=== PATIENT | male | born 1950 | race Caucasian/White ===

== ENCOUNTER 2022-12-03 14:14 | Emergency (ER) | payer BC, SELFPAY ==
[2022-12-03 14:25] VITALS: BP 111/55; BP 97/49; PULSE 80; PULSE 82; RESP 18; TEMP 37.2; O2SAT 100; BMI 23.6
--- OUTSIDE RECORDS SUMMARY | 2022-12-03 14:56 | XMS_ITS | Continuity of Care Document ---
:1950 Author Organization [facility] Address [address] [place] [address]- Care Team Providers Name Role Phone Marlin HARPER, Rivera Canseco Primary Care Physician Encounter [facility] Date(s): 02/13/20 - 03/20/20 [facility] [address] [place] [address] [facility] Attending Physician: Blair Gibbs MD Admitting Physician: Blair Gibbs MD Referring Physician: Rivera Isaac MD Allergies, Adverse Reactions, Alerts Substance Reaction Severity Status penicillins1 joint swelling Active 1Tolerates cefazolin Immunizations Not Given Vaccine Date Status Refusal Reason pneumococcal 13-valent vaccine 09/12/19 Not Given P atient Refuses pneumococcal 23-valent vaccine 05/04/17 Not Given P atient Refuses influenza virus vaccine, inactivated 09/27/15 Not Given Patient Refuses Medications cyanocobalamin 100 mcg oral tablet 100 mcg, 1, tablet, By Mouth, Daily, # 30 tablet, Refills 0, Tot. Refills 0, Maintenance, 09/25/19 8:02:00 EST, Route to Pharmacy Electronically, [facility], 178, cm, 09/25/19 5:34:00 EST, Height, 70.8, kg, 09/11/19 1:02:00 EST, Dry Weight Start Date: 09/25/19 Status: Ordereddoxycycline hyclate 100 mg oral capsule 1 capsule = 100 mg, By Mouth, Every 12 hours, for 14 days, may take with food to minimize abdominal discomfort, # 28 capsule, 1 Refills, Acute 04/12/20 15:59:00 EDT, 03/15/20 15:59:00 EDT, Capsule, [facility], 178, cm, 03/15/20 15:41:00... Start Date: 03/15/20 Stop Date: 04/12/20 Status: Orderedlidocaine 5% topical film See Instructions, Topically Daily, # 30 patch, 0 Refills, Maintenance, 09/25/19 8:02:00 EST, Patch, [facility], ok to substitute similar lidocaine topical product, if needed for better insurance coverage, Topically Daily, 178, cm, ... Start Date: 09/25/19 Status: Orderedpantoprazole 40 mg oral delayed release tablet = 40 mg, By Mouth, Daily, # 30 tablet, 0 Refills, Maintenance, 09/25/19 8:03:00 EST, EC Tablet, 178,cm, 09/25/19 5:34:00 EST, Height, 70.8, kg, 09/11/19 1:02:00 EST, Dry Weight Start Date: 09/25/19 Stop Date: 10/25/19 Status: Orderedprochlorperazine 5 mg oral tablet 1 tablet = 5 mg, By Mouth, 3 times a day, PRN Nausea & Vomiting, # 30 tablet, 0 Refills, Maintenance, 09/30/19 11:53:00 EST, Tablet, [facility], 178, cm, 09/25/19 5:34:00 EST, Height, 70.8, kg, 09/11/19 1:02:00 EST, Dry Weight Start Date: 09/30/19 Status: OrderedSilvadene 1% cream 1 application, Topically, Daily, # 400 Gm, 5 Refills, Maintenance, 06/20/18 16:21:05 EDT, Cream, 1 application Topically Daily Start Date: 06/20/18 Status: Orderedsilver sulfADIAZINE 1% topical cream 1 application, Topically, Daily, for 30 days, apply to left arm wound, # 400 Gm, 2 Refills, Acute 04/14/20 15:40:00 EDT, 01/15/20 15:40:00 EDT, Cream, [facility], 1 application Topically Daily,x30 days,Instr:apply to left arm wound, 178,... 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
--- OUTSIDE RECORDS SUMMARY | 2022-12-03 14:56 | XMS_ITS | Continuity of Care Document ---
:1950 Author Organization [facility] Care Team Providers Name Role Phone [facility] Unavailable Unavailable Problems Combined list of problems from Department of Defense and Veterans Affairs facilities. It does not include entries that were removed or entered in error. Problem Status Onset Problem Type Date of Comments Source Date Resolution Chronic low back Active Condition [facility] [place] [facility] Chronic pain Active Condition [facility] [place] [facility] Primary Care Active Condition Dec 09 [facility] Physician 2018 [place] Entered By: [facility] KENDALL MCCAULEY Comment: Dr. Rivera fritz [place] Diagnosis: Active Diagnosis [place] [facility] ICD-10-CM Z59.811 [place] [facility] instability, housed, with risk of homelessnesswith Provider Comments: Housing instability, housed, with risk of homelessness Diagnosis: Active Diagnosis [place] [facility] ICD-10-CM Z02.89 JOSE FUENTES Encounter for other [facility] administrative examinationswith Provider Comments: Odlb-oo-Ryau Examination (C&P/SHA) Medications Combined list of outpatient medications from Department of Defense and Veterans Affairs facilities. Medications provided include 1) outpatient medications from the last 15 months, and 2) patient-reported medications. Medication Details Route Status Patient Prescription Prescription Last Ordering Order Source Instructions Expires Number Dispense Provider Date Date CARISOPRODO TAKE TWO ORAL ACTIVE VIRIDIANA MCCAULEY 11/07/ [facility] L 350MG TAB TABLETS SA DAVIDE2017 CN[facility] L BY MOUTH WSTRN THREE [place] TIMES A SETS DAY HCS OXYCODONE TAKE ONE ORAL ACTIVE VIRIDIANA MCCAULEY 11/07/ V A HCL 40MG TABLET SA DAVIDE 2017 CNTRL TAB,SA BY MOUTH WSTRN FOUR [place] TIMES SETS DAILY HCS NEEDED OXYCODONE TAKE ONE ORAL ACTIVE GARRICK,LI 11/07/ V A HCL TABLET SA DAVIDE2017 CNTRL 5MG/ACETAMI BY MOUTH WSTRN NOPHEN FOUR [place] 325MG TAB TIMES SETS DAILY HCS NEEDED TEMAZEPAM TAKE 1 ORAL ACTIVE GARRICKVIRIDIANA [place] 15MG CAP CAPSULE SA DAVIDE 2017 [facility] BY MOUTH [place] BEDTIME [place] [facility] Allergies, Adverse Reactions, Alerts Combined list of allergies from Department of Defense and Veterans Affairs facilities. It does not include entries that were removed or entered in error. Substance Category Reaction Severity Reaction Status Date Comments S ource type Reported PENICILLIN Propensity active [facility] to adverse 4 [place] reactions [place] to drug [facility] (finding) Immunizations Combined list of available immunizations from the Department of Defense and Veterans Affairs facilities. Immunization Series Date Administered Site Reaction Lot [facility] atus Comments Source Given By Number Code Allergist/Pediatric Pulmonologist INFLUENZA, complet Dr. CARBAJAL SEASONAL, 2016 ed Rivear PARDO TRL INJECTABLE Mugg WST RN [place] [facility] Encounters Combined list of: 1) Encounters from Department of Veterans Affairs facilities going back up to the last 18 months. 2) Encounters from the Department of Defense facilities going back up to 280 months. Location Location Encounter Encounter Reason Attending ADM DC Stat us Disposition Source Details Type Number For Provider Date Date Visit Outpatient [id number] Diagnos REMBERTO CAN 11/16 [place] Encounter [id number] is: DEMARCUS CNTR L ICD-10- [place]N CM [place] Z02.89 [facility] er for other adminis trative examina tions<b r/>with Provide r Comment s: Face-to -Face Examina tion (C&P/SH A) Outpatient [id number] 05/01 [facility] En[facility] [id number] [facility] [place] [facility] Outpatient [id number] Diagnos MEAGANABIGAIL CURRY 10/30 [facility] Encounter [id number] is: CNTRL ICD-10- WSTRN CM [place] Z59.811 SET[place] Housing [facility] instabi lity, housed, with risk of homeles sness<b r/>with Provide r Comment s: Housing instabi lity, housed, with risk of homeles sness Social History Combined list of available smoking, tobacco, and other social [facility]. Social History Type Response Date Comment Source Tobacco smoking status LIFETIME NON-TOBACCO USER 11/07/2017 [facility] History of tobacco use LIFETIME NON-TOBACCO USER 09/13/2014 [facility]
--- OUTSIDE RECORDS SUMMARY | 2022-12-03 14:56 | XMS_ITS | Continuity of Care Document ---
:1950 Author Organization [facility] Address [address] [place] [address]- Care Team Providers Name Role Phone Marlin HARPER, Rivera Canseco Primary Care Physician Encounter [facility] Date(s): 04/29/20 - 05/03/[address] [address] [facility] Encounter Diagnosis Vomiting (Final) - 04/29/20 Urinary retention (Final) - 04/29/20 Hypokalemia (Final) - 04/29/20 Bradycardia (Final) - 04/29/20 Discharge Disposition: A-D/C Home Attending Physician: Vernell Johnson MD Admitting Physician: Khoa Sandoval MD Referring Physician: Not on Staff, Referring MD Allergies, Adverse Reactions, Alerts Substance Reaction Severity Status penicillins1 joint swelling Active 1Tolerates cefazolin Immunizations Not Given Vaccine Date Status Refusal Reason pneumococcal 13-valent vaccine 09/12/19 Not Given P atient Refuses pneumococcal 23-valent vaccine 05/04/17 Not Given P atient Refuses influenza virus vaccine, inactivated 09/27/15 Not Given Patient Refuses Medications acetaminophen-oxyCODONE 325 mg-5 mg oral tablet 1, tablet, By Mouth, 4 times a day Start Date: 04/29/20 Status: OrderedBuPROPion (Eqv-Wellbutrin SR) 150 mg/12 hours oral tablet, extended release 1 tablet = 150 mg, By Mouth, 2 times a day Start Date: 04/29/20 Status: Orderedcarisoprodol 350 mg oral tablet 2 tablets, By Mouth, 3 times a day, PRN as needed Start Date: 04/29/20 Status: Orderedcyanocobalamin 100 mcg oral tablet 100 mcg, 1, tablet, By Mouth, Daily, # 30 tablet, Refills 0, Tot. Refills 0, Maintenance, 05/03/20 11:03:00 EDT, Route to Pharmacy Electronically, [facility], 178, cm, 03/29/20 15:54:00 EDT, Height, 79.5, kg, 10/16/19 16:22:00 EST, Dry W... Start Date: 05/03/20 Stop Date: 06/02/20 Status: Orderedmorphine 30 mg/8 to 12 hr oral tablet, extended release 2 tablet = 60 mg, By Mouth, 3 times a day Start Date: 04/29/20 Status: Orderedondansetron 4 mg oral tablet, disintegrating 1 tablet = 4 mg, By Mouth, Every 6 hours, PRN Nausea & Vomiting, # 12 tablet, 0 Refills, Maintenance, 05/03/20 11:04:00 EDT, Tablet, [facility], 178, cm, 03/29/20 15:54:00 EDT, Height, 79.5, kg, 10/16/19 16:22:00 EST, Dry Weight Start Date: 05/03/20 Stop Date: 05/06/20 Status: OrderedSilvadene 1% cream 1 application, Topically, Daily, # 400 Gm, 5 Refills, Maintenance, 06/20/18 16:21:05 EDT, Cream, 1 application Topically Daily Start Date: 06/20/18 Status: Ordered Problem List Condition Effective Dates Status Health Status Informant MSSA bacteremia(Confirmed) Active Chronic back pain(Confirmed) Active Wound: forearm(Confirmed) Active right brachial artery Active pseudoaneurysm(Confirmed) Septic arthritis: Right Active Shoulder(Confirmed) Results Orders for Microbiology Reports Name Date Blood Culture 04/28/20 Blood Culture #2 04/28/20 Microbiology Reports TEST:Blood Culture, Second Order STATUS:Auth (Verified) BODY SITE: SOURCE:Blood COLLECTED DATE/TIME:04/28/20 7:25 PMBlood Culture, Second Order SPECIMEN DESCRIPTION : BLOOD L AC SPECIAL REQUESTS : NONE CULTURE : NO GROWTH 5 DAYS. REPORT STATUS : FINAL 05/03/2020TEST:Blood Culture STATUS:Auth (Verified) BODY SITE: SOURCE:Blood COLLECTED DATE/TIME:04/28/20 7:00 PMBlood Culture SPECIMEN DESCRIPTION : BLOOD L AC SPECIAL REQUESTS : NONE CULTURE : NO GROWTH 5 DAYS. REPORT STATUS : FINAL 05/03/2020 Vital Signs Most recent to oldest 1 2 3 [Reference Range]: Oxygen Saturation [94-100 %] 100 % 98 % 98 % (05/03/20 11:10 AM) (05/03/20 7:42 AM) (05/03/20 4: 48 AM) Pulse Rate [55-90 bpm] 70 bpm 72 bpm 85 bpm (05/03/20 11:10 AM) (05/03/20 7:42 AM) (05/03/20 4: 48 AM) Blood Pressure [90-138/55-84 100/57 mm Hg 106/64 mm Hg 111 /68 mm Hg mm Hg] (05/03/20 11:10 AM) (05/03/20 7:42 AM) (05/03/20 4: 48 AM) Respiratory Rate [16-30 20 br/min 20 br/min 18 br/mi n br/min] (05/03/20 11:10 AM) (05/03/20 7:42 AM) (05/03/20 4: 48 AM) Temperature [96.8-100.4 DegF] 98.7 DegF 98.5 DegF 98 .6 DegF (05/03/20 11:10 AM) (05/03/20 7:42 AM) (05/03/20 4: 48 AM) Mode of Delivery (Oxygen) Room air Room air Room a ir (05/03/20 11:10 AM) (05/03/20 7:42 AM) (05/03/20 4: 48 AM) Blood pressure sites Arm, left Arm, right Arm, right (05/03/20 11:10 AM) (05/03/20 7:42 AM) (05/03/20 4: 48 AM) Temperature Route Oral Oral Oral (05/03/20 11:10 AM) (05/03/20 7:42 AM) (05/03/20 4: 48 AM) Social History Social History Type Response Smoking Status Never smoker entered on: 11/17/15 Sex
--- OUTSIDE RECORDS SUMMARY | 2022-12-03 14:56 | XMS_ITS | Continuity of Care Document ---
:1950 Author Organization [facility] Address [address] [place] [address]- Care Team Providers Name Role Phone Marlin HARPER, Rivera Canseco Primary Care Physician Encounter [facility] Date(s): 09/21/19 - 10/01/19 W[facility] Care [address] [place] [address]- [facility] Attending Physician: Kevan Bolaños Admitting Physician: Kevan Bolaños Referring Physician: AdmtrKevan Allergies, Adverse Reactions, Alerts Substance Reaction Severity Status penicillins1 joint swelling Active 1Tolerates cefazolin Immunizations Not Given Vaccine Date Status Refusal Reason pneumococcal 13-valent vaccine 09/12/19 Not Given P atient Refuses pneumococcal 23-valent vaccine 05/04/17 Not Given P atient Refuses influenza virus vaccine, inactivated 09/27/15 Not Given Patient Refuses Medications ceFAZolin 2 g intravenous injection = 2 Gm, IV Infusion, Every 8 hours, Infectious Disease team will decide duration of antibiotics whenthey see you October 20., # 1 each, 0 Refills, Acute 10/31/19 8:00:00 EST, 09/25/19 7:58:00 EST, [facility], 178, cm, 09/25/19 5:34:00... Start Date: 09/25/19 Stop Date: 10/31/19 Status: Orderedcyanocobalamin 100 mcg oral tablet 100 mcg, 1, tablet, By Mouth, Daily, # 30 tablet, Refills 0, Tot. Refills 0, Maintenance, 09/25/19 8:02:00 EST, Route to Pharmacy Electronically, [facility], 178, cm, 09/25/19 5:34:00 EST, Height, 70.8, kg, 09/11/19 1:02:00 EST, Dry Weight Start Date: 09/25/19 Status: Orderedibuprofen 600 mg oral tablet 600 mg, 1, tablet, By Mouth, 3 times a day, PRN, for 14 days, not to exceed 3200 mg/day, # 42 tablet, Refills 0, Tot. Refills 0, Acute 10/09/19 8:01:00 EST, Pain , Mild, 09/25/19 8:01:00 EST, Route to Pharmacy Electronically, [facility],... Start Date: 09/25/19 Stop Date: 10/09/19 Status: Orderedlidocaine 5% topical film See Instructions, Topically Daily, # 30 patch, 0 Refills, Maintenance, 09/25/19 8:02:00 EST, Patch, [facility], ok to substitute similar lidocaine topical product, if needed for better insurance coverage, Topically Daily, 178, cm, ... Start Date: 09/25/19 Status: Orderedmorphine 30 mg/12 to 24 hr oral capsule, extended release 2 capsule = 60 mg, By Mouth, Every 12 hours, # 12 capsule, 0 Refills, Maintenance, 09/25/19 8:44:00 EST, [facility], Partial fill upon patient request, 178, cm, 09/25/19 5:34:00 EST, Height, 70.8, kg, 09/11/19 1:02:00 EST, Dry Weight Start Date: 09/25/19 Stop Date: 09/28/19 Status: Orderedpantoprazole 40 mg oral delayed release tablet = 40 mg, By Mouth, Daily, # 30 tablet, 0 Refills, Maintenance, 09/25/19 8:03:00 EST, EC Tablet, 178,cm, 09/25/19 5:34:00 EST, Height, 70.8, kg, 09/11/19 1:02:00 EST, Dry Weight Start Date: 09/25/19 Stop Date: 10/25/19 Status: OrderedPercocet-5/325 325 mg-5 mg oral tablet 1, tablet, By Mouth, 4 times a day, PRN, Refills 0, Tot. Refills 0, Maintenance, for pain, 10/16/18 17:28:00 EST, Tablet Start Date: 10/16/18 Status: Orderedprochlorperazine 5 mg oral tablet 1 [...] application Topically Daily Start Date: 06/20/18 Status: OrderedSoma 350 mg oral tablet 1 tablet = 350 mg, By Mouth, 3 times a day, 0 Refills, Maintenance, 09/26/15 12:15:15 EST, Tablet Start Date: 09/26/15 Status: Ordered Problem List Condition Effective Dates Status Health Status Informant Chronic back pain(Confirmed) Active Social History Social History Type Response Smoking Status Never smoker entered on: 11/17/15 Sex
--- OUTSIDE RECORDS SUMMARY | 2022-12-03 14:56 | XMS_ITS | Continuity of Care Document ---
:1950 Author Organization [facility] Address [address] [place] [address]- Care Team Providers Name Role Phone Marlin HARPER, Rivera Canseco Primary Care Physician Encounter [facility] Date(s): 10/06/19 - 10/13/[address] [address]- [facility] Attending Physician: Not on Staff, Attending MD Allergies, Adverse Reactions, Alerts Substance Reaction [...] Acute 10/31/19 8:00:00 EST, 09/25/19 7:58:00 EST, [facility], 178, cm, 09/25/19 5:34:00... Start Date: 09/25/19 Stop Date: 10/31/19 Status: Orderedcyanocobalamin 100 mcg oral tablet 100 mcg, 1, tablet, By Mouth, Daily, # 30 tablet, Refills 0, Tot. Refills 0, Maintenance, 09/25/19 8:02:00 EST, Route to Pharmacy Electronically, [facility], 178, cm, 09/25/19 5:34:00 EST, Height, 70.8, kg, 09/11/19 1:02:00 EST, Dry Weight Start Date: 09/25/19 Status: Orderedlidocaine 5% topical film See Instructions, Topically Daily, # 30 patch, 0 Refills, Maintenance, 09/25/19 8:02:00 EST, Patch, [facility], ok to substitute similar lidocaine topical product, if needed for better insurance coverage, Topically Daily, 178, cm, ... Start Date: 09/25/19 Status: Orderedmorphine 30 mg/12 to 24 hr oral capsule, extended release 2 capsule = 60 mg, By Mouth, Every 12 hours, # 12 capsule, 0 Refills, Maintenance, 09/25/19 8:44:00 EST, [facility], Partial fill upon patient request, 178, [...]
--- OUTSIDE RECORDS SUMMARY | 2022-12-03 14:56 | XMS_ITS | Continuity of Care Document ---
:1950 Author Organization [facility] Address [address] [place] [phone]- Care Team Providers Name Role Phone Marlin HARPER, Rivera Canseco Primary Care Physician [facility]counter [facility] Date(s): 09/28/19 - 10/05/[address] [address]- [facility] Attending Physician: Not on Staff, [...] Acute 10/31/19 8:00:00 EST, 09/25/19 7:58:00 EST, [facility], 178, cm, 09/25/19 5:34:00... Start Date: 09/25/19 Stop Date: 10/31/19 Status: Orderedcyanocobalamin 100 mcg oral tablet 100 mcg, 1, tablet, By Mouth, Daily, # 30 tablet, Refills 0, Tot. Refills 0, Maintenance, 09/25/19 8:02:00 EST, Route to Pharmacy Electronically, [facility], 178, cm, 09/25/19 5:34:00 [...] 09/25/19 8:01:00 EST, Route to Pharmacy Electronically, [facility],... Start Date: 09/25/19 Stop Date: 10/09/19 Status: Orderedlidocaine 5% topical film See Instructions, Topically Daily, # 30 patch, 0 Refills, Maintenance, 09/25/19 8:02:00 EST, Patch, [facility], ok to substitute similar lidocaine topical product, if needed for better insurance coverage, Topically Daily, 178, cm, ... Start Date: 09/25/19 Status: Orderedmorphine 30 mg/12 to 24 hr oral capsule, extended release 2 capsule = 60 mg, By Mouth, Every 12 hours, # 12 capsule, 0 Refills, Maintenance, 09/25/19 8:44:00 EST, [facility], Partial fill upon patient request, 178, [...] pain, 10/16/18 17:28:00 EST, Tablet Start Date: 1/31/19 Status: Orderedprochlorperazine 5 mg oral tablet 1 [...]
--- OUTSIDE RECORDS SUMMARY | 2022-12-03 14:56 | XMS_ITS | Continuity of Care Document ---
:1950 Author Organization [facility] Address [address] [place] [address]- Care Team Providers Name Role Phone Marlin HARPER, Rivera Canseco Primary Care Physician Encounter [facility] ACCT R [id number] Date(s): 04/09/20 - 05/15/20 [facility] [address] [place] [address]- [facility] Attending Physician: Blair Gibbs MD Admitting Physician: [...] 05/03/20 11:03:00 EDT, Route to Pharmacy Electronically, [facility], 178, cm, 03/29/20 15:54:00 EDT, [...] 0 Refills, Maintenance, 05/03/20 11:04:00 EDT, Tablet, [facility], 178, cm, 03/29/20 15:54:00 EDT, [...]
--- OUTSIDE RECORDS SUMMARY | 2022-12-03 14:56 | XMS_ITS | Continuity of Care Document ---
:1950 Author Organization [facility] Address [address] [place] [address]- Care Team Providers Name Role Phone Marlin HARPER, Rivera Canseco Primary Care Physician Encounter [facility] Date(s): 09/22/19 - 11/19/19 [facility] [address] [place] [address]- [facility] Attending Physician: Rubio Weaver MD Admitting Physician: Rubio Weaver MD Referring Physician: Rivera Isaac MD Allergies, [...] 09/25/19 8:02:00 EST, Route to Pharmacy Electronically, [facility], 178, cm, 09/25/19 5:34:00 EST, Height, 70.8, kg, 09/11/19 1:02:00 EST, Dry Weight Start Date: 09/25/19 Status: Orderedlidocaine 5% topical film See Instructions, Topically Daily, # 30 patch, 0 Refills, Maintenance, 09/25/19 8:02:00 EST, Patch, [facility], ok to substitute similar [...]
--- OUTSIDE RECORDS SUMMARY | 2022-12-03 14:56 | XMS_ITS | Encounter Summary ---
:1950 Author Organization [facility] Address [address] [place] [address] Insurance Providers: All historical and current Section Date Range: From patient's date of to the date document was created.This section includes the names of all active insurance providers for the patient. Insurance Type of Plan Start of End of Group Member Insurance Policy P atient's Provider Coverage Name Policy Policy Number ID Provider's Tijerina's Relationship Coverage Coverage Telephone Name to Policy Number Tijerina [place] PREFERRED STAND Sep 21 [id number] [phone] KUMAR COLLIER, PATIENT FEP PROVIDER LORE [phone] NANI ORGANIZAT INDIV ION (PPO) IDUAL CAREMARK-F PRESCRIPT FEP Sep 16 [id number] [phone] FELIPE PATIÑO, PATIENT EP BCBS ION CAREM [phone] NANI MUHAMMAD Selected Encounter This section includes the information on record at [place] for the Encounter. Date/Time Encounter Type Encounter Description Reason Provider Source May 01, 2022 01:12 Outpatient Encounter TELEPHONE CASE PM MANAGEMENT IHE Encounter Template Text not used by [facility] Encounter Notes: All associated encounter notes This section contains the clinical notes associated to the Encounter. 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 is a pending discharge and she wanted to notify us. /natasha/ Radha Ontiveros RN-BS Gun [employer] Signed: 05/01/2022 13:13
--- OUTSIDE RECORDS SUMMARY | 2022-12-03 14:56 | XMS_ITS | Continuity of Care Document ---
:1950 Author Organization [facility] Address [address] [place] [address]- Care Team Providers Name Role Phone Marlin HARPER, Rivera Canseco Primary Care Physician Encounter [facility] Date(s): 10/13/19 - 11/12/[address] [address]- [facility] Attending Physician: Mg Dubon MD Admitting Physician: Julian Ramirez MD, Mg Referring Physician: Julian Ramirez MD, Mg Allergies, Adverse Reactions, Alerts Substance Reaction Severity [...] 09/25/19 8:02:00 EST, Route to Pharmacy Electronically, [facility], 178, cm, 09/25/19 5:34:00 EST, Height, 70.8, kg, 09/11/19 1:02:00 EST, Dry Weight Start Date: 09/25/19 Status: Orderedlidocaine 5% topical film See Instructions, Topically Daily, # 30 patch, 0 Refills, Maintenance, 09/25/19 8:02:00 EST, Patch, [facility], ok to substitute similar [...]
--- OUTSIDE RECORDS SUMMARY | 2022-12-03 14:56 | XMS_ITS | Continuity of Care Document ---
:1950 Author Organization [facility] Address [address] [place] [address]- Care Team Providers Name Role Phone Marlin HARPER, Rivera Canseco Primary Care Physician [facility]counter [facility] Date(s): 10/13/19 - 10/23/19 [facility] [address] [place] [address]- [facility] Attending Physician: Kevan Bolaños Admitting Physician: Kevna Bolaños Referring Physician: AdmtrKevan Allergies, Adverse Reactions, Alerts Substance Reaction Severity Status penicillins1 joint swelling Active 1Tolerates cefazolin Immunizations Not Given Vaccine Date Status Refusal Reason pneumococcal 13-valent vaccine 09/12/19 Not Given P atient Refuses pneumococcal 23-valent vaccine 05/04/17 Not Given P atient Refuses influenza virus vaccine, inactivated 09/27/15 Not Given Patient Refuses Medications bisacodyl 10 mg rectal suppository 1 supp = 10 mg, Rectally, Daily, PRN Constipation, for 5 days, # 5 supp, 0 Refills, Acute 10/25/19 10:42:00 EST, 10/20/19 10:42:00 EST, Suppository, [facility], 178, cm, 10/20/19 5:00:00 EST, Height, 79.5, kg, 10/16/19 16:22:00 EST, Dry... Start Date: 10/20/19 Stop Date: 10/25/19 Status: Orderedcyanocobalamin 100 mcg oral tablet 100 mcg, 1, tablet, By Mouth, Daily, # 30 tablet, Refills 0, Tot. Refills 0, Maintenance, 09/25/19 8:02:00 EST, Route to Pharmacy Electronically, [facility], 178, cm, 09/25/19 5:34:00 EST, Height, 70.8, kg, 09/11/19 1:02:00 EST, Dry Weight Start Date: 09/25/19 Status: Ordereddocusate-senna 50 mg-187 mg oral tablet 1 tablet, By Mouth, Daily, for 5 days, # 5 tablet, 0 Refills, Acute 10/25/19 10:42:00 EST, 10/20/19 10:42:00 EST, Tablet, [facility], 1 tablet By Mouth Daily,x5 days, 178, cm, 10/20/19 5:00:00 EST, Height, 79.5, kg, 10/16/19 16:22:00 EST... Start Date: 10/20/19 Stop Date: 10/25/19 Status: Orderedfluconazole 200 mg oral tablet 2 tablet = 400 mg, By Mouth, Daily, for 10 days, # 20 tablet, 0 Refills, Acute 10/30/19 16:20:00 EST, 10/20/19 16:20:00 EST, Tablet, [facility], 178, cm, 10/20/19 5:00:00 EST, Height,79.5, kg, 10/16/19 16:22:00 EST, Dry Weight Start Date: 10/20/19 Stop Date: 10/30/19 Status: OrderedlevoFLOXacin 750 mg oral tablet 1 tablet = 750 mg, By Mouth, Every 24 hours, for 10 days, # 10 tablet, 0 Refills, Acute 10/30/19 16:20:00 EST, 10/20/19 16:20:00 EST, Tablet, [facility], 178, cm, 10/20/19 5:00:00 EST, Height, 79.5, kg, 10/16/19 16:22:00 EST, Dry Weight Start Date: 10/20/19 Stop Date: 10/30/19 Status: Orderedlidocaine 5% topical film See Instructions, Topically Daily, # 30 patch, 0 Refills, Maintenance, 09/25/19 8:02:00 EST, Patch, [facility], ok to substitute similar [...]
--- OUTSIDE RECORDS SUMMARY | 2022-12-03 14:56 | XMS_ITS | Continuity of Care Document ---
:1950 Author Organization [facility] Address [address] [place] [address]- Care Team Providers Name Role Phone Marlin HARPER, Rivera Canseco Primary Care Physician En[place] [facility] AC[facility] [id number] Date(s): 07/29/20 - 08/28/20 [facility] [address] [place] [address] Attending Physician: Kevan Bolaños Admitting Physician: Kevan [...]
--- OUTSIDE RECORDS SUMMARY | 2022-12-03 14:56 | XMS_ITS | Continuity of Care Document ---
:1950 Author Organization [facility] Address [address] [place] [address]- Care Team Providers Name Role Phone Marlin HARPER, Rivera Canseco Primary Care Physician Encounter [facility] Date(s): 10/09/19 - 11/12/19 [facility] [address] [place] [address]- [facility] Attending Physician: Willy Hodge MD Admitting Physician: Willy Hodge MD Allergies, Adverse Reactions, Alerts Substance Reaction [...] 09/25/19 8:02:00 EST, Route to Pharmacy Electronically, [facility], 178, cm, 09/25/19 5:34:00 EST, Height, 70.8, kg, 09/11/19 1:02:00 EST, Dry Weight Start Date: 09/25/19 Status: Orderedlidocaine 5% topical film See Instructions, Topically Daily, # 30 patch, 0 Refills, Maintenance, 09/25/19 8:02:00 EST, Patch, [facility], ok to substitute similar [...]
--- OUTSIDE RECORDS SUMMARY | 2022-12-03 14:56 | XMS_ITS | Continuity of Care Document ---
:1950 Author Organization [facility] Address [address] [place] [address]- Care Team Providers Name Role Phone Marlin HARPER, Rivera Canseco Primary Care Physician Encounter [facility] Date(s): 10/20/19 - 10/30/19 [facility] [address] [place] [address]- [facility] Attending Physician: Kevan Bolaños Admitting Physician: AdmtrKevan Referring Physician: [id number] Allergies, Adverse Reactions, Alerts Substance Reaction Severity [...] 09/25/19 8:02:00 EST, Route to Pharmacy Electronically, [facility], 178, cm, 09/25/19 5:34:00 EST, Height, 70.8, kg, 09/11/19 1:02:00 EST, Dry Weight Start Date: 09/25/19 Status: Orderedlidocaine 5% topical film See Instructions, Topically Daily, # 30 patch, 0 Refills, Maintenance, 09/25/19 8:02:00 EST, Patch, [facility], ok to substitute similar [...]
--- OUTSIDE RECORDS SUMMARY | 2022-12-03 14:56 | XMS_ITS | Continuity of Care Document ---
:1950 Author Organization [facility] Address [address] [place] [address]- Care Team Providers Name Role Phone Marlin HARPER, Rivera Canseco Primary Care Physician [place] [facility] [place] 10/14/19 - 10/20/[address] [address]- [facility] Encounter Diagnosis Bilateral lower leg cellulitis (Final) - 10/14/19 Acute sepsis (Final) - 10/14/19 Discharge Disposition: A-Transfer VNA/Home Health Attending Physician: Evangelina Kilgore MD Admitting Physician: Tre Bojorquez DO Referring Physician: Not on Staff, Referring MD [...] 10/25/19 10:42:00 EST, 10/20/19 10:42:00 EST, Suppository, [facility], 178, cm, 10/20/19 5:00:00 EST, Height, 79.5, kg, 10/16/19 16:22:00 EST, Dry... Start Date: 10/20/19 Stop Date: 10/25/19 Status: Orderedcyanocobalamin 100 mcg oral tablet 100 mcg, 1, tablet, By Mouth, Daily, # 30 tablet, Refills 0, Tot. Refills 0, Maintenance, 09/25/19 8:02:00 EST, Route to Pharmacy Electronically, [facility], 178, cm, 09/25/19 5:34:00 EST, Height, 70.8, kg, 09/11/19 1:02:00 EST, Dry Weight Start Date: 09/25/19 Status: Ordereddocusate-senna 50 mg-187 mg oral tablet 1 tablet, By Mouth, Daily, for 5 days, # 5 tablet, 0 Refills, Acute 10/25/19 10:42:00 EST, 10/20/19 10:42:00 EST, Tablet, [facility], 1 tablet By Mouth Daily,x5 days, [...] 0 Refills, Maintenance, 09/25/19 8:02:00 EST, Patch, [facility], ok to substitute similar lidocaine topical product, if needed for better insurance coverage, Topically Daily, 178, cm, ... Start Date: 09/25/19 Status: Orderedmorphine 15 mg oral tablet, immediate release 1 tablet = 15 mg, By Mouth, Every 6 hours, PRN Pain , Severe, for 2 days, # 8 tablet, 0 Refills, Acute 10/22/19 16:20:00 EST, 10/20/19 16:20:00 EST, Tablet, [facility], Partial fill upon patient request, 178, cm, 10/20/19 5:00:00 EST, He... Start Date: 10/20/19 Stop Date: 10/22/19 Status: Orderedpantoprazole 40 mg oral delayed release [...] for Microbiology Reports Name Date Blood Culture 10/16/19 Blood Culture #2 10/16/19 Blood Culture 10/14/19 Blood Culture #2 10/14/19 Microbiology Reports TEST:Blood Culture, Second Order STATUS:Unauthenticated BODY SITE: SOURCE:Blood COLLECTED DATE/TIME:10/16/19 11:50 AMBlood Culture, Second Order SPECIMEN DESCRIPTION : BLOOD NOSITE SPECIAL REQUESTS : NONE CULTURE : NO GROWTH 4 DAYS REPORT STATUS : PRELIMINARY REPORT TEST:Blood Culture STATUS:Unauthenticated BODY SITE: SOURCE:Blood COLLECTED DATE/TIME:10/16/19 7:14 AMBlood Culture SPECIMEN DESCRIPTION : BLOOD R ARM SPECIAL REQUESTS : NONE CULTURE : NO GROWTH 4 DAYS REPORT STATUS : PRELIMINARY REPORT TEST:Blood Culture, Second Order STATUS:Auth (Verified) BODY SITE: SOURCE:Blood COLLECTED DATE/TIME:10/14/19 6:15 AMBlood Culture, Second Order SPECIMEN DESCRIPTION : BLOOD LF ARM SPECIAL REQUESTS : CRITICAL VALUE CALLED AND VERIFIED BY READBACK FOR: GRAM NEGATIVE RODS TO [id number] IN D6B ON 10/15/19 0040 BY TECH [id number]. CULTURE : ENTEROBACTER CLOACAE REPORT STATUS : FINAL 10/17/2019 ORGANISM ENTEROBACTER CLOACAE METHOD MIN. INHIB. CONC. (MCG/ML) AMPICILLIN SUSCEPTIBLE AMPICILLIN/SULBACTAM SUSCEPTIBLE AMOXICILLIN/CLAVULAN SUSCEPTIBLE CEFAZOLIN SUSCEPTIBLE CEFEPIME SUSCEPTIBLE CEFTRIAXONE SUSCEPTIBLE CIPROFLOXACIN SUSCEPTIBLE GENTAMICIN SUSCEPTIBLE LEVOFLOXACIN SUSCEPTIBLE MEROPENEM SUSCEPTIBLE PIPERACILLIN/TAZOBAC SUSCEPTIBLE TRIMETH/SULFAMETHOX SUSCEPTIBLE TETRACYCLINE SUSCEPTIBLETEST:Blood Culture STATUS:Auth (Verified) BODY SITE: SOURCE:Blood COLLECTED DATE/TIME:10/14/19 6:00 AMBlood Culture SPECIMEN DESCRIPTION : BLOOD NONE SPECIAL REQUESTS : CRITICAL VALUE CALLED AND VERIFIED BY READBACK FOR: GRAM NEGATIVE RODS TO [id number] IN ED ON 10/14/19 1745 BY TECH [id number]. YEAST ID BY PCR TO [id number] IN ED 10/14/19 2245 BY TECH [id number]. CULTURE : ENTEROBACTER CLOACAE Enterobacter cloacae complex was identified by multi-plex PCR Diya albicans was identified by multi-plex PCR DIYA ALBICANS REPORT STATUS : FINAL 10/16/2019 ORGANISM ENTEROBACTER CLOACAE METHOD MIN. INHIB. CONC. (MCG/ML) AMPICILLIN SUSCEPTIBLE AMPICILLIN/SULBACTAM SUSCEPTIBLE AMOXICILLIN/CLAVULAN SUSCEPTIBLE CEFAZOLIN SUSCEPTIBLE CEFEPIME SUSCEPTIBLE CEFTRIAXONE SUSCEPTIBLE CIPROFLOXACIN SUSCEPTIBLE GENTAMICIN SUSCEPTIBLE LEVOFLOXACIN SUSCEPTIBLE MEROPENEM SUSCEPTIBLE PIPERACILLIN/TAZOBAC SUSCEPTIBLE TRIMETH/SULFAMETHOX SUSCEPTIBLE TETRACYCLINE SUSCEPTIBLERadiology Reports Exam Date Time Procedure Performing Provider Status 10/14/19 6:20 AM Chest Portable Kenya Sidhu; Auth (Verified) Notes:(Chest Portable) Reason For Exam: FeverRESULT: Chest Portable Chest Portable Reason: Fever; Clinical Question(s): Pneumonia; picc placement COMPARISON: Prior chest radiographs dated September 10, [address] dated September 27, 2015. FINDINGS: LINES AND TUBES: Tunneled right IJ approach central venous catheter tip terminates in the caval junction. LUNGS AND PLEURA: Low lung volumes result in bronchovascular crowding and bibasilar atelectasis. More confluent opacity at the right lung base and in the retrocardiac region may represent a superimposed infectious process in the proper clinical setting. There is no pulmonary edema, pleural effusion, or pneumothorax. HEART, MEDIASTINUM AND BRIAN: Heart is normal in size. Normal mediastinal and hilar contour. BONES AND SOFT TISSUES: No acute abnormality. IMPRESSION: Low lung volumes with bronchovascular crowding and bibasilar atelectasis. More confluent opacities at both lung bases may represent atelectasis or superimposed infection, depending upon the clinical setting. WSN: [id number] Dictated By: Prateek Preston MD Dictated Date/Time: 10/14/19 8:10 am Reviewed By: Prateek Preston MD Signed By: Prateek Preston MD Signed Date/Time: 10/14/19 8:10 am Transcribed By: SHARATH Transcribed Date/Time: 10/14/19 8:08 am Vital Signs Most recent to oldest 1 2 3 4 [Reference Range]: Height 178 cm 178 cm 178 cm (10/20/19 5:00 AM) (10/19/19 8:33 PM) (10/19/19 5:17 AM) Weight 79.5 kg 77.3 kg (10/16/19 4:22 PM) (10/14/19 11:00 PM) Oxygen Saturation 96 % 99 % 100 % [94-100 %] (10/20/19 5:00 AM) (10/19/19 8:33 PM) (10/19/19 3:00 PM) Pulse Rate [55-90 bpm] 72 bpm 80 bpm 72 bpm (10/20/19 5:00 AM) (10/19/19 8:33 PM) (10/19/19 3:00 PM) Body Mass Index 25.09 24.4 [18.5-24.99] *H* (10/14/19 11:00 PM) (10/16/19 4:22 PM) Blood Pressure 104/67 mm Hg 101/57 mm Hg 103/65 mm Hg [90-138/55-84 mm Hg] (10/20/19 5:00 AM) (10/19/19 8:33 PM) (10/19/19 3:00 PM) Respiratory Rate [16-30 18 br/min 18 br/min 18 br/min 18 b r/min br/min] (10/20/19 5:04 PM) (10/20/19 5:04 PM) (10/20/19 5:04 PM) (10/20/19 5:04 PM) Temperature [96.8-100.4 98.0 DegF 98.8 DegF 98.8 DegF DegF] (10/20/19 5:00 AM) (10/19/19 8:33 PM) (10/19/19 3:00 PM) Mode of Delivery Room air Room air Room air (Oxygen) (10/20/19 5:00 AM) (10/19/19 8:33 PM) (10/19/19 3:00 PM) Blood pressure sites Arm, left Arm, left Arm, left (10/20/19 5:00 AM) (10/19/19 8:33 PM) (10/19/19 3:00 PM) Temperature Route Oral Oral Oral (10/20/19 5:00 AM) (10/19/19 8:33 PM) (10/19/19 3:00 PM) Dry Weight 79.5 kg 77.3 kg (10/16/19 4:22 PM) (10/14/19 11:00 PM) Weight Obtained Via Bed scale (10/14/19 11:00 PM) Dry Weight Obtained Via Bed scale (10/14/19 11:00 PM) Sensory deficits None (10/14/19 11:00 PM) Mobility assistance Transfer, assist of 2 (10/14/19 11:00 PM) Social History Social History Type Response Smoking Status Never smoker entered on: 11/17/15 Sex
--- OUTSIDE RECORDS SUMMARY | 2022-12-03 14:56 | XMS_ITS | Continuity of Care Document ---
:1950 Author Organization [facility] Address [address] [place] [address]- Care Team Providers Name Role Phone Marlin HARPER, Rivera Canseco Primary Care Physician [id number] Date[facility]s): 04/20/20 - 05/26/20 [facility] [address] [place] [address]- [facility] Attending Physician: Blair Gibbs MD Admitting [...]
--- OUTSIDE RECORDS SUMMARY | 2022-12-03 14:56 | XMS_ITS | Continuity of Care Document ---
:1950 Author Organization [facility] Address [address] [place] [address]- Care Team Providers Name Role Phone Marlin HARPER, Rivera Canseco Primary Care Physician Encounter [facility] [place] ACCT R [id number] Date(s): 07/26/20 - 08/28/20 W[facility] Care [address] [place] [id number] Attending Physician: Blair Gibbs MD Admitting Physician: [...]
--- OUTSIDE RECORDS SUMMARY | 2022-12-03 14:56 | XMS_ITS | Continuity of Care Document ---
:1950 Author Organization [facility] Address [address] [place] [address]- Care Team Providers Name Role Phone Marlin HARPER, Rivera Canseco Primary Care Physician Encounter [facility] Date(s): 08/14/19 - 09/19/19 W[facility] Care [address] [place] [address]- [facility] Attending Physician: Blair Gibbs MD Admitting [...] inactivated 09/27/15 Not Given Patient Refuses Medications morphine 30 mg/24 hours oral capsule, extended release 1 capsule = 30 mg, By Mouth, 4 times a day, 0 Refills, Maintenance, 10/16/18 17:26:51 EST, CR Capsule Start Date: 10/16/18 Status: OrderedPercocet-5/325 325 mg-5 mg oral tablet 1, tablet, By Mouth, 4 times a day, PRN, Refills 0, Tot. Refills 0, Maintenance, for pain, 10/16/18 17:28:00 EST, Tablet Start Date: 10/16/18 Status: OrderedSilvadene 1% cream 1 application, Topically, [...]
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
--- OUTSIDE RECORDS SUMMARY | 2022-12-03 14:57 | XMS_ITS | Continuity of Care Document ---
:1950 Author Organization [facility] Address [address] [place] [phone]- Care Team Providers Name Role Phone Marlin HARPER, Rivera Canseco Primary Care Physician Encounter [facility] ACCT R [id number] Date(s): 04/27/20 - 05/27/20 Wound Care [address] [place] [address]- [facility] Attending Physician: Kevan Bolaños Admitting Physician: Kevan [...]
--- OUTSIDE RECORDS SUMMARY | 2022-12-03 14:57 | XMS_ITS | Continuity of Care Document ---
:1950 Author Organization [facility] Address [address] [place] [address]- Care Team Providers Name Role Phone Marlin HARPER, Rivera Canseco Primary Care Physician Encounter [facility] Date(s): 09/15/19 - 10/21/19 Wound Care [address] [place] [id number]- [facility] Attending Physician: Blair Gibbs MD [...] 10/25/19 10:42:00 EST, 10/20/19 10:42:00 EST, Suppository, [facility], 178, cm, 10/20/19 5:00:00 EST, Height, 79.5, kg, 10/16/19 16:22:00 EST, Dry... Start Date: 10/20/19 Stop Date: 10/25/19 Status: Orderedcyanocobalamin 100 mcg oral tablet 100 mcg, 1, tablet, By Mouth, Daily, # 30 tablet, Refills 0, Tot. Refills 0, Maintenance, 09/25/19 8:02:00 EST, Route to Pharmacy Electronically, [facility], 178, cm, 09/25/19 5:34:00 EST, Height, 70.8, kg, 09/11/19 1:02:00 EST, Dry Weight Start Date: 09/25/19 Status: Ordereddocusate-senna 50 mg-187 mg oral tablet 1 tablet, By Mouth, Daily, for 5 days, # 5 tablet, 0 Refills, Acute 10/25/19 10:42:00 EST, 10/20/19 10:42:00 EST, Tablet, [facility], 1 tablet By Mouth [...] 0 Refills, Maintenance, 09/25/19 8:02:00 EST, Patch, [facility], ok to substitute similar [...] EST, 10/20/19 16:20:00 EST, Tablet, [facility], Partial fill upon patient request, [...] 0 Refills, Maintenance, 09/30/19 11:53:00 EST, Tablet, [facility], 178, cm, 09/25/19 5:34:00 EST, [...]
--- OUTSIDE RECORDS SUMMARY | 2022-12-03 14:57 | XMS_ITS | Continuity of Care Document ---
:1950 Author Organization [facility] Address [address] [place] [address]- Care Team Providers Name Role Phone Marlin HARPER, Rivera Canseco Primary Care Physician Encounter [facility] Date(s): 02/26/20 - 04/02/[address] Wound Care [address] [place] [address]- [facility] Attending Physician: Blair [...] 09/25/19 8:02:00 EST, Route to Pharmacy Electronically, [facility], 178, cm, 09/25/19 5:34:00 [...] 0 Refills, Maintenance, 09/25/19 8:02:00 EST, Patch, [facility], ok to substitute similar [...]
--- OUTSIDE RECORDS SUMMARY | 2022-12-03 14:57 | XMS_ITS | Continuity of Care Document ---
:1950 Author Organization [facility] Address [address] [place] [address]- Care Team Providers Name Role Phone Marlin HARPER, Rivera Canseco Primary Care Physician Encounter [facility] Date(s): 09/10/19 - 09/25/[address] [address]- [facility] Encounter Diagnosis Abdominal pain (Final) - 09/10/19 Septic arthritis of shoulder, right (Discharge Diagnosis) - 09/19/19 Discharge Disposition: A-Transfer VNA/Home Health Attending Physician: Khadra De Oliveira MD Admitting Physician: Mildred Bach DO Referring Physician: Not on Staff, Referring [...] Acute 10/31/19 8:00:00 EST, 09/25/19 7:58:00 EST, [facility], 178, cm, 09/25/19 5:34:00... Start Date: 09/25/19 Stop Date: 10/31/19 Status: Orderedcyanocobalamin 100 mcg oral tablet 100 mcg, 1, tablet, By Mouth, Daily, # 30 tablet, Refills 0, Tot. Refills 0, Maintenance, 09/25/19 8:02:00 EST, Route to Pharmacy Electronically, [facility], 178, cm, 09/25/19 5:34:00 EST, [...] 09/25/19 8:01:00 EST, Route to Pharmacy Electronically, [facility],... Start Date: 09/25/19 Stop Date: 10/09/19 Status: Orderedlidocaine 5% topical film See Instructions, Topically Daily, # 30 patch, 0 Refills, Maintenance, 09/25/19 8:02:00 EST, Patch, [facility], ok to substitute similar lidocaine topical product, if needed for better insurance coverage, Topically Daily, 178, cm, ... Start Date: 09/25/19 Status: Orderedmorphine 30 mg/12 to 24 hr oral capsule, extended release 2 capsule = 60 mg, By Mouth, Every 12 hours, # 12 capsule, 0 Refills, Maintenance, 09/25/19 8:44:00 EST, [facility], Partial fill upon patient request, 178, cm, 09/25/19 5:34:00 EST, Height, 70.8, kg, 09/11/19 1:02:00 EST, Dry Weight Start Date: 09/25/19 Stop Date: 09/28/19 Status: OrderedoxyCODONE 5 mg oral capsule 1 capsule = 5 mg, By Mouth, 4 times a day, PRN Pain , Moderate, for 5 days, may take WITH your usualpercocet 1 tablet 4 times daily PRN, short term, # 20 capsule, 0 Refills, Acute 09/30/19 8:00:00 EST, 09/25/19 8:00:00 EST, Capsule, [facility]... Start Date: 09/25/19 Stop Date: 09/30/19 Status: Orderedpantoprazole 40 mg oral delayed release [...] Health Status Informant Chronic back pain(Confirmed) Active Diagnosis Diagnosis Type Effective Dates Health Status Clinical In formant Service Septic arthritis Discharge 09/19/19 Non-Specified of shoulder, Diagnosis right Procedures Procedure Date Related Diagnosis Body Site Status Arthrotomy, glenohumeral joint, 09/19/19 Completed including exploration, drainage, or removal of foreign body1 1right shouklder- arthroscopically assisted (portals and switching stick) Results Orders for Microbiology Reports Name Date Urine Culture (URINE CULTURE) 09/19/19 Anaerobic Culture (ANAEROBIC CULTURE) 09/19/19 Wound Deep Culture w/ Gram Smear (DEEP WOUND CULTURE) 09/19/19 Anaerobic Culture 09/17/19 Sterile Body Fluid Culture W/ Gram Smear 09/17/19 Blood Culture 09/10/19 Microbiology Reports TEST:Urine Culture STATUS:Auth (Verified) BODY SITE: SOURCE:URINE COLLECTED DATE/TIME:09/19/19 6:33 PMUrine Culture SPECIMEN DESCRIPTION : URINE SPECIAL REQUESTS : NONE Reflexed from [id number] CULTURE : >100,000 COL/ML STAPHYLOCOCCUS AUREUS. REPORT STATUS : FINAL 09/22/2019 ORGANISM >100,000 COL/ML STAPHYLOCOCCUS AUREUS. METHOD MIN. INHIB. CONC. (MCG/ML) CIPROFLOXACIN RESISTANT LEVOFLOXACIN RESISTANT NITROFURANTOIN SUSCEPTIBLE OXACILLIN SUSCEPTIBLE PENICILLIN RESISTANT RIFAMPIN SUSCEPTIBLE RIFAMPIN RIFAMPIN SHOULD NOT BE USED ALONE FOR ANTIMICROBIAL RIFAMPIN THERAPY. TETRACYCLINE SUSCEPTIBLE TRIMETH/SULFAMETHOX SUSCEPTIBLE VANCOMYCIN SUSCEPTIBLETEST:Anaerobic Culture STATUS:Auth (Verified) BODY SITE: SOURCE:ABSCES COLLECTED DATE/TIME:09/19/19 2:08 PMAnaerobic Culture SPECIMEN DESCRIPTION : ABSCESS RIGHT SHOULDER SPECIAL REQUESTS : NONE CULTURE : NO ANAEROBES ISOLATED REPORT STATUS : FINAL 09/24/2019TEST:Deep Wound Culture STATUS:Auth (Verified) BODY SITE: SOURCE:ABSCES COLLECTED DATE/TIME:09/19/19 2:08 PMDeep Wound Culture SPECIMEN DESCRIPTION : ABSCESS RIGHT SHOULDER SPECIAL REQUESTS : NONE GRAM STAIN : 1+ GRAM POSITIVE COCCI 3+ POLYMORPHONUCLEAR LEUKOCYTES CULTURE : 2+ STAPHYLOCOCCUS AUREUS. REPORT STATUS : FINAL 09/21/2019 ORGANISM 2+ STAPHYLOCOCCUS AUREUS. METHOD MIN. INHIB. CONC. (MCG/ML) CIPROFLOXACIN RESISTANT CLINDAMYCIN SUSCEPTIBLE ERYTHROMYCIN INTERMEDIATE LEVOFLOXACIN RESISTANT OXACILLIN SUSCEPTIBLE PENICILLIN RESISTANT RIFAMPIN SUSCEPTIBLE RIFAMPIN RIFAMPIN SHOULD NOT BE USED ALONE FOR ANTIMICROBIAL RIFAMPIN THERAPY. TETRACYCLINE SUSCEPTIBLE TRIMETH/SULFAMETHOX SUSCEPTIBLE VANCOMYCIN SUSCEPTIBLETEST:Anaerobic Culture STATUS:Unauthenticated BODY SITE: SOURCE:JOINT COLLECTED DATE/TIME:09/17/19 2:06 PMAnaerobic Culture SPECIMEN DESCRIPTION : JOINT FLUID RIGHT SHOULDER SPECIAL REQUESTS : NONE CULTURE : NO ANAEROBES ISOLATED SO FAR. REPORT STATUS : PRELIMINARY REPORT TEST:Sterile Fluid Culture STATUS:Auth (Verified) BODY SITE: SOURCE:JOINT COLLECTED DATE/TIME:09/17/19 2:06 PMSterile Fluid Culture SPECIMEN DESCRIPTION : JOINT FLUID SPECIAL REQUESTS : NONE GRAM STAIN : 4+ POLYMORPHONUCLEAR LEUKOCYTES NO ORGANISMS SEEN CULTURE : 2+ STAPHYLOCOCCUS AUREUS. CRITICAL VALUE CALLED AND VERIFIED BY READBACK FOR: [place] [address], S64, EXT [id number], 09/19/19, 0745, BY TECH 868. REPORT STATUS : FINAL 09/20/2019 ORGANISM 2+ STAPHYLOCOCCUS AUREUS. METHOD MIN. INHIB. CONC. (MCG/ML) CIPROFLOXACIN RESISTANT CLINDAMYCIN SUSCEPTIBLE ERYTHROMYCIN INTERMEDIATE LEVOFLOXACIN RESISTANT OXACILLIN SUSCEPTIBLE PENICILLIN RESISTANT RIFAMPIN SUSCEPTIBLE RIFAMPIN RIFAMPIN SHOULD NOT BE USED ALONE FOR ANTIMICROBIAL RIFAMPIN THERAPY. TETRACYCLINE SUSCEPTIBLE TRIMETH/SULFAMETHOX SUSCEPTIBLE VANCOMYCIN SUSCEPTIBLETEST:Blood Culture STATUS:Auth (Verified) BODY SITE: SOURCE:Blood COLLECTED DATE/TIME:09/10/19 8:01 PMBlood Culture SPECIMEN DESCRIPTION : BLOOD RIGHT UPPER ARM SPECIAL REQUESTS : NONE CULTURE : NO GROWTH 5 DAYS. REPORT STATUS : FINAL 09/15/2019Radiology Reports Exam Date Time Procedure Performing Provider Status 09/15/19 4:06 PM Shoulder Min 2 Views Right Radha Sierra; Auth (Verified) Notes:(Shoulder Min 2 Views Right) Reason For Exam: PainRESULT: Shoulder Min 2 Views Right Right shoulder , 2 views Reason: Shoulder pain, rule out arthritis COMPARISON: None. FINDINGS: No fracture or dislocation. No arthritic change of the glenohumeral joint. Mild degenerative changes of the AC joint. The portion of the clavicle included on the exam is normal. Downward protruding spurs could contribute to impingement. No calcification of the rotator cuff. IMPRESSION: Mild AC joint degenerative arthritis but otherwise negative WSN: [id number] Dictated By: Charlie Hernandez MD Dictated Date/Time: 09/15/19 4:09 pm Reviewed By: Charlie Hernandez MD Signed By: Charlie Hernandez MD Signed Date/Time: 09/15/19 4:09 pm Transcribed By: SHARATH Transcribed Date/Time: 09/15/19 4:08 pm Exam Date Time Procedure Performing Provider Status 09/10/19 8:26 PM Chest 2 Views Frontal and Lat Flores Segal ; Auth (Verified) Notes:(Chest 2 Views Frontal and Lat) Reason For Exam: Shortness of Breath, Fever;Other:RESULT: Chest 2 Views Frontal and Lat Chest 2 Views Frontal and Lat Reason: Other:; Shortness of Breath, Fever; Clinical Question(s): Pneumonia; Hx of Present Illness: abd pain, n v; Other Objective Findings: pt presented to er via EMS with c o abd pain with n v x 4 days. wound noted on L frear, pt reports seeing wound care last week. COMPARISON: None. FINDINGS: LINES AND TUBES: None. LUNGS AND PLEURA: Clear lungs. Normal pulmonary vascularity. No pleural effusion. No pneumothorax. HEART, MEDIASTINUM AND BRIAN: Heart is normal in size. Normal mediastinal and hilar contour. BONES AND SOFT TISSUES: No acute abnormality. IMPRESSION: No acute abnormality. WSN: [id number] Dictated By: Cheryl Quach MD Dictated Date/Time: 09/10/19 8:40 pm Reviewed By: Cheryl Quach MD Signed By: Cheryl Quach MD Signed Date/Time: 09/10/19 8:40 pm Transcribed By: SHARATH Transcribed Date/Time: 09/10/19 8:38 pm Vital Signs Most recent to oldest 1 2 3 [Reference Range]: Height 178 cm 178 cm 178 cm (09/25/19 5:34 AM) (09/24/19 9:36 PM) (09/24/19 2:01 PM) Weight 70.8 kg 70.8 kg (09/19/19 1:10 PM) (09/11/19 1:02 AM) Oxygen Saturation [94-100 %] 99 % 98 % 97 % (09/25/19 5:34 AM) (09/24/19 9:36 PM) (09/24/19 2:01 PM) Pulse Rate [55-90 bpm] 98 bpm 73 bpm 88 bpm *H* (09/24/19 9:36 PM) (09/24/19 2:01 PM ) (09/25/19 5:34 AM) Body Mass Index [18.5-24.99] 22.35 22.35 (09/19/19 1:10 PM) (09/11/19 1:02 AM) Blood Pressure [90-138/55-84 111/74 mm Hg 109/63 mm Hg 112 /56 mm Hg mm Hg] (09/25/19 5:34 AM) (09/24/19 9:36 PM) (09/24/19 2:01 PM) Respiratory Rate [16-30 20 br/min 20 br/min 18 br/mi n br/min] (09/25/19 8:34 AM) (09/25/19 8:34 AM) (09/25/19 5:3 4 AM) Temperature [96.8-100.4 DegF] 99.1 DegF 98.4 DegF 98 .5 DegF (09/25/19 5:34 AM) (09/24/19 9:36 PM) (09/24/19 2:01 PM) Mode of Delivery (Oxygen) Room air Room air Room a ir (09/25/19 5:34 AM) (09/24/19 9:36 PM) (09/24/19 2:01 PM) Blood pressure sites Arm, left Arm, left Arm, left (09/25/19 5:34 AM) (09/24/19 9:36 PM) (09/24/19 2:01 PM) Temperature Route Oral Oral Oral (09/25/19 5:34 AM) (09/24/19 9:36 PM) (09/24/19 2:01 PM) Dry Weight 70.8 kg (09/11/19 1:02 AM) Weight Obtained Via Bed scale (09/11/19 1:02 AM) Dry Weight Obtained Via Bed scale (09/11/19 1:02 AM) Sensory deficits None (09/11/19 1:02 AM) Mobility assistance Independent (09/11/19 1:02 AM) Social History Social History Type Response Smoking Status Never smoker entered on: 11/17/15 Sex
--- OUTSIDE RECORDS SUMMARY | 2022-12-03 14:57 | XMS_ITS | Continuity of Care Document ---
:1950 Author Organization [facility] Address [address] [place] [id number]- Care Team Providers Name Role Phone Marlin HARPER, Rivera Canseco Primary Care Physician Encounter [facility] R [id number] Date(s): 04/26/20 - 05/27/20 Wound Care [address] [place] [address] Attending Physician: Blair Gibbs MD [...]
[2022-12-03 16:00] VITALS: BP 111/49; PULSE 88; RESP 16; TEMP 37.4; O2SAT 99
--- NOTE | 2022-12-03 17:03 | ED.GENADULT ---
HPI - General Adult General Chief complaint: Skin/Abscess/Foreign Body Stated complaint: hypotension Time Seen by Provider: 12/03/22 16:33 Source: patient Mode of arrival: EMS Limitations: no limitations History of Present Illness HPI narrative: Patient with history of psoriasis with chronic erythema of the lower extremity went to see PCP to get the refill on antibiotic, checked the blood pressure was on the lower side send the patient here for evaluation blood pressure on arrival was 97/49 patient asymptomatic temperature 99.4 degrees. Related Data Previous Rx's Medication Instructions Recorded doxycycline hyclate 100 mg tablet 100 mg PO BID #20 tabs 12/03/22 Allergies Allergy/AdvReac Type Severity Reaction Status Date / Time Penicillins Allergy Severe SWELLING Unverified 06/02/20 17:02 PCN Allergy Unknown swelling Uncoded 05/29/18 00:00 Review of Systems Review of Systems: Yes all other systems are reviewed and are negative [facility] Social History Social History Smoked in Last 30 Days: No Use of substances other than those prescribed or required for medical reasons: No Any prior treatment program specific to substance use: No Advance Directives: No Advance Directives Information Provided: Yes Physical Exam ED Vital Signs: Vital Signs - 24 hr 12/03/22 14:25 12/03/22 16:00 Temperature 99.0 F 99.4 F Pulse Rate 82 88 Respiratory Rate 18 16 Blood Pressure 97/49 L 111/49 L Pulse Oximetry 100 99 Oxygen Delivery Method Room Air Room Air BMI result Body Mass Index 23.6 Appearance: Alert. Oriented X3. No acute distress. Patient kyphotic, thin emaciated Eyes: PERRLA, ENT: Pharynx normal. Oral Mucosa moist Neck: Normal inspection. Neck supple. CVS: Normal heart rate and rhythm. Pulses normal. Respiratory: No respiratory distress. Equal air entry bilateral, no wheezing/rales/rhonchi Abdomen: Soft and nontender. Bowel sounds are present, Skin: Skin warm and dry. Normal skin color. Normal skin turgor. Extremities: No lower extremity edema. No calf tenderness psoriatic lesion bilateral lower with erythema both lower extremities no open wounds Neuro: Oriented X 3. No motor deficit. Medications Administered Discontinued Medications Generic Name Dose Route Start Last Admin Trade Name Freq PRN Reason Stop Dose Admin Doxycycline Monohydrate 100 mg 12/03/22 17:07 12/03/22 17:45 Doxycycline Monohydrate 100 Mg Capsule PO 12/03/22 17:08 100 mg ONCE ONE Administration Medical Decision Making Medical Decision Making [facility] Narrative: Patient very adamant about not getting the labs done refused to stay in the ER blood pressure vitals are stable signed against medical advise patient was given p.o. doxycycline for cellulitis with psoriasis Discharge Plan Discharge Clinical Impression: Cellulitis, Psoriasis Patient Disposition: Left Against Medical Advice Additional Instructions: Take antibiotic as prescribed Report your PCP/ED for further workup You have refused lab workup and stay in the ER/admission Prescriptions: New doxycycline hyclate 100 mg tablet 100 mg PO BID Qty: 20 0RF Stand Alone Forms: Against Medical Advice Interventions: ED Discharge Assessment Last Done: 12/03/22 19:22 Discharge Date/Time: 12/03/22 19:23
--- NOTE | 2022-12-03 17:13 | MHC.EDTECH ---
Nurse informed patient why he needs blood work and patient refuse labs. Nurse will let doctor know patient refused.
[2022-12-03] MEDS: Doxycycline Monohydrate 100 MG CAPSULE PO (17:45)
== END 2022-12-03 19:23 | disposition left against medical advice (07) ==
PROVIDERS: Emergency Provider Internal Medicine; PCP Internal Medicine
DX: I95.9 Hypotension, unspecified (principal); L03.90 Cellulitis, unspecified; L40.9 Psoriasis, unspecified; Z53.29 Procedure and treatment not carried out because of patient's decision for other reasons
CPT/HCPCS: 99283; 99284

== ENCOUNTER 2022-12-24 12:13 | Emergency (ER) | payer BC, SELFPAY ==
--- NOTE | ~2022-12-24 | XR_ITS ---
EXAMINATION: XR FOREARM, LEFT CLINICAL INFORMATION: wound on left arm COMPARISON: None available. TECHNIQUE: AP and lateral views of the left forearm were obtained. FINDINGS: There is a soft tissue swelling of the distal forearm. There appears to be lucency in the soft tissues along the dorsal/radial aspect of the distal forearm. This could be related to the skin ulceration. Question small focus of air in the volar soft tissues of the distal radius. Faint curvilinear densities in this region, could reflect dystrophic calcification, vascular calcification. Radiopaque foreign bodies in the appropriate clinical circumstance cannot be excluded. No evidence of bony erosive or destructive changes. No fracture seen. Normal articulation at the wrist joint. XR/XR forearm LT 2V IMPRESSION: No radiographic evidence of osteomyelitis. Soft tissue swelling of the distal forearm. Lucencies in the soft tissues of the dorsal/radial aspect of the distal forearm, presumably relating soft tissue wound, clinically correlate. Question air in the volar soft tissues at the level of the distal radius. Curvilinear densities in this region. Dystrophic calcification, vascular calcification, foreign bodies not excluded. Clinically correlate.
[2022-12-24 12:21] VITALS: BP 118/60; PULSE 95; RESP 18; TEMP 36.9; O2SAT 100; BMI 19.9
--- NOTE | 2022-12-24 12:28 | PC.NURSE ---
pt brought in by ambulance on a section 12 accompanied by [place] police. pt sent in for a wound/infection to L wrist, hand and forearm area. pt refusing care. has been living in [facility] in [place] for the last two months. [facility] staff continually call EMS d/t pt falls, and the pt requesting food/transport that the staff cannot provide. per EMS, they picked him up off the floor 2 times today since 7am. EMS staff also reported needles on the floor of the hotel room. pt does deny drug use. pt is reluctant to give information. regarding his wound. wound to L wrist 10cm L x 5.5cm W x 0.5cm deep. L forearm and hand are significantly swollen, eschar appears at the wound margin. Slough covering the wound bed. wound photographed and will tigerconnect to provider.
--- NOTE | 2022-12-24 13:19 | PC.NURSE ---
brother (yonatan) [phone] brother reports he called the pts daughter who will be in contact with [facility] staff r/t pt care
[2022-12-24 13:55] LABS: COVID-19 Test Negative (Negative); IDNOW Serial# 55D5AD1C
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
[2022-12-24 14:18] LABS: MANUAL DIFF FLAG NO
[2022-12-24 14:21] LABS: Basophils Percent Auto 0.4 % (0-2); Eosinophils Percent Auto 0.2 % (0-4); Hematocrit 26.3 % (42.0-52.0); Imm Gran Abs Auto 0.01 X10*3/uL (0.00-0.03); Imm Gran Pct Auto 0.2 % (0.0-0.4); Lymphocytes Absolute Auto 0.9 X10*3/uL (1.2-4.9); Lymphocytes Percent Auto 15.7 % (20-40); Mean Corpuscular HGB Conc 30.4 g/dl (31.0-36.0); Mean Corpuscular Hemoglobin 26.3 pg (27.0-33.0); Mean Corpuscular Volume 86.5 fL (80.0-98.0); Mean Platelet Volume 9.4 fL (9.4-12.4); Monocytes Absolute Auto 0.4 X10*3/uL (0.1-1.2); Monocytes Percent Auto 6.8 % (2-11); Neutrophils Absolute Auto 4.2 x10*3/uL (2.0-8.3); Neutrophils Percent Auto 76.7 % (45-73); Platelet Count 360 X10*3/uL (160-400); Red Blood Count 3.04 X10*6/uL (4.60-5.80); Red Cell Distribution Width 16.9 % (11.0-16.0); White Blood Count 5.4 X10*3/uL (4.8-10.8)
[2022-12-24 14:37] LABS: Alanine Aminotransferase 15 U/L (0-40); Albumin Level 2.9 g/dL (3.5-5.0); Alkaline Phosphatase 142 U/L (39-117); Anion Gap 12 (12-20); Aspartate Amino Transferase 32 U/L (5-37); Bilirubin Direct 0.2 mg/dL (0.0-0.5); Bilirubin Total 0.4 mg/dL (0.0-1.0); Blood Urea Nitrogen 15 mg/dL (9-16); C Reactive Protein 4.84 mg/dL (< or = 0.50); Calcium 8.6 mg/dL (8.4-10.2); Carbon Dioxide 31 mmol/L (22-29); Chloride 101 mmol/L (96-108); Creatinine Clr Calc Pharmacy 72.7; Estimated Glomerular Filt Rate > 60; Glucose Random 110 mg/dL (60-115); Potassium 3.8 mmol/L (3.3-5.1); Sodium 140 mmol/L (135-145); Total Protein 6.7 g/dL (6.5-8.0)
--- NOTE | 2022-12-24 15:04 | MHC.CM.ED ---
Addendum entered by Olive Wang 12/24/22 16:10: RANI INFORMED A SO CALLED SAYING THE YARD JACKER SAID PT COULD NOT RETURN PT CALLED YARD JACKER, MALIKA, WITH PORTABLE PHONE PT REPORTS SHE STATED THAT IS NOT WHAT SHE SAID. SHE INFORMED HIM HE COULD RETURN BUT MUST MAKE OTHER ARRANGEMENTS IN THE NEXT COUPLE OF WEEKS CM OFFERED BLS TRANSPORT HOWEVER PT DECLINES AND REQUESTS A LIFT [facility] WILL PROVIDE PT SERVICES Addendum entered by Olive Wang 12/24/22 15:38: [facility] WILL PROVIDE PT SERVICES PENDING PCP VERIFICATION TOMORROW WHEN THE OFFICE OPENS Original Note: CM MET WITH PT TO DISCUSS DC NEEDS PT WAS HESITANT TO DISCLOSE HIS PCP INFO ASKING WHY CM NEEDED IT CM EXPLAINED IT WOULD BE NECESSARY FOR ANY HOME SERVICES TO BE ARRANGED HE REPORTS HE IS NOT INTERESTED IN SN SERVICES BUT HAS BEEN ASKING FOR PT TO BE SET UP FOR SOME TIME PT REPORTS HE HAS FALLEN SO KNEW HE NEEDED THEM PT REPORTS HIS PCP IS DR LUONG HE IS AGREEABLE TO HOME PT ONLY PT ALSO ASKED IF HE WOULD BE HELD HERE AGAINST HIS WILL CM EXPLAINED HE DOES NOT NEED TO WORRY, HE COULD NOT BE HELD HE IS ALERT AND ORIENTED X 4 PT REPORTS HE WILL NEED TRANSPORT
[2022-12-24 15:05] LABS: Erythrocyte Sedimentation Rate 89 MM/HR (0-15)
--- NOTE | 2022-12-24 16:04 | PC.NURSE ---
pt cleared for d/c back to [facility] - will go via [facility]
== END 2022-12-24 16:57 | disposition home or self-care (01) ==
PROVIDERS: Nurse Practitioner Family; Emergency Provider Emergency Medicine
DX: S51.802A Unspecified open wound of left forearm, initial encounter (principal); D64.9 Anemia, unspecified; X58.XXXA Exposure to other specified factors, initial encounter; Y93.9 Activity, unspecified; Y92.9 Unspecified place or not applicable; Y99.9 Unspecified external cause status; Z20.822 Contact with and (suspected) exposure to COVID-19; Z79.899 Other long term (current) drug therapy; Z20.828 Contact with and (suspected) exposure to other viral communicable diseases
CPT/HCPCS: 36415; 73090; 80048; 80076; 83605; 85025; 85652; 86140; 87040; 87635; 99283; 99284

== ENCOUNTER 2022-12-29 11:10 | Inpatient (IN) | payer BC, SELFPAY ==
--- NOTE | ~2022-12-29 | XR_ITS ---
EXAMINATION: XR CHEST CLINICAL INFORMATION: Difficulty breathing. COMPARISON: 11/29/2007. TECHNIQUE: Portable AP view of the chest was obtained. XR/XR chest 1V FINDINGS/IMPRESSION: The study is very limited due to portable technique, point rotation, patient rotation, chin overlying the left upper lung field, and right costophrenic angle being cut off the film. There is no obvious acute radiographic finding on this limited study.
--- NOTE | ~2022-12-29 | XR_ITS ---
EXAMINATION: CR CHEST CLINICAL INFORMATION: Hypoxia. Hematemesis. COMPARISON: Chest x-ray dated 12/30/2022. TECHNIQUE: AP upright portable view of the chest was performed on 3 images. view of the chest was obtained. FINDINGS: Evaluation is limited by patient positioning with the patient's chin and head overlying the lung apices and upper lung. Multiple EKG leads overlie the chest. The cardiomediastinal silhouette is within normal limits in size. There are some prominent linear opacities seen in the right lung base, consistent with linear atelectasis. Mild linear atelectasis in left mid and lower lung also noted. No dense consolidation or significant pleural effusion is noted. No pneumothorax is seen. No acute osseous findings noted. XR/XR chest 1V IMPRESSION: Limited exam. Scattered areas of linear atelectasis seen in the mid and lower lungs bilaterally. No focal pneumonia.
--- NOTE | ~2022-12-29 | CT_ITS ---
EXAMINATION: CT ABDOMEN AND PELVIS WITH CONTRAST CLINICAL INFORMATION: Vomiting. Abdominal pain. COMPARISON: Most recent CT abdomen/pelvis dated 04/23/2017. TECHNIQUE: Multidetector volumetric images were obtained from the superior aspect of the liver through the pubic symphysis following administration 85 mL of Omnipaque 350 intravenous contrast. Sagittal and coronal reformatted images were obtained on the technologist's workstation. Oral contrast: No This CT examination was performed using dose optimization techniques as appropriate, variously including the following: *Automated exposure control *Adjustment of mA and/or kV according to patient size (this includes techniques or standardized protocols for targeted exams where dose is matched to indication/reason for exam; i.e. extremities or head) *Use of iterative reconstruction technique DLP: 441 mGy-cm FINDINGS: Evaluation is somewhat limited secondary to patient positioning. LUNG BASES: The visualized lung bases are unremarkable. LIVER, GALLBLADDER, AND BILIARY TREE: The liver is normal in size, shape, and attenuation. No focal hepatic lesion or biliary ductal dilatation is present. The gallbladder is nondistended and unremarkable. PANCREAS: Unremarkable. SPLEEN: Unremarkable. ADRENAL GLANDS: Unremarkable. KIDNEYS AND URETERS: The kidneys are normal in size, shape, and attenuation. No hydronephrosis, hydroureter, or calculi seen. Previously seen left-sided renal stones are not appreciated on the current examination. Left-sided renal cysts are unchanged. No enhancing renal parenchymal lesion. No perinephric stranding. BLADDER: Distended. No wall thickening or inflammatory change. GASTROINTESTINAL TRACT: Evaluation is significantly limited due to patient positioning, motion, and lack of oral contrast. No small or large bowel obstruction. No significant bowel wall thickening or associated inflammatory change. No large intra-abdominal mass or abscess formation. ABDOMINAL WALL: No significant hernia is appreciated. LYMPH NODES: Evaluation is significantly limited due to the paucity of intra-abdominal fat. VASCULAR: No abdominal aortic dilatation or dissection. Atherosclerotic calcifications. No active extravasation of contrast. PELVIC VISCERA: Partially visualized prostatomegaly. OSSEOUS STRUCTURES: No acute osseous abnormality. Chronic deformity within the lower lumbar spine, unchanged. CT/CT abdomen pelvis w IV con IMPRESSION: Evaluation is significantly limited due to patient positioning, motion, and lack of oral contrast. 1. No small or large bowel obstruction. No significant bowel wall thickening or associated inflammatory change. 2. No large intra-abdominal mass or abscess formation. 3. No hydronephrosis or nephrolithiasis. Previously seen left-sided renal stones not appreciated on the current examination. Stable left renal cysts. Fleischner guidelines were followed.
[2022-12-29 11:21] VITALS: BP 126/78; BP 140/100; PULSE 71; PULSE 82; RESP 18; TEMP 36.8; O2SAT 100; O2SAT 98; BMI 20.2
--- NOTE | 2022-12-29 12:03 | ED_ITS ---
HPI - General Adult General Chief complaint: Abdominal Pain Stated complaint: Low abd/rectal pain per EMS Time Seen by Provider: 12/29/22 11:12 Source: patient and EMS Mode of arrival: EMS History of Present Illness HPI narrative: This is a 72 years old patient well known to us he was here 5 days ago presented today with chief complaint of constipation I, states that he has an going to the bathroom for 10 days. He denies any vomiting any fever. He has history of chronic anemia he has history of left forearm wound week was documented 5 days ago. Five days ago refused short-term rehab signed AMA Onset (ago): day(s) (10 Days) Radiation: non-radiation Severity: mild Pain Consistency: constant Related Data Previous Rx's Medication Instructions Recorded doxycycline hyclate 100 mg tablet 100 mg PO BID #20 tabs 12/03/22 Allergies Allergy/AdvReac Type Severity Reaction Status Date / Time Penicillins Allergy Severe SWELLING Verified 12/24/22 12:24 PCN Allergy Unknown swelling Uncoded 12/24/22 12:24 Review of Systems Constitutional: Constitutional: Reports no additional constitutional complaints ENT: Reports system reviewed and no additional complaints, except as documented Cardiovascular: Cardiovascular: Reports no additional cardiovascular comp laints Respiratory: Respiratory: Reports no additional respiratory complaints Gastrointestinal: Gastrointestinal: Reports other (as HX Present illness) [facility] Past Medical History [facility] Narrative: Chronic anemia, kyphosis, psoriasis Social History Social History Alcohol intake: never Advance Directives: No Advance Directives Information Provided: No Physical Exam ED Vital Signs: Vital Signs - 24 hr 12/29/22 11:21 12/29/22 12:59 12/29/22 15:58 Temperature 98.3 F 97.4 F Pulse Rate 71 87 74 Respiratory Rate 18 16 15 Blood Pressure 126/78 102/53 L 122/80 Pulse Oximetry 100 97 100 Oxygen Delivery Method Room Air Room Air Room Air BMI result Body Mass Index 20.2 Const Other: Patient looks chronically ill very kyphotic General: cooperative Nutritional Appearance: cachectic HENMT Head: Yes normal to inspection Face and sinus: Yes normal facial exam Chest Chest palpation & inspection: normal inspection of the chest Resp Effort & Inspection: normal respiratory effort Auscultation: clear to auscultation bilaterally Cardio Jugular venous distension: no JVD Rate: regular rate GI Inspection: Yes normal to inspection Palpation (GI): Soft to palpation, not firm and nontender Auscultation: normal bowel sounds Rectal Exam - Male: Yes other (Fecal impaction present) Skin General skin exam: other (Chronic wound in the left forearm) Course Reevaluation(s) Reevaluation #1: Patient was disimpacted is feeling much better at this point his labs good his hemoglobin is better today than before. Patient looks cachectic , very kyphotic lives in the hotel. The I ask the casework specialist a physical therapy to see the patient. I was told by the casework specialist to keep him as ED OBS pending PT eval . His wound in the left forearm a appear to be chronic no evidence of cellulitis his white count is normal he has no fever. Time: 14:36 Reevaluation #2: off shift now report to Dr Maldonado given Time: 16:38 Medications Administered Discontinued Medications Generic Name Dose Route Start Last Admin Trade Name Freq PRN Reason Stop Dose Admin Sodium Chloride 1,000 mls @ 999 mls/hr 12/29/22 13:45 12/29/22 13:36 Ns IVCONT 12/29/22 14:45 999 mls/hr .Q1H1M CRISTINA Administration Sodium Biphosphate/Sodium Phosphate 133 ml 12/29/22 11:27 12/29/22 13:17 Sodium Phosphate,[place]-Dibasic 133 Ml Enema MS 12/29/22 11:28 133 ml ONCE ONE Administration Procedures Procedure Narrative Procedure Narrative: Manual disimpaction performed: Patient was placed in the right lateral decubitus and I manually disimpacted the patient I obtained a large amount of stools EJ/Peripheral Line Arm R: Time Out Performed: Yes Skin Cleansed in Sterile Fashion: Yes Size (gauge): 20 IV Secured and Dressing Applied: Yes Patient Tolerated Procedure: well Additional Comments: Under US cannulated rt brachial vein blood obtained Medical Decision Making Medical Decision Making MDM Narrative: Patient return to the emergency room was seen here 5 days ago he signed , he is complaining of severe constipation he was disimpacted, labs are okay. The patient will be placed on ED of is a pending PT eval and the casework specialist consult. Differential Diagnosis Differential Diagnoses: The differential diagnosis associated with the pre sentation includes Admission/Observation Consideration of admission/observation: Escalation of care including admission/observation considered Lab Data MDM Lab Attestation statement: I reviewed the patient's lab results. 12/29/22 13:24 12/29/22 13:24 Labs: Lab Results 12/29/22 12/29/22 Range/Units 13:24 14:00 WBC 5.8 (4.8-10.8) X10*3/uL RBC 3.35 L (4.60-5.80) X10*6/uL Hgb 8.8 L (14.0-18.0) g/dl Hct 28.2 L (42.0-52.0) % MCV 84.2 (80.0-98.0) fL MCH 26.3 L (27.0-33.0) pg MCHC 31.2 (31.0-36.0) g/dl RDW 16.4 H (11.0-16.0) % Plt Count 345 (160-400) X10*3/uL MPV 9.0 L (9.4-12.4) fL Immature Gran % (Auto) 0.3 (0.0-0.4) % Neut % (Auto) 83.9 H (45-73) % Lymph % (Auto) 11.8 L (20-40) % [place] % (Auto) 4.0 (2-11) % Eos % (Auto) 0.0 (0-4) % Baso % (Auto) 0.0 (0-2) % Lymph # (Auto) 0.7 L (1.2-4.9) X10*3/uL [place] # (Auto) 0.2 (0.1-1.2) X10*3/uL Eos # (Auto) 0.0 (0.0-0.4) X10*3/uL Baso # (Auto) 0.0 (0.0-0.2) X10*3/uL Abs Immat Gran (auto) 0.02 (0.00-0.03) X10*3/uL Absolute Neuts (auto) 4.8 (2.0-8.3) x10*3/uL Absolute Nucleated RBC 0.000 (0.0-0.012) X10*3/uL Nucleated RBC % (auto) 0.0 (0.0-0.2) /100WBC Sodium 140 (135-145) mmol/L Potassium 3.7 (3.3-5.1) mmol/L Chloride 104 (96-108) mmol/L Carbon Dioxide 26 (22-29) mmol/L Anion Gap 14 (12-20) BUN 20 H (9-16) mg/dL Creatinine 0.75 (0.5-1.4) mg/dL Estim Creat Clear Calc 80.5 Estimated GFR > 60 Random Glucose 86 (60-115) mg/dL Calcium 8.6 (8.4-10.2) mg/dL Total Bilirubin 0.4 (0.0-1.0) mg/dL AST 30 (5-37) U/L ALT 12 (0-40) U/L Alkaline Phosphatase 136 H (39-117) U/L Total Protein 6.8 (6.5-8.0) g/dL Albumin 2.9 L (3.5-5.0) g/dL External Record Review External record reviewed: Inpatient record Social Determinants Patient?s care significantly limited by Social Determinants of Health including: Inadequate housing Discharge Plan Discharge Clinical Impression: Fecal impaction, Adult failure to thrive Patient Disposition: Still a Patient Prescriptions: No Action doxycycline hyclate 100 mg tablet 100 mg PO BID Qty: 20 0RF
[2022-12-29 12:59] VITALS: BP 102/53; PULSE 87; RESP 16; O2SAT 97
[2022-12-29] MEDS: Sodium Phosphate,Mono-Dibasic 133 ML ENEMA PR (13:17)
--- NOTE | 2022-12-29 13:17 | MHC.CM.ED ---
Addendum entered by Barbie Cooper RN 12/29/22 13:40: ACCORDING TO [facility]A, PHYSICAL THERAPIST HAS GONE OUT TO ADMIT PATIENT TO SERVICE AND HAVE BEEN UNSUCCESSFUL. AGENCY IS NOT ABLE TO ACCEPT. Addendum entered by Barbie Cooper RN 12/29/22 13:20: PATIENT HAS FEDERAL INSURANCE, WHICH DOES NOT HAVE A SNF BENEFIT Original Note: [facility] DID NOT RESPOND TO PATIENT'S ATTEMPTS AT ASSESSMENT PER REVIEW OF PREVIOUS VISITS, PATIENT WAS HERE ON 12/24 AND DC BACK TO HIS [facility] WAS GOING TO VERIFY PCP PRIOR TO OFFERING SERVICES REFERRAL TO BE PLACED TO INQUIRE OF STATUS OF THIS NOTE, IT IS UNCLEAR IF PATIENT STILL HAS A PLACE TO LIVE.
[2022-12-29] MEDS: 0.9 % Sodium Chloride 1,000 ML 999 ML IVCONT (13:36)
[2022-12-29 14:05] LABS: Hematocrit 28.2 % (42.0-52.0); Hemoglobin 8.8 g/dl (14.0-18.0); Imm Gran Abs Auto 0.02 X10*3/uL (0.00-0.03); Imm Gran Pct Auto 0.3 % (0.0-0.4); Lymphocytes Absolute Auto 0.7 X10*3/uL (1.2-4.9); Lymphocytes Percent Auto 11.8 % (20-40); Mean Corpuscular HGB Conc 31.2 g/dl (31.0-36.0); Mean Corpuscular Hemoglobin 26.3 pg (27.0-33.0); Mean Corpuscular Volume 84.2 fL (80.0-98.0); Monocytes Absolute Auto 0.2 X10*3/uL (0.1-1.2); Neutrophils Absolute Auto 4.8 x10*3/uL (2.0-8.3); Neutrophils Percent Auto 83.9 % (45-73); Platelet Count 345 X10*3/uL (160-400); Red Blood Count 3.35 X10*6/uL (4.60-5.80); Red Cell Distribution Width 16.4 % (11.0-16.0); White Blood Count 5.8 X10*3/uL (4.8-10.8)
[2022-12-29 14:09] LABS: Alanine Aminotransferase 12 U/L (0-40); Albumin Level 2.9 g/dL (3.5-5.0); Alkaline Phosphatase 136 U/L (39-117); Anion Gap 14 (12-20); Aspartate Amino Transferase 30 U/L (5-37); Bilirubin Total 0.4 mg/dL (0.0-1.0); Blood Urea Nitrogen 20 mg/dL (9-16); Calcium 8.6 mg/dL (8.4-10.2); Carbon Dioxide 26 mmol/L (22-29); Chloride 104 mmol/L (96-108); Creatinine Clr Calc Pharmacy 80.5; Estimated Glomerular Filt Rate > 60; Glucose Random 86 mg/dL (60-115); Potassium 3.7 mmol/L (3.3-5.1); Sodium 140 mmol/L (135-145); Total Protein 6.8 g/dL (6.5-8.0)
--- NOTE | 2022-12-29 14:37 | MHC.CM.ED ---
Addendum entered by Barbie Cooper RN 12/29/22 14:44: CORRECTION: NO HCP ON FILE CALL TO CONTACT (DAUGHTER) RICHARD @ [phone] MESSAGE LEFT WITH A REQUEST FOR A CALL BACK TO THIS [employer] CONTACT NUMBER LEFT ON [employer]IC[employer] Original Note: PATIENT NODS HIS HEAD NO WHEN ASKED IF HE CAN PARTICIPATE IN CONVERSATION FOR ASSESSMENT OF NEEDS PURPOSES. WHEN ASKED IF PATIENT IS WILLING TO PARTICIPATE IN P.T. TODAY, HE ALSO NODS IN DISAGREEMENT T/W IS EXPERIENCING DIFFICULT IN GETTING PATIENT TO TALK. CASE MANAGEMENT DISCUSSED WITH AND PLAN IS TO REATTEMPT ON SATURDAY T/W TO CALL HCP ON FILE RN AWARE
--- NOTE | 2022-12-29 14:48 | MHC.CM.PN ---
PATIENT DOES TELL THIS LABORATORY SAMPLE CARRIER THAT HE DOES LIVE IN A HOTEL IN [place] AND HE IS ABLE TO RETURN THERE. T/W ASKED IF PATIENT WAS WILLING TO ACCEPT [facility] SERVICES. NO RESPONSE. WHEN ASKED AGAIN, PATIENT YELLS WHAT? THIS LABORATORY SAMPLE CARRIER REPEATED QUESTION WITH NO RESPONSE. PER [facility], PATIENT WAS NOT ACCEPTED ONTO SERVICE DESPITE THEIR ATTEMPTS TO DO SO.
[2022-12-29 15:58] VITALS: BP 122/80; PULSE 74; RESP 15; TEMP 36.3; O2SAT 100
[2022-12-29 19:30] VITALS: BP 110/65; PULSE 83; RESP 16; TEMP 37.4; O2SAT 98
--- NOTE | 2022-12-29 19:31 | MHC.EDTECH ---
Addendum entered by Elsy Saha 12/29/22 19:54: Checked patient for incontinence,patient was clean and dry. Original Note: This Tech assumed care of patient at 1900,vitals obtained patient was repositioned and is resting at this time. call rai in reach
--- NOTE | 2022-12-29 19:47 | MHC.EDTECH ---
This pct did a belongings list with Triny MAYNARD patient had $61.00 [place],asked patient if he wanted to lock up in safe he stated no,to leave in bag.Attempted to give patient some food , Patient yelled No leave me alone,just leave me alone . RN aware
[2022-12-29 20:36] VITALS: TEMP 37.9
--- NOTE | 2022-12-29 20:38 | MHC.EDTECH ---
Patient was incont of a large amount of urine and a large amount of liquid brown stool patient was cleaned and linen was changed and patient was repositioned.
--- NOTE | 2022-12-29 20:48 | MHC.EDTECH ---
This Tech placed a [place] Catheter for incontinence of urine and to protect patients skin. Patient tolerated very well .RN and Provider aware.
[2022-12-29] MEDS: Acetaminophen 325 MG TABLET 650 MG PO (21:06)
[2022-12-29 22:42] VITALS: BP 115/69; PULSE 80; RESP 16; TEMP 36.8; O2SAT 98
--- NOTE | 2022-12-29 22:43 | MHC.EDTECH ---
Patient was incont. of a large amount of semi soft and formed brown stool. Patient was cleaned and linen was changed and repositioned.Call rai in reach.
[2022-12-30] VITALS (12 sets, daily range): BP systolic 107–148; BP diastolic 42–81; PULSE 44–85; RESP 11–35; TEMP 36.4–37.3; O2SAT 96–100
--- NOTE | 2022-12-30 01:04 | MHC.EDTECH ---
Patent was incont of a small amount of soft stool. Patient was cleaned and repositioned to right side ,pillows between legs and feet,patient was giving sips of applejuice,and patient took sips of icewater.
--- NOTE | 2022-12-30 01:06 | PC.NURSE ---
Pt incontinent of stool. Cleaned up and repositioned to right lateral recumbent position with pillows between legs. Pt asked for fluids and was given apple juice.
--- NOTE | 2022-12-30 01:51 | PC.NURSE ---
IV d/c'd from right AC due to infiltration.
--- NOTE | 2022-12-30 03:47 | MHC.EDTECH ---
Patient vomited yellow bile med size ,patient was incont of a large amount of urine. Patient was cleaned linen was changed and pt was repositioned to left side.This tech placed a new [place] catheter,as the previous had came off. RN aware and call rai in reach.
[2022-12-30 04:09] LABS: Appearance Urine Clear; Color Urine Yellow; Glucose Urine UA Negative (Negative); Leukocyte Esterase Urine Negative (Negative); Nitrite Urine Negative (Negative); PH 6.5 (5.0-9.0); Specific Gravity - Urine 1.015 (1.005-1.025); Urine Blood Negative (Negative); Urine Ketones Trace mg/dL (Negative); Urine Protein Trace mg/dL (Neg-Trace)
--- NOTE | 2022-12-30 05:34 | PC.NURSE ---
Pt is sleeping, appears comfortable. Requires assistance with position changes to prevent bed sore/skin sores, changed every two hours. Is arousable with verbal stimuli.
--- NOTE | 2022-12-30 05:44 | MHC.EDTECH ---
Patient had 200cc of yellow urine emptied from urinal. Patient was repositioned and cleaned and is resting at this time. Call rai in reach
--- NOTE | 2022-12-30 07:06 | ECG_ITS ---
Test Reason : VOMITING Blood Pressure : / mmHG Vent. Rate : 085 BPM Atrial Rate : 085 BPM P-R Int : 138 ms QRS Dur : 094 ms QT Int : 448 ms P-R-T Axes : 086 065 076 degrees QTc Int : 533 ms Normal sinus rhythm with sinus arrhythmia Cannot rule out Inferior infarct (cited on or before 25-JUL-2013) Abnormal ECG When compared with ECG of 25-JUL-2013 19:55, T wave inversion more evident in Anterolateral leads QT has lengthened Referred By: Corie Benjamin Electronically Signed By:VIPIN ROMERO MD
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
[2022-12-30 07:30] LABS: Amphetamine Screen Urine Not Detected (Not Detect); Barbiturates, Urine Not Detected (Not Detect); Benzodiazepines Screen Urine Not Detected (Not Detect); Cannabinoid Screen Urine Not Detected (Not Detect); Cocaine Screen Urine Not Detected (Not Detect); Fentanyl, urine POSITIVE (Not Detect); Opiate Screen Urine POSITIVE (Not Detect); Phencyclidine Screen Urine Not Detected (Not Detect)
--- NOTE | 2022-12-30 07:47 | PC.NURSE ---
PT LETHARGIC THIS AM, STATES CONTINUED ABD PAIN AND NAUSEA, ATTEMPTS UNSUCCESSFUL FOR IV ACCESS, PROVIDER IS AWARE. CHRONIC LEFT ARM WOUND IS OPEN AND DRAINING YELLOW-GREEN , SKIN IS DRY AND PALE, [place] CATH IS IN PLACE WITH MINIMAL OUTPUT
[2022-12-30 08:10] LABS: MANUAL DIFF FLAG NO
[2022-12-30 08:11] LABS: Basophils Percent Auto 0.2 % (0-2); Hematocrit 32.2 % (42.0-52.0); Hemoglobin 9.9 g/dl (14.0-18.0); Imm Gran Abs Auto 0.01 X10*3/uL (0.00-0.03); Imm Gran Pct Auto 0.2 % (0.0-0.4); Lymphocytes Absolute Auto 0.9 X10*3/uL (1.2-4.9); Mean Corpuscular HGB Conc 30.7 g/dl (31.0-36.0); Mean Corpuscular Hemoglobin 25.9 pg (27.0-33.0); Mean Corpuscular Volume 84.3 fL (80.0-98.0); Mean Platelet Volume 9.1 fL (9.4-12.4); Monocytes Absolute Auto 0.2 X10*3/uL (0.1-1.2); Monocytes Percent Auto 4.4 % (2-11); Neutrophils Absolute Auto 4.2 x10*3/uL (2.0-8.3); Neutrophils Percent Auto 78.2 % (45-73); Platelet Count 387 X10*3/uL (160-400); Red Blood Count 3.82 X10*6/uL (4.60-5.80); Red Cell Distribution Width 16.5 % (11.0-16.0); White Blood Count 5.4 X10*3/uL (4.8-10.8)
[2022-12-30 08:17] LABS: INTERNATIONAL NORM RATIO 1.1 (0.9-1.1); Prothrombin Time 12.8 SEC (10.0-13.1)
[2022-12-30] MEDS: 0.9 % Sodium Chloride 1,000 ML 999 ML IV (08:19)
[2022-12-30 08:21] LABS: Lactic Acid 1.1 mmol/L (0.5-2.0)
[2022-12-30] MEDS: ondansetron HCL 4 MG/2 ML VIAL IVPUSH ×2 (08:22→10:02)
[2022-12-30 08:26] LABS: Alanine Aminotransferase 12 U/L (0-40); Albumin Level 3.1 g/dL (3.5-5.0); Alkaline Phosphatase 136 U/L (39-117); Anion Gap 13 (12-20); Aspartate Amino Transferase 28 U/L (5-37); Bilirubin Direct 0.2 mg/dL (0.0-0.5); Bilirubin Total 0.5 mg/dL (0.0-1.0); Blood Urea Nitrogen 13 mg/dL (9-16); Calcium 8.6 mg/dL (8.4-10.2); Carbon Dioxide 30 mmol/L (22-29); Chloride 102 mmol/L (96-108); Creatinine Clr Calc Pharmacy 79.4; Estimated Glomerular Filt Rate > 60; Glucose Random 95 mg/dL (60-115); Magnesium 2.3 mg/dL (1.6-2.6); Sodium 142 mmol/L (135-145); Total Protein 7.1 g/dL (6.5-8.0)
[2022-12-30 08:33] LABS: Troponin-I High Sensitivity 7.2 ng/L (<3.5-35.0)
--- NOTE | 2022-12-30 08:58 | PC.NURSE ---
VOMITING COFFEE GROUND STOMACH CONTENTS , GUIAC + AT THE BEDSIDE. HE WAS ALSO INCONTINENT OF STOOL. IV FLUIDS ARE INFUSING
[2022-12-30] MEDS: iohexoL 350 MG/ML 100 ML INFUS..BTL IV (10:27)
[2022-12-30] MEDS: Potassium Chloride/H20 10 MEQ/100 ML PIGGYBACK 100 MEQ IV ×4 (10:33→14:07)
[2022-12-30 12:08] LABS: MANUAL DIFF FLAG NO
[2022-12-30 12:09] LABS: Hematocrit 33.3 % (42.0-52.0); Hemoglobin 10.4 g/dl (14.0-18.0); Imm Gran Abs Auto 0.02 X10*3/uL (0.00-0.03); Imm Gran Pct Auto 0.4 % (0.0-0.4); Lymphocytes Percent Auto 20.4 % (20-40); Mean Corpuscular HGB Conc 31.2 g/dl (31.0-36.0); Mean Corpuscular Hemoglobin 26.4 pg (27.0-33.0); Mean Corpuscular Volume 84.5 fL (80.0-98.0); Mean Platelet Volume 9.2 fL (9.4-12.4); Monocytes Absolute Auto 0.3 X10*3/uL (0.1-1.2); Monocytes Percent Auto 5.2 % (2-11); Neutrophils Absolute Auto 3.7 x10*3/uL (2.0-8.3); Platelet Count 365 X10*3/uL (160-400); Red Blood Count 3.94 X10*6/uL (4.60-5.80); Red Cell Distribution Width 16.4 % (11.0-16.0)
--- NOTE | 2022-12-30 12:20 | PC.NURSE ---
Patient resting on stretcher with eyes closed at this time. Patient pulse ranging from the 40's while sleeping and goes up to the 70's when patient is awake. Iv potassium infusing through wrist IV at this time.
--- NOTE | 2022-12-30 13:29 | PM.IMHP ---
History of Present Illness Date of Service: 12/30/22 Chief Complaint: Constipation, weakness A 72 years old male with PMH drug abuse, chronic wound [facility] with constipation and weakness. was waiting PT eval when he started to vomit. denies any abd pain, fever, chills, nausea, cough, sob, or urinary symptoms. ER reported one episode of heme +ve vomitus. reported to be difficult to arouse. looks frail and not a good historiam. blood work showed hypokalemia. Images were negative for any acute findings. His nurse found a used needle in the bed.? He reported he does sniffs heroin daily.? He denies any IV drug use but uses several bags per day and his last use was yesterday.? drug screen from yesterday is positive for opiates and fentanyl. Admitted for close monitoring and further eval Review of Systems Review of Systems: Yes all other systems are reviewed and are negative [facility] Medical History Adult failure to thrive Drug abuse Social History Alcohol intake: never Advance Directives: No Advance Directives Information Provided: No Meds Allergies Allergy/AdvReac Type Severity Reaction Status Date / Time Penicillins Allergy Severe SWELLING Verified 12/24/22 12:24 PCN Allergy Unknown swelling Uncoded 12/24/22 12:24 Active Medications: Current Medications Acetaminophen (Acetaminophen 325 Mg Tablet) 650 mg PO Q6H PRN PRN Reason: Pain, Mild (Pain Scale 1-3) Famotidine (Famotidine 20 Mg Tablet) 20 mg PO BID CRISTINA Sodium Chloride (Ns) 1,000 mls @ 100 mls/hr IVCONT .Q10H CRISTINA Ondansetron HCl (Ondansetron Hcl 4 Mg/2 Ml Vial) 4 mg IVPUSH Q8H PRN PRN Reason: Nausea and Vomiting Pantoprazole Sodium (Pantoprazole Sodium 40 Mg/10 Ml Vial) 40 mg IVPUSH ONCE ONE Stop: 12/30/22 13:27 Sodium Chloride (0.9 % Sodium Chloride Flush 3 Ml Syringe) 3 ml IVFLUSH QSHIFT [facility] Physical Exam Vital Signs and Narrative: Vital Signs: Last Vital Signs Temp 98.4 F 12/30/22 11:41 Pulse 54 12/30/22 11:41 Resp 11 L 12/30/22 11:41 BP 113/60 12/30/22 11:41 Pulse Ox 96 12/30/22 11:41 O2 Del Method Room Air 12/30/22 11:41 BMI result Body Mass Index 20.2 Const: Other: Constitutional : arousable w stimulation, frail looking, not in distress Neck : Normal inspection, Supple Cardiovascular : RRR, no JVP, no lower extremity edema Respiratory : good bilateral air entry, no crackles, wheezes or rhonchi Gastrointestinal: soft, lax, Normal bowel sounds, Non tender Skin : Warm, Dry Neurological : Alert & oriented to self and place, No focal deficit Results Labs 12/30/22 12:02 12/30/22 08:05 Labs: Laboratory Results - last 24 hr 12/29/22 12/29/22 12/30/22 13:24 14:00 03:54 MCV 84.2 MCH 26.3 L MCHC 31.2 RDW 16.4 H Plt Count 345 MPV 9.0 L Immature Gran % (Auto) 0.3 Neut % (Auto) 83.9 H Lymph % (Auto) 11.8 L [place] % (Auto) 4.0 Eos % (Auto) 0.0 Baso % (Auto) 0.0 Lymph # (Auto) 0.7 L [place] # (Auto) 0.2 Eos # (Auto) 0.0 Baso # (Auto) 0.0 Abs Immat Gran (auto) 0.02 Absolute Neuts (auto) 4.8 Absolute Nucleated RBC 0.000 Nucleated RBC % (auto) 0.0 PT INR Anion Gap 14 Estim Creat Clear Calc 80.5 Estimated GFR > 60 Random Glucose 86 Lactic Acid Calcium 8.6 Magnesium Total Bilirubin 0.4 Direct Bilirubin AST 30 ALT 12 Alkaline Phosphatase 136 H Total Creatine Kinase Troponin I High Sens Total Protein 6.8 Albumin 2.9 L Urine Color Yellow Urine Appearance Clear Urine pH 6.5 Ur Specific [place] 1.015 Urine Protein Trace Urine Glucose (UA) Negative Urine Ketones Trace Urine Blood Negative Urine Nitrite Negative Ur Leukocyte Esterase Negative Urine Opiates Screen Urine Fentanyl Screen Ur Barbiturates Screen Ur Phencyclidine Scrn Ur Amphetamines Screen U Benzodiazepines Scrn Urine Cocaine Screen U Marijuana (THC) Screen Blood Type Antibody Screen 0412/30/22 12/30/22 03:54 08:04 08:04 MCV 84.3 MCH 25.9 L MCHC 30.7 L RDW 16.5 H Plt Count 387 MPV 9.1 L Immature Gran % (Auto) 0.2 Neut % (Auto) 78.2 H Lymph % (Auto) 17.0 L [place] % (Auto) 4.4 Eos % (Auto) 0.0 Baso % (Auto) 0.2 Lymph # (Auto) 0.9 L [place] # (Auto) 0.2 Eos # (Auto) 0.0 Baso # (Auto) 0.0 Abs Immat Gran (auto) 0.01 Absolute Neuts (auto) 4.2 Absolute Nucleated RBC 0.000 Nucleated RBC % (auto) 0.0 PT INR Anion Gap Estim Creat Clear Calc Estimated GFR Random Glucose Lactic Acid 1.1 Calcium Magnesium Total Bilirubin Direct Bilirubin AST ALT Alkaline Phosphatase Total Creatine Kinase Troponin I High Sens Total Protein Albumin Urine Color Urine Appearance Urine pH Ur Specific [place] Urine Protein Urine Glucose (UA) Urine Ketones Urine Blood Urine Nitrite Ur Leukocyte Esterase Urine Opiates Screen POSITIVE H Urine Fentanyl Screen POSITIVE H Ur Barbiturates Screen Not Detected Ur Phencyclidine Scrn Not Detected Ur Amphetamines Screen Not Detected U Benzodiazepines Scrn Not Detected Urine Cocaine Screen Not Detected U Marijuana (THC) Screen Not Detected Blood Type Antibody Screen 12/30/22 12/30/22 12/30/22 08:04 08:05 08:05 MCV MCH MCHC RDW Plt Count MPV Immature Gran % (Auto) Neut % (Auto) Lymph % (Auto) [place] % (Auto) Eos % (Auto) Baso % (Auto) Lymph # (Auto) [place] # (Auto) Eos # (Auto) Baso # (Auto) Abs Immat Gran (auto) Absolute Neuts (auto) Absolute Nucleated RBC Nucleated RBC % (auto) PT 12.8 INR 1.1 Anion Gap 13 Estim Creat Clear Calc 79.4 Estimated GFR > 60 Random Glucose 95 Lactic Acid Calcium 8.6 Magnesium 2.3 Total Bilirubin 0.5 Direct Bilirubin 0.2 AST 28 ALT 12 Alkaline Phosphatase 136 H Total Creatine Kinase 146 Troponin I High Sens 7.2 Total Protein 7.1 Albumin 3.1 L Urine Color Urine Appearance Urine pH Ur Specific [place] Urine Protein Urine Glucose (UA) Urine Ketones Urine Blood Urine Nitrite Ur Leukocyte Esterase Urine Opiates Screen Urine Fentanyl Screen Ur Barbiturates Screen Ur Phencyclidine Scrn Ur Amphetamines Screen U Benzodiazepines Scrn Urine Cocaine Screen U Marijuana (THC) Screen Blood Type Antibody Screen 12/30/22 12/30/22 09:48 12:02 MCV 84.5 MCH 26.4 L MCHC 31.2 RDW 16.4 H Plt Count 365 MPV 9.2 L Immature Gran % (Auto) 0.4 Neut % (Auto) 74.0 H Lymph % (Auto) 20.4 [place] % (Auto) 5.2 Eos % (Auto) 0.0 Baso % (Auto) 0.0 Lymph # (Auto) 1.0 L [place] # (Auto) 0.3 Eos # (Auto) 0.0 Baso # (Auto) 0.0 Abs Immat Gran (auto) 0.02 Absolute Neuts (auto) 3.7 Absolute Nucleated RBC 0.000 Nucleated RBC % (auto) 0.0 PT INR Anion Gap Estim Creat Clear Calc Estimated GFR Random Glucose Lactic Acid Calcium Magnesium Total Bilirubin Direct Bilirubin AST ALT Alkaline Phosphatase Total Creatine Kinase Troponin I High Sens Total Protein Albumin Urine Color Urine Appearance Urine pH Ur Specific [place] Urine Protein Urine Glucose (UA) Urine Ketones Urine Blood Urine Nitrite Ur Leukocyte Esterase Urine Opiates Screen Urine Fentanyl Screen Ur Barbiturates Screen Ur Phencyclidine Scrn Ur Amphetamines Screen U Benzodiazepines Scrn Urine Cocaine Screen U Marijuana (THC) Screen Blood Type O Positive Antibody Screen NEGATIVE Imaging Radiologist's Impressions: Impressions Chest X-Ray 12/30/22 10:00 FINDINGS/IMPRESSION: The study is very limited due to portable technique, point rotation, patient rotation, chin overlying the left upper lung field, and right costophrenic angle being cut off the film. There is no obvious acute radiographic finding on this limited study. Abdomen/Pelvis CT 12/30/22 10:42 IMPRESSION: Evaluation is significantly limited due to patient positioning, motion, and lack of oral contrast. 1. No small or large bowel obstruction. No significant bowel wall thickening or associated inflammatory change. 2. No large intra-abdominal mass or abscess formation. 3. No hydronephrosis or nephrolithiasis. Previously seen left-sided renal stones not appreciated on the current examination. Stable left renal cysts. Fleischner guidelines were followed. Assessment and Plan (1) Fecal impaction: Status: Acute (2) Adult failure to thrive: Status: Acute (3) Vomiting: Status: Acute Plan A 72 years old male with PMH drug abuse, chronic wound presented dto ED with constipation and weakness. Acute hypokalemia pet caregiver replacement follow BMP Constipation Disimpacted in ED bowel regimen Intractable vomiting improving No evidence of acute process on CT Zofran PRN Drug abuse Addiction team to eval monitor for withdrawal Atarax PRN Adult FFT add Ensure to diet PT eval Heme positive vomitus stable H&H Pantoprazole IV monitor recurrence to involve GI DVT PPx SCDs Patient will need 2 overnight hospital stay to treat the mention problems pending safe discharge plan. Time Spent With Patient Time: Total time managing care of this patient today ____ minutes. Quality Stroke Does the patient have a stroke diagnosis?: No VTE Prior VTE?: No VTE Risk Level:: Medical - moderate - high VTE Device Contraindication: Treatment Not Indicated VTE Drug Contraindication: N/A - Med Ordered
[2022-12-30] MEDS: Pantoprazole Sodium 40 MG/10 ML VIAL IVPUSH (13:46)
[2022-12-30] MEDS: 0.9 % Sodium Chloride 1,000 ML 100 ML IVCONT ×2 (13:48→22:05)
--- NOTE | 2022-12-30 14:08 | PC.NURSE ---
Upon entering patient's room patient was vomiting into a emesis bag, patient HOB increased to prevent aspiration. Patient vomited approximately 300ml of coffee ground emesis. Provider made aware as it is too soon to give patient more zofran, at this time it was also noted that patient was desating on room air, patient placed on O2 at 4L via oxymask, sat came up to the 90's. Patient more tachypneic at this time.
[2022-12-30] MEDS: diphenhydrAMINE HCL 50 MG/ML VIAL IVPUSH (14:17)
[2022-12-30 14:51] LABS: Appearance Urine Cloudy; Color Urine Yellow; Glucose Urine UA Negative (Negative); Leukocyte Esterase Urine Negative (Negative); Nitrite Urine Negative (Negative); PH 7.5 (5.0-9.0); Urine Blood Negative (Negative); Urine Ketones 15 mg/dL (Negative); Urine Protein Trace mg/dL (Neg-Trace)
[2022-12-30 14:55] LABS: OBS Int Ctl Valid YES; OBS1 NEGATIVE (NEGATIVE)
--- NOTE | 2022-12-30 15:09 | MHC.RECOVRN ---
Met with pt in ED2 after consult placed to Addiction Medicine for substance use. Pt sitting in bed, ill appearing, diaphoretic, dilated pupils, had been vomiting and incontinent of loose stool. Pt hesitant to engage in conversation, however, reports using heroin, 1 bundle daily x awhile, IV/IN, last use a few days ago. Pt endorses feeling withdrawal and would like medication to alleviate symptoms. Discussed with Melva Babcock APRN. Due to pts low potassium and QTc of 533, pt not candidate for methadone at this time. Plan to utilize morphine for withdrawal symptoms.
--- NOTE | 2022-12-30 16:29 | PHA.MEDREC ---
Pharmacy Consult ? Medication Reconciliation Pharmacy has completed the medication reconciliation. I was able to get nods and medication names from patient. He claims to only be on percocet, morphine, and soma. 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 He only had a 7 DS of morphine in August and a 30 DS (60 tabs) recently on 10/29/22. The soma was filled last February, and on 11/05/22 for 180 tablets (30 DS). He does not know when he last took them. the information under home medications was taken from claim history.
--- NOTE | 2022-12-30 16:55 | PC.NURSE ---
attempted to call report to IM, unable to get a hold of them.
[2022-12-30] MEDS: Famotidine 20 MG TABLET PO (22:04)
[2022-12-31] VITALS (7 sets, daily range): BP systolic 112–145; BP diastolic 60–78; PULSE 49–76; RESP 14–20; TEMP 36.4–37.2; O2SAT 96–98
--- NOTE | 2022-12-31 | ECG_ITS ---
Test Reason : Evaluate bradycardia Blood Pressure : / mmHG Vent. Rate : 073 BPM Atrial Rate : 073 BPM P-R Int : 134 ms QRS Dur : 096 ms QT Int : 458 ms P-R-T Axes : 084 065 076 degrees QTc Int : 504 ms Artifact in tracing Normal sinus rhythm Cannot rule out Inferior infarct (cited on or before 25-JUL-2013) Prolonged QT Abnormal ECG When compared with ECG of 30-DEC-2022 07:16, No significant changes seen Referred By: Miladys Saunders Electronically Signed By:NORMA PARKER
[2022-12-31 00:27] LABS: Hemoglobin 8.7 g/dl (14.0-18.0); Mean Corpuscular HGB Conc 31.1 g/dl (31.0-36.0); Mean Corpuscular Volume 83.8 fL (80.0-98.0); Mean Platelet Volume 8.7 fL (9.4-12.4); Platelet Count 315 X10*3/uL (160-400); Red Blood Count 3.34 X10*6/uL (4.60-5.80); Red Cell Distribution Width 16.3 % (11.0-16.0); White Blood Count 5.3 X10*3/uL (4.8-10.8)
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
[2022-12-31] MEDS: 0.9 % Sodium Chloride 1,000 ML 100 ML IVCONT ×2 (07:59→21:28)
[2022-12-31] MEDS: Pantoprazole Sodium 40 MG/10 ML VIAL IVPUSH ×2 (10:10→18:12)
--- NOTE | 2022-12-31 11:41 | P.PNIM_ITS ---
Subjective Subjective Date of Service: 12/31/22 Interval History: More alert and interactive this morning looks frail and deconditioned no more episodes of hemaemesis overnight Hb stable with minor drop no other overnight events Review of Systems Review of Systems: Yes all other systems are reviewed and are negative Physical Exam Vital Signs: Vital Signs: Last Vital Signs Temp 97.6 F 12/31/22 07:42 Pulse 49 L 12/31/22 09:50 Resp 16 12/31/22 07:42 BP 135/61 12/31/22 09:50 Pulse Ox 98 12/31/22 09:50 O2 Del Method Room Air 12/31/22 07:42 O2 Flow Rate 3 12/30/22 16:14 BMI result Body Mass Index 20.2 Const: Other: Constitutional : alert w stimulation, frail looking, not in distress Neck : Normal inspection, Supple Cardiovascular : RRR, no JVP, no lower extremity edema Respiratory : good bilateral air entry, no crackles, wheezes or rhonchi Gastrointestinal: soft, lax, Normal bowel sounds, Non tender Skin : Warm, Dry Neurological : Alert & oriented to self and place, No focal deficit Objective Data Active Medications Acetaminophen (Acetaminophen 325 Mg Tablet) 650 mg PO Q6H PRN PRN Reason: Pain, Mild (Pain Scale 1-3) Sodium Chloride (Ns) 1,000 mls @ 100 mls/hr IVCONT .Q10H [facility] Last Admin: 12/31/22 07:59 Dose: 100 mls/hr Documented By: ERIC Morphine Sulfate (Morphine Sulfate 2 Mg/Ml Cartridge) 2 mg IVPUSH Q4H PRN; Protocol PRN Reason: Pain, Severe (Pain Scale 7-10) Ondansetron HCl (Ondansetron Hcl 4 Mg/2 Ml Vial) 4 mg IVPUSH Q8H PRN PRN Reason: Nausea and Vomiting Pantoprazole Sodium (Pantoprazole Sodium 40 Mg/10 Ml Vial) 40 mg IVPUSH BID@0630,1630 [facility] Last Admin: 12/31/22 10:10 Dose: 40 mg Documented By: ERIC Sodium Chloride (0.9 % Sodium Chloride Flush 3 Ml Syringe) 3 ml IVFLUSH QSHIFT [facility] Last Admin: 12/31/22 07:47 Dose: Not Given Documented By: ERIC Non-Admin Reason: IV Running Labs 12/31/22 00:20 12/30/22 08:05 Labs: Laboratory Results - last 24 hr 12/30/22 12/30/22 12/30/22 12:02 14:06 14:40 MCV 84.5 MCH 26.4 L MCHC 31.2 RDW 16.4 H Plt Count 365 MPV 9.2 L Immature Gran % (Auto) 0.4 Neut % (Auto) 74.0 H Lymph % (Auto) 20.4 [place] % (Auto) 5.2 Eos % (Auto) 0.0 Baso % (Auto) 0.0 Lymph # (Auto) 1.0 L [place] # (Auto) 0.3 Eos # (Auto) 0.0 Baso # (Auto) 0.0 Abs Immat Gran (auto) 0.02 Absolute Neuts (auto) 3.7 Absolute Nucleated RBC 0.000 Nucleated RBC % (auto) 0.0 Urine Color Yellow Urine Appearance Cloudy Urine pH 7.5 Ur Specific [place] 1.020 Urine Protein Trace Urine Glucose (UA) Negative Urine Ketones 15 Urine Blood Negative Urine Nitrite Negative Ur Leukocyte Esterase Negative Stool Occult Blood NEGATIVE 12/31/22 00:20 MCV 83.8 MCH 26.0 L MCHC 31.1 RDW 16.3 H Plt Count 315 MPV 8.7 L Immature Gran % (Auto) Neut % (Auto) Lymph % (Auto) [place] % (Auto) Eos % (Auto) Baso % (Auto) Lymph # (Auto) [place] # (Auto) Eos # (Auto) Baso # (Auto) Abs Immat Gran (auto) Absolute Neuts (auto) Absolute Nucleated RBC 0.000 Nucleated RBC % (auto) 0.0 Urine Color Urine Appearance Urine pH Ur Specific [place] Urine Protein Urine Glucose (UA) Urine Ketones Urine Blood Urine Nitrite Ur Leukocyte Esterase Stool Occult Blood Microbiology Microbiology Results: Microbiology 12/30/22 08:03 Blood Culture - Preliminary Blood - Venous No growth after 24 hours. 12/30/22 08:04 Blood Culture - Preliminary Blood - Venous No growth after 24 hours. Assessment and Plan (1) Adult failure to thrive: Status: Acute (2) Hematemesis: Status: Acute (3) Fecal impaction: Status: Acute (4) Vomiting: Status: Acute (5) Acute hypokalemia: Status: Acute Plan A 72 years old male with PMH drug abuse, chronic wound presented dto ED with constipation and weakness. Hematemesis could by 2\2 MW tear, Pantoprazole IV clear diet GI eval for upper and lower endoscopy NPO post midnight colon prep Acute hypokalemia given replacement follow BMP Constipation Disimpacted in ED bowel regimen Intractable vomiting improving No evidence of acute process on CT Zofran PRN Drug abuse Addiction team following monitor for withdrawal Morphine PRN Adult FFT , decondithoning to add ensure to diet PT eval DVT PPx SCDs Patient will need overnight hospital stay for evaluation of hemaemesis pending safe discharge plan. Time Spent With Patient Time: Total time managing care of this patient today ____ minutes. Quality Stroke Does the patient have a stroke diagnosis?: No VTE Prior VTE?: No VTE Risk Level:: Medical - moderate - high VTE Device Contraindication: Treatment Not Indicated VTE Drug Contraindication: N/A - Med Ordered
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
[2022-12-31] MEDS: Morphine Sulfate 2 MG/ML CARTRIDGE IVPUSH (13:45)
[2022-12-31] MEDS: bisacodyL 5 MG TABLET.DR 20 MG PO (13:53)
--- NOTE | 2022-12-31 14:19 | MHC.CLN ---
PT REPORTED WT LOSS ON NURSING ADMISSION ASSESSMENT WT FOLLOWS 62.1KG (12/29/22) 56.1KG (12/24/22) TRIGGERS FOR 10% SIGNIFICANT WT GAIN 72.6KG (12/03/22) TRIGGER FOR 14% SIGNIFICANT WT LOSS PT IS CURRENTLY ON C/L DIET AND DIET SCHEDULED FOR NPO TOMORROW WHEN DIET TO ADVANCE, WILL START ENSURE TO INCREASE KCALS SUPP TO PROVIDE 1050KCALS, 60G PROTEIN WITH 100% ACCEPTANCE FOLLOWING FOR DIET ADVANCEMENT FULL ASSESSMENT TO FOLLOW IF NEEDED
--- NOTE | 2022-12-31 16:29 | HO.WOUNDCONS ---
History of Present Illness Data of Consult Service Date: 12/31/22 Requesting physician: Galindo Turner Primary Care Provider: Unknown Physician HPI Reason for consult: left forearm wound [id number]: 72-year-old male admitted for intractable vomiting and hypokalemia as well as fecal impaction and failure to thrive. Records indicate that he is homeless and staying in a hotel. Records also indicate that he speaks Syrian but he will not answer questions for me. He is not having any pain. He lets me examine his left wrist without complaint. Xeroform is being utilized to provide moisture to this open ulcer as well as roller gauze. Review of Systems Review of Systems: He will not answer questions for me and is very sleepy. [facility], [facility] Medical History Adult failure to thrive Drug abuse Social History Household Members: None Housing: Other Housing Other:: living in a hotel Alcohol intake: never Patient Tobacco Use Status: Never used Tobacco Meds Allergies Allergy/AdvReac Type Severity Reaction Status Date / Time Penicillins Allergy Severe SWELLING Verified 12/24/22 12:24 PCN Allergy Unknown swelling Uncoded 12/24/22 12:24 Active Medications: Current Medications Acetaminophen (Acetaminophen 325 Mg Tablet) 650 mg PO Q6H PRN PRN Reason: Pain, Mild (Pain Scale 1-3) Sodium Chloride (Ns) 1,000 mls @ 100 mls/hr IVCONT .Q10H [facility] Last Admin: 12/31/22 07:59 Dose: 100 mls/hr Morphine Sulfate (Morphine Sulfate 2 Mg/Ml Cartridge) 2 mg IVPUSH Q4H PRN; Protocol PRN Reason: Pain, Severe (Pain Scale 7-10) Last Admin: 12/31/22 13:45 Dose: 2 mg Ondansetron HCl (Ondansetron Hcl 4 Mg/2 Ml Vial) 4 mg IVPUSH Q8H PRN PRN Reason: Nausea and Vomiting Pantoprazole Sodium (Pantoprazole Sodium 40 Mg/10 Ml Vial) 40 mg IVPUSH BID@0630,1630 [facility] Last Admin: 12/31/22 10:10 Dose: 40 mg Polyethylene Glycol/Electrolytes (Peg 3350/Na Sulf,Bicarb,Cl/Kcl 4,000 Ml Soln.Recon) 4,000 ml PO ONCE ONE Stop: 12/31/22 18:01 Sodium Chloride (0.9 % Sodium Chloride Flush 3 Ml Syringe) 3 ml IVFLUSH QSHIFT [facility] Last Admin: 12/31/22 07:47 Dose: Not Given Home Medications Medication Instructions Recorded Confirmed Last Taken Type carisoprodol 350 mg tablet 700 mg PO TID 12/30/22 12/30/22 Unknown History morphine 30 mg tablet,extended 30 mg PO BID 12/30/22 12/30/22 Unknown History release oxycodone-acetaminophen 5 mg-325 1 tab PO QID 12/30/22 12/30/22 Unknown History mg tablet Physical Exam Vital Signs and Narrative: Vital Signs: Last Vital Signs Temp 98.9 F 12/31/22 15:44 Pulse 76 12/31/22 15:44 Resp 14 12/31/22 15:44 BP 115/65 12/31/22 15:44 Pulse Ox 96 12/31/22 15:44 O2 Del Method Room Air 12/31/22 15:44 O2 Flow Rate 3 12/30/22 16:14 BMI result Body Mass Index 20.2 He has left wrist extension contracture with exposed extensor carpi radialis muscle. There is very little soft tissue to protect this exposed muscle. He has 2+ edema of the fingers without associated redness or warmth. There is no wrist range of motion whatsoever. He he can wiggle his fingers slightly. With the use of Xerform topical dressing, there appears to be improvement in the periwound integrity based on previous photographs showing eschar. It is difficult to tell if there is any chronic drainage from the area. Results Labs 12/31/22 00:20 12/30/22 08:05 Labs: Laboratory Results - last 24 hr 12/31/22 00:20 MCV 83.8 MCH 26.0 L MCHC 31.1 RDW 16.3 H Plt Count 315 MPV 8.7 L Absolute Nucleated RBC 0.000 Nucleated RBC % (auto) 0.0 Imaging Radiologist's Impressions: Impressions Chest X-Ray 12/30/22 15:42 IMPRESSION: Limited exam. Scattered areas of linear atelectasis seen in the mid and lower lungs bilaterally. No focal pneumonia. Assessment and Plan (1) Contracture of muscle, left forearm: Status: Acute Plan 72-year-old male with left wrist contracture and associated ulcer with long-standing history of substance abuse for which scarring is seen, possibly consistent with the self injection. There is concern for osteomyelitis and an x-ray would be a reasonable idea given the longevity of this ulcer and the exposed muscle. Additionally in the absence of a good history, because the patient is sleepy, there could be fracture so ruling this out is also reasonable. We will not be able to heal this by secondary means without reconstructive efforts. Even if the wound was closed by secondary intention, it would not improve the function of the wrist without orthopedic hand reconstruction. Might consider ortho hand surgery consultation if he is willing to participate in surgery and outpatient (?) rehabilitation to follow. Xeroform is reasonable topical dressing to keep deep structures moist but risk for infection is relatively high with exposed muscle belly regardless of dressing choice. ADDENDUM: XR from [id number] prior to this admission not showing fracture. Agree no bony erosive changes are seen that correlate with open wound. Time Spent With Patient Time: Total time managing care of this patient today ____ minutes.
[2022-12-31] MEDS: PEG 3350/Na Sulf,Bicarb,Cl/KCL 4,000 ML SOLN.RECON 4000 ML PO (18:12)
[2022-12-31] MEDS: 0.9 % Sodium Chloride Flush 3 ML SYRINGE IVFLUSH (18:12)
--- NOTE | 2022-12-31 23:02 | PC.NURSE ---
at 1999 Patient stated that he will decline consent for colonoscopy and will not consume required prep, I informed patient of importance of procedure to diagnose his condition. He informed me that he understood but still did not want a colonoscopy proceedure. I questioned his decision 3 additional times during the shift and he did not change his mind.
[2023-01-01] MEDS: 0.9 % Sodium Chloride 1,000 ML 100 ML IVCONT (05:46)
[2023-01-01] MEDS: Pantoprazole Sodium 40 MG/10 ML VIAL IVPUSH (05:46)
--- NOTE | 2023-01-01 05:58 | PM.GICN ---
History of Present Illness Data of Consult Service Date: 01/01/23 Requesting physician: Miladys Saunders Primary Care Provider: Unknown Physician HPI Reason for consult: anemia, constipation 72 years old male with PMH drug abuse, chronic wound who I am seeing for assessment for anemia and constipation Patient said he had not moved his bowels in 2 weeks hence he came to the ED for assessment. He did vomit and this was apparent pos for heme, but unknown if grossly bloody or coffee ground. He was disimpacted in the ED due to the constipation. He denies overt blood loss, and says there has been no rectal bleeding, nose bleeds, or blood in urine. Denies abdominal pain and now has no nausea or vomiting, he is adamant he wants to go home. Says last colonoscopy was about 7 yrs ago in [place] and was normal, never had an EGD, denies taking nsaids apparently he does use drugs and nurse found a used needle in the bed. Drug screen was positive for opiates and fentanyl. Labs with stable HGB 9 g/dl with nml MCV. Review of Systems Review of Systems: Constitutional : No Weight loss, No Fever, No Chills ENT/Mouth : No sore throat, No Rhinorrhea Eyes: No Swelling, No Redness Cardiovascular : No Chest Pain, No SOB, No Edema Respiratory : No Cough, No Sputum, No Wheezing Gastrointestinal : see HPI Genitourinary : NO Dysuria, No Urinary Frequency, No Hematuria, No Urgency Musculoskeletal : No joint pain, + Myalgias, No Joint Swelling Skin : + Skin Lesions, No rash Neuro : No Weakness, No Numbness, No Dizziness, No Headache Psych : No Anxiety/Panic, No Depression Heme/Lymph: No Bruising, No Lymphadenopathy Endocrine : No Polyuria, No Polydipsia All other systems reviewed and are negative. [facility] Past Medical History Medical History Adult failure to thrive Drug abuse Family History Pertinent family history: denies FH of CRC, ulcers Social History Social History Household Members: None Housing: Other Housing Other:: living in a hotel Alcohol intake: never Patient Tobacco Use Status: Never used Tobacco Meds Allergies Allergy/AdvReac Type Severity Reaction Status Date / Time Penicillins Allergy Severe SWELLING Verified 12/24/22 12:24 PCN Allergy Unknown swelling Uncoded 12/24/22 12:24 Active Medications: Current Medications Acetaminophen (Acetaminophen 325 Mg Tablet) 650 mg PO Q6H PRN PRN Reason: Pain, Mild (Pain Scale 1-3) Sodium Chloride (Ns) 1,000 mls @ 100 mls/hr IVCONT .Q10H [facility] Last Admin: 01/01/23 05:46 Dose: 100 mls/hr Morphine Sulfate (Morphine Sulfate 2 Mg/Ml Cartridge) 2 mg IVPUSH Q4H PRN; Protocol PRN Reason: Pain, Severe (Pain Scale 7-10) Last Admin: 12/31/22 13:45 Dose: 2 mg Ondansetron HCl (Ondansetron Hcl 4 Mg/2 Ml Vial) 4 mg IVPUSH Q8H PRN PRN Reason: Nausea and Vomiting Pantoprazole Sodium (Pantoprazole Sodium 40 Mg/10 Ml Vial) 40 mg IVPUSH BID@0630,1630 [facility] Last Admin: 01/01/23 05:46 Dose: 40 mg Sodium Chloride (0.9 % Sodium Chloride Flush 3 Ml Syringe) 3 ml IVFLUSH QSHIFT [facility] Last Admin: 01/01/23 00:33 Dose: Not Given Home Medications Medication Instructions Recorded Confirmed Last Taken Type carisoprodol 350 mg tablet 700 mg PO TID 12/30/22 12/30/22 Unknown History morphine 30 mg tablet,extended 30 mg PO BID 12/30/22 12/30/22 Unknown History release oxycodone-acetaminophen 5 mg-325 1 tab PO QID 12/30/22 12/30/22 Unknown History mg tablet Physical Exam Vital Signs: Vital Signs: Last Vital Signs Temp 99.0 F 12/31/22 23:21 Pulse 65 12/31/22 23:21 Resp 15 12/31/22 23:21 BP 112/60 12/31/22 23:21 Pulse Ox 97 12/31/22 23:21 O2 Del Method Room Air 12/31/22 23:21 O2 Flow Rate 3 12/30/22 16:14 BMI result Body Mass Index 20.2 Const: General: cooperative Nutritional Appearance: cachectic Orientation/consciousness: patient oriented x3 HEENT: Head: Yes normal to inspection Face and sinus: Yes normal facial exam Chest: Chest palpation & inspection: normal inspection of the chest Resp: Effort & Inspection: normal respiratory effort Auscultation: clear to auscultation bilaterally Cardio: Jugular venous distension: no JVD Rate: regular rate GI: Inspection: Yes normal to inspection Palpation (GI): Soft to palpation, not firm and nontender Auscultation: normal bowel sounds Skin: Other: left wrist contracture and associated ulcer General skin exam: other (Chronic wound in the left forearm) Neuro: General: patient oriented x3 Psych: Appearance: grossly normal and disheveled Results Labs 12/31/22 00:20 12/30/22 08:05 Microbiology Microbiology Results: Microbiology 12/30/22 08:03 Blood - Venous Blood Culture - Preliminary No growth after 24 hours. 12/30/22 08:04 Blood - Venous Blood Culture - Preliminary No growth after [address] scan - abdomen: Attestation: I personally reviewed and interpreted this imaging study as follows: (fecal loading, distended bladder, spinal degen) Assessment and Plan (1) Chronic disease anemia: Status: Acute Plan 1/ Chronic stabel anemia, with constipation, ddx: 2/2 heroin use, immobility, poor diet, or underlying neoplasia, mass, ulcer PLAN: 1/ I did recommend an EGD and colonoscopy but the patient refuses this. He wishes to go home, and will not consider outpatient procedures either. HGB has been stable, can commence PPI and cont to monitor-- 2/ check nutrients, b12, folate, ferritin, zinc, B vitamins, and replace if low. Time Spent With Patient Time: Total time managing care of this patient today ____ minutes. Procedures Date of Service Date of Service: 01/01/23
[2023-01-01 09:11] LABS: Hematocrit 27.9 % (42.0-52.0); Mean Corpuscular HGB Conc 32.3 g/dl (31.0-36.0); Mean Corpuscular Hemoglobin 26.3 pg (27.0-33.0); Mean Corpuscular Volume 81.6 fL (80.0-98.0); Mean Platelet Volume 9.2 fL (9.4-12.4); Platelet Count 335 X10*3/uL (160-400); Red Blood Count 3.42 X10*6/uL (4.60-5.80); Red Cell Distribution Width 15.8 % (11.0-16.0); White Blood Count 3.6 X10*3/uL (4.8-10.8)
[2023-01-01 09:44] LABS: Anion Gap 12 (12-20); Blood Urea Nitrogen 7 mg/dL (9-16); Calcium 7.7 mg/dL (8.4-10.2); Carbon Dioxide 23 mmol/L (22-29); Chloride 100 mmol/L (96-108); Creatinine Clr Calc Pharmacy 109.7; Estimated Glomerular Filt Rate > 60; Glucose Random 86 mg/dL (60-115); Potassium 2.3 mmol/L (3.3-5.1); Sodium 133 mmol/L (135-145)
--- NOTE | 2023-01-01 10:27 | MHC.CM.PN ---
EMR REVIEWED, CM MET W/PT AT BEDSIDE WHO REPORTS HE DOES HAVE A SNF BENEFIT AND HAS GONE TO STR MUTIPLE TIMES, NO PREFERENCE OF FACILITY, BLANKET REFERRAL PLACED, PLAN WILL BE FOR PT TO RETURN TO [place] ONCE STR COMPLETED, CM WILL CONT TO FOLLOW D/C NEEDS.
--- NOTE | 2023-01-01 10:47 | MHC.RECOVRN ---
This resume writer met w/ patient, patient was sitting in recliner, sleeping, awake to verbal command. Patient reports no withdrawal s/s currently. Patient states has pain 05/26. T/W reviewed that patient had received morphine 2mg on 12/31/22, patient could not recall. T/W to return later in the day to reassess.
[2023-01-01 11:08] VITALS: BP 120/70; PULSE 69; RESP 20; TEMP 37.2; O2SAT 99
[2023-01-01] MEDS: Potassium Chloride/H20 10 MEQ/100 ML PIGGYBACK 100 MEQ IV ×2 (11:42→12:59)
[2023-01-01] MEDS: 0.9 % Sodium Chloride Flush 3 ML SYRINGE IVFLUSH (11:46)
[2023-01-01] MEDS: Morphine Sulfate 2 MG/ML CARTRIDGE IVPUSH (11:46)
[2023-01-01 12:02] VITALS: BMI 20.2
--- NOTE | 2023-01-01 12:07 | MHC.CLN ---
F/U PT IS MODERATELY MALNOURISHED PT WITH MILDLY DEPLETED SUBCUTANEOUS FAT AND MUSCLE MASS WITH REPORTED 40# WT LOSS X 6 MONTHS TRIGGERS FOR 22% SIGNIFICANT WT LOSS R/T DRUG ABUSE PT REPORTED WT LOSS ON NURSING ADMISSION ASSESSMENT WT FOLLOWS 62.1KG (12/29/22) 56.1KG (12/24/22) TRIGGERS FOR 10% SIGNIFICANT WT GAIN 72.6KG (12/03/22) TRIGGER FOR 14% SIGNIFICANT WT LOSS PO INTAKE 25% X 1 MEAL DIET RX: REGULAR-APPROPRIATE RECOMMEND STARTING ENSURE TID TO INCREASE KCALS SUPP TO PROVIDE 1050KCALS, 60G PROTEIN WITH 100% ACCEPTANCE MONITOR PO INTAKE CLOSELY SEE FULL CLINICAL NUTRITION ASSESSMENT
[2023-01-01] MEDS: Potassium Chloride ER 20 MEQ TAB.ER.PRT 40 MEQ PO (12:59)
--- NOTE | 2023-01-01 13:14 | P.PNIM_ITS ---
Subjective Subjective Date of Service: 01/01/23 Interval History: Sleeping but when stimulated alert and interactive looks frail and deconditioned no more episodes of hemaemesis overnight Hb stable with minor drop Potassium low at 2.3 no other overnight events Review of Systems Review of Systems: Yes all other systems are reviewed and are negative Physical Exam Vital Signs: Vital Signs: Last Vital Signs Temp 98.9 F 01/01/23 11:08 Pulse 69 01/01/23 11:08 Resp 20 01/01/23 11:08 BP 120/70 01/01/23 11:08 Pulse Ox 99 01/01/23 11:08 O2 Del Method Room Air 01/01/23 11:08 O2 Flow Rate 3 12/30/22 16:14 BMI result Body Mass Index 20.2 Const: Other: Constitutional : alert w stimulation, frail looking, not in distress Neck : Normal inspection, Supple Cardiovascular : RRR, no JVP, no lower extremity edema Respiratory : good bilateral air entry, no crackles, wheezes or rhonchi Gastrointestinal: soft, lax, Normal bowel sounds, Non tender Skin : Warm, Dry Neurological : Alert & oriented to self and place, No focal deficit Objective Data Active Medications Acetaminophen (Acetaminophen 325 Mg Tablet) 650 mg PO Q6H PRN PRN Reason: Pain, Mild (Pain Scale 1-3) Sodium Chloride (Ns) 1,000 mls @ 100 mls/hr IVCONT .Q10H [facility] Last Admin: 01/01/23 05:46 Dose: 100 mls/hr Documented By: AKBAR Potassium Chloride (Potassium Chloride/H20) 10 meq in 100 mls @ 100 mls/hr IV Q1H [facility] Stop: 01/01/23 14:29 Morphine Sulfate (Morphine Sulfate 2 Mg/Ml Cartridge) 2 mg IVPUSH Q4H PRN; Protocol PRN Reason: Pain, Severe (Pain Scale 7-10) Last Admin: 01/01/23 11:46 Dose: 2 mg Documented By: TONI Ondansetron HCl (Ondansetron Hcl 4 Mg/2 Ml Vial) 4 mg IVPUSH Q8H PRN PRN Reason: Nausea and Vomiting Pantoprazole Sodium (Pantoprazole Sodium 40 Mg/10 Ml Vial) 40 mg IVPUSH BID@0630,1630 [facility] Last Admin: 01/01/23 05:46 Dose: 40 mg Documented By: AKBAR Potassium Chloride (Potassium Chloride Er 20 Meq Tab.Er.Prt) 40 meq PO Q2H [facility] Stop: 01/01/23 14:31 Last Admin: 01/01/23 12:59 Dose: 40 meq Documented By: TONI Sodium Biphosphate/Sodium Phosphate (Sodium Phosphate,[place]-Dibasic 133 Ml Enema) 133 ml MO ONCE [facility] Sodium Chloride (0.9 % Sodium Chloride Flush 3 Ml Syringe) 3 ml IVFLUSH QSHIFT [facility] Last Admin: 01/01/23 11:46 Dose: 3 ml Documented By: TONI Labs 01/01/23 08:52 01/01/23 08:52 Labs: Laboratory Results - last 24 hr 01/01/23 01/01/23 08:52 08:52 MCV 81.6 MCH 26.3 L MCHC 32.3 RDW 15.8 Plt Count 335 MPV 9.2 L Absolute Nucleated RBC 0.000 Nucleated RBC % (auto) 0.0 Anion Gap 12 Estim Creat Clear Calc 109.7 Estimated GFR > 60 Random Glucose 86 Calcium 7.7 L D Microbiology Microbiology Results: Microbiology 12/30/22 08:03 Blood Culture - Preliminary Blood - Venous No growth after 48 hours. 12/30/22 08:04 Blood Culture - Preliminary Blood - Venous No growth after 48 hours. Assessment and Plan (1) Hematemesis: Status: Acute (2) Acute hypokalemia: Status: Acute (3) Adult failure to thrive: Status: Acute Plan A 72 years old male with PMH drug abuse, chronic wound presented dto ED with constipation and weakness. Hematemesis could by 2\2 MW tear, continue Pantoprazole IV advance diet refused upper and lower endoscopy Laxatives Acute hypokalemia K of 2.3 given IV and PO replacement follow BMP Constipation Disimpacted in ED bowel regimen Intractable vomiting improving No evidence of acute process on CT Zofran PRN Drug abuse Addiction team following monitor for withdrawal Morphine PRN Adult FFT , decondithoning to add ensure to diet PT eval DVT PPx SCDs Patient will need overnight hospital stay for treatment of hypokalemia pending safe discharge plan. Time Spent With Patient Time: Total time managing care of this patient today ____ minutes. Quality Stroke Does the patient have a stroke diagnosis?: No VTE Prior VTE?: No VTE Risk Level:: Medical - moderate - high VTE Device Contraindication: Treatment Not Indicated VTE Drug Contraindication: N/A - Med Ordered
[2023-01-01 13:18] VITALS: BP 120/70; PULSE 69; O2SAT 99
[2023-01-01 13:47] VITALS: BP 120/70; PULSE 69; O2SAT 99
[2023-01-01] MEDS: bisacodyL 5 MG TABLET.DR 20 MG PO (14:57)
[2023-01-01] MEDS: Docusate Sodium 100 MG CAPSULE PO (14:58)
--- NOTE | 2023-01-01 15:48 | PC.NURSE ---
Patient has decided to refuse all medical treatments testing and prescribed medications.
[2023-01-01 16:00] VITALS: BP 118/64; PULSE 75; RESP 14; TEMP 36.7; O2SAT 99
[2023-01-01 19:05] VITALS: BP 100/63; PULSE 83; RESP 13; TEMP 36.8; O2SAT 97
[2023-01-02 07:51] VITALS: BP 122/65; PULSE 91; RESP 19; TEMP 37.1; O2SAT 100
[2023-01-02 09:38] VITALS: BP 122/65; PULSE 91; O2SAT 100
--- NOTE | 2023-01-02 09:50 | MHC.CM.PN ---
EMR REVIEWED, PT REQUESTING DISCHARGE, ANTIC PT WILL NEED [facility] AND HOME PT W/NEW SCRIPT FOR FRONT WHEELED WALKER, CM HAS CONTACTED [facility] TO SEE IF THEY CAN REATTEMPT SERVICES W/PT AND REPORTED THAT PT ATTMEPTED TO SEE PT MULTIPLE TIMES HOWEVER PT WASN'T HOME OR NEVER ANSWERED DOOR, CM AWAITING RESPONSE, PER PT HE HAS A FRIEND WHO CAN PROVIDE TRANSPORT.
--- NOTE | 2023-01-02 10:32 | MHC.CLN ---
F/U PT IS MODERATELY MALNOURISHED SEE CLINICAL NUTRITION ASSESSMENT DATED 01/01/23 PO INTAKE 75% X 1 MEAL DIET RX: REGULAR-APPROPRIATE PT RECEIVING ENSURE TID TO INCREASE KCALS SUPP TO PROVIDE 1050KCALS, 60G PROTEIN WITH 100% ACCEPTANCE MONITOR PO INTAKE CLOSELY
[2023-01-02] MEDS: Morphine Sulfate 2 MG/ML CARTRIDGE IVPUSH ×3 (10:47→20:02)
[2023-01-02] MEDS: 0.9 % Sodium Chloride Flush 3 ML SYRINGE IVFLUSH ×2 (10:48→15:46)
--- NOTE | 2023-01-02 11:49 | MHC.RECOVRN ---
Met with pt in 482 to provide support and assess withdrawal. Pt sitting in chair, eyes closed, easily awakens to voice. Pt reports pain and inadequate pain management is a factor in wanting to discharge. Spoke with pts RN, pt to receive morphine.
[2023-01-02 12:00] VITALS: BP 117/57; PULSE 92; RESP 16; TEMP 36.8; O2SAT 98
--- NOTE | 2023-01-02 12:18 | MHC.CM.PN ---
CM MET W/PT WHO REPORTS HIS PCP IS JUAN LUONG, PT NOW DENIES HE WILL HAVE TRANSPORT HOME FROM HOSPITAL AND WILL LIKELY NEED AMBULANCE TRANSPORT, CM ATTEMPTING TO FIND [facility] SERVICES HOWEVER [facility] HAS NOT BEEN SECURED AT THIS TIME, CM WILL CONT TO FOLLOW D/C NEEDS.
--- NOTE | 2023-01-02 14:19 | P.PNIM_ITS ---
Subjective Subjective Date of Service: 01/02/23 Interval History: more alert and interactive looks frail and deconditioned no more episodes of hemaemesis Hb stable refusing blood work no other overnight events Review of Systems Review of Systems: Yes all other systems are reviewed and are negative Physical Exam Vital Signs: Vital Signs: Last Vital Signs Temp 98.3 F 01/02/23 12:00 Pulse 92 01/02/23 12:00 Resp 16 01/02/23 12:00 BP 117/57 L 01/02/23 12:00 Pulse Ox 98 01/02/23 12:00 O2 Del Method Room Air 01/02/23 12:00 O2 Flow Rate 3 12/30/22 16:14 BMI result Body Mass Index 20.2 Const: Other: Constitutional : alert, frail looking, not in distress Neck : Normal inspection, Supple Cardiovascular : RRR, no JVP, no lower extremity edema Respiratory : good bilateral air entry, no crackles, wheezes or rhonchi Gastrointestinal: soft, lax, Normal bowel sounds, Non tender Skin : Warm, Dry, Left forearm chronic wound with muscle contacture exposed extensor carpi radialis muscle with fingers edema in Lt hand. no wrist movement. restricted movement of fingers. Neurological : Alert & oriented to self and place, No focal deficit Objective Data Active Medications Acetaminophen (Acetaminophen 325 Mg Tablet) 650 mg PO Q6H PRN PRN Reason: Pain, Mild (Pain Scale 1-3) Bisacodyl (Bisacodyl 5 Mg Tablet.Dr) 20 mg PO DAILY [facility] Last Admin: 01/02/23 09:46 Dose: Not Given Documented By: KATELYN Non-Admin Reason: Patient Refused Docusate Sodium (Docusate Sodium 100 Mg Capsule) 100 mg PO BID [facility] Last Admin: 01/02/23 09:46 Dose: Not Given Documented By: KATELYN Non-Admin Reason: Patient Refused Morphine Sulfate (Morphine Sulfate 2 Mg/Ml Cartridge) 2 mg IVPUSH Q4H PRN; Protocol PRN Reason: Pain, Severe (Pain Scale 7-10) Last Admin: 01/02/23 10:47 Dose: 2 mg Documented By: KATELYN Ondansetron HCl (Ondansetron Hcl 4 Mg/2 Ml Vial) 4 mg IVPUSH Q8H PRN PRN Reason: Nausea and Vomiting Pantoprazole Sodium (Pantoprazole Sodium 40 Mg/10 Ml Vial) 40 mg IVPUSH BID@0630,1630 [facility] Last Admin: 01/02/23 05:51 Dose: Not Given Documented By: ANGEL Non-Admin Reason: Patient Refused Psyllium Hydrophilic Mucilloid (Psyllium Seed 3.4 Gm Powd.Pack) 3.4 gm PO BED TIME [facility] Last Admin: 01/01/23 21:58 Dose: Not Given Documented By: ANGEL Non-Admin Reason: Patient Refused Sodium Biphosphate/Sodium Phosphate (Sodium Phosphate,[place]-Dibasic 133 Ml Enema) 133 ml FL ONCE [facility] Sodium Chloride (0.9 % Sodium Chloride Flush 3 Ml Syringe) 3 ml IVFLUSH QSHIFT [facility] Last Admin: 01/02/23 10:48 Dose: 3 ml Documented By: RIOSCEL Labs 01/01/23 08:52 01/01/23 08:52 Assessment and Plan (1) Physical deconditioning: Status: Acute (2) Contracture of muscle, left forearm: Status: Acute Plan A 72 years old male with PMH drug abuse, chronic wound presented dto ED with constipation and weakness. Hematemesis could by 2\2 MW tear, continue Pantoprazole IV advance diet refused upper and lower endoscopy Laxatives Acute hypokalemia given IV and PO replacement refusing to repeat blood work Constipation Disimpacted in ED bowel regimen Intractable vomiting improving No evidence of acute process on CT Zofran PRN Drug abuse Addiction team following monitor for withdrawal Morphine PRN Adult FFT , decondithoning to add ensure to diet PT eval , needs SNF placement Left forearm chronic wound and muscle contraction Wound care note appreciated Xeroform dressing DVT PPx SCDs Patient will need overnight hospital stay for treatment of hypokalemia pending safe discharge plan to SNF Time Spent With Patient Time: Total time managing care of this patient today ____ minutes. Quality Stroke Does the patient have a stroke diagnosis?: No VTE Prior VTE?: No VTE Risk Level:: Medical - moderate - high VTE Device Contraindication: Treatment Not Indicated VTE Drug Contraindication: N/A - Med Ordered
[2023-01-02 15:19] VITALS: BP 126/56; PULSE 85; RESP 20; TEMP 36.6; O2SAT 98
[2023-01-02 16:14] LABS: Hematocrit 30.4 % (42.0-52.0); Hemoglobin 9.7 g/dl (14.0-18.0); Mean Corpuscular HGB Conc 31.9 g/dl (31.0-36.0); Mean Corpuscular Hemoglobin 26.3 pg (27.0-33.0); Mean Corpuscular Volume 82.4 fL (80.0-98.0); Mean Platelet Volume 10.4 fL (9.4-12.4); PLT CLUMP 1; Red Blood Count 3.69 X10*6/uL (4.60-5.80); Red Cell Distribution Width 15.9 % (11.0-16.0)
[2023-01-02 16:39] LABS: Platelet Count 351 X10*3/uL (160-400); White Blood Count 5.6 X10*3/uL (4.8-10.8)
[2023-01-02] MEDS: Pantoprazole Sodium 40 MG/10 ML VIAL IVPUSH (16:40)
[2023-01-02 18:53] LABS: Anion Gap 16 (12-20); Blood Urea Nitrogen 14 mg/dL (9-16); Calcium 7.9 mg/dL (8.4-10.2); Carbon Dioxide 21 mmol/L (22-29); Chloride 104 mmol/L (96-108); Creatinine Clr Calc Pharmacy 78.4; Estimated Glomerular Filt Rate > 60; Glucose Random 101 mg/dL (60-115); Potassium 3.9 mmol/L (3.3-5.1); Sodium 137 mmol/L (135-145)
[2023-01-02 19:31] VITALS: BP 91/50; PULSE 97; RESP 16; TEMP 36.6; O2SAT 96
[2023-01-03] MEDS: Morphine Sulfate 2 MG/ML CARTRIDGE IVPUSH ×4 (02:56→14:10)
[2023-01-03] MEDS: 0.9 % Sodium Chloride Flush 3 ML SYRINGE IVFLUSH ×2 (02:58→09:08)
[2023-01-03] MEDS: Pantoprazole Sodium 40 MG/10 ML VIAL IVPUSH (06:35)
--- NOTE | 2023-01-03 08:48 | P.CDIM_ITS ---
PROVIDER RESPONSE TEXT: To clarify, the appropriate diagnosis supported by the clinical indicators: Mild QUERY TEXT: PHYSICIAN'S DOCUMENTATION REQUEST Date of Query: 01/02/2023 08:34 AM EDT Patient Name: Nick Soto Admit Date: 12/30/2022 Dear Miladys Saunders, A review of the medical record indicates additional documentation may be needed. Please review below and update the documentation accordingly Clinical indicators: Nutrition notes 01/01 - Patient is moderately malnourished, mildly depleted subcutaneous fat and muscl e mass, reported wt loss 40# x 6 months. Recommend starting Ensure TID BMI 20 If possible, please provide additional specificity regarding the severity of the malnutrition using t he above information: Mild Moderate Severe Other Other (explain) Clinically unable to determine (explain) Thank you, Candy Tillman, CCS, CDIS Use of terms such as suspected, likely, concern for, or probable (associated with a specific diagnosi s that is being evaluated, monitored, or treated as if it exists) are acceptable and can be coded in the inpatient se tting, when documented at the time of discharge. Please use your independent medical judgment in providing your response. THIS QUERY IS PART OF THE PERMANENT MEDICAL RECORD
[2023-01-03] MEDS: Docusate Sodium 100 MG CAPSULE PO (09:08)
[2023-01-03] MEDS: bisacodyL 5 MG TABLET.DR 20 MG PO (09:08)
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
--- NOTE | 2023-01-03 10:45 | PM.DS ---
DS: Providers Provider Date of Service: 01/03/23 Date of admission: 12/30/22 13:22 Primary care physician: Unknown Physician Consults: 12/30/22 13:29 Addiction Medicine Routine Consulting Provider: Addiction Covering Reason for consultation: ongoing drug usage 12/30/22 13:52 Consult to Gastroenterology Routine Consulting Provider: Humebrto Davis Reason for consultation: Hematemesis 12/31/22 01:30 Consult to Wound Care Routine Consulting Provider: Rambissoon Wound Ca,Nohemy Reason for consultation: wound on left forearm DS: Diagnosis Discharge Diagnosis (1) Physical deconditioning: Status: Acute (2) Contracture of muscle, left forearm: Status: Acute (3) Hematemesis: Status: Acute (4) Adult failure to thrive: Status: Acute (5) Fecal impaction: Status: Acute (6) Acute hypokalemia: Status: Acute (7) Vomiting: Status: Acute DS: Summary Hospital Course Hospital Course: Admission note HPI A 72 years old male with PMH drug abuse, chronic wound presented dto ED with constipation and weakness. was waiting PT eval when he started to vomit. denies any abd pain, fever, chills, nausea, cough, sob, or urinary symptoms. ER reported one episode of heme +ve vomitus. reported to be difficult to arouse. looks frail and not a good historiam. blood work showed hypokalemia. Images were negative for any acute findings. His nurse found a used needle in the bed.? He reported he does sniffs heroin daily.? He denies any IV drug use but uses several bags per day and his last use was yesterday.? drug screen from yesterday is positive for opiates and fentanyl. Admitted for close monitoring and treatment. Hospital course The patient presented with generalized weakness, while in ED developed episodes of Hematemesis with no drop in Hb. evaluated by GI who thought it could by 2\2 MW tear, and suggested endoscopy which was refused by the patient as he was treated with Pantoprazole IV and advanced diet as tolerated with no recurrent of the events. blood work should significant Acute hypokalemia with potassium of 2.3. responsed well to IV and PO replacement as it improved back to normal baseline. Noted to have Constipation on abd CT scan. Disimpacted in ED and started on bowel regimen with bowel movements. to be discharged on laxative and fiber. Has hx of Drug abuse. urine tox positive for opiates and fentanyl. Addiction team followed the patient recommending outpatient follow up with PCP for pain management as he is not a candidate for MEthadone with prolonged QTx. Evaluated by PT for evidence of Adult FFT and physical decondithoning. PT recommended STR but the patient prefer to go back home. Ensure added to his diet. patient will have outpatient services upon discharge. Has a chronic Left forearm chronic wound and muscle contraction which was evaluated Wound care team who recommended Xeroform dressing and follow up as outpatient. the patient is not interested in any surgical procedure at this point. to be followed by PCP. Start Omeprazole daily Fibers and Bisacodyl for constipation start using a Walker , to do physical therapy Avoid drugs To follow with Hand surgeon as outpatient for left forearm wound and contracture Time Spent with Patient Time attestation: Total time managing care of this patient today ____ minutes. Discharge coordination time: Greater than 30 minutes Quality: Safe Use of Opioids Does Pt have an Active Cancer Diagnosis on the Problem List?: No Quality: Stroke Does the patient have a stroke diagnosis?: No Physical Exam Vital Signs: Vital Signs: Last Vital Signs Temp 97.8 F 01/02/23 19:31 Pulse 97 01/02/23 19:31 Resp 16 01/02/23 19:31 BP 91/50 L 01/02/23 19:31 Pulse Ox 96 01/02/23 19:31 O2 Del Method Room Air 01/03/23 08:00 O2 Flow Rate 3 12/30/22 16:14 BMI result Body Mass Index 20.2 Const: Other: Constitutional : alert, frail looking, not in distress Neck : Normal inspection, Supple Cardiovascular : RRR, no JVP, no lower extremity edema Respiratory : good bilateral air entry, no crackles, wheezes or rhonchi Gastrointestinal: soft, lax, Normal bowel sounds, Non tender Skin : Warm, Dry, Left forearm chronic wound with muscle contacture exposed extensor carpi radialis muscle with fingers edema in Lt hand. no wrist movement. restricted movement of fingers. Neurological : Alert & oriented to self and place, No focal deficit DS: Data Data Completed and Pending Labs on day of discharge: Laboratory Results - last 24 hr 01/02/23 01/02/23 15:51 15:51 WBC 5.6 RBC 3.69 L Hgb 9.7 L Hct 30.4 L MCV 82.4 MCH 26.3 L MCHC 31.9 RDW 15.9 Plt Count 351 MPV 10.4 Absolute Nucleated RBC 0.000 Nucleated RBC % (auto) 0.0 Sodium 137 Potassium 3.9 D Chloride 104 Carbon Dioxide 21 L Anion Gap 16 BUN 14 Creatinine 0.77 Estim Creat Clear Calc 78.4 Estimated GFR > 60 Random Glucose 101 Calcium 7.9 L Preliminary micro results at discharge 12/30/22 08:03 Blood Culture - Preliminary Blood - Venous No growth after 48 hours. 12/30/22 08:04 Blood Culture - Preliminary Blood - Venous No growth after [address] scan - abdomen: Radiologist's impression: ITS Impressions Chest X-Ray 12/30/22 10:00 FINDINGS/IMPRESSION: The study is very limited due to portable technique, point rotation, patient rotation, chin overlying the left upper lung field, and right costophrenic angle being cut off the film. There is no obvious acute radiographic finding on this limited study. Abdomen/Pelvis CT 12/30/22 10:42 IMPRESSION: Evaluation is significantly limited due to patient positioning, motion, and lack of oral contrast. 1. No small or large bowel obstruction. No significant bowel wall thickening or associated inflammatory change. 2. No large intra-abdominal mass or abscess formation. 3. No hydronephrosis or nephrolithiasis. Previously seen left-sided renal stones not appreciated on the current examination. Stable left renal cysts. Fleischner guidelines were followed. Chest X-Ray 12/30/22 15:42 IMPRESSION: Limited exam. Scattered areas of linear atelectasis seen in the mid and lower lungs bilaterally. No focal pneumonia. Discharge Plan Discharge Anticipated Discharge Date/Time: 01/02/23 13:41 Patient Disposition: Home Health Service Discharge Diagnosis: Vomiting blood Low potassium level Constipation Referrals: Physician,Evan J [Primary Care Provider] - 1 Week ( AN APPOINTMENT HAS BEEN SET UP FOR YOU WITH DR. LUONG FOR SUNDAY, JANUARY 08, 2023 AT 1: 30 P.M.) Discharge Medications: New bisacodyl 5 mg Tablet,Delayed Release (Dr/Ec) 10 mg PO DAILY Qty: 60 2RF omeprazole 40 mg capsule,delayed release(DR/EC) 40 mg PO DAILY Qty: 90 2RF Metamucil Fiber Singles 3.4 gram Powder In Packet 3.4 g PO BEDTIME 30 Days Qty: 30 2RF (DME) Ultra-Light Rollator Misc See Rx Instructions .Route Qty: 1 0RF Rx Instructions: As directed Continued carisoprodol 350 mg tablet 700 mg PO TID morphine 30 mg tablet extended release 30 mg PO BID oxycodone-acetaminophen 5-325 mg tablet 1 tab PO QID Discharge Orders: Discharge Order (Routine); Ordered 01/03/23 Ordered By: Miladys Saunders Diet: Advance to usual diet Activity on Discharge: As tolerated Stand Alone Forms: Patient Portal Discharge page Care Plan Goals: Read below Health Concerns: Read below Plan of Treatment: Read below Assessment: You were admitted for generalized weakness found to have significant constipation with low potassium levels. had few episodes of vomiting with blood. evaluated by software engineering project manager but refused to do any procedures. responsed well to treatment with fluids, potassium supplement and stomach medications. Start Omeprazole daily Fibers and Bisacodyl for constipation start using a Walker , to do physical therapy Avoid drugs
--- NOTE | 2023-01-03 10:51 | MHC.CM.PN ---
DP: PT HAS BEEN MEDICALLY CLEARED FOR DC HOME. NO [facility] HAS ACCEPTED THIS PT'S CASE AND PT IS REFUSING VNA SERVICES AT THIS TIME. MD IS AWARE. THIS CM HAS SET UP A POST HOSPITAL VISIT WITH DR. LUONG FOR 01/08/23 AT 1: 30 PM. PT IS AWARE AND STATES DR. LUONG HAS ALREADY SET HIM UP WITH OUTPATIENT P.T. SERVICES PRIOR TO HOSPITALIZATION BUT HE HAS NOT STARTED YET. MESSAGE LEFT FOR DAUGHTER Horace TO NOTIFY OF DC. BLS TRANSPORT SET UP FOR 1:30 PM [facility]IA [facility]
[2023-01-03 11:14] VITALS: BP 91/50; PULSE 97; O2SAT 96
[2023-01-03] MEDS: Naloxone HCl Nasal TAKE HOME 4 MG SPRAY NOSTRILALT (12:39)
== END 2023-01-03 15:25 | disposition home health service (06) | DRG 242 ==
LOC: HO.ED 12-30 13:17 → HO.EDOVER 12-30 13:41 → HO.S3 12-30 13:46 → HO.EDOVER 12-30 14:33 → HO.IMC 12-30 16:41
PROVIDERS: Nurse Practitioner Family; Physician Assistant Medical; Admitting Provider Student in an Organized Health Care Education/Training Program; Emergency Provider Emergency Medicine; PCP Internal Medicine; Visit Provider Student in an Organized Health Care Education/Training Program
DX: K22.6 Gastro-esophageal laceration-hemorrhage syndrome (principal); D63.8 Anemia in other chronic diseases classified elsewhere; E44.1 Mild protein-calorie malnutrition; K56.41 Fecal impaction; F11.10 Opioid abuse, uncomplicated; E87.6 Hypokalemia; R62.7 Adult failure to thrive; L98.495 Non-pressure chronic ulcer of skin of other sites with muscle involvement without evidence of necrosis; M62.432 Contracture of muscle, left forearm; Z68.20 Body mass index [BMI] 20.0-20.9, adult; Z59.01 Sheltered homelessness; Z88.0 Allergy status to penicillin; Z79.899 Other long term (current) drug therapy
CPT/HCPCS: 36415; 71045; 74177; 80048; 80053; 80076; 80307; 81003; 82272; 82550; 83605; 83735; 84484; 85025; 85027; 85610; 86850; 86900; 86901; 87040; 93005; 97110; 97116; 97162; 99285; J1200; J2270; J2405; Q9967

== ENCOUNTER 2023-01-30 09:45 | Inpatient (IN) | payer BC, SELFPAY ==
[2023-01-30] VITALS (7 sets, daily range): BP systolic 96–118; BP diastolic 46–67; PULSE 64–86; RESP 14–18; TEMP 36.4–37.1; O2SAT 95–100; BMI 20.1
--- NOTE | ~2023-01-30 | XR_ITS ---
EXAMINATION: XR HIP, LEFT CLINICAL INFORMATION: Recent fall, evaluate for fracture. COMPARISON: CT abdomen/pelvis 01/30/2023. TECHNIQUE: Two views of the left hip. FINDINGS: Decreased bone mineralization. Comminuted fracture of the greater trochanter of the left femur. There is some distortion of the left-sided iliopectineal and ilioischial lines. The femoral heads are well-seated in their respective acetabula. Moderate degenerative osteophytes in both hips. Extensive vascular calcifications. Surgical clips projecting over the right inguinal region. XR/XR hip LT w PEL1V IMPRESSION: 1. Comminuted fracture of the left great trochanter of the femur. 2. Equivocal deformity of the left superior pubic rami and left acetabulum, recommend correlation with CT.
--- NOTE | ~2023-01-30 | CT_ITS ---
EXAMINATION: CT CERVICAL SPINE WITHOUT CONTRAST CLINICAL INFORMATION: Fall. Syncope. COMPARISON: Plain film study of July 10, 2018 TECHNIQUE: CT cervical spine with coronal and sagittal reconstructions. This CT examination was performed using dose optimization techniques as appropriate, variously including the following: *Automated exposure control *Adjustment of mA and/or kV according to patient size (this includes techniques or standardized protocols for targeted exams where dose is matched to indication/reason for exam; i.e. extremities or head) *Use of iterative reconstruction technique DLP: 426 mGy-cm FINDINGS: There is loss of normal cervical spine lordosis. No abnormal prevertebral soft tissue swelling is seen. There is approximately 2 mm anterior subluxation of C3 on C4. There is stable anterior loss of height of C6 with approximately 30% loss of height. There is disc space narrowing seen C3-T1. There is spurring of the joints of Luschka C3-C7 bilaterally most significant on the right at the C3-C4 level and on the left at the C3-C4, C5-C6, and C6-C7 levels. There is left-sided facet arthropathy seen C2-C4 and on the right C2-C5. Mucus retention cysts seen within the maxillary sinuses bilaterally.. Pterygoid plates intact. No temporomandibular joint displacement identified. No suspicious apical lung mass identified. CT/CT cervical spine wo IV con IMPRESSION: Diffuse cervical spondylosis as described without evidence of acute fracture. Fleischner guidelines were followed.
--- NOTE | ~2023-01-30 | CT_ITS ---
EXAMINATION: CT CHEST, ABDOMEN AND PELVIS WITHOUT CONTRAST CLINICAL INFORMATION: Reason for Exam fall, rib pain and diffuse abdominal pain COMPARISON: CT abdomen pelvis 12/30/2022, chest radiograph 12/30/2022 TECHNIQUE: Multidetector volumetric imaging was performed from the thoracic inlet through the pubic symphysis without IV contrast. Scanning was performed in the right lateral decubitus position Sagittal and coronal reformatted images were obtained on the technologist's workstation. This CT examination was performed using dose optimization techniques as appropriate, variously including the following: *Automated exposure control *Adjustment of mA and/or kV according to patient size (this includes techniques or standardized protocols for targeted exams where dose is matched to indication/reason for exam; i.e. extremities or head) *Use of iterative reconstruction technique DLP: 227 mGy-cm FINDINGS: CHEST: Lung: The lungs are clear without focal opacity or nodule. Mediastinum: The mediastinum is unremarkable. The central vascular structures are unremarkable. No hilar or mediastinal lymphadenopathy. Evaluate is limited by lack of IV contrast and lack of fat. Extensive triple-vessel coronary calcification is present Pericardium/Pleura: There is new area of pleural thickening along the right lateral chest wall in the region of a possible acute bilateral seventh rib fracture. No pleural effusions. No pneumothorax. Chest Wall/Axilla: No chest wall hematomas or axillary adenopathy. ABDOMEN/PELVIS: Evaluation markedly limited by lack of IV contrast and lack of retroperitoneal and mesenteric fat. Peritoneal Space: No significant free air or free fluid identified. Liver, Gallbladder, Biliary Tree: The liver is normal in size, shape, and attenuation. No focal hepatic lesion or biliary ductal dilatation is present. The gallbladder is unremarkable with no evidence of radiopaque gallstones, gallbladder wall thickening, or obvious pericholecystic inflammatory changes. Pancreas: Poorly seen and difficult to evaluate. Spleen: Unremarkable Adrenal Glands: Poorly seen and difficult to evaluate. Kidneys and Ureters: The kidneys are poorly seen and difficult to evaluate. No gross hydronephrosis. A benign 2.8 cm right renal cyst is seen which needs no additional imaging or follow-up. Some punctate nonobstructing renal calculi are present. Bladder: Unremarkable Gastrointestinal Tract: There is no evidence of bowel obstruction. Abdominal Wall: No significant hernia is appreciated. Lymph Nodes: No gross lymphadenopathy. Vascular: Calcific plaque present in the aorta and iliofemoral vessels which are tortuous.. The IVC cannot be evaluated. PELVIC VISCERA: Unremarkable OSSEUS STRUCTURES: Multiple old healed rib fractures are seen bilaterally. There is one fracture involving the right lateral seventh rib which does appear acute. No other definite acute rib fractures are seen. Degenerative changes are present in the spine. There is fusion of L3 and L4. Compression fracture with anterior wedging of L2. Grade 1 anterolisthesis of L5 upon S1. CT/CT abdomen pelvis wo IV con IMPRESSION: 1. Extremely limited study secondary to patient positioning, lack of IV contrast and lack of fat. 2. There is an acute right lateral seventh rib fracture with associated pleural thickening. 3. Multiple old healed rib fractures are present. 4. No other definite acute traumatic injury is seen. 5. Incidental note made of extensive triple-vessel coronary calcification, bilateral nonobstructing renal calculi and other findings described above. Fleischner guidelines were followed.
--- NOTE | ~2023-01-30 | CT_ITS ---
EXAMINATION: CT HEAD WITHOUT CONTRAST CLINICAL INFORMATION: Fall. Syncope. COMPARISON: May 20, 2018 TECHNIQUE: Contiguous axial imaging was performed from the skull base to vertex without intravenous administration of contrast. This CT examination was performed using dose optimization techniques as appropriate, variously including the following: *Automated exposure control *Adjustment of mA and/or kV according to patient size (this includes techniques or standardized protocols for targeted exams where dose is matched to indication/reason for exam; i.e. extremities or head) *Use of iterative reconstruction technique DLP: 1573 mGy-cm FINDINGS: No acute intracranial hemorrhage is appreciated. No significant mass effect or midline structure shift. No abnormal extra-axial fluid collection. Since previous study patient has developed a large amount of periventricular white matter low density as well as bilateral posterior parietal/occipital regions of white matter disease which may be related to old infarcts. There is prominence of the ventricles, sulci, and cisterns consistent with generalized atrophy. Temporomandibular joints intact. Pterygoid plates and intact. There is opacification of the left frontal sinus. There is some mild mucosal thickening seen within the ethmoid sinuses. CT/CT head/brain wo IV con IMPRESSION: No acute intracranial pathology. Development of large amount of periventricular white matter low density and posterior parietal/occipital lobe white matter disease which may be related to old infarcts.
--- NOTE | ~2023-01-30 | CT_ITS ---
EXAMINATION: CT PELVIS WITHOUT CONTRAST CLINICAL INFORMATION: Fall. Question pelvic fracture. COMPARISON: Previous pelvis and left hip x-ray 02/19/20[address] and abdominal and pelvic CT scan 01/30/2023 TECHNIQUE: Helical scanning was performed with submillimeter collimation through the pelvis. Sagittal and coronal multiplanar 2-D reconstructions were obtained. This CT examination was performed using dose optimization techniques as appropriate, variously including the following: *Automated exposure control *Adjustment of mA and/or kV according to patient size (this includes techniques or standardized protocols for targeted exams where dose is matched to indication/reason for exam; i.e. extremities or head) *Use of iterative reconstruction technique DLP: 368 mGy-cm FINDINGS: The bones are osteopenic. There is a recent appearing comminuted displaced fracture of the left greater trochanter. There is a sclerotic line seen in the right sacrum and right superior pubic ramus questionable for insufficiency or healing fractures. There is horizontal increased sclerosis in the S4 vertebral body questionable for insufficiency or healing reaction. There is deformity of the left superior and inferior pubic ramus suggestive of old fractures. There is slight deformity of the right anterior acetabular rim questionable for old fracture. No acute left pelvic fracture is seen. There is soft tissue calcification adjacent to the greater and lesser left trochanter suggestive of calcific bursitis. There is mild arthritis at both hip joints. There is increased subchondral sclerosis in the right femoral head questionable for early AVN. There is mild anterior subluxation of L5 with respect to L4 and S1. This probably related to facet arthritis. There is degenerative disc disease at L5-S1. When compared with previous CT of the abdomen and pelvis 01/30/2023, comminuted displaced left greater trochanteric fracture is seen and does not appear appreciably changed. Surrounding soft tissue increased attenuation thought to represent calcific bursitis may correspond to bony callus formation. Other pelvic fractures described above also do not appear appreciably changed from 01/30/2023. The bladder is very full. There is dependent increased attenuation in the bladder likely representing excreted contrast. The prostate gland does not appear enlarged. There is severe constipation and fecal impaction. There are small right renal stones. There is a 4 x 6 cm right renal cyst. No imaging follow-up recommended. No ascites or adenopathy in the pelvis. Atherosclerotic disease. No aneurysm. Soft tissue swelling at the left hip adjacent to the fracture.. CT/CT pelvis wo IV con IMPRESSION: Comminuted displaced recent appearing left greater trochanteric fracture. Old left superior and inferior pubic rami fractures. No acute left pelvic fracture is seen. Sclerotic lines in the right superior pubic ramus and right sacrum questionable for insufficiency or healing right-sided pelvic fractures. Sclerotic line in the S4 vertebral body questionable for insufficiency or healing fracture. All these findings do not appear appreciably changed from previous abdominal and pelvic CT scan 01/30/2023 and may not be acute. Mild degenerative changes at both hip joints. Increased subchondral sclerosis in the right hip questionable for early AVN.
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
--- NOTE | 2023-01-30 10:13 | PC.NURSE ---
Initial contact with pt. pt cachectic appearing, angry, uncooperative with care. fungal rash to abd with cream applied. barky lower extremities with scabbed wounds on shins. deep circumferential wound to L wrist, swelling to L hand. several small pressure wounds to coccyx and buttocks. pt turned on side and positioned for comfort with pillows
--- NOTE | 2023-01-30 10:17 | ECG_ITS ---
Test Reason : syncope Blood Pressure : / mmHG Vent. Rate : 074 BPM Atrial Rate : 074 BPM P-R Int : 138 ms QRS Dur : 092 ms QT Int : 442 ms P-R-T Axes : 064 028 083 degrees QTc Int : 490 ms Normal sinus rhythm Low voltage QRS Nonspecific ST and T wave abnormality Abnormal ECG When compared with ECG of 31-DEC-2022 09:55, Minimal criteria for Inferior infarct are no longer Present Referred By: Sana Olson Electronically Signed By:Dung Chapa
--- NOTE | 2023-01-30 10:30 | PC.NURSE ---
Pt very stiff, contracted, cannot extend spine or arms/legs. positioned for comfort.
--- NOTE | 2023-01-30 11:00 | PC.NURSE ---
multiple attempts to obtain IV access and lab samples. unsuccessful at this time.
[2023-01-30] MEDS: 0.9 % Sodium Chloride 1,000 ML 999 ML IV (11:44)
[2023-01-30 12:52] LABS: MANUAL DIFF FLAG NO
[2023-01-30 12:56] LABS: Hematocrit 27.9 % (42.0-52.0); Hemoglobin 8.7 g/dl (14.0-18.0); Imm Gran Abs Auto 0.02 X10*3/uL (0.00-0.03); Imm Gran Pct Auto 0.5 % (0.0-0.4); Lymphocytes Absolute Auto 0.9 X10*3/uL (1.2-4.9); Lymphocytes Percent Auto 21.6 % (20-40); Mean Corpuscular HGB Conc 31.2 g/dl (31.0-36.0); Mean Corpuscular Hemoglobin 26.6 pg (27.0-33.0); Mean Corpuscular Volume 85.3 fL (80.0-98.0); Mean Platelet Volume 8.9 fL (9.4-12.4); Monocytes Absolute Auto 0.2 X10*3/uL (0.1-1.2); Neutrophils Absolute Auto 2.9 x10*3/uL (2.0-8.3); Neutrophils Percent Auto 72.9 % (45-73); Platelet Count 310 X10*3/uL (160-400); Red Blood Count 3.27 X10*6/uL (4.60-5.80); Red Cell Distribution Width 16.6 % (11.0-16.0)
[2023-01-30 13:07] LABS: INTERNATIONAL NORM RATIO 1.1 (0.9-1.1); Prothrombin Time 12.5 SEC (10.0-13.1)
[2023-01-30 13:12] LABS: Alanine Aminotransferase 13 U/L (0-40); Albumin Level 2.8 g/dL (3.5-5.0); Alkaline Phosphatase 86 U/L (39-117); Anion Gap 8 (12-20); Aspartate Amino Transferase 32 U/L (5-37); Bilirubin Direct 0.2 mg/dL (0.0-0.5); Bilirubin Total 0.5 mg/dL (0.0-1.0); Blood Urea Nitrogen 19 mg/dL (9-16); Calcium 8.3 mg/dL (8.4-10.2); Carbon Dioxide 32 mmol/L (22-29); Chloride 104 mmol/L (96-108); Estimated Glomerular Filt Rate > 60; Glucose Random 102 mg/dL (60-115); Lipase 19 U/L (8-78); Magnesium 2.2 mg/dL (1.6-2.6); Potassium 3.1 mmol/L (3.3-5.1); Sodium 141 mmol/L (135-145); Total Protein 6.1 g/dL (6.5-8.0)
--- NOTE | 2023-01-30 13:13 | PHA.MEDREC ---
Pharmacy Consult ? Medication Reconciliation Pharmacy has completed the medication reconciliation. Patient is poor historian. Discussed home medications. Patient endorses three pain medications, that he took two days ago. I questioned why the medication was last filled in October and patient states he has filled them since. [employer] and claim history does not support that. I called his PCP, Dr Isaac. Office knows patient very well as being chronically non-adherent and missing appointments. He was last seen 11/28 with scripts issued but not filled at that time. His medlist has those three meds plus multiple cephalexin and macrobid rxs for UTIs Calixto
[2023-01-30 13:19] LABS: Lactic Acid 1.1 mmol/L (0.5-2.0)
[2023-01-30] MEDS: Nystatin Cream 15 GM TUBE 1 APPL TOPICAL (13:24)
[2023-01-30] MEDS: Potassium Chloride ER 20 MEQ TAB.ER.PRT 60 MEQ PO (14:17)
[2023-01-30] MEDS: Lactated Ringers 1,000 ML 999 ML IV (14:43)
--- NOTE | 2023-01-30 15:30 | PC.NURSE ---
Pt refused straight cath. urinal provided, pt prompted to void. uncooperative.
--- NOTE | 2023-01-30 16:31 | P.HPHOSP_ITS ---
History of Present Illness Date of Service: 01/30/23 Chief Complaint: Falls A 72 years old male with PMH drug abuse, chronic wound presented to ED by EMS for multiple falls and syncopal episodes over the last few days. The patient report having difficulties taking care of hisself at home as his brother is not around. He is stating that he had multiple falls with pain all over his body mainly in ribs, hips. states that he lost his consciousness on many occasions just prior to falls and wakes up after hitting the floor associated with lightheadedness. has been taking muscle relaxant at home. He looks disheveled with poor skin care. XR showed right 7th rib fracture. BMP showed low potassium level. Admitted for further eval and treatment. Review of Systems Review of Systems: No fever, chills but reports weakness muscle pain , joints pain No chest pain, palpitation No shortness of breath or coughing No abdominal pain, nausea or vomiting but has constipation No urinary symptoms lower extremities rash and wounds PMFSH Medical History Adult failure to thrive Chronic disease anemia Contracture of muscle, left forearm Drug abuse Social History Household Members: None Housing: Other Housing Other:: living in a hotel Alcohol intake: unknown Patient Tobacco Use Status: Never used Tobacco Smoked in Last 30 Days: No Use of substances other than those prescribed or required for medical reasons: Refusing to respond Advance Directives: No Advance Directives Information Provided: No Meds Allergies Allergy/AdvReac Type Severity Reaction Status Date / Time Penicillins Allergy Severe SWELLING Verified 12/24/22 12:24 PCN Allergy Unknown swelling Uncoded 12/24/22 12:24 Active Medications: Current Medications Acetaminophen (Acetaminophen 325 Mg Tablet) 650 mg PO Q6H PRN PRN Reason: Pain, Mild (Pain Scale 1-3) Enoxaparin Sodium (Enoxaparin Sodium 40 Mg/0.4 Ml Syringe) 40 mg SUBCUT Q24H CRISTINA Sodium Chloride (Ns) 1,000 mls @ 100 mls/hr IVCONT .Q10H CRISTINA Morphine Sulfate (Morphine Sulfate Er 30 Mg Tablet.Er) 30 mg PO BID CRISTINA Ondansetron HCl (Ondansetron Hcl 4 Mg/2 Ml Vial) 4 mg IVPUSH Q8H PRN PRN Reason: Nausea and Vomiting Oxycodone HCl (Oxycodone Hcl Immed Release 5 Mg Tablet) 5 mg PO Q6H PRN PRN Reason: Pain, Severe (Pain Scale 7-10) Sodium Chloride (0.9 % Sodium Chloride Flush 3 Ml Syringe) 3 ml IVFLUSH [facility]HI [facility] Home Medications Medication Instructions Recorded Confirmed Last Taken Type carisoprodol 350 mg tablet 700 mg PO TID PRN Pain 12/30/22 01/30/23 Unknown History oxycodone-acetaminophen 5 mg-325 1 tab PO QID PRN Pain 01/30/23 01/30/23 Unknown History mg tablet Physical Exam Vital Signs and Narrative: Vital Signs: Last Vital Signs Temp 97.6 F 01/30/23 14:07 Pulse 74 01/30/23 14:35 Resp 16 01/30/23 14:07 BP 102/67 01/30/23 14:35 Pulse Ox 100 01/30/23 14:07 O2 Del Method Room Air 01/30/23 14:07 BMI result Body Mass Index 20.1 Const: Other: Constitutional : alert, frail looking, malnourished, not in distress Neck : Normal inspection, Supple Cardiovascular : RRR, no JVP, no lower extremity edema Respiratory : good bilateral air entry,? no crackles, wheezes or rhonchi Gastrointestinal:? soft, lax, Normal bowel sounds, Non tender Skin : Warm, Dry, Left forearm chronic wound with muscle contacture exposed extensor carpi radialis muscle with fingers edema in Lt hand. no wrist movement. restricted movement of fingers. Bilateral LE with scales and dry skin with associated dermatitis Neurological : Alert & oriented to self and place, No focal deficit Results Labs 01/30/23 12:43 01/30/23 12:43 Labs: Laboratory Results - last 24 hr 01/30/23 01/30/23 01/30/23 12:43 12:43 12:43 MCV 85.3 MCH 26.6 L MCHC 31.2 RDW 16.6 H Plt Count 310 MPV 8.9 L Immature Gran % (Auto) 0.5 H Neut % (Auto) 72.9 Lymph % (Auto) 21.6 [place] % (Auto) 5.0 Eos % (Auto) 0.0 Baso % (Auto) 0.0 Lymph # (Auto) 0.9 L [place] # (Auto) 0.2 Eos # (Auto) 0.0 Baso # (Auto) 0.0 Abs Immat Gran (auto) 0.02 Absolute Neuts (auto) 2.9 Absolute Nucleated RBC 0.000 Nucleated RBC % (auto) 0.0 PT 12.5 INR 1.1 Anion Gap 8 L Estim Creat Clear Calc 83.0 Estimated GFR > 60 Random Glucose 102 Lactic Acid Calcium 8.3 L Magnesium 2.2 Total Bilirubin 0.5 Direct Bilirubin 0.2 AST 32 ALT 13 Alkaline Phosphatase 86 Total Creatine Kinase 252 H Troponin I High Sens Total Protein 6.1 L Albumin 2.8 L Lipase 19 01/30/23 01/30/23 12:43 12:43 MCV MCH MCHC RDW Plt Count MPV Immature Gran % (Auto) Neut % (Auto) Lymph % (Auto) [place] % (Auto) Eos % (Auto) Baso % (Auto) Lymph # (Auto) [place] # (Auto) Eos # (Auto) Baso # (Auto) Abs Immat Gran (auto) Absolute Neuts (auto) Absolute Nucleated RBC Nucleated RBC % (auto) PT INR Anion Gap Estim Creat Clear Calc Estimated GFR Random Glucose Lactic Acid 1.1 Calcium Magnesium Total Bilirubin Direct Bilirubin AST ALT Alkaline Phosphatase Total Creatine Kinase Troponin I High Sens 6.0 Total Protein Albumin Lipase Imaging Radiologist's Impressions: Impressions Cervical Spine CT 01/30/23 11:12 IMPRESSION: Diffuse cervical spondylosis as described without evidence of acute fracture. Fleischner guidelines were followed. Head CT 01/30/23 11:12 IMPRESSION: No acute intracranial pathology. Development of large amount of periventricular white matter low density and posterior parietal/occipital lobe white matter disease which may be related to old infarcts. Abdomen/Pelvis CT 01/30/23 11:13 IMPRESSION: 1. Extremely limited study secondary to patient positioning, lack of IV contrast and lack of fat. 2. There is an acute right lateral seventh rib fracture with associated pleural thickening. 3. Multiple old healed rib fractures are present. 4. No other definite acute traumatic injury is seen. 5. Incidental note made of extensive triple-vessel coronary calcification, bilateral nonobstructing renal calculi and other findings described above. Fleischner guidelines were followed. Chest CT 01/30/23 11:13 IMPRESSION: 1. Extremely limited study secondary to patient positioning, lack of IV contrast and lack of fat. 2. There is an acute right lateral seventh rib fracture with associated pleural thickening. 3. Multiple old healed rib fractures are present. 4. No other definite acute traumatic injury is seen. 5. Incidental note made of extensive triple-vessel coronary calcification, bilateral nonobstructing renal calculi and other findings described above. Fleischner guidelines were followed. Assessment and Plan (1) Adult failure to thrive: Status: Acute (2) Multiple falls: Status: Acute (3) Syncope: Status: Acute (4) Closed rib fracture: Status: Acute (5) Physical deconditioning: Status: Acute (6) Acute hypokalemia: Status: Acute Plan A 72 years old male with PMH drug abuse, chronic wound presented to ED by EMS for multiple falls and syncopal episodes over the last few days. Syncope and falls Noticed to have low BP readings in ED reports taking muscle relaxant both would increase risk of postural hypotension and dizziness Hold muscle relaxant, give IVF monitor BP, ortho vitals keep on Tele negative head CT rest of body CT scans were negative Adult FFT , moderatly malnourished, physical deconditioning add ensure to diet PT eval basic acoustic analyst eval Left forearm chronic wound and muscle contraction Wound care note appreciated Xeroform dressing 7th rib fracture pain management Hypokalemia replacement given monitor BMP Elevated CK from falls, monitor kidney function Constipation Disimpacted in ED bowel regimen DVT PPx SCDs Patient will need 2 overnight hospital stay for evaluation of FTT, syncope, falls, rib #, physical deconditioning pending PT eval and safe discharge plan Time Spent With Patient Time: Total time managing care of this patient today ____ minutes. Quality Stroke Does the patient have a stroke diagnosis?: No VTE Prior VTE?: No VTE Risk Level:: Medical - moderate - high VTE Device Contraindication: Treatment Not Indicated VTE Drug Contraindication: N/A - Med Ordered
[2023-01-30 16:38] LABS: Troponin-I High Sensitivity 5.9 ng/L (<3.5-35.0)
[2023-01-30 16:49] LABS: Influenza A PCR NEGATIVE (Negative); Influenza B PCR NEGATIVE (Negative); Resp Syncy Virus RNA Qual PCR NEGATIVE (Negative); SARS COV2 PCR INHOUSE NEGATIVE (Negative)
[2023-01-30] MEDS: Enoxaparin Sodium 40 MG/0.4 ML SYRINGE SUBCUT (16:54)
[2023-01-30] MEDS: 0.9 % Sodium Chloride 1,000 ML 100 ML IVCONT (16:54)
--- NOTE | 2023-01-30 16:56 | PC.NURSE ---
[place] cath applied per patient request. wound to arm wrapped.
--- NOTE | 2023-01-30 18:27 | PC.NURSE ---
Pt sleeping, meal offered.
[2023-01-30] MEDS: Morphine Sulfate ER 30 MG TABLET.ER PO (20:41)
[2023-01-30] MEDS: Lactulose 20 GM/30 ML SOLUTION PO (20:42)
[2023-01-30 20:46] LABS: Appearance Urine Clear; Color Urine Yellow; Glucose Urine UA Negative (Negative); Leukocyte Esterase Urine Trace (Negative); Nitrite Urine Negative (Negative); PH 6.5 (5.0-9.0); Specific Gravity - Urine 1.015 (1.005-1.025); UMIC TRIGGER UACC YES; Urine Blood Negative (Negative); Urine Ketones Negative (Negative); Urine Protein Trace mg/dL (Neg-Trace)
[2023-01-30 20:59] LABS: Amphetamine Screen Urine Not Detected (Not Detect); Barbiturates, Urine Not Detected (Not Detect); Benzodiazepines Screen Urine Not Detected (Not Detect); Cannabinoid Screen Urine Not Detected (Not Detect); Cocaine Screen Urine Not Detected (Not Detect); Fentanyl, urine POSITIVE (Not Detect); Opiate Screen Urine POSITIVE (Not Detect); Phencyclidine Screen Urine Not Detected (Not Detect)
[2023-01-30 21:04] LABS: Bacteria Urine None Seen (None Seen); Hyaline Casts Urine 0-2 /LPF (0-2); RBC Urine 0-2 /HPF (0-2); Squamous Epithelial Cell Urine 0-2 /HPF (0-2); WBC Urine 0-5 /HPF (0-5)
--- NOTE | 2023-01-30 21:44 | MHC.EDTECH ---
Patient changed and cleaned after toileting. new linen put on bed. patient repositioned and is resting quietly
[2023-01-30] MEDS: Ammonium Lactate 12 % Lotion 226 GM BOTTLE 1 APPL TOPICAL (21:51)
[2023-01-30] MEDS: 0.9 % Sodium Chloride Flush 3 ML SYRINGE IVFLUSH (23:58)
[2023-01-31 01:56] VITALS: BP 90/53; PULSE 63; RESP 16; TEMP 36.8; O2SAT 96
[2023-01-31] MEDS: 0.9 % Sodium Chloride 1,000 ML 100 ML IVCONT ×2 (02:35→11:37)
[2023-01-31 05:26] VITALS: BP 95/48; PULSE 60; RESP 14; TEMP 36.4; O2SAT 96
--- NOTE | 2023-01-31 05:32 | MHC.EDTECH ---
Pt checked to see if he was soiled patient is clean, linen clean and magallon bag emptied
[2023-01-31 06:17] LABS: Anion Gap 10 (12-20); Blood Urea Nitrogen 10 mg/dL (9-16); Carbon Dioxide 28 mmol/L (22-29); Chloride 105 mmol/L (96-108); Estimated Glomerular Filt Rate > 60; Glucose Random 108 mg/dL (60-115); Potassium 3.3 mmol/L (3.3-5.1); Sodium 140 mmol/L (135-145)
[2023-01-31] MEDS: Morphine Sulfate ER 30 MG TABLET.ER PO ×2 (07:53→22:22)
[2023-01-31 08:10] VITALS: BP 104/57; PULSE 70; RESP 12; O2SAT 94
--- NOTE | 2023-01-31 08:12 | PC.NURSE ---
Repositioned in bed, condom cath in place. Patient placed on monitor car operator NSR. IV fluids infusing. PCT at bedside assisting with breakfast.
[2023-01-31] MEDS: Ammonium Lactate 12 % Lotion 226 GM BOTTLE 1 APPL TOPICAL ×2 (09:58→22:23)
--- NOTE | 2023-01-31 10:49 | MHC.EDTECH ---
changed and cleaned patient, after PT. placed a new [place] catheter new bed linens.
--- NOTE | 2023-01-31 11:22 | MHC.CM.PN ---
Addendum entered by Chica Cooney 01/31/23 13:08: Patient has [employer] for insurance. This insurance does not cover fdc facilities. Referral made to 3 local acute rehabs. But realistically may not be accepted due to drug abuse. [facility] [facility] been [place] and asked to complete a [employer] application. Addendum entered by Chica Cooney 01/31/23 12:58: Received notification that physical therapy is recommending short term rehab. Anticipate patient will be difficult to place due to substance abuse. Referal broadcasted in [facility] throughout the entire state [facility] at this time. Original Note: Attempted to meet with patient in regards to discharge planning. Patient currently sleeping. No family present. Copy of HCP obtained from [facility]. Continue to monitor for d/c needs.
--- NOTE | 2023-01-31 12:20 | MHC.RECOVRN ---
Met with pt in ED1 after consult placed to Addiction Medicine for UDS +fentanyl. Pt familiar with t/w from previous admission. [place] [facility] [place] and being unable to care for himself. Pt subsequently admitted for failure to thrive. Pt laying in bed, awake, alert, cachetic appearing, does not easily engage in conversation. Pt reports using 3 bags heroin daily, denies other substances. Pt denies withdrawal symptoms currently, does not believe he will experience withdrawal while here. Pt is receiving morphine. Pt only asking for 2 warm blankets and chocolate pudding. Difficulty engaging in further conversation. T/w available if needed.
--- NOTE | 2023-01-31 12:44 | HO.PM.IMPN ---
Subjective Subjective Date of Service: 01/31/23 Interval History: Seen and evaluated reports feeling weak and having difficulties swallwoing BP still on the soft side Constipated Review of Systems No fever, chills but reports weakness muscle pain , joints pain No chest pain, palpitation No shortness of breath or coughing No abdominal pain, nausea or vomiting but has constipation No urinary symptoms lower extremities rash and wounds Physical Exam Vital Signs: Vital Signs: Last Vital Signs Temp 97.6 F 01/31/23 05:26 Pulse 70 01/31/23 08:10 Resp 12 01/31/23 08:10 BP 104/57 L 01/31/23 08:10 Pulse Ox 94 01/31/23 08:10 O2 Del Method Room Air 01/31/23 08:10 BMI result Body Mass Index 20.1 Const: Other: Constitutional : alert, frail looking, malnourished, not in distress Neck : Normal inspection, Supple Cardiovascular : RRR, no JVP, no lower extremity edema Respiratory : good bilateral air entry,? no crackles, wheezes or rhonchi Gastrointestinal:? soft, lax, Normal bowel sounds, Non tender Skin : Warm, Dry, Left forearm chronic wound with muscle contacture exposed extensor carpi radialis muscle with fingers edema in Lt hand. no wrist movement. restricted movement of fingers. Bilateral LE with scales and dry skin with associated dermatitis Neurological : Alert & oriented to self and place, No focal deficit Objective Data Active Medications Acetaminophen (Acetaminophen 325 Mg Tablet) 650 mg PO Q6H PRN PRN Reason: Pain, Mild (Pain Scale 1-3) Enoxaparin Sodium (Enoxaparin Sodium 40 Mg/0.4 Ml Syringe) 40 mg SUBCUT Q24H [facility] Last Admin: 01/30/23 16:54 Dose: 40 mg Documented By: RAMIRO Sodium Chloride (Ns) 1,000 mls @ 100 mls/hr IVCONT .Q10H [facility] Last Admin: 01/31/23 11:37 Dose: 100 mls/hr Documented By: ERNESTINA Lactic Acid (Ammonium Lactate 12 % Lotion 226 Gm Bottle) 1 appl TOPICAL BID [facility]; Protocol Last Admin: 01/31/23 09:58 Dose: 1 appl Documented By: ERNESTINA Lactulose (Lactulose 20 Gm/30 Ml Solution) 20 gm PO BID [facility] Last Admin: 01/31/23 07:53 Dose: Not Given Documented By: ERNESTINA Non-Admin Reason: Patient Refused Morphine Sulfate (Morphine Sulfate Er 30 Mg Tablet.Er) 30 mg PO BID [facility] Last Admin: 01/31/23 07:53 Dose: 30 mg Documented By: ERNESTINA Ondansetron HCl (Ondansetron Hcl 4 Mg/2 Ml Vial) 4 mg IVPUSH Q8H PRN PRN Reason: Nausea and Vomiting Oxycodone HCl (Oxycodone Hcl Immed Release 5 Mg Tablet) 5 mg PO Q6H PRN PRN Reason: Pain, Severe (Pain Scale 7-10) Sodium Chloride (0.9 % Sodium Chloride Flush 3 Ml Syringe) 3 ml IVFLUSH QSHIFT [facility] Last Admin: 01/31/23 07:54 Dose: Not Given Documented By: ERNESTINA Non-Admin Reason: IV Running Labs 01/30/23 12:43 01/31/23 05:30 Labs: Laboratory Results - last 24 hr 01/30/23 01/30/23 01/30/23 12:43 12:43 12:43 MCV 85.3 MCH 26.6 L MCHC 31.2 RDW 16.6 H Plt Count 310 MPV 8.9 L Immature Gran % (Auto) 0.5 H Neut % (Auto) 72.9 Lymph % (Auto) 21.6 Jefferson % (Auto) 5.0 Eos % (Auto) 0.0 Baso % (Auto) 0.0 Lymph # (Auto) 0.9 L Jefferson # (Auto) 0.2 Eos # (Auto) 0.0 Baso # (Auto) 0.0 Abs Immat Gran (auto) 0.02 Absolute Neuts (auto) 2.9 Absolute Nucleated RBC 0.000 Nucleated RBC % (auto) 0.0 PT 12.5 INR 1.1 Anion Gap 8 L Estim Creat Clear Calc 83.0 Estimated GFR > 60 Random Glucose 102 Lactic Acid Calcium 8.3 L Magnesium 2.2 Total Bilirubin 0.5 Direct Bilirubin 0.2 AST 32 ALT 13 Alkaline Phosphatase 86 Total Creatine Kinase 252 H Troponin I High Sens Total Protein 6.1 L Albumin 2.8 L Lipase 19 Urine Color Urine Appearance Urine pH Ur Specific [place] Urine Protein Urine Glucose (UA) Urine Ketones Urine Blood Urine Nitrite Ur Leukocyte Esterase Urine RBC Urine WBC Ur Squamous Epith Cells Urine Bacteria Hyaline Casts Urine Yeast Urine Opiates Screen Urine Fentanyl Screen Ur Barbiturates Screen Ur Phencyclidine Scrn Ur Amphetamines Screen U Benzodiazepines Scrn Urine Cocaine Screen U Marijuana (THC) Screen Influenza Type A (PCR) Influenza Type B (PCR) RSV RNA Qual (PCR) SARS-CoV-2 RNA (RT-PCR) 01/30/23 01/30/23 01/30/23 12:43 12:43 15:42 MCV MCH MCHC RDW Plt Count MPV Immature Gran % (Auto) Neut % (Auto) Lymph % (Auto) Jefferson % (Auto) Eos % (Auto) Baso % (Auto) Lymph # (Auto) Jefferson # (Auto) Eos # (Auto) Baso # (Auto) Abs Immat Gran (auto) Absolute Neuts (auto) Absolute Nucleated RBC Nucleated RBC % (auto) PT INR Anion Gap Estim Creat Clear Calc Estimated GFR Random Glucose Lactic Acid 1.1 Calcium Magnesium Total Bilirubin Direct Bilirubin AST ALT Alkaline Phosphatase Total Creatine Kinase Troponin I High Sens 6.0 Total Protein Albumin Lipase Urine Color Urine Appearance Urine pH Ur Specific [place] Urine Protein Urine Glucose (UA) Urine Ketones Urine Blood Urine Nitrite Ur Leukocyte Esterase Urine RBC Urine WBC Ur Squamous Epith Cells Urine Bacteria Hyaline Casts Urine Yeast Urine Opiates Screen Urine Fentanyl Screen Ur Barbiturates Screen Ur Phencyclidine Scrn Ur Amphetamines Screen U Benzodiazepines Scrn Urine Cocaine Screen U Marijuana (THC) Screen Influenza Type A (PCR) NEGATIVE Influenza Type B (PCR) NEGATIVE RSV RNA Qual (PCR) NEGATIVE SARS-CoV-2 RNA (RT-PCR) NEGATIVE 01/30/23 01/30/23 01/30/23 15:43 20:34 20:34 MCV MCH MCHC RDW Plt Count MPV Immature Gran % (Auto) Neut % (Auto) Lymph % (Auto) [place] % (Auto) Eos % (Auto) Baso % (Auto) Lymph # (Auto) Jefferson # (Auto) Eos # (Auto) Baso # (Auto) Abs Immat Gran (auto) Absolute Neuts (auto) Absolute Nucleated RBC Nucleated RBC % (auto) PT INR Anion Gap Estim Creat Clear Calc Estimated GFR Random Glucose Lactic Acid Calcium Magnesium Total Bilirubin Direct Bilirubin AST ALT Alkaline Phosphatase Total Creatine Kinase Troponin I High Sens 5.9 Total Protein Albumin Lipase Urine Color Yellow Urine Appearance Clear Urine pH 6.5 Ur Specific [place] 1.015 Urine Protein Trace Urine Glucose (UA) Negative Urine Ketones Negative Urine Blood Negative Urine Nitrite Negative Ur Leukocyte Esterase Trace H Urine RBC 0-2 Urine WBC 0-5 Ur Squamous Epith Cells 0-2 Urine Bacteria None Seen Hyaline Casts 0-2 Urine Yeast Present Urine Opiates Screen POSITIVE H Urine Fentanyl Screen POSITIVE H Ur Barbiturates Screen Not Detected Ur Phencyclidine Scrn Not Detected Ur Amphetamines Screen Not Detected U Benzodiazepines Scrn Not Detected Urine Cocaine Screen Not Detected U Marijuana (THC) Screen Not Detected Influenza Type A (PCR) Influenza Type B (PCR) RSV RNA Qual (PCR) SARS-CoV-2 RNA (RT-PCR) 01/31/23 05:30 MCV MCH MCHC RDW Plt Count MPV Immature Gran % (Auto) Neut % (Auto) Lymph % (Auto) [place] % (Auto) Eos % (Auto) Baso % (Auto) Lymph # (Auto) [place] # (Auto) Eos # (Auto) Baso # (Auto) Abs Immat Gran (auto) Absolute Neuts (auto) Absolute Nucleated RBC Nucleated RBC % (auto) PT INR Anion Gap 10 L Estim Creat Clear Calc 83.0 Estimated GFR > 60 Random Glucose 108 Lactic Acid Calcium 8.0 L Magnesium Total Bilirubin Direct Bilirubin AST ALT Alkaline Phosphatase Total Creatine Kinase Troponin I High Sens Total Protein Albumin Lipase Urine Color Urine Appearance Urine pH Ur Specific [place] Urine Protein Urine Glucose (UA) Urine Ketones Urine Blood Urine Nitrite Ur Leukocyte Esterase Urine RBC Urine WBC Ur Squamous Epith Cells Urine Bacteria Hyaline Casts Urine Yeast Urine Opiates Screen Urine Fentanyl Screen Ur Barbiturates Screen Ur Phencyclidine Scrn Ur Amphetamines Screen U Benzodiazepines Scrn Urine Cocaine Screen U Marijuana (THC) Screen Influenza Type A (PCR) Influenza Type B (PCR) RSV RNA Qual (PCR) SARS-CoV-2 RNA (RT-PCR) Assessment and Plan (1) Adult failure to thrive: Status: Acute (2) Multiple falls: Status: Acute (3) Syncope: Status: Acute (4) Closed rib fracture: Status: Acute (5) Physical deconditioning: Status: Acute Plan A 72 years old male with PMH drug abuse, chronic wound presented to ED by EMS for multiple falls and syncopal episodes over the last few days. Syncope and falls Noticed to have low BP readings in ED on muscle relaxant at home, decoditioned physically, using drugs would increase risk of postural hypotension and dizziness Hold muscle relaxant, give IVF monitor BP, ortho vitals keep on Tele negative head CT rest of body CT scans were negative PT eval Adult FFT , moderatly malnourished, physical deconditioning add ensure to diet PT eval body finisher eval Left forearm chronic wound and muscle contraction Wound care note appreciated Xeroform dressing 7th rib fracture pain management Hypokalemia replacement given monitor BMP Elevated CK from falls, monitor kidney function Constipation Disimpacted in ED bowel regimen DVT PPx SCDs Patient will need overnight hospital stay for evaluation of FTT, syncope, falls, rib #, physical deconditioning pending PT eval and safe discharge plan Time Spent With Patient Time: Total time managing care of this patient today ____ minutes. Quality Stroke Does the patient have a stroke diagnosis?: No VTE Prior VTE?: No VTE Risk Level:: Medical - moderate - high VTE Device Contraindication: Treatment Not Indicated VTE Drug Contraindication: N/A - Med Ordered
[2023-01-31 14:12] VITALS: BMI 21.7
[2023-01-31] MEDS: Potassium Chloride Packet 20 MEQ PACKET 40 MEQ PO (14:25)
[2023-01-31 15:39] VITALS: BP 116/67; PULSE 55; RESP 18; TEMP 37; O2SAT 98
--- NOTE | 2023-01-31 16:39 | P.EN_ITS ---
Event Note Date of Service: 01/31/23 Event Note: Addiction consult placed Seen by glaze mixer, declining any intervention including medications at this time. Please see glaze mixer note from 01/31 Will continue to follow--risk for opioid withdrawal Time Spent With Patient Time: Total time managing care of this patient today ____ minutes.
--- NOTE | 2023-01-31 16:39 | PM.EVENT ---
Event Note Date of Service: 01/31/23 Event Note: Addiction consult placed Seen by continuous linter drier operator, declining any intervention including medications at this time. Please see continuous linter drier operator note from 01/31 Will continue to follow--risk for opioid withdrawal Time Spent With Patient Time: Total time managing care of this patient today ____ minutes.
[2023-01-31] MEDS: Enoxaparin Sodium 40 MG/0.4 ML SYRINGE SUBCUT (17:09)
[2023-01-31] MEDS: oxyCODONE HCl Immed Release 5 MG TABLET PO (17:54)
[2023-01-31 20:00] VITALS: BP 104/65; PULSE 77; RESP 18; TEMP 36.7; O2SAT 96
[2023-01-31] MEDS: Lactulose 20 GM/30 ML SOLUTION PO (22:22)
[2023-01-31 23:34] VITALS: BP 103/59; PULSE 54; RESP 20; TEMP 37.1; O2SAT 98
[2023-02-01] MEDS: oxyCODONE HCl Immed Release 5 MG TABLET PO ×2 (01:04→06:35)
[2023-02-01] MEDS: 0.9 % Sodium Chloride Flush 3 ML SYRINGE IVFLUSH ×3 (01:05→21:42)
[2023-02-01] MEDS: 0.9 % Sodium Chloride 1,000 ML 100 ML IVCONT (01:05)
[2023-02-01 03:14] VITALS: BP 105/60; PULSE 68; RESP 20; TEMP 36.3; O2SAT 96
[2023-02-01 07:45] VITALS: BP 129/79; PULSE 80; RESP 20; TEMP 36.9; O2SAT 96
[2023-02-01] MEDS: Morphine Sulfate ER 30 MG TABLET.ER PO ×2 (08:08→21:42)
[2023-02-01] MEDS: Lactulose 20 GM/30 ML SOLUTION PO (08:09)
[2023-02-01] MEDS: Ammonium Lactate 12 % Lotion 226 GM BOTTLE 1 APPL TOPICAL ×2 (08:12→21:47)
[2023-02-01 10:18] VITALS: BP 129/79; PULSE 80; O2SAT 96
--- NOTE | 2023-02-01 11:05 | MHC.CM.PN ---
EMR REVIEWED, PER HOSPITALIST Pt UNABLE TO CARE FOR SELF AT HOME, [facility] [place] SA ISSUES. FS WILL MEET W/PT TO START MH GAVI, P.T. IS RECOMMENDING STR, PT WILL LIKELY BE STR W/TRANSITION TO LTC, CM WILL CON TO FOLLOW REFERRALS AND D/C NEEDS.
[2023-02-01 11:27] VITALS: BMI 21.7
[2023-02-01 11:28] VITALS: BP 101/66; PULSE 98; RESP 20; TEMP 37.7; O2SAT 97
--- NOTE | 2023-02-01 11:34 | MHC.CLN ---
RE: CONSULT PT IS MODERATELY MALNOURISHED PT WITH MILDLY DEPLETED SUBCUTANEOUS FAT AND MUSCLE MASS WITH REPORTED 40# WT LOSS X 6 MONTHS ON PREVIOUS ADMISSION AND TRIGGERS FOR 22% SIGNIFICANT WT LOSS R/T DRUG ABUSE PT REPORTED WT LOSS ON NURSING ADMISSION ASSESSMENT WT FOLLOWS 59.2KG (01/30/23) 56.1KG (12/24/22) TRIGGERS FOR 5.5% SIGNIFICANT WT GAIN PT PREVIOUSLY DX MODERATE MALNUTRITION ON RECENT HOSPITALIZATION SEE RD NOTE 01/01/23 WHERE PT REPORTED 40# WT LOSS X 6 MONTHS PO INTAKE RANGING FROM 50-100% DIET RX: REGULAR CHOPPED-APPROPRIATE MD STARTED ENSURE TID TO INCREASE KCALS SUPP PROVIDES 1050KCALS, 60G PROTEIN WITH 100% ACCEPTANCE PT NOW WITH PI WITH INCREASED NUTRITION RISK MONITOR PO INTAKE CLOSELY SEE ALSO FULL CLINICAL NUTRITION ASSESSMENT
--- NOTE | 2023-02-01 12:00 | MHC.CM.PN ---
Addendum entered by Khadra Maciel RN 02/01/23 13:54: CM CONFIRMED W/ANDREI AT [facility] [place] THAT PT IS SERVICE CONNECTED AND THEY WILL COVER LTC. CM WILL BE EXPANDING REFERRAL, PT WILL STILL HAVE BARRIER OF SA. Original Note: RANI RECEIVED CALL FROM [facility] PROTECTIVE CDL PROGRAM COORDINATOR KANE [phone] [id number], KANE REPORTS THEY HAVE SERIOUS CONCERNS REGARDING PT'S SAFETY AT [facility] WHERE HE HAS BEEN STAYING SINCE SEPTEMBER AFTER HIS BROTHER WENT AWAY, HOUSE THAT PT AND BROTHER LIVED IN WAS CONDEMNED AND UNCERTAIN IF HOME WAS CO-OWNED W/BROTHER OR PT OWNED IT. KANE REPORTS HE WILL BE IN FOR A BEDSIDE VISIT ON SUNDAY 02/04 AND WILL FOLLOW-UP W/CM.
--- NOTE | 2023-02-01 12:34 | HO.PM.IMPN ---
Subjective Subjective Date of Service: 02/01/23 Interval History: Seen and evaluated more alert and interactive but overall contracted reports feeling weak BP improved moving bowels Review of Systems No fever, chills but reports weakness muscle pain , joints pain No chest pain, palpitation No shortness of breath or coughing No abdominal pain, nausea or vomiting No urinary symptoms lower extremities rash and wounds Physical Exam Vital Signs: Vital Signs: Last Vital Signs Temp 99.8 F 02/01/23 11:28 Pulse 98 02/01/23 11:28 Resp 20 02/01/23 11:28 BP 101/66 02/01/23 11:28 Pulse Ox 97 02/01/23 11:28 O2 Del Method Room Air 02/01/23 11:28 BMI result Body Mass Index 21.7 Const: Other: Constitutional : alert, frail looking, malnourished, not in distress Neck : Normal inspection, Supple Cardiovascular : RRR, no JVP, no lower extremity edema Respiratory : good bilateral air entry,? no crackles, wheezes or rhonchi Gastrointestinal:? soft, lax, Normal bowel sounds, Non tender Skin : Warm, Dry, Left forearm chronic wound with muscle contacture exposed extensor carpi radialis muscle with fingers edema in Lt hand. no wrist movement. restricted movement of fingers. Bilateral LE with scales and dry skin with associated dermatitis Neurological : Alert & oriented to self and place, No focal deficit Objective Data Active Medications Acetaminophen (Acetaminophen 325 Mg Tablet) 650 mg PO Q6H PRN PRN Reason: Pain, Mild (Pain Scale 1-3) Docusate Sodium (Docusate Sodium 100 Mg Capsule) 100 mg PO BID [facility] Last Admin: 02/01/23 08:06 Dose: Not Given Documented By: HIPOLITO Non-Admin Reason: Patient Refused Enoxaparin Sodium (Enoxaparin Sodium 40 Mg/0.4 Ml Syringe) 40 mg SUBCUT Q24H [facility] Last Admin: 01/31/23 17:09 Dose: 40 mg Documented By: HIPOLITO Lactic Acid (Ammonium Lactate 12 % Lotion 226 Gm Bottle) 1 appl TOPICAL BID [facility]; Protocol Last Admin: 02/01/23 08:12 Dose: 1 appl Documented By: HIPOLITO Lactulose (Lactulose 20 Gm/30 Ml Solution) 20 gm PO BID [facility] Last Admin: 02/01/23 08:09 Dose: 20 gm Documented By: HIPOLITO Morphine Sulfate (Morphine Sulfate Er 30 Mg Tablet.Er) 30 mg PO BID [facility] Last Admin: 02/01/23 08:08 Dose: 30 mg Documented By: HIPOLITO Ondansetron HCl (Ondansetron Hcl 4 Mg/2 Ml Vial) 4 mg IVPUSH Q8H PRN PRN Reason: Nausea and Vomiting Oxycodone HCl (Oxycodone Hcl Immed Release 5 Mg Tablet) 5 mg PO Q6H PRN PRN Reason: Pain, Severe (Pain Scale 7-10) Last Admin: 02/01/23 06:35 Dose: 5 mg Documented By: KIMBERLEY Sodium Chloride (0.9 % Sodium Chloride Flush 3 Ml Syringe) 3 ml IVFLUSH QSHIFT [facility] Last Admin: 02/01/23 08:06 Dose: Not Given Documented By: HIPOLITO Non-Admin Reason: IV Running Labs 01/30/23 12:43 01/31/23 05:30 Microbiology Microbiology Results: Microbiology 01/30/23 12:43 Blood Culture - Preliminary Blood - Venous No growth after 24 hours. 01/30/23 11:12 Blood Culture - Preliminary Blood - Venous No growth after 24 hours. Assessment and Plan (1) Multiple falls: Status: Acute (2) Syncope: Status: Acute Plan A 72 years old male with PMH drug abuse, chronic wound presented to ED by EMS for multiple falls and syncopal episodes over the last few days. Syncope and falls Noticed to have low BP readings in ED on muscle relaxant at home, decoditioned physically, using drugs would increase risk of postural hypotension and dizziness DC IVF monitor BP, ortho vitals keep on Tele multiple body CT scans were negative PT eval rec SNF Adult FFT , moderatly malnourished, physical deconditioning add ensure to diet PT eval bone process operator eval Left forearm chronic wound and muscle contraction Wound care note appreciated Xeroform dressing 7th rib fracture pain management Hypokalemia replacement given monitor BMP Elevated CK from falls, monitor kidney function Constipation Disimpacted in ED bowel regimen DVT PPx SCDs Patient will need overnight hospital stay for evaluation of FTT, syncope, falls, rib #, physical deconditioning pending safe discharge plan to SNF as he is high risk of falls and recurrent admissions Time Spent With Patient Time: Total time managing care of this patient today ____ minutes. Quality Stroke Does the patient have a stroke diagnosis?: No VTE Prior VTE?: No VTE Risk Level:: Medical - moderate - high VTE Device Contraindication: Treatment Not Indicated VTE Drug Contraindication: N/A - Med Ordered
[2023-02-01 16:00] VITALS: BP 106/74; PULSE 89; RESP 20; TEMP 36.6; O2SAT 97
[2023-02-01] MEDS: Enoxaparin Sodium 40 MG/0.4 ML SYRINGE SUBCUT (17:01)
[2023-02-01 19:55] VITALS: BP 124/71; PULSE 81; RESP 20; TEMP 36.6; O2SAT 96
[2023-02-01] MEDS: Docusate Sodium 100 MG CAPSULE PO (21:42)
[2023-02-02] VITALS: BP 104/73; PULSE 90; RESP 20; TEMP 37.6; O2SAT 96
[2023-02-02 03:59] VITALS: BP 112/71; PULSE 75; RESP 20; TEMP 37.1; O2SAT 97
[2023-02-02 07:26] VITALS: BP 122/74; PULSE 75; RESP 20; TEMP 37.8; O2SAT 97
[2023-02-02] MEDS: 0.9 % Sodium Chloride Flush 3 ML SYRINGE IVFLUSH ×2 (09:33→15:32)
[2023-02-02] MEDS: Morphine Sulfate ER 30 MG TABLET.ER PO ×2 (09:33→22:08)
[2023-02-02] MEDS: Docusate Sodium 100 MG CAPSULE PO ×2 (09:33→22:08)
[2023-02-02] MEDS: Ammonium Lactate 12 % Lotion 226 GM BOTTLE 1 APPL TOPICAL ×2 (09:35→22:16)
--- NOTE | 2023-02-02 11:14 | HO.PM.IMPN ---
Subjective Subjective Date of Service: 02/02/23 Interval History: Seen and evaluated alert and interactive but overall contracted reports feeling weak moving bowels Review of Systems No fever, chills but reports weakness muscle pain , joints pain No chest pain, palpitation No shortness of breath or coughing No abdominal pain, nausea or vomiting No urinary symptoms lower extremities rash and wounds Physical Exam Vital Signs: Vital Signs: Last Vital Signs Temp 100.0 F 02/02/23 07:26 Pulse 75 02/02/23 07:26 Resp 20 02/02/23 07:26 BP 122/74 02/02/23 07:26 Pulse Ox 97 02/02/23 07:26 O2 Del Method Room Air 02/02/23 07:26 BMI result Body Mass Index 21.7 Const: Other: Constitutional : alert, frail looking, malnourished, not in distress Neck : Normal inspection, Supple Cardiovascular : RRR, no JVP, no lower extremity edema Respiratory : good bilateral air entry,? no crackles, wheezes or rhonchi Gastrointestinal:? soft, lax, Normal bowel sounds, Non tender Skin : Warm, Dry, Left forearm chronic wound with muscle contacture exposed extensor carpi radialis muscle with fingers edema in Lt hand. no wrist movement. restricted movement of fingers. Bilateral LE with scales and dry skin with associated dermatitis Neurological : Alert & oriented to self and place, No focal deficit Objective Data Active Medications Acetaminophen (Acetaminophen 325 Mg Tablet) 650 mg PO Q6H PRN PRN Reason: Pain, Mild (Pain Scale 1-3) Docusate Sodium (Docusate Sodium 100 Mg Capsule) 100 mg PO BID [facility] Last Admin: 02/02/23 09:33 Dose: 100 mg Documented By: JAMILAH Enoxaparin Sodium (Enoxaparin Sodium 40 Mg/0.4 Ml Syringe) 40 mg SUBCUT Q24H [facility] Last Admin: 02/01/23 17:01 Dose: 40 mg Documented By: HIPOLITO Lactic Acid (Ammonium Lactate 12 % Lotion 226 Gm Bottle) 1 appl TOPICAL BID [facility]; Protocol Last Admin: 02/02/23 09:35 Dose: 1 appl Documented By: JAMILAH Lactulose (Lactulose 20 Gm/30 Ml Solution) 20 gm PO BID [facility] Last Admin: 02/02/23 10:16 Dose: Not Given Documented By: JAMILAH Non-Admin Reason: Patient Refused Morphine Sulfate (Morphine Sulfate Er 30 Mg Tablet.Er) 30 mg PO BID [facility] Last Admin: 02/02/23 09:33 Dose: 30 mg Documented By: JAMILAH Ondansetron HCl (Ondansetron Hcl 4 Mg/2 Ml Vial) 4 mg IVPUSH Q8H PRN PRN Reason: Nausea and Vomiting Oxycodone HCl (Oxycodone Hcl Immed Release 5 Mg Tablet) 5 mg PO Q6H PRN PRN Reason: Pain, Severe (Pain Scale 7-10) Last Admin: 02/01/23 06:35 Dose: 5 mg Documented By: KIMBERLEY Sodium Chloride (0.9 % Sodium Chloride Flush 3 Ml Syringe) 3 ml IVFLUSH QSHIFT [facility] Last Admin: 02/02/23 09:33 Dose: 3 ml Documented By: JAMILAH Labs 01/30/23 12:43 01/31/23 05:30 Microbiology Microbiology Results: Microbiology 01/30/23 12:43 Blood Culture - Preliminary Blood - Venous No growth after 48 hours. 01/30/23 11:12 Blood Culture - Preliminary Blood - Venous No growth after 48 hours. Assessment and Plan (1) Adult failure to thrive: Status: Acute (2) Multiple falls: Status: Acute (3) Syncope: Status: Acute Plan A 72 years old male with PMH drug abuse, chronic wound presented to ED by EMS for multiple falls and syncopal episodes over the last few days. Syncope and falls on muscle relaxant at home, decoditioned physically, using drugs would increase risk of postural hypotension and dizziness resolved DC Tele multiple body CT scans were negative PT eval rec SNF Adult FFT , moderatly malnourished, physical deconditioning add ensure to diet severity of illness coordinator eval Left forearm chronic wound and muscle contraction Xeroform dressing 7th rib fracture pain management Hypokalemia replacement given monitor BMP Elevated CK from falls, monitor kidney function Constipation Disimpacted in ED bowel regimen DVT PPx SCDs Patient will need overnight hospital stay for evaluation of FTT, syncope, falls, rib #, physical deconditioning pending safe discharge plan to SNF as he is high risk of falls and recurrent admissions Time Spent With Patient Time: Total time managing care of this patient today ____ minutes. Quality Stroke Does the patient have a stroke diagnosis?: No VTE Prior VTE?: No VTE Risk Level:: Medical - moderate - high VTE Device Contraindication: Treatment Not Indicated VTE Drug Contraindication: N/A - Med Ordered
[2023-02-02 11:19] VITALS: BP 96/62; PULSE 77; RESP 20; TEMP 37.3; O2SAT 98
[2023-02-02 15:52] VITALS: BP 136/67; PULSE 84; RESP 18; TEMP 37; O2SAT 97
[2023-02-02] MEDS: Enoxaparin Sodium 40 MG/0.4 ML SYRINGE SUBCUT (17:38)
[2023-02-02 20:00] VITALS: BP 111/60; PULSE 109; RESP 18; TEMP 36.7; O2SAT 96
[2023-02-02] MEDS: Lactulose 20 GM/30 ML SOLUTION PO (22:08)
[2023-02-02] MEDS: oxyCODONE HCl Immed Release 5 MG TABLET PO (22:10)
[2023-02-03] VITALS (7 sets, daily range): BP systolic 88–113; BP diastolic 53–68; PULSE 72–100; RESP 18–20; TEMP 36.3–37.6; O2SAT 96–97
--- NOTE | 2023-02-03 05:33 | PC.NURSE ---
pt alert and oriented 3-4, c/o 10/10 L rib and hip pain 2/2 fall. pt medicated as per NOV and sleeping in NAD upon recheck. will CTM+T
[2023-02-03] MEDS: Morphine Sulfate ER 30 MG TABLET.ER PO ×2 (09:10→19:30)
[2023-02-03] MEDS: Docusate Sodium 100 MG CAPSULE PO ×2 (09:10→19:30)
[2023-02-03] MEDS: 0.9 % Sodium Chloride Flush 3 ML SYRINGE IVFLUSH ×3 (09:10→19:31)
[2023-02-03] MEDS: Ammonium Lactate 12 % Lotion 226 GM BOTTLE 1 APPL TOPICAL (09:15)
--- NOTE | 2023-02-03 11:20 | P.PNIM_ITS ---
Subjective Subjective Date of Service: 02/03/23 Interval History: Seen and evaluated alert and interactive reports feeling weak but overall better moving bowels Review of Systems No fever, chills but reports weakness muscle pain , joints pain No chest pain, palpitation No shortness of breath or coughing No abdominal pain, nausea or vomiting No urinary symptoms lower extremities rash and wounds Physical Exam Vital Signs: Vital Signs: Last Vital Signs Temp 99.3 F 02/03/23 07:26 Pulse 78 02/03/23 07:26 Resp 20 02/03/23 07:26 BP 100/63 02/03/23 07:26 Pulse Ox 97 02/03/23 07:26 O2 Del Method Room Air 02/03/23 07:26 BMI result Body Mass Index 21.7 Const: Other: Constitutional : alert, frail looking, malnourished, not in distress Neck : Normal inspection, Supple Cardiovascular : RRR, no JVP, no lower extremity edema Respiratory : good bilateral air entry,? no crackles, wheezes or rhonchi Gastrointestinal:? soft, lax, Normal bowel sounds, Non tender Skin : Warm, Dry, Left forearm chronic wound with muscle contacture exposed extensor carpi radialis muscle with fingers edema in Lt hand. no wrist movement. restricted movement of fingers. Bilateral LE with scales and dry skin with associated dermatitis Neurological : Alert & oriented to self and place, No focal deficit Objective Data Active Medications Acetaminophen (Acetaminophen 325 Mg Tablet) 650 mg PO Q6H PRN PRN Reason: Pain, Mild (Pain Scale 1-3) Docusate Sodium (Docusate Sodium 100 Mg Capsule) 100 mg PO BID [facility] Last Admin: 02/03/23 09:10 Dose: 100 mg Documented By: JAMILAH Enoxaparin Sodium (Enoxaparin Sodium 40 Mg/0.4 Ml Syringe) 40 mg SUBCUT Q24H [facility] Last Admin: 02/02/23 17:38 Dose: 40 mg Documented By: JAMILAH Lactic Acid (Ammonium Lactate 12 % Lotion 226 Gm Bottle) 1 appl TOPICAL BID [facility]; Protocol Last Admin: 02/03/23 09:15 Dose: 1 appl Documented By: JAMILAH Lactulose (Lactulose 20 Gm/30 Ml Solution) 20 gm PO BID [facility] Last Admin: 02/03/23 09:13 Dose: Not Given Documented By: JAMILAH Non-Admin Reason: Patient Refused Comments: education provided/ Md aware Morphine Sulfate (Morphine Sulfate Er 30 Mg Tablet.Er) 30 mg PO BID [facility] Last Admin: 02/03/23 09:10 Dose: 30 mg Documented By: JAMILAH Ondansetron HCl (Ondansetron Hcl 4 Mg/2 Ml Vial) 4 mg IVPUSH Q8H PRN PRN Reason: Nausea and Vomiting Oxycodone HCl (Oxycodone Hcl Immed Release 5 Mg Tablet) 5 mg PO Q6H PRN PRN Reason: Pain, Severe (Pain Scale 7-10) Last Admin: 02/01/23 06:35 Dose: 5 mg Documented By: KIMBERLEY Sodium Chloride (0.9 % Sodium Chloride Flush 3 Ml Syringe) 3 ml IVFLUSH QSHIFT [facility] Last Admin: 02/03/23 09:10 Dose: 3 ml Documented By: JAMILAH Labs 01/30/23 12:43 01/31/23 05:30 Assessment and Plan (1) Adult failure to thrive: Status: Acute (2) Multiple falls: Status: Acute (3) Closed rib fracture: Status: Acute (4) Physical deconditioning: Status: Acute Plan A 72 years old male with PMH drug abuse, chronic wound presented to ED by EMS for multiple falls and syncopal episodes over the last few days. Syncope and falls on muscle relaxant at home, decoditioned physically, using drugs would increase risk of postural hypotension and dizziness resolved DC Tele multiple body CT scans were negative PT eval rec SNF Adult FFT , moderatly malnourished, physical deconditioning add ensure to diet i o psychologist eval Left forearm chronic wound and muscle contraction Xeroform dressing 7th rib fracture pain management Hypokalemia replacement given monitor BMP Elevated CK from falls, monitor kidney function Constipation Disimpacted in ED bowel regimen DVT PPx SCDs Patient will need overnight hospital stay for evaluation of FTT, syncope, falls, rib #, physical deconditioning pending safe discharge plan to SNF as he is high risk of falls and recurrent admissions Time Spent With Patient Time: Total time managing care of this patient today ____ minutes. Quality Stroke Does the patient have a stroke diagnosis?: No VTE Prior VTE?: No VTE Risk Level:: Medical - moderate - high VTE Device Contraindication: Treatment Not Indicated VTE Drug Contraindication: N/A - Med Ordered
[2023-02-03] MEDS: Enoxaparin Sodium 40 MG/0.4 ML SYRINGE SUBCUT (16:16)
[2023-02-03] MEDS: oxyCODONE HCl Immed Release 5 MG TABLET PO (17:09)
[2023-02-03] MEDS: Lactulose 20 GM/30 ML SOLUTION PO (19:30)
[2023-02-04 03:43] VITALS: BP 100/60; PULSE 72; RESP 18; TEMP 37.3; O2SAT 97
[2023-02-04 07:25] VITALS: BP 127/51; PULSE 86; RESP 20; TEMP 37.1; O2SAT 94
[2023-02-04] MEDS: Docusate Sodium 100 MG CAPSULE PO ×2 (07:52→19:59)
[2023-02-04] MEDS: Ammonium Lactate 12 % Lotion 226 GM BOTTLE 1 APPL TOPICAL ×2 (07:52→20:00)
[2023-02-04] MEDS: 0.9 % Sodium Chloride Flush 3 ML SYRINGE IVFLUSH ×2 (07:52→17:04)
[2023-02-04] MEDS: Morphine Sulfate ER 30 MG TABLET.ER PO ×2 (08:43→19:59)
--- NOTE | 2023-02-04 10:58 | MHC.CLN ---
RE: CONSULT PT IS MODERATELY MALNOURISHED SEE ALSO FULL CLINICAL NUTRITION ASSESSMENT DATED 02/01/23 PO INTAKE RANGING FROM 50-100% DIET RX: REGULAR CHOPPED-APPROPRIATE PT RECEIVING ENSURE TID PROVIDES 1050KCALS, 60G PROTEIN WITH 100% ACCEPTANCE CONTINUE TO MONITOR PO INTAKE CLOSELY
[2023-02-04 11:49] VITALS: BP 137/65; PULSE 91; RESP 20; TEMP 37.3; O2SAT 96
--- NOTE | 2023-02-04 12:23 | MHC.CM.PN ---
EMR reviewed and per MD rounds, pt medically cleared for D/C. Awaiting STR bed placement, and expanded search on [facility] due to many facilities unable to accept pt so far. CM will continue to follow.
--- NOTE | 2023-02-04 12:50 | HO.PM.IMPN ---
Subjective Subjective Date of Service: 02/04/23 Interval History: Seen and evaluated alert and interactive overall better and tolerating diet well moving bowels Review of Systems No fever, chills but reports weakness muscle pain , joints pain No chest pain, palpitation No shortness of breath or coughing No abdominal pain, nausea or vomiting No urinary symptoms lower extremities rash and wounds Physical Exam Vital Signs: Vital Signs: Last Vital Signs Temp 99.2 F 02/04/23 11:49 Pulse 91 02/04/23 11:49 Resp 20 02/04/23 11:49 BP 137/65 02/04/23 11:49 Pulse Ox 96 02/04/23 11:49 O2 Del Method Room Air 02/04/23 11:49 BMI result Body Mass Index 21.7 Const: Other: Constitutional : alert, frail looking, malnourished, not in distress Neck : Normal inspection, Supple Cardiovascular : RRR, no JVP, no lower extremity edema Respiratory : good bilateral air entry,? no crackles, wheezes or rhonchi Gastrointestinal:? soft, lax, Normal bowel sounds, Non tender Skin : Warm, Dry, Left forearm chronic wound with muscle contacture exposed extensor carpi radialis muscle with fingers edema in Lt hand. no wrist movement. restricted movement of fingers. Bilateral LE with scales and dry skin with associated dermatitis Neurological : Alert & oriented to self and place, No focal deficit Objective Data Active Medications Acetaminophen (Acetaminophen 325 Mg Tablet) 650 mg PO Q6H PRN PRN Reason: Pain, Mild (Pain Scale 1-3) Docusate Sodium (Docusate Sodium 100 Mg Capsule) 100 mg PO BID [facility] Last Admin: 02/04/23 07:52 Dose: 100 mg Documented By: ERIC Enoxaparin Sodium (Enoxaparin Sodium 40 Mg/0.4 Ml Syringe) 40 mg SUBCUT Q24H [facility] Last Admin: 02/03/23 16:16 Dose: 40 mg Documented By: JAMILAH Lactic Acid (Ammonium Lactate 12 % Lotion 226 Gm Bottle) 1 appl TOPICAL BID [facility]; Protocol Last Admin: 02/04/23 07:52 Dose: 1 appl Documented By: ERIC Lactulose (Lactulose 20 Gm/30 Ml Solution) 20 gm PO BID [facility] Last Admin: 02/04/23 08:44 Dose: Not Given Documented By: ERIC Non-Admin Reason: Patient Refused Morphine Sulfate (Morphine Sulfate Er 30 Mg Tablet.Er) 30 mg PO BID [facility] Last Admin: 02/04/23 08:43 Dose: 30 mg Documented By: ERIC Ondansetron HCl (Ondansetron Hcl 4 Mg/2 Ml Vial) 4 mg IVPUSH Q8H PRN PRN Reason: Nausea and Vomiting Oxycodone HCl (Oxycodone Hcl Immed Release 5 Mg Tablet) 5 mg PO Q6H PRN PRN Reason: Pain, Severe (Pain Scale 7-10) Last Admin: 02/03/23 17:09 Dose: 5 mg Documented By: JAMILAH Sodium Chloride (0.9 % Sodium Chloride Flush 3 Ml Syringe) 3 ml IVFLUSH QSHIFT [facility] Last Admin: 02/04/23 07:52 Dose: 3 ml Documented By: ERIC Labs 01/30/23 12:43 01/31/23 05:30 Assessment and Plan (1) Multiple falls: Status: Acute (2) Syncope: Status: Acute Plan A 72 years old male with PMH drug abuse, chronic wound presented to ED by EMS for multiple falls and syncopal episodes over the last few days. 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 Quality Stroke Does the patient have a stroke diagnosis?: No VTE Prior VTE?: No VTE Risk Level:: Medical - moderate - high VTE Device Contraindication: Treatment Not Indicated VTE Drug Contraindication: N/A - Med Ordered
[2023-02-04] MEDS: oxyCODONE HCl Immed Release 5 MG TABLET PO (13:26)
[2023-02-04 15:06] VITALS: BP 102/51; PULSE 88; RESP 18; TEMP 37; O2SAT 98
--- NOTE | 2023-02-04 15:27 | MHC.CM.PN ---
[facility] PROTECTIVE SERVICES WORKER IN TO VISIT, SHOE TURNER CONCERNED ABOUT PT'S SAFETY AT HOME, PROTECTIVE SHOE TURNER REPORTS PT WOULD PREFER [facility] HIS BROTHER IS THERE, REFERRAL HAD BEEN PLACED TO [facility] HOWVER THEY HAVE NOT OFFERED PT A BED, [facility] NO HAD OFFERED HOWEVER RECINDED BED OFFER, PT CONT'S TO BE A STR VS STR/LTC BED SEARCH, CM WILL CONT TO FOLLOW.
[2023-02-04] MEDS: Enoxaparin Sodium 40 MG/0.4 ML SYRINGE SUBCUT (17:04)
[2023-02-04 19:23] VITALS: BP 108/5; PULSE 80; RESP 18; TEMP 37; O2SAT 96
[2023-02-04 23:49] VITALS: BP 94/52; PULSE 90; RESP 18; TEMP 37.2; O2SAT 96
[2023-02-05] MEDS: 0.9 % Sodium Chloride Flush 3 ML SYRINGE IVFLUSH ×3 (01:13→18:34)
--- NOTE | 2023-02-05 01:21 | PC.NURSE ---
Patient refused nursing assessment at midnight, attempted to recheck BP after SBP 94, however patient refused despite education.
[2023-02-05 03:37] VITALS: BP 97/59; PULSE 86; RESP 18; TEMP 37.1; O2SAT 97
[2023-02-05 07:24] VITALS: BP 96/59; PULSE 90; RESP 20; TEMP 37.4; O2SAT 97
[2023-02-05] MEDS: 0.9 % Sodium Chloride 1,000 ML 999 ML IV (09:06)
[2023-02-05] MEDS: Docusate Sodium 100 MG CAPSULE PO (09:06)
--- NOTE | 2023-02-05 10:33 | HO.PM.IMPN ---
Subjective Subjective Date of Service: 02/05/23 Interval History: Seen and evaluated alert and interactive overall better and tolerating diet well moving bowels BP running soft Review of Systems No fever, chills but reports weakness muscle pain , joints pain No chest pain, palpitation No shortness of breath or coughing No abdominal pain, nausea or vomiting No urinary symptoms lower extremities rash and wounds Physical Exam Vital Signs: Vital Signs: Last Vital Signs Temp 99.3 F 02/05/23 07:24 Pulse 90 02/05/23 07:24 Resp 20 02/05/23 07:24 BP 96/59 L 02/05/23 07:24 Pulse Ox 97 02/05/23 07:24 O2 Del Method Room Air 02/05/23 07:24 BMI result Body Mass Index 21.7 Const: Other: Constitutional : alert, frail looking, malnourished, not in distress Neck : Normal inspection, Supple Cardiovascular : RRR, no JVP, no lower extremity edema Respiratory : good bilateral air entry,? no crackles, wheezes or rhonchi Gastrointestinal:? soft, lax, Normal bowel sounds, Non tender Skin : Warm, Dry, Left forearm chronic wound with muscle contacture exposed extensor carpi radialis muscle with fingers edema in Lt hand. no wrist movement. restricted movement of fingers. Bilateral LE with scales and dry skin with associated dermatitis Neurological : Alert & oriented to self and place, No focal deficit Objective Data Active Medications Acetaminophen (Acetaminophen 325 Mg Tablet) 650 mg PO Q6H PRN PRN Reason: Pain, Mild (Pain Scale 1-3) Docusate Sodium (Docusate Sodium 100 Mg Capsule) 100 mg PO BID [facility] Last Admin: 02/05/23 09:06 Dose: 100 mg Documented By: ADA Enoxaparin Sodium (Enoxaparin Sodium 40 Mg/0.4 Ml Syringe) 40 mg SUBCUT Q24H [facility] Last Admin: 02/04/23 17:04 Dose: 40 mg Documented By: ZACHARY Lactic Acid (Ammonium Lactate 12 % Lotion 226 Gm Bottle) 1 appl TOPICAL BID [facility]; Protocol Last Admin: 02/05/23 09:18 Dose: Not Given Documented By: ADA Non-Admin Reason: Previously Administered Lactulose (Lactulose 20 Gm/30 Ml Solution) 20 gm PO BID [facility] Last Admin: 02/05/23 09:19 Dose: Not Given Documented By: ADA Non-Admin Reason: Patient Refused Ondansetron HCl (Ondansetron Hcl 4 Mg/2 Ml Vial) 4 mg IVPUSH Q8H PRN PRN Reason: Nausea and Vomiting Oxycodone HCl (Oxycodone Hcl Immed Release 5 Mg Tablet) 5 mg PO Q6H PRN PRN Reason: Pain, Severe (Pain Scale 7-10) Sodium Chloride (0.9 % Sodium Chloride Flush 3 Ml Syringe) 3 ml IVFLUSH QSHIFT [facility] Last Admin: 02/05/23 09:06 Dose: 3 ml Documented By: ADA Labs 01/30/23 12:43 01/31/23 05:30 Microbiology Microbiology Results: Microbiology 01/30/23 12:43 Blood Culture - Final Blood - Venous No growth after 5 days. 01/30/23 11:12 Blood Culture - Final Blood - Venous No growth after 5 days. Assessment and Plan (1) Multiple falls: Status: Acute (2) Adult failure to thrive: Status: Acute (3) Physical deconditioning: Status: Acute (4) Acute hypokalemia: Status: Acute Plan A 72 years old male with PMH drug abuse, chronic wound presented to ED by EMS for multiple falls and syncopal episodes over the last few days. 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 Quality Stroke Does the patient have a stroke diagnosis?: No VTE Prior VTE?: No VTE Risk Level:: Medical - moderate - high VTE Device Contraindication: Treatment Not Indicated VTE Drug Contraindication: N/A - Med Ordered
[2023-02-05] MEDS: oxyCODONE HCl Immed Release 5 MG TABLET PO ×2 (10:47→20:03)
[2023-02-05 11:13] VITALS: BP 94/51; PULSE 80; RESP 20; TEMP 37.3; O2SAT 99
[2023-02-05] MEDS: Midodrine HCl 2.5 MG TABLET PO ×2 (12:55→18:34)
[2023-02-05 17:30] VITALS: BP 98/55
[2023-02-05] MEDS: Enoxaparin Sodium 40 MG/0.4 ML SYRINGE SUBCUT (18:34)
[2023-02-05 20:00] VITALS: BP 103/60; PULSE 89; RESP 18; TEMP 37.1; O2SAT 97
[2023-02-06] VITALS (7 sets, daily range): BP systolic 90–112; BP diastolic 59–76; PULSE 70–91; RESP 18–20; TEMP 37.1–37.6; O2SAT 94–99
[2023-02-06 09:21] LABS: Alanine Aminotransferase 10 U/L (0-40); Albumin Level 2.3 g/dL (3.5-5.0); Alkaline Phosphatase 94 U/L (39-117); Anion Gap 8 (12-20); Aspartate Amino Transferase 14 U/L (5-37); Bilirubin Direct 0.1 mg/dL (0.0-0.5); Bilirubin Total 0.3 mg/dL (0.0-1.0); Blood Urea Nitrogen 10 mg/dL (9-16); Carbon Dioxide 26 mmol/L (22-29); Chloride 105 mmol/L (96-108); Creatinine Clr Calc Pharmacy 106.5; Estimated Glomerular Filt Rate > 60; Glucose Random 90 mg/dL (60-115); Potassium 4.3 mmol/L (3.3-5.1); Sodium 135 mmol/L (135-145); Total Protein 5.2 g/dL (6.5-8.0)
[2023-02-06] MEDS: Docusate Sodium 100 MG CAPSULE PO ×2 (10:42→21:51)
[2023-02-06] MEDS: 0.9 % Sodium Chloride Flush 3 ML SYRINGE IVFLUSH ×2 (10:42→16:39)
--- NOTE | 2023-02-06 11:29 | HO.PM.IMPN ---
Subjective Subjective Date of Service: 02/06/23 Interval History: chest pain Physical Exam Vital Signs: Vital Signs: Last Vital Signs Temp 99.1 F 02/06/23 08:00 Pulse 84 02/06/23 08:00 Resp 20 02/06/23 08:00 BP 112/76 02/06/23 08:00 Pulse Ox 94 02/06/23 08:00 O2 Del Method Room Air 02/06/23 08:00 BMI result Body Mass Index 21.7 Const: Other: Constitutional : alert, frail looking, malnourished, not in distress Neck : Normal inspection, Supple Cardiovascular : RRR, no JVP, no lower extremity edema Respiratory : good bilateral air entry,? no crackles, wheezes or rhonchi Gastrointestinal:? soft, lax, Normal bowel sounds, Non tender Skin : Warm, Dry, Left forearm chronic wound with muscle contacture exposed extensor carpi radialis muscle with fingers edema in Lt hand. no wrist movement. restricted movement of fingers. Bilateral LE with scales and dry skin with associated dermatitis Neurological : Alert & oriented to self and place, No focal deficit Objective Data Active Medications Acetaminophen (Acetaminophen 325 Mg Tablet) 650 mg PO Q6H PRN PRN Reason: Pain, Mild (Pain Scale 1-3) Docusate Sodium (Docusate Sodium 100 Mg Capsule) 100 mg PO BID [facility] Last Admin: 02/06/23 10:42 Dose: 100 mg Documented By: ADA Enoxaparin Sodium (Enoxaparin Sodium 40 Mg/0.4 Ml Syringe) 40 mg SUBCUT Q24H [facility] Last Admin: 02/05/23 18:34 Dose: 40 mg Documented By: ADA Lactic Acid (Ammonium Lactate 12 % Lotion 226 Gm Bottle) 1 appl TOPICAL BID [facility]; Protocol Last Admin: 02/06/23 10:41 Dose: Not Given Documented By: ADA Non-Admin Reason: Previously Administered Lactulose (Lactulose 20 Gm/30 Ml Solution) 20 gm PO BID [facility] Last Admin: 02/06/23 10:41 Dose: Not Given Documented By: ADA Non-Admin Reason: Patient Refused Midodrine (Midodrine Hcl 2.5 Mg Tablet) 2.5 mg PO TIDWM [facility] Last Admin: 02/06/23 10:41 Dose: Not Given Documented By: HO.DOBROB Non-Admin Reason: Patient Condition Contraindication Ondansetron HCl (Ondansetron Hcl 4 Mg/2 Ml Vial) 4 mg IVPUSH Q8H PRN PRN Reason: Nausea and Vomiting Oxycodone HCl (Oxycodone Hcl Immed Release 5 Mg Tablet) 5 mg PO Q6H PRN PRN Reason: Pain, Severe (Pain Scale 7-10) Last Admin: 02/05/23 20:03 Dose: 5 mg Documented By: LISA Sodium Chloride (0.9 % Sodium Chloride Flush 3 Ml Syringe) 3 ml IVFLUSH [facility] Last Admin: 02/06/23 10:42 Dose: 3 ml Documented By: ADA Labs 01/30/23 12:43 02/06/23 08:39 Labs: Laboratory Results - last 24 hr 02/06/23 08:39 Anion Gap 8 L Estim Creat Clear Calc 106.5 Estimated GFR > 60 Random Glucose 90 Calcium 8.0 L Total Bilirubin 0.3 Direct Bilirubin 0.1 AST 14 ALT 10 Alkaline Phosphatase 94 Total Protein 5.2 L Albumin 2.3 L Assessment and Plan (1) Multiple falls: Status: Acute (2) Adult failure to thrive: Status: Acute (3) Physical deconditioning: Status: Acute (4) Acute hypokalemia: Status: Acute Plan 72M PMH drug abuse, chronic wound presented to ED by EMS for multiple falls and syncopal episodes over the last few days. Syncope and falls due to orthostatic hypotension on muscle relaxant at home, decoditioned physically, using drugs would increase risk of postural hypotension and dizziness multiple body CT scans were negative PT eval rec SNF given 1L bolus started Midodrine monitor BP Adult FFT , moderatly malnourished, physical deconditioning add ensure to diet Left forearm chronic wound and muscle contraction Xeroform dressing 7th rib fracture pain management Hypokalemia replacement given Constipation Disimpacted in ED bowel regimen DVT PPx lovenox reason for continued hospitalization: placement pending Time Spent With Patient Time: Total time managing care of this patient today ____ minutes. Quality Stroke Does the patient have a stroke diagnosis?: No VTE Prior VTE?: No VTE Risk Level:: Medical - moderate - high VTE Device Contraindication: Treatment Not Indicated VTE Drug Contraindication: N/A - Med Ordered
[2023-02-06] MEDS: Midodrine HCl 2.5 MG TABLET PO ×2 (13:05→18:06)
--- NOTE | 2023-02-06 13:33 | MHC.CLN ---
F/U PO INTAKE RANGING FROM 50-100% DIET RX: REGULAR-APPROPRIATE PT RECEIVING ENSURE TID PROVIDES 1050KCALS, 60G PROTEIN WITH 100% ACCEPTANCE CONTINUE TO MONITOR PO INTAKE CLOSELY
--- NOTE | 2023-02-06 15:51 | MHC.CM.PN ---
EMR REVIEWED, PT CONT'S TO WAIT FOR BED OFFER, PT'S PREFERRED FACILITY [facility] REPORTS THEY WILL NOT OFFER ABED AND LIKELY D/T OPIATE ABUSE, PT WILL NEED [place] CONTRACTED FACILITY THAT IS HIS PAYOR FOR LTC, CM TO FAX HARD COPY OF REFERRAL TO [facility] THEY ARE NOT ON [facility] AND CONT TO FOLLOW D/C NEEDS.
[2023-02-06] MEDS: Enoxaparin Sodium 40 MG/0.4 ML SYRINGE SUBCUT (18:06)
[2023-02-06] MEDS: oxyCODONE HCl Immed Release 5 MG TABLET PO (21:51)
[2023-02-06] MEDS: Ammonium Lactate 12 % Lotion 226 GM BOTTLE 1 APPL TOPICAL (21:54)
[2023-02-07] MEDS: 0.9 % Sodium Chloride Flush 3 ML SYRINGE IVFLUSH ×3 (00:28→15:53)
[2023-02-07 04:00] VITALS: BP 110/69; PULSE 85; RESP 18; TEMP 37.2
[2023-02-07 07:51] VITALS: BP 107/75; PULSE 86; RESP 20; TEMP 37.3; O2SAT 96
[2023-02-07] MEDS: Docusate Sodium 100 MG CAPSULE PO ×2 (08:39→21:04)
[2023-02-07] MEDS: Midodrine HCl 2.5 MG TABLET PO ×3 (08:39→15:53)
[2023-02-07] MEDS: Lactulose 20 GM/30 ML SOLUTION PO (08:40)
[2023-02-07] MEDS: Ammonium Lactate 12 % Lotion 226 GM BOTTLE 1 APPL TOPICAL ×2 (08:42→21:04)
--- NOTE | 2023-02-07 11:41 | HO.PM.IMPN ---
Subjective Subjective Date of Service: 02/07/23 Interval History: no complaints Physical Exam Vital Signs: Vital Signs: Last Vital Signs Temp 99.2 F 02/07/23 07:51 Pulse 86 02/07/23 07:51 Resp 20 02/07/23 07:51 BP 107/75 02/07/23 07:51 Pulse Ox 96 02/07/23 07:51 O2 Del Method Room Air 02/07/23 07:51 BMI result Body Mass Index 21.7 Const: Other: Constitutional : alert, frail looking, malnourished, not in distress Neck : Normal inspection, Supple Cardiovascular : RRR, no JVP, no lower extremity edema Respiratory : good bilateral air entry,? no crackles, wheezes or rhonchi Gastrointestinal:? soft, lax, Normal bowel sounds, Non tender Skin : Warm, Dry, Left forearm chronic wound with muscle contacture exposed extensor carpi radialis muscle with fingers edema in Lt hand. no wrist movement. restricted movement of fingers. Bilateral LE with scales and dry skin with associated dermatitis Neurological : Alert & oriented to self and place, No focal deficit Objective Data Active Medications Acetaminophen (Acetaminophen 325 Mg Tablet) 650 mg PO Q6H PRN PRN Reason: Pain, Mild (Pain Scale 1-3) Docusate Sodium (Docusate Sodium 100 Mg Capsule) 100 mg PO BID [facility] Last Admin: 02/07/23 08:39 Dose: 100 mg Documented By: SUMAYA Enoxaparin Sodium (Enoxaparin Sodium 40 Mg/0.4 Ml Syringe) 40 mg SUBCUT Q24H [facility] Last Admin: 02/06/23 18:06 Dose: 40 mg Documented By: JESSE Lactic Acid (Ammonium Lactate 12 % Lotion 226 Gm Bottle) 1 appl TOPICAL BID [facility]; Protocol Last Admin: 02/07/23 08:42 Dose: 1 appl Documented By: SUMAYA Lactulose (Lactulose 20 Gm/30 Ml Solution) 20 gm PO BID [facility] Last Admin: 02/07/23 08:40 Dose: 20 gm Documented By: SUMAYA Midodrine (Midodrine Hcl 2.5 Mg Tablet) 2.5 mg PO TIDWM [facility] Last Admin: 02/07/23 08:39 Dose: 2.5 mg Documented By: SUMAYA Ondansetron HCl (Ondansetron Hcl 4 Mg/2 Ml Vial) 4 mg IVPUSH Q8H PRN PRN Reason: Nausea and Vomiting Oxycodone HCl (Oxycodone Hcl Immed Release 5 Mg Tablet) 5 mg PO Q6H PRN PRN Reason: Pain, Severe (Pain Scale 7-10) Last Admin: 02/06/23 21:51 Dose: 5 mg Documented By: JESSE Sodium Chloride (0.9 % Sodium Chloride Flush 3 Ml Syringe) [facility] Last Admin: 02/07/23 08:41 Dose: 3 ml Documented By: SUMAYA Labs 01/30/23 12:43 02/06/23 08:39 Assessment and Plan (1) Multiple falls: Status: Acute (2) Adult failure to thrive: Status: Acute (3) Physical deconditioning: Status: Acute (4) Acute hypokalemia: Status: Acute Plan 72M PMH drug abuse, chronic wound presented to ED by EMS for multiple falls and syncopal episodes over the last few days. Syncope and falls due to orthostatic hypotension on muscle relaxant at home, decoditioned physically, using drugs would increase risk of postural hypotension and dizziness multiple body CT scans were negative PT eval rec SNF given 1L bolus started Midodrine monitor BP - improved Adult FFT , moderatly malnourished, physical deconditioning add ensure to diet Left forearm chronic wound and muscle contraction Xeroform dressing 7th rib fracture pain management Hypokalemia replacement given Constipation Disimpacted in ED bowel regimen DVT PPx lovenox reason for continued hospitalization: placement pending Time Spent With Patient Time: Total time managing care of this patient today ____ minutes. Quality Stroke Does the patient have a stroke diagnosis?: No VTE Prior VTE?: No VTE Risk Level:: Medical - moderate - high VTE Device Contraindication: Treatment Not Indicated VTE Drug Contraindication: N/A - Med Ordered
[2023-02-07 11:59] VITALS: BP 121/58; PULSE 88; RESP 18; TEMP 36.9; O2SAT 98
--- NOTE | 2023-02-07 15:48 | MHC.CM.PN ---
EMR REVIEWED, REFERRAL EMAILED TO [email or web address] D/T FAX NOT GOING THROUGH. CM WILL FOLLOW UP W/ADMISSIONS LIAISON IN AM. CM WILL CON TO FOLLOW D/C NEEDS.
[2023-02-07 15:51] VITALS: BP 109/67; PULSE 82; RESP 17; TEMP 37.6; O2SAT 96
[2023-02-07] MEDS: Acetaminophen 325 MG TABLET 650 MG PO (15:53)
[2023-02-07] MEDS: oxyCODONE HCl Immed Release 5 MG TABLET PO (15:53)
[2023-02-07] MEDS: Enoxaparin Sodium 40 MG/0.4 ML SYRINGE SUBCUT (17:13)
[2023-02-07] MEDS: Morphine Sulfate ER 30 MG TABLET.ER PO (17:13)
[2023-02-07 19:20] VITALS: BP 97/70; PULSE 84; RESP 17; TEMP 36.8; O2SAT 98
--- NOTE | 2023-02-07 22:09 | PC.NURSE ---
stage 2 pressure injury to coccyx and mid upper back , chronic left wrist wound . slough noted in the bed of the 3 wounds , consult to the wound care placed as per protocol
[2023-02-07 23:18] VITALS: BP 90/60; PULSE 97; RESP 18; TEMP 36.9; O2SAT 98
[2023-02-08] VITALS (7 sets, daily range): BP systolic 90–124; BP diastolic 48–71; PULSE 76–88; RESP 18–20; TEMP 37.1–38.3; O2SAT 95–99
[2023-02-08] MEDS: 0.9 % Sodium Chloride Flush 3 ML SYRINGE IVFLUSH ×4 (00:22→20:56)
[2023-02-08] MEDS: Acetaminophen 325 MG TABLET 650 MG PO ×2 (00:23→23:00)
[2023-02-08] MEDS: oxyCODONE HCl Immed Release 5 MG TABLET PO ×2 (00:24→08:43)
[2023-02-08] MEDS: Morphine Sulfate ER 30 MG TABLET.ER PO ×2 (04:16→16:50)
[2023-02-08] MEDS: Midodrine HCl 2.5 MG TABLET PO ×3 (08:36→16:49)
[2023-02-08] MEDS: Ammonium Lactate 12 % Lotion 226 GM BOTTLE 1 APPL TOPICAL ×2 (08:37→20:58)
[2023-02-08] MEDS: Docusate Sodium 100 MG CAPSULE PO ×2 (08:37→20:55)
--- NOTE | 2023-02-08 09:41 | MHC.CM.PN ---
EMR REVIEWED, CM [facility] TO CONFIRM THEY RECEIVED REFFERAL, NO ANSWER AND NO VOICEMAIL PICKED UP, CM SENT FOLLOW-UP EMAIL TO YARELI AT [email or web address], CM WILL CONT TO FOLLOW D/C NEEDS.
--- NOTE | 2023-02-08 09:44 | HO.PM.IMPN ---
Subjective Subjective Date of Service: 02/08/23 Interval History: no complaints Physical Exam Vital Signs: Vital Signs: Last Vital Signs Temp 98.8 F 02/08/23 07:37 Pulse 76 02/08/23 07:37 Resp 20 02/08/23 07:37 BP 111/50 L 02/08/23 07:37 Pulse Ox 96 02/08/23 07:37 O2 Del Method Room Air 02/08/23 07:37 BMI result Body Mass Index 21.7 Const: Other: Constitutional : alert, frail looking, malnourished, not in distress Neck : Normal inspection, Supple Cardiovascular : RRR, no JVP, no lower extremity edema Respiratory : good bilateral air entry,? no crackles, wheezes or rhonchi Gastrointestinal:? soft, lax, Normal bowel sounds, Non tender Skin : Warm, Dry, Left forearm chronic wound with muscle contacture exposed extensor carpi radialis muscle with fingers edema in Lt hand. no wrist movement. restricted movement of fingers. Bilateral LE with scales and dry skin with associated dermatitis Neurological : Alert & oriented to self and place, No focal deficit Objective Data Active Medications Acetaminophen (Acetaminophen 325 Mg Tablet) 650 mg PO Q6H PRN PRN Reason: Pain, Mild (Pain Scale 1-3) Last Admin: 02/08/23 00:23 Dose: 650 mg Documented By: MARS Docusate Sodium (Docusate Sodium 100 Mg Capsule) 100 mg PO BID [facility] Last Admin: 02/08/23 08:37 Dose: 100 mg Documented By: PRAFUL Enoxaparin Sodium (Enoxaparin Sodium 40 Mg/0.4 Ml Syringe) 40 mg SUBCUT Q24H [facility] Last Admin: 02/07/23 17:13 Dose: 40 mg Documented By: JESSE Lactic Acid (Ammonium Lactate 12 % Lotion 226 Gm Bottle) 1 appl TOPICAL BID [facility]; Protocol Last Admin: 02/08/23 08:37 Dose: 1 appl Documented By: PRAFUL Lactulose (Lactulose 20 Gm/30 Ml Solution) 20 gm PO BID [facility] Last Admin: 02/08/23 08:37 Dose: Not Given Documented By: PRAFUL Non-Admin Reason: Patient Refused Midodrine (Midodrine Hcl 2.5 Mg Tablet) 2.5 mg PO TIDWM [facility] Last Admin: 02/08/23 08:36 Dose: 2.5 mg Documented By: PRAFUL Morphine Sulfate (Morphine Sulfate Er 30 Mg Tablet.Er) 30 mg PO Q12H [facility] Last Admin: 02/08/23 04:16 Dose: 30 mg Documented By: MARS Ondansetron HCl (Ondansetron Hcl 4 Mg/2 Ml Vial) 4 mg IVPUSH Q8H PRN PRN Reason: Nausea and Vomiting Oxycodone HCl (Oxycodone Hcl Immed Release 5 Mg Tablet) 5 mg PO Q6H PRN PRN Reason: Pain, Severe (Pain Scale 7-10) Last Admin: 02/08/23 08:43 Dose: 5 mg Documented By: PRAFUL Sodium Chloride (0.9 % Sodium Chloride Flush 3 Ml Syringe) [facility] Last Admin: 02/08/23 08:36 Dose: 3 ml Documented By: PRAFUL Labs 01/30/23 12:43 02/06/23 08:39 Assessment and Plan (1) Multiple falls: Status: Acute (2) Adult failure to thrive: Status: Acute (3) Physical deconditioning: Status: Acute (4) Acute hypokalemia: Status: Acute Plan 72M PMH drug abuse, chronic wound presented to ED by EMS for multiple falls and syncopal episodes over the last few days. Syncope and falls due to orthostatic hypotension on muscle relaxant at home, decoditioned physically, using drugs would increase risk of postural hypotension and dizziness multiple body CT scans were negative PT eval rec SNF given 1L bolus started Midodrine monitor BP - improved Adult FFT , moderatly malnourished, physical deconditioning add ensure to diet Left forearm chronic wound and muscle contraction Xeroform dressing 7th rib fracture pain management Hypokalemia replacement given Constipation Disimpacted in ED bowel regimen DVT PPx lovenox reason for continued hospitalization: placement pending Time Spent With Patient Time: Total time managing care of this patient today ____ minutes. Quality Stroke Does the patient have a stroke diagnosis?: No VTE Prior VTE?: No VTE Risk Level:: Medical - moderate - high VTE Device Contraindication: Treatment Not Indicated VTE Drug Contraindication: N/A - Med Ordered
--- NOTE | 2023-02-08 10:14 | MHC.CLN ---
F/U PO INTAKE 75-100% DIET RX: REGULAR-APPROPRIATE PT RECEIVING ENSURE TID PROVIDES 1050KCALS, 60G PROTEIN WITH 100% ACCEPTANCE ENCOURAGE SUPPLEMENT TO PROMOTE WT GAIN AND WOUND HEALING CONTINUE TO MONITOR PO INTAKE CLOSELY
--- NOTE | 2023-02-08 16:04 | HO.WOUND ---
Wound Care Consult Reason for consult: Pressure injury stage 2 to coccyx and mid upper back, left wrist chronic wound Patient has multiple wounds. 1. Wound on left wrist/forearm. Xeroform,dcd and aurora removed from wound. Before cleaning the wound bed, there was a large amount of fibrin/slough/biofilm but after cleaning wound bed appearance was mostly pink tissue and small amount of yellow. Wound edges are flat and intact. No undermining or tunneling. No odor. Surrounding tissue has maceration and scarring. Wound gybfzuxn62.4cm x 5.5cm x 0.1cm. Wound was cleaned with normal saline. Zinc barrier cream was applied to the periwound. Double layer xeroform layed on wound bed and covered with a dcd and aurora. Also put a elastic retention netting #4 sleeve over dressing to help keep in place. 2. Wound on coccyx- stage III. Foam border dressing removed at the time of consult. Wound bed appearance was large slough/fibrin and small pink. Wound edges are attached. No undermining or tunneling. Moderate amount of serosanguinous drainage noted on dressing. No odor. Periwound is intact. Wound measured 0.4cm x 0.4cm x 0.1cm. Wound was cleansed with sea clens, zinc barrier cream applied and covered with foam border. 3. Wound on mid lower back- stage III. Foam border dressing removed. Wound bed appearance large slough/fibrin and small pink tissue. Wound edges are attached. No undermining or tunneling. Small serous drainage on dressing. No odor. Periwound is intact. Wound measured 0.4cm x 0.4cm x 0.1cm. Wound was cleansed with sea clens, zinc barrier cream applied and covered with foam border dressing. 4. Wound on right buttock- stage II. Foam border dressing removed. Wound bed appearance was all pink tissue. Wound edges were attached. No undermining or tunneling. Small serous drainage on dressing. Wound measures 0.9cm x 1.3cm x 0.1cm. Wound was cleansed with sea clens, zinc barrier cream applied and covered with foam border. Recommendation: Patient already has air bed in place. Make sure to frequently reposition patient in bed and recliner. 1. Wound on left wrist/forearm. Cleanse with normal saline or sea clens, apply zinc barrier cream to periwound and then double layer xeroform to wound bed. Cover with dcd, aurora daily. May use elastic retention netting to help keep in place. 2. Wound on coccyx. Cleanse with normal saline or sea clens, apply zinc barrier cream to periwound and cut alginate ag to size of wound and apply to wound bed to help with drainage. Cover with foam border every other day and PRN for soiling. 3. Wound on mid lower back. Cleanse with normal saline or sea clens, apply zinc barrier cream to periwound and cut alginate ag to size of wound and apply to wound bed. Cover with foam border every other day. 4. Wound on right buttock. Cleanse with normal saline or sea clens, apply zinc barrier cream to wound bed and cover with foam border every other day and PRN for soiling.
[2023-02-08] MEDS: Enoxaparin Sodium 40 MG/0.4 ML SYRINGE SUBCUT (18:22)
[2023-02-08] MEDS: Lactulose 20 GM/30 ML SOLUTION PO (20:55)
[2023-02-09] VITALS (8 sets, daily range): BP systolic 81–174; BP diastolic 46–73; PULSE 71–97; RESP 18–20; TEMP 36–37.1; O2SAT 94–98
[2023-02-09] MEDS: Midodrine HCl 10 MG TABLET PO (04:34)
[2023-02-09] MEDS: Albumin Human 25 % 100 ML IV ×2 (04:34→05:36)
--- NOTE | 2023-02-09 04:45 | PC.NURSE ---
Pt bp was low- 81/51.Asymptomatic. Provider notified. Albumin 25% soln x2 ordered and extra dose of midodrine. Will recheck bp after the Albumin given.
[2023-02-09] MEDS: Docusate Sodium 100 MG CAPSULE PO ×2 (07:50→20:08)
[2023-02-09] MEDS: Ammonium Lactate 12 % Lotion 226 GM BOTTLE 1 APPL TOPICAL ×2 (07:50→20:10)
[2023-02-09] MEDS: Midodrine HCl 2.5 MG TABLET PO (07:50)
[2023-02-09] MEDS: 0.9 % Sodium Chloride Flush 3 ML SYRINGE IVFLUSH ×3 (07:50→20:10)
[2023-02-09] MEDS: Morphine Sulfate ER 30 MG TABLET.ER PO ×2 (09:00→20:09)
--- NOTE | 2023-02-09 09:56 | P.CDIM_ITS ---
PROVIDER RESPONSE TEXT: To clarify, the appropriate diagnosis supported by the clinical indicators: Pressure (decubitus) ulcer: stage II coccyx QUERY TEXT: PHYSICIAN'S DOCUMENTATION REQUEST Date of Query: 02/08/2023 10:47 AM EDT Patient Name: Nick Soto Admit Date: 01/30/2023 Dear Hernan Peoples, A review of the medical record indicates additional documentation may be needed. Please review below and update the documentation accordingly. Clinical Indicators: Per Pressure Injury Assessment on 02/07/23: Stage 2 wound coccyx Based on the above, could you please provide further information regarding the ulcer/wound: Pressure (decubitus) ulcer Please include the stage of the ulcer and specify the location and laterality of the ulcer/wound Traumatic wound Please specify the location and laterality of the ulcer/wound Other (explain)Clinically unable to determine (explain)Thank you, Marianna Palmer RN Use of terms such as suspected, likely, concern for, or probable (associated with a specific diagnosi s that is being evaluated, monitored, or treated as if it exists) are acceptable and can be coded in the inpatient se tting, when documented at the time of discharge. Please use your independent medical judgment in providing your response. THIS QUERY IS PART OF THE PERMANENT MEDICAL RECORD
--- NOTE | 2023-02-09 09:59 | P.CDIM_ITS ---
PROVIDER RESPONSE TEXT: To clarify, the appropriate diagnosis supported by the clinical indicators: Pressure (decubitus) ulcer: stage II coccyx QUERY TEXT: PHYSICIAN'S DOCUMENTATION REQUEST Date of Query: 02/08/2023 10:50 AM EDT Patient Name: Nick Soto Admit Date: 01/30/2023 Dear Hernan Peoples, A review of the medical record indicates additional documentation may be needed. Please review below and update the documentation accordingly. Clinical Indicators: Per Pressure Injury Assessment 02/07/23: Stage 2 wound medial back Based on the above, could you please provide further information regarding the ulcer/wound: Pressure (decubitus) ulcer Please include the stage of the ulcer and specify the location and laterality of the ulcer/wound Traumatic wound Please specify the location and laterality of the ulcer/wound Other (explain)Clinically unable to determine (explain)Thank you, Marianna Palmer RN Use of terms such as suspected, likely, concern for, or probable (associated with a specific diagnosi s that is being evaluated, monitored, or treated as if it exists) are acceptable and can be coded in the inpatient se tting, when documented at the time of discharge. Please use your independent medical judgment in providing your response. THIS QUERY IS PART OF THE PERMANENT MEDICAL RECORD
--- NOTE | 2023-02-09 10:31 | HO.PM.IMPN ---
Subjective Subjective Date of Service: 02/09/23 Interval History: low grade fever overnight not symptomatic Physical Exam Vital Signs: Vital Signs: Last Vital Signs Temp 98.4 F 02/09/23 07:32 Pulse 71 02/09/23 07:32 Resp 20 02/09/23 07:32 BP 103/62 02/09/23 07:32 Pulse Ox 94 02/09/23 07:32 O2 Del Method Room Air 02/09/23 07:32 BMI result Body Mass Index 21.7 Const: Other: Constitutional : alert, frail looking, malnourished, not in distress Neck : Normal inspection, Supple Cardiovascular : RRR, no JVP, no lower extremity edema Respiratory : good bilateral air entry,? no crackles, wheezes or rhonchi Gastrointestinal:? soft, lax, Normal bowel sounds, Non tender Skin : Warm, Dry, Left forearm chronic wound with muscle contacture exposed extensor carpi radialis muscle with fingers edema in Lt hand. no wrist movement. restricted movement of fingers. Bilateral LE with scales and dry skin with associated dermatitis Neurological : Alert & oriented to self and place, No focal deficit Objective Data Active Medications Acetaminophen (Acetaminophen 325 Mg Tablet) 650 mg PO Q6H PRN PRN Reason: Pain, Mild (Pain Scale 1-3) Last Admin: 02/08/23 23:00 Dose: 650 mg Documented By: TIMUR Docusate Sodium (Docusate Sodium 100 Mg Capsule) 100 mg PO BID [facility] Last Admin: 02/09/23 07:50 Dose: 100 mg Documented By: DARRYN Enoxaparin Sodium (Enoxaparin Sodium 40 Mg/0.4 Ml Syringe) 40 mg SUBCUT Q24H [facility] Last Admin: 02/08/23 18:22 Dose: 40 mg Documented By: PRAFUL Lactic Acid (Ammonium Lactate 12 % Lotion 226 Gm Bottle) 1 appl TOPICAL BID [facility]; Protocol Last Admin: 02/09/23 07:50 Dose: 1 appl Documented By: DARRYN Lactulose (Lactulose 20 Gm/30 Ml Solution) 20 gm PO BID [facility] Last Admin: 02/09/23 07:54 Dose: Not Given Documented By: DARRYN Non-Admin Reason: Patient Refused Midodrine (Midodrine Hcl 2.5 Mg Tablet) 2.5 mg PO TIDWM [facility] Last Admin: 02/09/23 07:50 Dose: 2.5 mg Documented By: DARRYN Morphine Sulfate (Morphine Sulfate Er 30 Mg Tablet.Er) 30 mg PO Q12H [facility] Last Admin: 02/09/23 09:00 Dose: 30 mg Documented By: DARRYN Ondansetron HCl (Ondansetron Hcl 4 Mg/2 Ml Vial) 4 mg IVPUSH Q8H PRN PRN Reason: Nausea and Vomiting Oxycodone HCl (Oxycodone Hcl Immed Release 5 Mg Tablet) 5 mg PO Q6H PRN PRN Reason: Pain, Severe (Pain Scale 7-10) Last Admin: 02/08/23 08:43 Dose: 5 mg Documented By: PRAFUL Sodium Chloride (0.9 % Sodium Chloride Flush 3 Ml Syringe) 3 ml IVFLUSH QSHIFT [facility] Last Admin: 02/09/23 07:50 Dose: 3 ml Documented By: DARRYN Labs 01/30/23 12:43 02/06/23 08:39 Assessment and Plan (1) Multiple falls: Status: Acute (2) Adult failure to thrive: Status: Acute (3) Physical deconditioning: Status: Acute (4) Acute hypokalemia: Status: Acute Plan 72M PMH drug abuse, chronic wound presented to ED by EMS for multiple falls and syncopal episodes over the last few days. Syncope and falls due to orthostatic hypotension on muscle relaxant at home, decoditioned physically, using drugs would increase risk of postural hypotension and dizziness multiple body CT scans were negative PT eval rec SNF started Midodrine increase to 5mg tid monitor BP isolated low grade fever monitor off abx Adult FFT , moderatly malnourished, physical deconditioning add ensure to diet Left forearm chronic wound and muscle contraction Xeroform dressing 7th rib fracture pain management Hypokalemia replacement given Constipation Disimpacted in ED bowel regimen DVT PPx lovenox reason for continued hospitalization: placement pending Time Spent With Patient Time: Total time managing care of this patient today ____ minutes. Quality Stroke Does the patient have a stroke diagnosis?: No VTE Prior VTE?: No VTE Risk Level:: Medical - moderate - high VTE Device Contraindication: Treatment Not Indicated VTE Drug Contraindication: N/A - Med Ordered
[2023-02-09] MEDS: Midodrine HCl 5 MG TABLET PO ×2 (11:47→17:01)
[2023-02-09] MEDS: Enoxaparin Sodium 40 MG/0.4 ML SYRINGE SUBCUT (17:01)
[2023-02-10] VITALS (7 sets, daily range): BP systolic 95–152; BP diastolic 48–63; PULSE 75–86; RESP 18–20; TEMP 36.5–37.2; O2SAT 96–98
[2023-02-10] MEDS: Acetaminophen 325 MG TABLET 650 MG PO (03:48)
--- NOTE | 2023-02-10 06:53 | PC.NURSE ---
Pt refused labs drawn this morning, Provider is aware. Pt want the MD to explain to him why the necessity of the labs drawn.
[2023-02-10] MEDS: Docusate Sodium 100 MG CAPSULE PO ×2 (08:23→19:25)
[2023-02-10] MEDS: Midodrine HCl 5 MG TABLET PO ×3 (08:23→17:22)
[2023-02-10] MEDS: 0.9 % Sodium Chloride Flush 3 ML SYRINGE IVFLUSH ×2 (08:23→17:22)
[2023-02-10] MEDS: Ammonium Lactate 12 % Lotion 226 GM BOTTLE 1 APPL TOPICAL ×2 (08:24→19:26)
--- NOTE | 2023-02-10 09:29 | HO.PM.IMPN ---
Subjective Subjective Date of Service: 02/10/23 Interval History: low grade fever overnight not symptomatic Physical Exam Vital Signs: Vital Signs: Last Vital Signs Temp 98.1 F 02/10/23 07:54 Pulse 75 02/10/23 07:54 Resp 20 02/10/23 07:54 BP 114/52 L 02/10/23 09:28 Pulse Ox 98 02/10/23 07:54 O2 Del Method Room Air 02/10/23 07:54 BMI result Body Mass Index 21.7 Const: Other: Constitutional : alert, frail looking, malnourished, not in distress Neck : Normal inspection, Supple Cardiovascular : RRR, no JVP, no lower extremity edema Respiratory : good bilateral air entry,? no crackles, wheezes or rhonchi Gastrointestinal:? soft, lax, Normal bowel sounds, Non tender Skin : Warm, Dry, Left forearm chronic wound with muscle contacture exposed extensor carpi radialis muscle with fingers edema in Lt hand. no wrist movement. restricted movement of fingers. Bilateral LE with scales and dry skin with associated dermatitis Neurological : Alert & oriented to self and place, No focal deficit Objective Data Active Medications Acetaminophen (Acetaminophen 325 Mg Tablet) 650 mg PO Q6H PRN PRN Reason: Pain, Mild (Pain Scale 1-3) Last Admin: 02/10/23 03:48 Dose: 650 mg Documented By: TIMUR Docusate Sodium (Docusate Sodium 100 Mg Capsule) 100 mg PO BID [facility] Last Admin: 02/10/23 08:23 Dose: 100 mg Documented By: BURAK Enoxaparin Sodium (Enoxaparin Sodium 40 Mg/0.4 Ml Syringe) 40 mg SUBCUT Q24H [facility] Last Admin: 02/09/23 17:01 Dose: 40 mg Documented By: DARRYN Lactic Acid (Ammonium Lactate 12 % Lotion 226 Gm Bottle) 1 appl TOPICAL BID [facility]; Protocol Last Admin: 02/10/23 08:24 Dose: 1 appl Documented By: BURAK Midodrine (Midodrine Hcl 5 Mg Tablet) 5 mg PO TIDWM [facility] Last Admin: 02/10/23 08:23 Dose: 5 mg Documented By: BURAK Morphine Sulfate (Morphine Sulfate Er 30 Mg Tablet.Er) 30 mg PO Q12H [facility] Last Admin: 02/09/23 20:09 Dose: 30 mg Documented By: TIMUR Ondansetron HCl (Ondansetron Hcl 4 Mg/2 Ml Vial) 4 mg IVPUSH Q8H PRN PRN Reason: Nausea and Vomiting Sodium Chloride (0.9 % Sodium Chloride Flush 3 Ml Syringe) 3 ml IVFLUSH QSHIFT [facility] Last Admin: 02/10/23 08:23 Dose: 3 ml Documented By: RUANES Labs 01/30/23 12:43 02/06/23 08:39 Assessment and Plan (1) Multiple falls: Status: Acute (2) Adult failure to thrive: Status: Acute (3) Physical deconditioning: Status: Acute (4) Acute hypokalemia: Status: Acute Plan 72M PMH drug abuse, chronic wound presented to ED by EMS for multiple falls and syncopal episodes over the last few days. Syncope and falls due to orthostatic hypotension on muscle relaxant at home, decoditioned physically, using drugs would increase risk of postural hypotension and dizziness multiple body CT scans were negative PT eval rec SNF started Midodrine increase to 5mg tid monitor BP isolated low grade fever monitor off abx, no further fevers Adult FFT , moderatly malnourished, physical deconditioning add ensure to diet Left forearm chronic wound and muscle contraction Xeroform dressing 7th rib fracture pain management Hypokalemia replacement given Constipation Disimpacted in ED bowel regimen DVT PPx lovenox reason for continued hospitalization: placement pending Time Spent With Patient Time: Total time managing care of this patient today ____ minutes. Quality Stroke Does the patient have a stroke diagnosis?: No VTE Prior VTE?: No VTE Risk Level:: Medical - moderate - high VTE Device Contraindication: Treatment Not Indicated VTE Drug Contraindication: N/A - Med Ordered
[2023-02-10] MEDS: Morphine Sulfate ER 30 MG TABLET.ER PO ×2 (09:32→19:25)
--- NOTE | 2023-02-10 12:25 | MHC.CM.PN ---
NO BED OFFERS AT THIS TIME. [facility] WILL [facility]VIEW [facility]. CM WILL CONTINUE TO FOLLOW.
[2023-02-10] MEDS: Enoxaparin Sodium 40 MG/0.4 ML SYRINGE SUBCUT (17:22)
[2023-02-11] MEDS: 0.9 % Sodium Chloride Flush 3 ML SYRINGE IVFLUSH ×3 (01:43→20:24)
[2023-02-11] MEDS: Acetaminophen 325 MG TABLET 650 MG PO (01:55)
[2023-02-11 03:27] VITALS: BP 97/56; PULSE 84; RESP 18; TEMP 37.3; O2SAT 96
[2023-02-11 08:00] VITALS: BP 101/55; PULSE 84; RESP 22; TEMP 37.3; O2SAT 94
[2023-02-11] MEDS: Docusate Sodium 100 MG CAPSULE PO ×2 (08:36→20:05)
[2023-02-11] MEDS: Midodrine HCl 5 MG TABLET PO ×3 (08:36→20:05)
[2023-02-11] MEDS: Morphine Sulfate ER 30 MG TABLET.ER PO ×2 (08:36→20:05)
[2023-02-11] MEDS: Ammonium Lactate 12 % Lotion 226 GM BOTTLE 1 APPL TOPICAL (08:37)
--- NOTE | 2023-02-11 08:39 | P.PNIM_ITS ---
Subjective Subjective Date of Service: 02/11/23 Interval History: no further fevers Physical Exam Vital Signs: Vital Signs: Last Vital Signs Temp 99.1 F 02/11/23 03:27 Pulse 84 02/11/23 03:27 Resp 18 02/11/23 03:27 BP 97/56 L 02/11/23 03:27 Pulse Ox 96 02/11/23 03:27 O2 Del Method Room Air 02/11/23 03:27 BMI result Body Mass Index 21.7 Const: Other: Constitutional : alert, frail looking, malnourished, not in distress Neck : Normal inspection, Supple Cardiovascular : RRR, no JVP, no lower extremity edema Respiratory : good bilateral air entry,? no crackles, wheezes or rhonchi Gastrointestinal:? soft, lax, Normal bowel sounds, Non tender Skin : Warm, Dry, Left forearm chronic wound with muscle contacture exposed ex tensor carpi radialis muscle with fingers edema in Lt hand. no wrist movement. restricted movement of fingers. Bilateral LE with scales and dry skin with associated dermatitis Neurological : Alert & oriented to self and place, No focal deficit Objective Data Active Medications Acetaminophen (Acetaminophen 325 Mg Tablet) 650 mg PO Q6H PRN PRN Reason: Pain, Mild (Pain Scale 1-3) Last Admin: 02/11/23 01:55 Dose: 650 mg Documented By: FELICIA Docusate Sodium (Docusate Sodium 100 Mg Capsule) 100 mg PO BID [facility] Last Admin: 02/11/23 08:36 Dose: 100 mg Documented By: PRAFUL Enoxaparin Sodium (Enoxaparin Sodium 40 Mg/0.4 Ml Syringe) 40 mg SUBCUT Q24H [facility] Last Admin: 02/10/23 17:22 Dose: 40 mg Documented By: DARRYN Lactic Acid (Ammonium Lactate 12 % Lotion 226 Gm Bottle) 1 appl TOPICAL BID [facility]; Protocol Last Admin: 02/11/23 08:37 Dose: 1 appl Documented By: PRAFUL Midodrine (Midodrine Hcl 5 Mg Tablet) 5 mg PO TIDWM [facility] Last Admin: 02/11/23 08:36 Dose: 5 mg Documented By: PRAFUL Morphine Sulfate (Morphine Sulfate Er 30 Mg Tablet.Er) 30 mg PO Q12H [facility] Last Admin: 02/11/23 08:36 Dose: 30 mg Documented By: PRAFUL Ondansetron HCl (Ondansetron Hcl 4 Mg/2 Ml Vial) 4 mg IVPUSH Q8H PRN PRN Reason: Nausea and Vomiting Sodium Chloride (0.9 % Sodium Chloride Flush 3 Ml Syringe) [facility] Admin: 02/11/23 08:37 Dose: 3 ml Documented By: PRAFUL Labs 01/30/23 12:43 02/06/23 08:39 Assessment and Plan (1) Multiple falls: Status: Acute (2) Adult failure to thrive: Status: Acute (3) Physical deconditioning: Status: Acute (4) Acute hypokalemia: Status: Acute Plan 72M PMH drug abuse, chronic wound presented to ED by EMS for multiple falls and syncopal episodes over the last few days. Syncope and falls due to orthostatic hypotension on muscle relaxant at home, decoditioned physically, using drugs would increase risk of postural hypotension and dizziness multiple body CT scans were negative PT eval rec SNF started Midodrine increased to 5mg tid, will add florinef 0.1mg daily monitor BP isolated low grade fever monitor off abx, no further fevers Adult FFT , moderatly malnourished, physical deconditioning add ensure to diet Left forearm chronic wound and muscle contraction Xeroform dressing 7th rib fracture pain management Hypokalemia replacement given Constipation Disimpacted in ED bowel regimen DVT PPx lovenox reason for continued hospitalization: placement pending Time Spent With Patient Time: Total time managing care of this patient today ____ minutes. Quality Stroke Does the patient have a stroke diagnosis?: No VTE Prior VTE?: No VTE Risk Level:: Medical - moderate - high VTE Device Contraindication: Treatment Not Indicated VTE Drug Contraindication: N/A - Med Ordered
[2023-02-11] MEDS: Fludrocortisone Acetate 0.1 MG TABLET PO (09:10)
--- NOTE | 2023-02-11 11:14 | MHC.CLN ---
F/U PO INTAKE 75-100% DIET RX: REGULAR-APPROPRIATE PT RECEIVING ENSURE TID PROVIDES 1050KCALS, 60G PROTEIN WITH 100% ACCEPTANCE ENCOURAGE SUPPLEMENT TO PROMOTE WT GAIN AND WOUND HEALING WOUNDS: STAGE III TO COCCYX, STAGE III TO MID LOWER BACK, STAGE II RIGHT BUTTOCK. CONTINUE TO MONITOR PO INTAKE AND WOUND HEALING.
[2023-02-11 12:00] VITALS: BP 101/55; PULSE 81; RESP 20; TEMP 37.1; O2SAT 96
[2023-02-11 15:41] VITALS: BP 110/52; PULSE 86; RESP 20; TEMP 36.8; O2SAT 96
[2023-02-11 19:37] VITALS: BP 132/65; PULSE 86; RESP 20; TEMP 36.6; O2SAT 98
[2023-02-11] MEDS: Enoxaparin Sodium 40 MG/0.4 ML SYRINGE SUBCUT (20:07)
[2023-02-11 23:45] VITALS: BP 104/51; PULSE 81; RESP 16; TEMP 36.8; O2SAT 96
[2023-02-12] VITALS (7 sets, daily range): BP systolic 92–136; BP diastolic 47–57; PULSE 78–85; RESP 14–20; TEMP 36.9–37.7; O2SAT 95–98
[2023-02-12] MEDS: Fludrocortisone Acetate 0.1 MG TABLET PO (08:13)
[2023-02-12] MEDS: Midodrine HCl 5 MG TABLET PO ×3 (08:13→16:47)
[2023-02-12] MEDS: 0.9 % Sodium Chloride Flush 3 ML SYRINGE IVFLUSH ×3 (08:13→21:41)
[2023-02-12] MEDS: Docusate Sodium 100 MG CAPSULE PO ×2 (08:13→21:41)
[2023-02-12] MEDS: Morphine Sulfate ER 30 MG TABLET.ER PO ×2 (08:13→21:40)
--- NOTE | 2023-02-12 09:29 | HO.PM.IMPN ---
Subjective Subjective Date of Service: 02/12/23 Interval History: no further fevers Physical Exam Vital Signs: Vital Signs: Last Vital Signs Temp 98.5 F 02/12/23 07:24 Pulse 82 02/12/23 07:24 Resp 20 02/12/23 07:24 BP 109/47 L 02/12/23 07:24 Pulse Ox 96 02/12/23 07:24 O2 Del Method Room Air 02/12/23 07:24 BMI result Body Mass Index 21.7 Const: Other: Constitutional : alert, frail looking, malnourished, not in distress Neck : Normal inspection, Supple Cardiovascular : RRR, no JVP, no lower extremity edema Respiratory : good bilateral air entry,? no crackles, wheezes or rhonchi Gastrointestinal:? soft, lax, Normal bowel sounds, Non tender Skin : Warm, Dry, Left forearm chronic wound with muscle contacture exposed extensor carpi radialis muscle with fingers edema in Lt hand. no wrist movement. restricted movement of fingers. Bilateral LE with scales and dry skin with associated dermatitis Neurological : Alert & oriented to self and place, No focal deficit Objective Data Active Medications Acetaminophen (Acetaminophen 325 Mg Tablet) 650 mg PO Q6H PRN PRN Reason: Pain, Mild (Pain Scale 1-3) Last Admin: 02/11/23 01:55 Dose: 650 mg Documented By: FELICIA Docusate Sodium (Docusate Sodium 100 Mg Capsule) 100 mg PO BID [facility] Last Admin: 02/12/23 08:13 Dose: 100 mg Documented By: PRAFUL Enoxaparin Sodium (Enoxaparin Sodium 40 Mg/0.4 Ml Syringe) 40 mg SUBCUT Q24H [facility] Last Admin: 02/11/23 20:07 Dose: 40 mg Documented By: DIMITRY Fludrocortisone Acetate (Fludrocortisone Acetate 0.1 Mg Tablet) 0.1 mg PO DAILY [facility] Last Admin: 02/12/23 08:13 Dose: 0.1 mg Documented By: PRAFUL Lactic Acid (Ammonium Lactate 12 % Lotion 226 Gm Bottle) 1 appl TOPICAL BID [facility]; Protocol Last Admin: 02/12/23 08:17 Dose: Not Given Documented By: PRAFUL Non-Admin Reason: Patient Refused Midodrine (Midodrine Hcl 5 Mg Tablet) 5 mg PO TIDWM [facility] Last Admin: 02/12/23 08:13 Dose: 5 mg Documented By: PRAFUL Morphine Sulfate (Morphine Sulfate Er 30 Mg Tablet.Er) 30 mg PO Q12H [facility] Last Admin: 02/12/23 08:13 Dose: 30 mg Documented By: PRAFUL Ondansetron HCl (Ondansetron Hcl 4 Mg/2 Ml Vial) 4 mg IVPUSH Q8H PRN PRN Reason: Nausea and Vomiting Sodium Chloride (0.9 % Sodium Chloride Flush 3 Ml Syringe) 3 ml IVFLUSH QSHIFT [facility] Last Admin: 02/12/23 08:13 Dose: 3 ml Documented By: PRAFUL Labs 01/30/23 12:43 02/06/23 08:39 Assessment and Plan (1) Multiple falls: Status: Acute (2) Adult failure to thrive: Status: Acute (3) Physical deconditioning: Status: Acute (4) Acute hypokalemia: Status: Acute Plan 72M PMH drug abuse, chronic wound presented to ED by EMS for multiple falls and syncopal episodes over the last few days. Syncope and falls due to orthostatic hypotension on muscle relaxant at home, decoditioned physically, using drugs would increase risk of postural hypotension and dizziness multiple body CT scans were negative PT eval rec SNF started Midodrine increased to 5mg tid, added florinef 0.1mg daily monitor BP , follow up am cortisol isolated low grade fever 02/08/23 monitor off abx, no further fevers Adult FFT , moderatly malnourished, physical deconditioning ensure Left forearm chronic wound and muscle contraction Xeroform dressing 7th rib fracture pain management Hypokalemia replacement given Constipation Disimpacted in ED bowel regimen DVT PPx lovenox reason for continued hospitalization: placement pending Time Spent With Patient Time: Total time managing care of this patient today ____ minutes. Quality Stroke Does the patient have a stroke diagnosis?: No VTE Prior VTE?: No VTE Risk Level:: Medical - moderate - high VTE Device Contraindication: Treatment Not Indicated VTE Drug Contraindication: N/A - Med Ordered
--- NOTE | 2023-02-12 14:38 | MHC.CM.PN ---
This CM received a phone call from Jayson with the [facility] looking for an update on the patient. This CM reported that we were still waiting for a bed placement, and looking for a [facility] connected facility. Jayson can be reached at [phone] ex: [phone] with updates.
[2023-02-12] MEDS: Enoxaparin Sodium 40 MG/0.4 ML SYRINGE SUBCUT (18:49)
[2023-02-12] MEDS: Ammonium Lactate 12 % Lotion 226 GM BOTTLE 1 APPL TOPICAL (21:43)
--- NOTE | 2023-02-12 23:00 | PC.NURSE ---
Pt seen at 2030 for medication administration. TW began by scanning pt ID bracelet and requesting the pt verifies his name and . Pt became agitated, stating you're a fucking imbecile. Why do I have to give this information every time someone enters this room? TW attempted to educate patient on safety measures/policies and procedures but pt would constantly interrupt. Pt continued swearing and being verbally abusive towards TW, to which I told pt if he continued to treat me this way and unable to comply with safety measures that I would not be able to administer medications. Pt refused medication and requested to speak with supervisor wet pour. Drainage Design Coordinator was contacted and came to pt room. Pt continued to be verbally abusive towards staff, eventually confirming name and . Medication administered by another RN (see MAR) successfully. Bed alarm on. Camera in room. Will continue with plan of care.
[2023-02-13 03:49] VITALS: BP 96/51; PULSE 80; RESP 20; TEMP 37.2; O2SAT 96
[2023-02-13 07:15] VITALS: BP 118/76; PULSE 90; RESP 20; TEMP 36.6; O2SAT 97
[2023-02-13 07:20] LABS: Hematocrit 25.1 % (42.0-52.0); Hemoglobin 7.7 g/dl (14.0-18.0); Mean Corpuscular HGB Conc 30.7 g/dl (31.0-36.0); Mean Corpuscular Hemoglobin 27.9 pg (27.0-33.0); Mean Corpuscular Volume 90.9 fL (80.0-98.0); Mean Platelet Volume 8.8 fL (9.4-12.4); Platelet Count 346 X10*3/uL (160-400); Red Blood Count 2.76 X10*6/uL (4.60-5.80); Red Cell Distribution Width 20.6 % (11.0-16.0); White Blood Count 4.7 X10*3/uL (4.8-10.8)
[2023-02-13 07:33] LABS: Anion Gap 10 (12-20); Blood Urea Nitrogen 15 mg/dL (9-16); Calcium 8.4 mg/dL (8.4-10.2); Carbon Dioxide 27 mmol/L (22-29); Chloride 107 mmol/L (96-108); Creatinine Clr Calc Pharmacy 99.2; Estimated Glomerular Filt Rate > 60; Glucose Fasting 90 mg/dL (60-99); Potassium 4.4 mmol/L (3.3-5.1); Sodium 140 mmol/L (135-145)
[2023-02-13 07:56] LABS: Cortisol Random 7.7 ug/dL
--- NOTE | 2023-02-13 09:03 | MHC.CM.PN ---
EMR REVIEWED, [facility] NO LONGER WORKS THERE AND CM TRANSFERRED TO UPS DRIVER JUMANA WHO REPORTED THEY HAVE ONE BED AVAILABLE AND REQUESTED CM EMAIL REFERRAL TO HIM AT [facility] [email or web address] FOR REVIEW AND WILL GET BACK TO US LATER TODAY. CM TO EMAIL REFERRAL AND AWAIT RESPONSE.
[2023-02-13] MEDS: 0.9 % Sodium Chloride Flush 3 ML SYRINGE IVFLUSH ×3 (09:26→20:21)
[2023-02-13] MEDS: Midodrine HCl 5 MG TABLET PO ×3 (09:26→17:39)
[2023-02-13] MEDS: Docusate Sodium 100 MG CAPSULE PO ×2 (09:26→20:21)
[2023-02-13] MEDS: Fludrocortisone Acetate 0.1 MG TABLET PO (09:27)
[2023-02-13] MEDS: Morphine Sulfate ER 30 MG TABLET.ER PO ×2 (09:27→20:16)
[2023-02-13] MEDS: Ammonium Lactate 12 % Lotion 226 GM BOTTLE 1 APPL TOPICAL (09:41)
[2023-02-13 11:22] VITALS: BP 94/64; PULSE 73; RESP 20; TEMP 36.3; O2SAT 92
--- NOTE | 2023-02-13 11:56 | MHC.CLN ---
F/U PO INTAKE 75% DIET RX: REGULAR-APPROPRIATE PT RECEIVING ENSURE TID PROVIDES 1050KCALS, 60G PROTEIN WITH 100% ACCEPTANCE ENCOURAGE SUPPLEMENT TO PROMOTE WT GAIN AND WOUND HEALING WOUNDS: STAGE III TO COCCYX, STAGE III TO MEDIAL BACK CONTINUE TO MONITOR PO INTAKE AND WOUND HEALING
--- NOTE | 2023-02-13 11:59 | HO.PM.IMPN ---
Subjective Subjective Date of Service: 02/13/23 Interval History: Seen and evaluated BP running soft but overall improved Review of Systems Review of Systems: Yes all other systems are reviewed and are negative Physical Exam Vital Signs: Vital Signs: Last Vital Signs Temp 97.3 F 02/13/23 11:22 Pulse 73 02/13/23 11:22 Resp 20 02/13/23 11:22 BP 94/64 02/13/23 11:22 Pulse Ox 92 02/13/23 11:22 O2 Del Method Room Air 02/13/23 11:22 BMI result Body Mass Index 21.7 Const: Other: Constitutional : alert, frail looking, malnourished, not in distress Neck : Normal inspection, Supple Cardiovascular : RRR, no JVP, no lower extremity edema Respiratory : good bilateral air entry,? no crackles, wheezes or rhonchi Gastrointestinal:? soft, lax, Normal bowel sounds, Non tender Skin : Warm, Dry, Left forearm chronic wound with muscle contacture exposed extensor carpi radialis muscle with fingers edema in Lt hand. no wrist movement. restricted movement of fingers. Bilateral LE with scales and dry skin with associated dermatitis Neurological : Alert & oriented to self and place, No focal deficit Objective Data Active Medications Acetaminophen (Acetaminophen 325 Mg Tablet) 650 mg PO Q6H PRN PRN Reason: Pain, Mild (Pain Scale 1-3) Last Admin: 02/11/23 01:55 Dose: 650 mg Documented By: FELICIA Docusate Sodium (Docusate Sodium 100 Mg Capsule) 100 mg PO BID [facility] Last Admin: 02/13/23 09:26 Dose: 100 mg Documented By: VIRGILIO Enoxaparin Sodium (Enoxaparin Sodium 40 Mg/0.4 Ml Syringe) 40 mg SUBCUT Q24H [facility] Last Admin: 02/12/23 18:49 Dose: 40 mg Documented By: PRAFUL Fludrocortisone Acetate (Fludrocortisone Acetate 0.1 Mg Tablet) 0.1 mg PO DAILY [facility] Last Admin: 02/13/23 09:27 Dose: 0.1 mg Documented By: VIRGILIO Lactic Acid (Ammonium Lactate 12 % Lotion 226 Gm Bottle) 1 appl TOPICAL BID [facility]; Protocol Last Admin: 02/13/23 09:41 Dose: 1 appl Documented By: VIRGILIO Midodrine (Midodrine Hcl 5 Mg Tablet) 5 mg PO TIDWM [facility] Last Admin: 02/13/23 11:39 Dose: 5 mg Documented By: VIRGILIO Morphine Sulfate (Morphine Sulfate Er 30 Mg Tablet.Er) 30 mg PO Q12H [facility] Last Admin: 02/13/23 09:27 Dose: 30 mg Documented By: VIRGILIO Ondansetron HCl (Ondansetron Hcl 4 Mg/2 Ml Vial) 4 mg IVPUSH Q8H PRN PRN Reason: Nausea and Vomiting Sodium Chloride (0.9 % Sodium Chloride Flush 3 Ml Syringe) 3 ml IVFLUSH QSHIFT [facility] Last Admin: 02/13/23 09:26 Dose: 3 ml Documented By: VIRGILIO Labs 02/13/23 07:02 02/13/23 07:02 Labs: Laboratory Results - last 24 hr 02/13/23 02/13/23 02/13/23 07:02 07:02 07:02 MCV 90.9 MCH 27.9 MCHC 30.7 L RDW 20.6 H Plt Count 346 MPV 8.8 L Absolute Nucleated RBC 0.000 Nucleated RBC % (auto) 0.0 Anion Gap 10 L Estim Creat Clear Calc 99.2 Estimated GFR > 60 Fasting Glucose 90 Calcium 8.4 Random Cortisol 7.7 Assessment and Plan (1) Multiple falls: Status: Acute (2) Adult failure to thrive: Status: Acute (3) Physical deconditioning: Status: Acute (4) Postural hypotension: Status: Acute Plan 72M PMH drug abuse, chronic wound presented to ED by EMS for multiple falls and syncopal episodes over the last few days. Syncope and falls due to orthostatic hypotension on muscle relaxant at home, decoditioned physically, using drugs would increase risk of postural hypotension and dizziness multiple body CT scans were negative PT eval rec SNF started Midodrine increased to 5mg tid, added florinef 0.1mg daily monitor BP , follow up am cortisol isolated low grade fever 02/08/23 monitor off abx, no further fevers Adult FFT , moderatly malnourished, physical deconditioning ensure Left forearm chronic wound and muscle contraction Xeroform dressing 7th rib fracture pain management Hypokalemia replacement given Constipation Disimpacted in ED bowel regimen DVT PPx lovenox reason for continued hospitalization: placement pending Time Spent With Patient Time: Total time managing care of this patient today ____ minutes. Quality Stroke Does the patient have a stroke diagnosis?: No VTE Prior VTE?: No VTE Risk Level:: Medical - moderate - high VTE Device Contraindication: Treatment Not Indicated VTE Drug Contraindication: N/A - Med Ordered
[2023-02-13 15:29] VITALS: BP 96/48; PULSE 85; RESP 14; TEMP 37.4; O2SAT 100
--- NOTE | 2023-02-13 15:29 | PC.NURSE ---
report received from overnight RN, medical grade shoemaker per NOV. pt calm and cooperative this shift. safety precautions in place, hourly rounding, call rai within reach.
[2023-02-13] MEDS: Enoxaparin Sodium 40 MG/0.4 ML SYRINGE SUBCUT (17:38)
[2023-02-13 19:26] VITALS: BP 92/47; PULSE 87; RESP 18; TEMP 37.7; O2SAT 96
[2023-02-14] VITALS: BP 110/62; PULSE 78; RESP 20; TEMP 37; O2SAT 95
[2023-02-14 03:08] VITALS: BP 98/56; PULSE 83; RESP 20; TEMP 36.8; O2SAT 96
[2023-02-14 08:00] VITALS: BP 103/61; PULSE 80; RESP 18; TEMP 37.2; O2SAT 96
[2023-02-14] MEDS: 0.9 % Sodium Chloride Flush 3 ML SYRINGE IVFLUSH ×2 (09:04→17:13)
[2023-02-14] MEDS: Morphine Sulfate ER 30 MG TABLET.ER PO ×2 (09:04→20:53)
[2023-02-14] MEDS: Docusate Sodium 100 MG CAPSULE PO ×2 (09:05→20:52)
[2023-02-14] MEDS: Midodrine HCl 5 MG TABLET PO ×3 (09:05→17:13)
[2023-02-14] MEDS: Ammonium Lactate 12 % Lotion 226 GM BOTTLE 1 APPL TOPICAL ×2 (09:05→20:56)
[2023-02-14] MEDS: Fludrocortisone Acetate 0.1 MG TABLET PO (09:05)
--- NOTE | 2023-02-14 11:38 | HO.PM.IMPN ---
Subjective Subjective Date of Service: 02/14/23 Interval History: Seen and evaluated BP running soft but overall improved Review of Systems No fever, chills but reports weakness muscle pain , joints pain No chest pain, palpitation No shortness of breath or coughing No abdominal pain, nausea or vomiting No urinary symptoms lower extremities rash and wounds Physical Exam Vital Signs: Vital Signs: Last Vital Signs Temp 99.0 F 02/14/23 08:00 Pulse 80 02/14/23 08:00 Resp 18 02/14/23 08:00 BP 103/61 02/14/23 08:00 Pulse Ox 96 02/14/23 08:00 O2 Del Method Room Air 02/14/23 08:00 BMI result Body Mass Index 21.7 Const: Other: Constitutional : alert, frail looking, malnourished, not in distress Neck : Normal inspection, Supple Cardiovascular : RRR, no JVP, no lower extremity edema Respiratory : good bilateral air entry,? no crackles, wheezes or rhonchi Gastrointestinal:? soft, lax, Normal bowel sounds, Non tender Skin : Warm, Dry, Left forearm chronic wound with muscle contacture exposed extensor carpi radialis muscle with fingers edema in Lt hand. no wrist movement. restricted movement of fingers. Bilateral LE with scales and dry skin with associated dermatitis Neurological : Alert & oriented to self and place, No focal deficit Objective Data Active Medications Acetaminophen (Acetaminophen 325 Mg Tablet) 650 mg PO Q6H PRN PRN Reason: Pain, Mild (Pain Scale 1-3) Last Admin: 02/11/23 01:55 Dose: 650 mg Documented By: FELICIA Docusate Sodium (Docusate Sodium 100 Mg Capsule) 100 mg PO BID [facility] Last Admin: 02/14/23 09:05 Dose: 100 mg Documented By: DARRYN Enoxaparin Sodium (Enoxaparin Sodium 40 Mg/0.4 Ml Syringe) 40 mg SUBCUT Q24H [facility] Last Admin: 02/13/23 17:38 Dose: 40 mg Documented By: VIRGILIO Fludrocortisone Acetate (Fludrocortisone Acetate 0.1 Mg Tablet) 0.1 mg PO DAILY [facility] Last Admin: 02/14/23 09:05 Dose: 0.1 mg Documented By: DARRYN Lactic Acid (Ammonium Lactate 12 % Lotion 226 Gm Bottle) 1 appl TOPICAL BID [facility]; Protocol Last Admin: 02/14/23 09:05 Dose: 1 appl Documented By: DARRYN Midodrine (Midodrine Hcl 5 Mg Tablet) 5 mg PO TIDWM [facility] Last Admin: 02/14/23 09:05 Dose: 5 mg Documented By: DARRYN Morphine Sulfate (Morphine Sulfate Er 30 Mg Tablet.Er) 30 mg PO Q12H [facility] Last Admin: 02/14/23 09:04 Dose: 30 mg Documented By: DARRYN Ondansetron HCl (Ondansetron Hcl 4 Mg/2 Ml Vial) 4 mg IVPUSH Q8H PRN PRN Reason: Nausea and Vomiting Sodium Chloride (0.9 % Sodium Chloride Flush 3 Ml Syringe) 3 ml IVFLUSH QSHIFT [facility] Last Admin: 02/14/23 09:04 Dose: 3 ml Documented By: DARRYN Labs 02/13/23 07:02 02/13/23 07:02 Assessment and Plan (1) Syncope: Status: Acute (2) Multiple falls: Status: Acute Plan 72M PMH drug abuse, chronic wound presented to ED by EMS for multiple falls and syncopal episodes over the last few days. Syncope and falls due to orthostatic hypotension on muscle relaxant at home, decoditioned physically, using drugs would increase risk of postural hypotension and dizziness multiple body CT scans were negative PT eval rec SNF started Midodrine increased to 5mg tid, added florinef 0.1mg daily monitor BP , follow up am cortisol isolated low grade fever 02/08/23 monitor off abx, no further fevers Adult FFT , moderatly malnourished, physical deconditioning ensure Left forearm chronic wound and muscle contraction Xeroform dressing 7th rib fracture pain management Hypokalemia replacement given Constipation Disimpacted in ED bowel regimen DVT PPx lovenox reason for continued hospitalization: placement pending Time Spent With Patient Time: Total time managing care of this patient today ____ minutes. Quality Stroke Does the patient have a stroke diagnosis?: No VTE Prior VTE?: No VTE Risk Level:: Medical - moderate - high VTE Device Contraindication: Treatment Not Indicated VTE Drug Contraindication: N/A - Med Ordered
[2023-02-14 12:00] VITALS: BP 104/56; PULSE 84; RESP 18; TEMP 37.1; O2SAT 96
[2023-02-14] MEDS: Enoxaparin Sodium 40 MG/0.4 ML SYRINGE SUBCUT (17:13)
[2023-02-14 20:00] VITALS: BP 95/48; PULSE 84; RESP 18; TEMP 37.4; O2SAT 96
[2023-02-14 23:31] VITALS: BP 93/55; PULSE 84; RESP 19; TEMP 37.2; O2SAT 95
[2023-02-15] VITALS (7 sets, daily range): BP systolic 93–108; BP diastolic 56–60; PULSE 77–87; RESP 14–19; TEMP 36.6–37.7; O2SAT 95–96
[2023-02-15] MEDS: 0.9 % Sodium Chloride Flush 3 ML SYRINGE IVFLUSH ×3 (00:04→17:49)
[2023-02-15] MEDS: oxyCODONE HCl Immed Release 5 MG TABLET 10 MG PO ×2 (05:00→12:49)
[2023-02-15] MEDS: Morphine Sulfate ER 30 MG TABLET.ER PO ×2 (08:23→22:35)
[2023-02-15] MEDS: Midodrine HCl 5 MG TABLET PO ×3 (08:23→17:48)
[2023-02-15] MEDS: Docusate Sodium 100 MG CAPSULE PO ×2 (08:23→22:36)
[2023-02-15] MEDS: Fludrocortisone Acetate 0.1 MG TABLET PO (08:23)
[2023-02-15 09:17] LABS: Hematocrit 25.6 % (42.0-52.0); Mean Corpuscular HGB Conc 31.3 g/dl (31.0-36.0); Mean Corpuscular Hemoglobin 28.8 pg (27.0-33.0); Mean Corpuscular Volume 92.1 fL (80.0-98.0); Mean Platelet Volume 8.7 fL (9.4-12.4); Platelet Count 330 X10*3/uL (160-400); Red Blood Count 2.78 X10*6/uL (4.60-5.80); Red Cell Distribution Width 21.4 % (11.0-16.0); White Blood Count 4.3 X10*3/uL (4.8-10.8)
--- NOTE | 2023-02-15 11:24 | MHC.CM.PN ---
CM ATTEMPTED TO FOLLOW UP ON THE REFERRAL TO [facility] VM MESSAGE LEFT FOR JUMANA ([phone]) REQUESTING A RETURN CALL
--- NOTE | 2023-02-15 12:46 | HO.PM.IMPN ---
Subjective Subjective Date of Service: 02/15/23 Interval History: Seen and evaluated BP running soft but overall improved Review of Systems Review of Systems: Yes all other systems are reviewed and are negative Physical Exam Vital Signs: Vital Signs: Last Vital Signs Temp 99.9 F 02/15/23 11:54 Pulse 83 02/15/23 11:54 Resp 18 02/15/23 11:54 BP 108/60 02/15/23 11:54 Pulse Ox 96 02/15/23 11:54 O2 Del Method Room Air 02/15/23 11:54 BMI result Body Mass Index 21.7 Const: Other: Constitutional : alert, frail looking, malnourished, not in distress Neck : Normal inspection, Supple Cardiovascular : RRR, no JVP, no lower extremity edema Respiratory : good bilateral air entry,? no crackles, wheezes or rhonchi Gastrointestinal:? soft, lax, Normal bowel sounds, Non tender Skin : Warm, Dry, Left forearm chronic wound with muscle contacture exposed extensor carpi radialis muscle with fingers edema in Lt hand. no wrist movement. restricted movement of fingers. Bilateral LE with scales and dry skin with associated dermatitis Neurological : Alert & oriented to self and place, No focal deficit Objective Data Active Medications Acetaminophen (Acetaminophen 325 Mg Tablet) 650 mg PO Q6H PRN PRN Reason: Pain, Mild (Pain Scale 1-3) Last Admin: 02/11/23 01:55 Dose: 650 mg Documented By: FELICIA Docusate Sodium (Docusate Sodium 100 Mg Capsule) 100 mg PO BID [facility] Last Admin: 02/15/23 08:23 Dose: 100 mg Documented By: DARRYN Enoxaparin Sodium (Enoxaparin Sodium 40 Mg/0.4 Ml Syringe) 40 mg SUBCUT Q24H [facility] Last Admin: 02/14/23 17:13 Dose: 40 mg Documented By: DARRYN Fludrocortisone Acetate (Fludrocortisone Acetate 0.1 Mg Tablet) 0.1 mg PO DAILY [facility] Last Admin: 02/15/23 08:23 Dose: 0.1 mg Documented By: DARRYN Lactic Acid (Ammonium Lactate 12 % Lotion 226 Gm Bottle) 1 appl TOPICAL BID [facility]; Protocol Last Admin: 02/14/23 20:56 Dose: 1 appl Documented By: AMBERLY Midodrine (Midodrine Hcl 5 Mg Tablet) 5 mg PO TIDWM [facility] Last Admin: 02/15/23 08:23 Dose: 5 mg Documented By: DARRYN Morphine Sulfate (Morphine Sulfate Er 30 Mg Tablet.Er) 30 mg PO Q12H [facility] Last Admin: 02/15/23 08:23 Dose: 30 mg Documented By: DARRYN Ondansetron HCl (Ondansetron Hcl 4 Mg/2 Ml Vial) 4 mg IVPUSH Q8H PRN PRN Reason: Nausea and Vomiting Oxycodone HCl (Oxycodone Hcl Immed Release 5 Mg Tablet) 10 mg PO Q6H PRN PRN Reason: Pain, Severe (Pain Scale 7-10) Last Admin: 02/15/23 05:00 Dose: 10 mg Documented By: KIMBERLEY Sodium Chloride (0.9 % Sodium Chloride Flush 3 Ml Syringe) 3 ml IVFLUSH QSHIFT [facility] Last Admin: 02/15/23 00:04 Dose: 3 ml Documented By: AMBERLY Labs 02/15/23 08:51 02/13/23 07:02 Labs: Laboratory Results - last 24 hr 02/14/23 02/15/23 10:56 08:51 MCV Cancelled 92.1 MCH Cancelled 28.8 MCHC Cancelled 31.3 RDW Cancelled 21.4 H Plt Count Cancelled 330 MPV Cancelled 8.7 L Absolute Nucleated RBC Cancelled 0.000 Nucleated RBC % (auto) Cancelled 0.0 Assessment and Plan (1) Adult failure to thrive: Status: Acute (2) Multiple falls: Status: Acute Plan 72M PMH drug abuse, chronic wound presented to ED by EMS for multiple falls and syncopal episodes over the last few days. Syncope and falls due to orthostatic hypotension on muscle relaxant at home, decoditioned physically, using drugs would increase risk of postural hypotension and dizziness multiple body CT scans were negative PT eval rec SNF started Midodrine increased to 5mg tid, added florinef 0.1mg daily monitor BP , follow up am cortisol isolated low grade fever 02/08/23 monitor off abx, no further fevers Adult FFT , moderatly malnourished, physical deconditioning ensure Left forearm chronic wound and muscle contraction Xeroform dressing 7th rib fracture pain management Hypokalemia replacement given Constipation Disimpacted in ED bowel regimen DVT PPx lovenox reason for continued hospitalization: placement pending Time Spent With Patient Time: Total time managing care of this patient today ____ minutes. Quality Stroke Does the patient have a stroke diagnosis?: No VTE Prior VTE?: No VTE Risk Level:: Medical - moderate - high VTE Device Contraindication: Treatment Not Indicated VTE Drug Contraindication: N/A - Med Ordered
[2023-02-15] MEDS: Ammonium Lactate 12 % Lotion 226 GM BOTTLE 1 APPL TOPICAL ×2 (12:49→22:36)
--- NOTE | 2023-02-15 13:20 | MHC.CLN ---
F/U PO INTAKE 75-100% DIET RX: REGULAR-APPROPRIATE PT RECEIVING ENSURE TID PROVIDES 1050KCALS, 60G PROTEIN WITH 100% ACCEPTANCE ENCOURAGE SUPPLEMENT TO PROMOTE WT GAIN AND WOUND HEALING WOUNDS: STAGE III TO COCCYX, STAGE III TO MEDIAL BACK CONTINUE TO MONITOR PO INTAKE AND WOUND HEALING
[2023-02-15] MEDS: Enoxaparin Sodium 40 MG/0.4 ML SYRINGE SUBCUT (17:48)
[2023-02-16 02:45] VITALS: BP 94/55; PULSE 78; RESP 14; TEMP 36.7; O2SAT 95
[2023-02-16 07:43] VITALS: BP 112/57; PULSE 81; RESP 12; TEMP 36.4; O2SAT 96
[2023-02-16] MEDS: Docusate Sodium 100 MG CAPSULE PO ×2 (09:58→19:46)
[2023-02-16] MEDS: Fludrocortisone Acetate 0.1 MG TABLET PO (09:58)
[2023-02-16] MEDS: Midodrine HCl 5 MG TABLET PO ×3 (09:58→18:32)
[2023-02-16] MEDS: Morphine Sulfate ER 30 MG TABLET.ER PO ×2 (09:58→19:46)
[2023-02-16] MEDS: 0.9 % Sodium Chloride Flush 3 ML SYRINGE IVFLUSH ×3 (09:58→19:47)
[2023-02-16] MEDS: Ammonium Lactate 12 % Lotion 226 GM BOTTLE 1 APPL TOPICAL ×2 (09:59→19:46)
--- NOTE | 2023-02-16 10:50 | HO.PM.IMPN ---
Subjective Subjective Date of Service: 02/16/23 Interval History: Seen and evaluated comfortable, no complaints Review of Systems Review of Systems: Yes all other systems are reviewed and are negative Physical Exam Vital Signs: Vital Signs: Last Vital Signs Temp 97.6 F 02/16/23 07:43 Pulse 81 02/16/23 07:43 Resp 12 02/16/23 07:43 BP 112/57 L 02/16/23 07:43 Pulse Ox 96 02/16/23 07:43 O2 Del Method Room Air 02/16/23 07:43 BMI result Body Mass Index 21.7 Const: Other: Constitutional : alert, frail looking, malnourished, not in distress Neck : Normal inspection, Supple Cardiovascular : RRR, no JVP, no lower extremity edema Respiratory : good bilateral air entry,? no crackles, wheezes or rhonchi Gastrointestinal:? soft, lax, Normal bowel sounds, Non tender Skin : Warm, Dry, Left forearm chronic wound with muscle contacture exposed extensor carpi radialis muscle with fingers edema in Lt hand. no wrist movement. restricted movement of fingers. Bilateral LE with scales and dry skin with associated dermatitis Neurological : Alert & oriented to self and place, No focal deficit Objective Data Active Medications Acetaminophen (Acetaminophen 325 Mg Tablet) 650 mg PO Q6H PRN PRN Reason: Pain, Mild (Pain Scale 1-3) Last Admin: 02/11/23 01:55 Dose: 650 mg Documented By: FELICIA Docusate Sodium (Docusate Sodium 100 Mg Capsule) 100 mg PO BID [facility] Last Admin: 02/16/23 09:58 Dose: 100 mg Documented By: PRAFUL Enoxaparin Sodium (Enoxaparin Sodium 40 Mg/0.4 Ml Syringe) 40 mg SUBCUT Q24H [facility] Last Admin: 02/15/23 17:48 Dose: 40 mg Documented By: JULEE Fludrocortisone Acetate (Fludrocortisone Acetate 0.1 Mg Tablet) 0.1 mg PO DAILY [facility] Last Admin: 02/16/23 09:58 Dose: 0.1 mg Documented By: PRAFUL Lactic Acid (Ammonium Lactate 12 % Lotion 226 Gm Bottle) 1 appl TOPICAL BID [facility]; Protocol Last Admin: 02/16/23 09:59 Dose: 1 appl Documented By: PRAFUL Midodrine (Midodrine Hcl 5 Mg Tablet) 5 mg PO TIDWM [facility] Last Admin: 02/16/23 09:58 Dose: 5 mg Documented By: PRAFUL Morphine Sulfate (Morphine Sulfate Er 30 Mg Tablet.Er) 30 mg PO Q12H [facility] Last Admin: 02/16/23 09:58 Dose: 30 mg Documented By: PRAFUL Ondansetron HCl (Ondansetron Hcl 4 Mg/2 Ml Vial) 4 mg IVPUSH Q8H PRN PRN Reason: Nausea and Vomiting Oxycodone HCl (Oxycodone Hcl Immed Release 5 Mg Tablet) 10 mg PO Q6H PRN PRN Reason: Pain, Severe (Pain Scale 7-10) Last Admin: 02/15/23 12:49 Dose: 10 mg Documented By: DARRYN Sodium Chloride (0.9 % Sodium Chloride Flush 3 Ml [facility]ringe) [facility] Last Admin: 02/16/23 09:58 Dose: 3 ml Documented By: PRAFUL Labs 02/15/23 08:51 02/13/23 07:02 Assessment and Plan (1) Postural hypotension: Status: Acute (2) Multiple falls: Status: Acute Plan 72M PMH drug abuse, chronic wound presented to ED by EMS for multiple falls and syncopal episodes over the last few days. Syncope and falls due to orthostatic hypotension decoditioned physically, using drugs, muscle relaxants would increase risk of postural hypotension and dizziness multiple body CT scans were negative PT eval rec SNF Midodrine increased to 5mg tid, added florinef 0.1mg daily monitor BP , normal am cortisol isolated low grade fever 02/08/23 monitor off abx, no further fevers Adult FFT , moderatly malnourished, physical deconditioning ensure Left forearm chronic wound and muscle contraction Xeroform dressing 7th rib fracture pain management Hypokalemia replacement given Constipation Disimpacted in ED bowel regimen DVT PPx lovenox reason for continued hospitalization: placement pending Time Spent With Patient Time: Total time managing care of this patient today ____ minutes. Quality Stroke Does the patient have a stroke diagnosis?: No VTE Prior VTE?: No VTE Risk Level:: Medical - moderate - high VTE Device Contraindication: Treatment Not Indicated VTE Drug Contraindication: N/A - Med Ordered
[2023-02-16 11:08] VITALS: BP 97/58; PULSE 82; RESP 12; TEMP 36.7; O2SAT 95
[2023-02-16] MEDS: Acetaminophen 325 MG TABLET 650 MG PO (14:17)
[2023-02-16 16:00] VITALS: BP 107/65; PULSE 68; RESP 18; TEMP 37; O2SAT 97
[2023-02-16] MEDS: Enoxaparin Sodium 40 MG/0.4 ML SYRINGE SUBCUT (18:32)
[2023-02-16 20:00] VITALS: BP 121/50; PULSE 81; RESP 18; TEMP 37; O2SAT 97
[2023-02-17] VITALS (7 sets, daily range): BP systolic 91–111; BP diastolic 51–60; PULSE 72–83; RESP 16–20; TEMP 36.3–37.2; O2SAT 94–98
[2023-02-17] MEDS: Morphine Sulfate ER 30 MG TABLET.ER PO ×2 (07:36→22:06)
[2023-02-17] MEDS: Midodrine HCl 5 MG TABLET PO ×3 (07:36→16:13)
[2023-02-17] MEDS: Docusate Sodium 100 MG CAPSULE PO ×2 (07:36→22:06)
[2023-02-17] MEDS: Fludrocortisone Acetate 0.1 MG TABLET PO (07:37)
[2023-02-17] MEDS: Ammonium Lactate 12 % Lotion 226 GM BOTTLE 1 APPL TOPICAL ×2 (07:37→22:07)
[2023-02-17] MEDS: 0.9 % Sodium Chloride Flush 3 ML SYRINGE IVFLUSH (07:37)
--- NOTE | 2023-02-17 12:00 | P.PNIM_ITS ---
Subjective Subjective Date of Service: 02/17/23 Interval History: Seen and evaluated comfortable, no complaints Review of Systems No fever, chills but reports weakness muscle pain , joints pain No chest pain, palpitation No shortness of breath or coughing No abdominal pain, nausea or vomiting No urinary symptoms lower extremities rash and wounds Physical Exam Vital Signs: Vital Signs: Last Vital Signs Temp 97.3 F 02/17/23 11:06 Pulse 72 02/17/23 11:06 Resp 16 02/17/23 11:06 BP 110/60 02/17/23 11:06 Pulse Ox 96 02/17/23 11:06 O2 Del Method Room Air 02/17/23 11:06 BMI result Body Mass Index 21.7 Const: Other: Constitutional : alert, frail looking, malnourished, not in distress Neck : Normal inspection, Supple Cardiovascular : RRR, no JVP, no lower extremity edema Respiratory : good bilateral air entry,? no crackles, wheezes or rhonchi Gastrointestinal:? soft, lax, Normal bowel sounds, Non tender Skin : Warm, Dry, Left forearm chronic wound with muscle contacture exposed extensor carpi radialis muscle with fingers edema in Lt hand. no wrist movement. restricted movement of fingers. Bilateral LE with scales and dry skin with associated dermatitis Neurological : Alert & oriented to self and place, No focal deficit Objective Data Active Medications Acetaminophen (Acetaminophen 325 Mg Tablet) 650 mg PO Q6H PRN PRN Reason: Pain, Mild (Pain Scale 1-3) Last Admin: 02/16/23 14:17 Dose: 650 mg Documented By: PRAFUL Docusate Sodium (Docusate Sodium 100 Mg Capsule) 100 mg PO BID [facility] Last Admin: 02/17/23 07:36 Dose: 100 mg Documented By: KATELYN Enoxaparin Sodium (Enoxaparin Sodium 40 Mg/0.4 Ml Syringe) 40 mg SUBCUT Q24H [facility] Last Admin: 02/16/23 18:32 Dose: 40 mg Documented By: PRAFUL Fludrocortisone Acetate (Fludrocortisone Acetate 0.1 Mg Tablet) 0.1 mg PO DAILY [facility] Last Admin: 02/17/23 07:37 Dose: 0.1 mg Documented By: KATELYN Lactic Acid (Ammonium Lactate 12 % Lotion 226 Gm Bottle) 1 appl TOPICAL BID [facility]; Protocol Last Admin: 02/17/23 07:37 Dose: 1 appl Documented By: KATELYN Midodrine (Midodrine Hcl 5 Mg Tablet) 5 mg PO TIDWM [facility] Last Admin: 02/17/23 11:50 Dose: 5 mg Documented By: KATELYN Morphine Sulfate (Morphine Sulfate Er 30 Mg Tablet.Er) 30 mg PO Q12H [facility] Last Admin: 02/17/23 07:36 Dose: 30 mg Documented By: KATELYN Ondansetron HCl (Ondansetron Hcl 4 Mg/2 Ml Vial) 4 mg IVPUSH Q8H PRN PRN Reason: Nausea and Vomiting Oxycodone HCl (Oxycodone Hcl Immed Release 5 Mg Tablet) 10 mg PO Q6H PRN PRN Reason: Pain, Severe (Pain Scale 7-10) Last Admin: 02/15/23 12:49 Dose: 10 mg Documented By: DARRYN Sodium Chloride (0.9 % Sodium Chloride Flush 3 Ml Syringe) 3 ml IVFLUSH QSHIFT [facility] Last Admin: 02/17/23 07:37 Dose: 3 ml Documented By: KATELYN Labs 02/15/23 08:51 02/13/23 07:02 Assessment and Plan (1) Multiple falls: Status: Acute (2) Physical deconditioning: Status: Acute Plan 72M PMH drug abuse, chronic wound presented to ED by EMS for multiple falls and syncopal episodes over the last few days. Syncope and falls due to orthostatic hypotension decoditioned physically, using drugs, muscle relaxants would increase risk of postural hypotension and dizziness multiple body CT scans were negative PT eval rec SNF Midodrine increased to 5mg tid, added florinef 0.1mg daily monitor BP , normal am cortisol isolated low grade fever 02/08/23 monitor off abx, no further fevers Adult FFT , moderatly malnourished, physical deconditioning ensure Left forearm chronic wound and muscle contraction Xeroform dressing 7th rib fracture pain management Hypokalemia replacement given Constipation Disimpacted in ED bowel regimen DVT PPx lovenox reason for continued hospitalization: placement pending Time Spent With Patient Time: Total time managing care of this patient today ____ minutes. Quality Stroke Does the patient have a stroke diagnosis?: No VTE Prior VTE?: No VTE Risk Level:: Medical - moderate - high VTE Device Contraindication: Treatment Not Indicated VTE Drug Contraindication: N/A - Med Ordered
[2023-02-17] MEDS: Enoxaparin Sodium 40 MG/0.4 ML SYRINGE SUBCUT (16:13)
--- NOTE | 2023-02-17 19:33 | PC.NURSE ---
Pt IV leaking; tried to get another IV on pt and educated him on the importance of IV access however pt refusing. Provider notified and aware; provider ok with no IV access. Pt refusing dressing change to buttock and arm; Pt stating these dressing are less than 24 hours old . Pt educated on skin breakdown and the importance of dressing changes; pt still refused.
[2023-02-17] MEDS: oxyCODONE HCl Immed Release 5 MG TABLET 10 MG PO (22:14)
[2023-02-18 03:23] VITALS: BP 91/56; PULSE 79; RESP 18; TEMP 36.9; O2SAT 95
[2023-02-18 07:06] VITALS: BP 87/58; PULSE 74; RESP 18; TEMP 36.8; O2SAT 95
[2023-02-18] MEDS: Docusate Sodium 100 MG CAPSULE PO ×2 (08:35→20:08)
[2023-02-18] MEDS: Fludrocortisone Acetate 0.1 MG TABLET PO (08:35)
[2023-02-18] MEDS: Midodrine HCl 5 MG TABLET PO ×2 (08:35→11:41)
[2023-02-18 08:37] LABS: Hematocrit 26.2 % (42.0-52.0); Mean Corpuscular HGB Conc 30.5 g/dl (31.0-36.0); Mean Corpuscular Hemoglobin 28.3 pg (27.0-33.0); Mean Corpuscular Volume 92.6 fL (80.0-98.0); Mean Platelet Volume 8.6 fL (9.4-12.4); Platelet Count 325 X10*3/uL (160-400); Red Blood Count 2.83 X10*6/uL (4.60-5.80); Red Cell Distribution Width 22.1 % (11.0-16.0); White Blood Count 3.8 X10*3/uL (4.8-10.8)
[2023-02-18] MEDS: Morphine Sulfate ER 30 MG TABLET.ER PO ×2 (08:39→20:08)
--- NOTE | 2023-02-18 09:56 | P.PNIM_ITS ---
Subjective Subjective Date of Service: 02/18/23 Interval History: Seen and evaluated comfortable, no complaints BP dropped this morning, no reported symptoms Review of Systems No fever, chills but reports weakness muscle pain , joints pain No chest pain, palpitation No shortness of breath or coughing No abdominal pain, nausea or vomiting No urinary symptoms lower extremities rash and wounds Physical Exam Vital Signs: Vital Signs: Last Vital Signs Temp 98.2 F 02/18/23 07:06 Pulse 74 02/18/23 07:06 Resp 18 02/18/23 07:06 BP 87/58 L 02/18/23 07:06 Pulse Ox 95 02/18/23 07:06 O2 Del Method Room Air 02/18/23 07:06 BMI result Body Mass Index 21.7 Const: Other: Constitutional : alert, frail looking, malnourished, not in distress Neck : Normal inspection, Supple Cardiovascular : RRR, no JVP, no lower extremity edema Respiratory : good bilateral air entry,? no crackles, wheezes or rhonchi Gastrointestinal:? soft, lax, Normal bowel sounds, Non tender Skin : Warm, Dry, Left forearm chronic wound with muscle contacture exposed extensor carpi radialis muscle with fingers edema in Lt hand. no wrist movement. restricted movement of fingers. Bilateral LE with scales and dry skin with associated dermatitis Neurological : Alert & oriented to self and place, No focal deficit Objective Data Active Medications Acetaminophen (Acetaminophen 325 Mg Tablet) 650 mg PO Q6H PRN PRN Reason: Pain, Mild (Pain Scale 1-3) Last Admin: 02/16/23 14:17 Dose: 650 mg Documented By: PRAFUL Docusate Sodium (Docusate Sodium 100 Mg Capsule) 100 mg PO BID [facility] Last Admin: 02/18/23 08:35 Dose: 100 mg Documented By: HEYDI Enoxaparin Sodium (Enoxaparin Sodium 40 Mg/0.4 Ml Syringe) 40 mg SUBCUT Q24H [facility] Last Admin: 02/17/23 16:13 Dose: 40 mg Documented By: KATELYN Fludrocortisone Acetate (Fludrocortisone Acetate 0.1 Mg Tablet) 0.1 mg PO DAILY [facility] Last Admin: 02/18/23 08:35 Dose: 0.1 mg Documented By: HEYDI Lactic Acid (Ammonium Lactate 12 % Lotion 226 Gm Bottle) 1 appl TOPICAL BID [facility]; Protocol Last Admin: 02/17/23 22:07 Dose: 1 appl Documented By: LISA Midodrine (Midodrine Hcl 5 Mg Tablet) 5 mg PO TIDWM [facility] Last Admin: 02/18/23 08:35 Dose: 5 mg Documented By: HEYDI Morphine Sulfate (Morphine Sulfate Er 30 Mg Tablet.Er) 30 mg PO Q12H [facility] Last Admin: 02/18/23 08:39 Dose: 30 mg Documented By: HEYDI Ondansetron HCl (Ondansetron Hcl 4 Mg/2 Ml Vial) 4 mg IVPUSH Q8H PRN PRN Reason: Nausea and Vomiting Oxycodone HCl (Oxycodone Hcl Immed Release 5 Mg Tablet) 10 mg PO Q6H PRN PRN Reason: Pain, Severe (Pain Scale 7-10) Last Admin: 02/17/23 22:14 Dose: 10 mg Documented By: LISA Sodium Chloride (0.9 % Sodium Chloride Flush 3 Ml Syringe) 3 ml IVFLUSH QSHIFT [facility] Last Admin: 02/18/23 08:35 Dose: Not Given Documented By: HEYDI Non-Admin Reason: No Access Labs 02/18/23 08:16 02/13/23 07:02 Labs: Laboratory Results - last 24 hr 02/18/23 08:16 MCV 92.6 MCH 28.3 MCHC 30.5 L RDW 22.1 H Plt Count 325 MPV 8.6 L Absolute Nucleated RBC 0.000 Nucleated RBC % (auto) 0.0 Assessment and Plan (1) Postural hypotension: Status: Acute (2) Multiple falls: Status: Acute Plan 72M PMH drug abuse, chronic wound presented to ED by EMS for multiple falls and syncopal episodes over the last few days. Syncope and falls due to orthostatic hypotension decoditioned physically, using drugs, muscle relaxants would increase risk of postural hypotension and dizziness PT eval rec SNF Midodrine 5mg tid, florinef 0.1mg daily recheck BP using appropriate cuff , increase midodrine to 7.5 tid if remains low isolated low grade fever 02/08/23 monitor off abx, no further fevers Adult FFT , moderatly malnourished, physical deconditioning ensure Left forearm chronic wound and muscle contraction Xeroform dressing 7th rib fracture pain management Hypokalemia replacement given Constipation Disimpacted in ED bowel regimen DVT PPx lovenox reason for continued hospitalization: placement pending Time Spent With Patient Time: Total time managing care of this patient today ____ minutes. Quality Stroke Does the patient have a stroke diagnosis?: No VTE Prior VTE?: No VTE Risk Level:: Medical - moderate - high VTE Device Contraindication: Treatment Not Indicated VTE Drug Contraindication: N/A - Med Ordered
[2023-02-18] MEDS: Ammonium Lactate 12 % Lotion 226 GM BOTTLE 1 APPL TOPICAL ×2 (10:19→20:09)
[2023-02-18 11:20] VITALS: BP 98/54; PULSE 81; RESP 16; TEMP 36.8; O2SAT 95
--- NOTE | 2023-02-18 13:27 | MHC.CLN ---
F/U PO INTAKE 100% DIET RX: REGULAR-APPROPRIATE PT RECEIVING ENSURE TID PROVIDES 1050KCALS, 60G PROTEIN WITH 100% ACCEPTANCE ENCOURAGE SUPPLEMENT TO PROMOTE WT GAIN AND WOUND HEALING WOUNDS: STAGE III TO COCCYX, STAGE III TO MEDIAL BACK CONTINUE TO MONITOR PO INTAKE AND WOUND HEALING
--- NOTE | 2023-02-18 15:23 | MHC.CM.PN ---
EMR REVIEWED. PT IS AWAITING PLACEMENT, [facility] PER JUMANA, THE CASE WAS STILL UNDER REVIEW ([phone]) AND [facility] UPDATED WITH CLINICALS WITH NO RESPONSE YET. CM WILL CONTINUE TO FOLLOW FOR PLAN.
[2023-02-18 15:46] VITALS: BP 88/46; PULSE 86; RESP 14; TEMP 36.7; O2SAT 94
[2023-02-18] MEDS: Midodrine HCl 2.5 MG TABLET 7.5 MG PO (17:23)
[2023-02-18 19:32] VITALS: BP 98/58; PULSE 88; RESP 18; TEMP 36.4; O2SAT 94
[2023-02-18 23:36] VITALS: BP 94/51; PULSE 83; RESP 16; TEMP 36.7; O2SAT 96
[2023-02-19 03:07] VITALS: BP 97/55; PULSE 78; RESP 16; TEMP 36; O2SAT 97
[2023-02-19 07:35] VITALS: BP 94/50; PULSE 84; RESP 16; TEMP 36.9; O2SAT 96
[2023-02-19] MEDS: Docusate Sodium 100 MG CAPSULE PO ×2 (08:30→20:37)
[2023-02-19] MEDS: Morphine Sulfate ER 30 MG TABLET.ER PO ×2 (08:31→20:36)
[2023-02-19] MEDS: Midodrine HCl 2.5 MG TABLET 7.5 MG PO ×3 (08:31→17:12)
[2023-02-19] MEDS: Fludrocortisone Acetate 0.1 MG TABLET PO (08:31)
[2023-02-19] MEDS: Ammonium Lactate 12 % Lotion 226 GM BOTTLE 1 APPL TOPICAL ×2 (08:34→20:38)
[2023-02-19 11:32] VITALS: BP 90/52; PULSE 73; RESP 16; TEMP 36.7; O2SAT 95
--- NOTE | 2023-02-19 12:06 | P.PNIM_ITS ---
Subjective Subjective Date of Service: 02/19/23 Interval History: Seen and evaluated comfortable, no complaints BP running low, no reported symptoms Review of Systems No fever, chills but reports weakness muscle pain , joints pain No chest pain, palpitation No shortness of breath or coughing No abdominal pain, nausea or vomiting No urinary symptoms lower extremities rash and wounds Physical Exam Vital Signs: Vital Signs: Last Vital Signs Temp 98.0 F 02/19/23 11:32 Pulse 73 02/19/23 11:32 Resp 16 02/19/23 11:32 BP 90/52 L 02/19/23 11:32 Pulse Ox 95 02/19/23 11:32 O2 Del Method Room Air 02/19/23 11:32 BMI result Body Mass Index 21.7 Const: Other: Constitutional : alert, frail looking, malnourished, not in distress Neck : Normal inspection, Supple Cardiovascular : RRR, no JVP, no lower extremity edema Respiratory : good bilateral air entry,? no crackles, wheezes or rhonchi Gastrointestinal:? soft, lax, Normal bowel sounds, Non tender Skin : Warm, Dry, Left forearm chronic wound with muscle contacture exposed extensor carpi radialis muscle with fingers edema in Lt hand. no wrist movement. restricted movement of fingers. Bilateral LE with scales and dry skin with associated dermatitis Neurological : Alert & oriented to self and place, No focal deficit Objective Data Active Medications Acetaminophen (Acetaminophen 325 Mg Tablet) 650 mg PO Q6H PRN PRN Reason: Pain, Mild (Pain Scale 1-3) Last Admin: 02/16/23 14:17 Dose: 650 mg Documented By: PRAFUL Docusate Sodium (Docusate Sodium 100 Mg Capsule) 100 mg PO BID [facility] Last Admin: 02/19/23 08:30 Dose: 100 mg Documented By: AMEYA Enoxaparin Sodium (Enoxaparin Sodium 40 Mg/0.4 Ml Syringe) 40 mg SUBCUT Q24H [facility] Last Admin: 02/18/23 19:25 Dose: Not Given Documented By: HEYDI Non-Admin Reason: refused Fludrocortisone Acetate (Fludrocortisone Acetate 0.1 Mg Tablet) 0.1 mg PO DAILY [facility] Last Admin: 02/19/23 08:31 Dose: 0.1 mg Documented By: AMEYA Lactic Acid (Ammonium Lactate 12 % Lotion 226 Gm Bottle) 1 appl TOPICAL BID [facility]; Protocol Last Admin: 02/19/23 08:34 Dose: 1 appl Documented By: AMEYA Midodrine (Midodrine Hcl 2.5 Mg Tablet) 7.5 mg PO TIDWM [facility] Last Admin: 02/19/23 08:31 Dose: 7.5 mg Documented By: AMEYA Morphine Sulfate (Morphine Sulfate Er 30 Mg Tablet.Er) 30 mg PO Q12H [facility] Last Admin: 02/19/23 08:31 Dose: 30 mg Documented By: AMEYA Ondansetron HCl (Ondansetron Hcl 4 Mg/2 Ml Vial) 4 mg IVPUSH Q8H PRN PRN Reason: Nausea and Vomiting Oxycodone HCl (Oxycodone Hcl Immed Release 5 Mg Tablet) 10 mg PO Q6H PRN PRN Reason: Pain, Severe (Pain Scale 7-10) Last Admin: 02/17/23 22:14 Dose: 10 mg Documented By: LISA Sodium Chloride (0.9 % Sodium Chloride Flush 3 Ml Syringe) 3 ml IVFLUSH QSHIFT [facility] Last Admin: 02/19/23 08:30 Dose: Not Given Documented By: AMEYA Non-Admin Reason: No Access Labs 02/18/23 08:16 02/13/23 07:02 Assessment and Plan (1) Multiple falls: Status: Acute (2) Physical deconditioning: Status: Acute Plan 72M PMH drug abuse, chronic wound presented to ED by EMS for multiple falls and syncopal episodes over the last few days. Syncope and falls due to orthostatic hypotension decoditioned physically, using drugs, muscle relaxants would increase risk of postural hypotension and dizziness PT eval rec SNF increase Midodrine to 7.5mg tid, florinef 0.1mg daily recheck BP using appropriate cuff , increase midodrine to 7.5 tid if remains low isolated low grade fever 02/08/23 monitor off abx, no further fevers Adult FFT , moderatly malnourished, physical deconditioning ensure Left forearm chronic wound and muscle contraction Xeroform dressing 7th rib fracture pain management Hypokalemia replacement given Constipation Disimpacted in ED bowel regimen DVT PPx lovenox reason for continued hospitalization: placement pending Time Spent With Patient Time: Total time managing care of this patient today ____ minutes. Quality Stroke Does the patient have a stroke diagnosis?: No VTE Prior VTE?: No VTE Risk Level:: Medical - moderate - high VTE Device Contraindication: Treatment Not Indicated VTE Drug Contraindication: N/A - Med Ordered
[2023-02-19 15:31] VITALS: BP 104/54; PULSE 78; RESP 16; TEMP 37.1; O2SAT 97
[2023-02-19] MEDS: Enoxaparin Sodium 40 MG/0.4 ML SYRINGE SUBCUT (17:12)
[2023-02-19 19:44] VITALS: BP 104/52; PULSE 81; RESP 16; TEMP 36.8; O2SAT 95
[2023-02-20] VITALS (8 sets, daily range): BP systolic 90–113; BP diastolic 51–57; PULSE 69–83; RESP 16–18; TEMP 36.4–36.8; O2SAT 75–99
[2023-02-20] MEDS: Acetaminophen 325 MG TABLET 650 MG PO (02:19)
[2023-02-20] MEDS: oxyCODONE HCl Immed Release 5 MG TABLET 10 MG PO ×3 (02:20→18:00)
--- NOTE | 2023-02-20 07:00 | CA_ITS ---
Transthoracic Echocardiogram Patient (Last, First, Middle): Nick Soto, Gender: Male Date of : 1950 Age: 72 Procedure Date: 02/20/2023 Procedure Type: Transthoracic Echocardiogram Location: S3E Height: 165.1 cm Weight: 58.97 kg BSA: 1.65 m2 Heart Rate: 74 bpm BP: 95 / 53 mmHg Heavy Line Technician: SB Referring MD: Hernan Peoples MD Symptoms: syncope 3v disease on ct Study Quality: Technically Difficult ECG Rhythm: Sinus Conclusions: - Normal left ventricular size, thickness, systolic function, and wall motion. The visually estimated ejection fraction is between 60-65%. - Moderately increased right ventricular cavity size. There is normal right ventricular systolic function. - The left atrium is mildly dilated. - There is mild dilatation of the ascending aorta measuring 3.70 cm. Findings Procedure Information The quality of the study was technically difficult. The study quality is limited by patients body habitus. Left Ventricle Normal left ventricular size, thickness, systolic function, and wall motion. The visually estimated ejection fraction is between 60-65%. Diastolic function is normal for age. Right Ventricle Moderately increased right ventricular cavity size. There is normal right ventricular systolic function. Atria The left atrium is mildly dilated. There is no evidence of interatrial shunt by color Doppler. The right atrium is moderately dilated. Aortic Valve The aortic valve was not well visualized. There is no aortic valve stenosis. There is no aortic valve regurgitation. Mitral Valve Likely normal mitral valve structure and function. There is no mitral valve regurgitation. There is no mitral valve stenosis. Pulmonic Valve The pulmonic valve was not well visualized. Tricuspid Valve Likely normal tricuspid valve structure and function. Normal right atrial pressure. There is no evidence of pulmonary hypertension. Great Vessels The pulmonary artery was not well visualized. There is mild dilatation of the ascending aorta measuring 3.70 cm. Venous The inferior vena cava is normal in size and collapses greater than 50% with inspiration. Pericardium/Pleural There is no evidence of pericardial effusion. Prior Study Comparison No prior study available for comparison. Measurements 2D Linear Measurements IVSd: 1.09 0.6-0.9/0.6-1.0 cm LVIDd: 4.87 3.9-5.3/4.2-5.9 cm LVIDd Index: 2.95 2.4-3.2/2.2-3.1 cm/m2 LVIDs: 2.80 2.0-3.6 cm LVPWd: 0.71 0.7-1.1 cm LA Diam: 3.70 2.7-3.8/3.0-4.0 cm LAIDs Index: 2.24 1.5-2.3 cm/m2 LV Mass: 187.80 67-162/88-224 g LV Mass Index: 113.82 43-95/49-115 g/m2 LVOT Diam: 2.20 3.0+(-)1.3 cm Mitral Valve MV Pk E: 0.79 MV PK A: 0.46 MV Decel Time: 148.00 E/A: 1.70 E'Lateral: 11.60 E'Medial: 10.00 E/E' Med: 7.90 E/E' Lat: 6.80 PHT: 43.00 MVA PHT: 5.12 Decel [place]: 5.34 Aortic Valve AoV Pk El: 1.70 AoV Mn El: 1.16 AoV VTI: 0.32 AoV Pk Grad: 12.00 Aov Mn Grad: 6.00 SHALA Cont.VTI: 1.61 LVOT LVOT Pk El: 0.65 LVOT Mn El: 0.48 LVOT VTI: 0.14 LVOT Pk Grad: 2.00 LVOT Mn Grad: 1.00 LVOT Diam: 2.20 LVOT Area: 3.80 Diastolic Function MV Pk E: 0.79 MV Pk A: 0.46 E/A: 1.70 E'Medial: 10.00 E/E' Med: 7.90 E' Laterial: 11.60 E/E' Lat: 6.80 Right Ventricle TAPSE (mm): 25.30 TVS' El: 16.20 Tricuspid Valve TR Pk El: 2.10 TR Pk Grad: 18.00 RA Press: 8.00 RVSP: 26.00 Great Vessels Aorta Sinus of Valsalva: 3.90 2.0-3.5 cm Ao Asc: 3.70 2.1-3.4 cm Pulmonary Valve PV Pk El: 0.91 Peak PV Grad: 3.00 Updated in Other Vendor System with Status of Final Dung Chapa MD electronically signed on 02/20/2023 4:57:27 PM with status of Final
[2023-02-20] MEDS: Morphine Sulfate ER 30 MG TABLET.ER PO ×2 (09:24→19:57)
[2023-02-20] MEDS: Docusate Sodium 100 MG CAPSULE PO ×2 (09:24→19:57)
[2023-02-20] MEDS: Midodrine HCl 2.5 MG TABLET 7.5 MG PO ×3 (09:24→18:00)
[2023-02-20] MEDS: Fludrocortisone Acetate 0.1 MG TABLET PO (09:25)
[2023-02-20] MEDS: Ammonium Lactate 12 % Lotion 226 GM BOTTLE 1 APPL TOPICAL ×2 (09:28→19:59)
--- NOTE | 2023-02-20 10:36 | HO.PM.IMPN ---
Subjective Subjective Date of Service: 02/20/23 Interval History: left hip pain Physical Exam Vital Signs: Vital Signs: Last Vital Signs Temp 98.3 F 02/20/23 07:27 Pulse 79 02/20/23 07:27 Resp 17 02/20/23 07:27 BP 95/53 L 02/20/23 07:27 Pulse Ox 97 02/20/23 07:27 O2 Del Method Room Air 02/20/23 07:27 BMI result Body Mass Index 21.7 Const: Other: Constitutional : alert, frail looking, malnourished, not in distress Neck : Normal inspection, Supple Cardiovascular : RRR, no JVP, no lower extremity edema Respiratory : good bilateral air entry,? no crackles, wheezes or rhonchi Gastrointestinal:? soft, lax, Normal bowel sounds, Non tender Skin : Warm, Dry, Left forearm chronic wound with muscle contacture exposed extensor carpi radialis muscle with fingers edema in Lt hand. no wrist movement. restricted movement of fingers. Bilateral LE with scales and dry skin with associated dermatitis Neurological : Alert & oriented to self and place, No focal deficit Objective Data Active Medications Acetaminophen (Acetaminophen 325 Mg Tablet) 650 mg PO Q6H PRN PRN Reason: Pain, Mild (Pain Scale 1-3) Last Admin: 02/20/23 02:19 Dose: 650 mg Documented By: KIMBERLEY Docusate Sodium (Docusate Sodium 100 Mg Capsule) 100 mg PO BID [facility] Last Admin: 02/20/23 09:24 Dose: 100 mg Documented By: FAB Enoxaparin Sodium (Enoxaparin Sodium 40 Mg/0.4 Ml Syringe) 40 mg SUBCUT Q24H [facility] Last Admin: 02/19/23 17:12 Dose: 40 mg Documented By: AMEYA Fludrocortisone Acetate (Fludrocortisone Acetate 0.1 Mg Tablet) 0.1 mg PO DAILY [facility] Last Admin: 02/20/23 09:25 Dose: 0.1 mg Documented By: FAB Lactic Acid (Ammonium Lactate 12 % Lotion 226 Gm Bottle) 1 appl TOPICAL BID [facility]; Protocol Last Admin: 02/20/23 09:28 Dose: 1 appl Documented By: FAB Midodrine (Midodrine Hcl 2.5 Mg Tablet) 7.5 mg PO TIDWM [facility] Last Admin: 02/20/23 09:24 Dose: 7.5 mg Documented By: FAB Morphine Sulfate (Morphine Sulfate Er 30 Mg Tablet.Er) 30 mg PO Q12H [facility] Last Admin: 02/20/23 09:24 Dose: 30 mg Documented By: FAB Ondansetron HCl (Ondansetron Hcl 4 Mg/2 Ml Vial) 4 mg IVPUSH Q8H PRN PRN Reason: Nausea and Vomiting Sodium Chloride (0.9 % Sodium Chloride Flush 3 Ml Syringe) 3 ml IVFLUSH QSHIFT [facility] Last Admin: 02/20/23 09:25 Dose: Not Given Documented By: FAB Non-Admin Reason: No Access Labs 02/18/23 08:16 02/13/23 07:02 Assessment and Plan (1) Multiple falls: Status: Acute (2) Physical deconditioning: Status: Acute Plan 72M PMH drug abuse, chronic wound presented to ED by EMS for multiple falls and syncopal episodes. Syncope and falls due to orthostatic hypotension complicated by acute left greater trochanteric fracture (present on initial CT) ortho eval Midodrine florinef 0.1mg daily cad seen on CT check echo isolated low grade fever 02/08/23 monitor off abx, no further fevers Adult FFT , moderatly malnourished, physical deconditioning ensure Left forearm chronic wound and muscle contraction Xeroform dressing 7th rib fracture pain management Hypokalemia replacement given Constipation Disimpacted in ED bowel regimen DVT PPx lovenox reason for continued hospitalization: hip fracture Time Spent With Patient Time: Total time managing care of this patient today ____ minutes. Quality Stroke Does the patient have a stroke diagnosis?: No VTE Prior VTE?: No VTE Risk Level:: Medical - moderate - high VTE Device Contraindication: Treatment Not Indicated VTE Drug Contraindication: N/A - Med Ordered
--- NOTE | 2023-02-20 11:09 | PM.CNOR ---
History of Present Illness HPI Consult date: 02/20/23 Chief complaint: falls Narrative: Mr. Soto is a 72 yo male who presented on 01/30/23 to the ED with PMH drug abuse, chronic wound to the left forearm presented to ED by EMS for multiple falls and syncopal episodes. The patient report having difficulties taking care of himself at home as his brother is not around to assist. He is stating that he had multiple falls with pain all over his body mainly in ribs, hips. He reported that states that he lost his consciousness on many occasions just prior to falls and wakes up after hitting the floor associated with lightheadedness. has been taking muscle relaxant at home. He looks disheveled with poor skin care.?He reports that over the last several weeks he began using a cane and then progressed to a walker. Prior to his admission he did not use any assistive devices to ambulate. Review of Systems Review of Systems: Yes all other systems are reviewed and are negative PMFSH Past Medical History Medical History Adult failure to thrive Chronic disease anemia Contracture of muscle, left forearm Drug abuse Social History Social History Household Members: None Housing: House Housing Other:: living in a hotel Do you presently have visiting nurse or other home services: No Alcohol intake: unknown Patient Tobacco Use Status: Never used Tobacco Meds Allergies Allergy/AdvReac Type Severity Reaction Status Date / Time Penicillins Allergy Severe Swelling Verified 02/19/23 08:58 Active Medications: Current Medications Acetaminophen (Acetaminophen 325 Mg Tablet) 650 mg PO Q6H PRN PRN Reason: Pain, Mild (Pain Scale 1-3) Last Admin: 02/20/23 02:19 Dose: 650 mg Docusate Sodium (Docusate Sodium 100 Mg Capsule) 100 mg PO BID [facility] Last Admin: 02/20/23 09:24 Dose: 100 mg Enoxaparin Sodium (Enoxaparin Sodium 40 Mg/0.4 Ml Syringe) 40 mg SUBCUT Q24H [facility] Last Admin: 02/19/23 17:12 Dose: 40 mg Fludrocortisone Acetate (Fludrocortisone Acetate 0.1 Mg Tablet) 0.1 mg PO DAILY [facility] Last Admin: 02/20/23 09:25 Dose: 0.1 mg Lactic Acid (Ammonium Lactate 12 % Lotion 226 Gm Bottle) 1 appl TOPICAL BID [facility]; Protocol Last Admin: 02/20/23 09:28 Dose: 1 appl Midodrine (Midodrine Hcl 2.5 Mg Tablet) 7.5 mg PO TIDWM [facility] Last Admin: 02/20/23 09:24 Dose: 7.5 mg Morphine Sulfate (Morphine Sulfate Er 30 Mg Tablet.Er) 30 mg PO Q12H [facility] Last Admin: 02/20/23 09:24 Dose: 30 mg Ondansetron HCl (Ondansetron Hcl 4 Mg/2 Ml Vial) 4 mg IVPUSH Q8H PRN PRN Reason: Nausea and Vomiting Sodium Chloride (0.9 % Sodium Chloride Flush 3 Ml Syringe) 3 ml IVFLUSH QSHIFT [facility] Last Admin: 02/20/23 09:25 Dose: Not Given Home Medications Medication Instructions Recorded Confirmed Last Taken Type carisoprodol 350 mg tablet 700 mg PO TID PRN Pain 12/30/22 01/30/23 Unknown History oxycodone-acetaminophen 5 mg-325 1 tab PO QID PRN Pain 01/30/23 01/30/23 Unknown History mg tablet Physical Exam Vital Signs: Vital Signs: Last Vital Signs Temp 98.3 F 02/20/23 07:27 Pulse 79 02/20/23 07:27 Resp 17 02/20/23 07:27 BP 95/53 L 02/20/23 07:27 Pulse Ox 97 02/20/23 07:27 O2 Del Method Room Air 02/20/23 07:27 BMI result Body Mass Index 21.7 Const: General: cooperative, healthy appearing and no acute distress Resp: Effort & Inspection: normal respiratory effort and able to speak in complete sentences Cardio: Rate: regular rate Peripheral pulses: Peripheral pulses 2+ throughout GI: Palpation (GI): Soft to palpation Skin: Lesions: no lesions Rashes: no rashes Extrem: Other: Left hip tenderness to palpation over the greater troch. Hip is held in flexed position. Pain with motion. NVI. Results Labs 02/18/23 08:16 02/13/23 07:02 Labs: H & H 01/30/23 02/13/23 02/14/23 Range/Units 12:43 07:02 10:56 Hgb 8.7 L 7.7 L Cancelled (14.0-18.0) g/dl Hct 27.9 L 25.1 L Cancelled (42.0-52.0) % 02/15/23 02/18/23 Range/Units 08:51 08:16 Hgb 8.0 L 8.0 L (14.0-18.0) g/dl Hct 25.6 L 26.2 L (42.0-52.0) % Coagulation 01/30/23 Range/Units 12:43 INR 1.1 (0.9-1.1) All other labs normal. Assessment and Plan (1) Postural hypotension: Status: Acute (2) Adult failure to thrive: Status: Acute (3) Multiple falls: Status: Acute (4) Syncope: Status: Acute (5) Closed rib fracture: Status: Acute (6) Physical deconditioning: Status: Acute (7) Acute hypokalemia: Status: Acute (8) Hip fracture, left: Status: Acute No surgical intervention needed at this time WBAT with walker P.T. Gait training No additional orthopedic intervention needed at this time May f/u out patient once discharged Time Spent With Patient Time: Total time managing care of this patient today ____ minutes. Procedures Date of Service Date of Service: 02/20/23
--- NOTE | 2023-02-20 11:57 | MHC.CLN ---
F/U PO INTAKE 75-100% DIET RX: REGULAR-APPROPRIATE PT RECEIVING ENSURE TID PROVIDES 1050KCALS, 60G PROTEIN WITH 100% ACCEPTANCE ENCOURAGE SUPPLEMENT TO PROMOTE WT GAIN AND WOUND HEALING WOUNDS: STAGE II TO COCCYX, STAGE II TO MEDIAL BACK CONTINUE TO MONITOR PO INTAKE AND WOUND HEALING
[2023-02-20] MEDS: Enoxaparin Sodium 40 MG/0.4 ML SYRINGE SUBCUT (18:00)
[2023-02-21] VITALS (7 sets, daily range): BP systolic 90–111; BP diastolic 52–64; PULSE 75–85; RESP 16–18; TEMP 36.3–36.8; O2SAT 94–97
[2023-02-21] MEDS: oxyCODONE HCl Immed Release 5 MG TABLET 10 MG PO ×2 (03:45→13:49)
[2023-02-21 06:28] LABS: Hematocrit 26.7 % (42.0-52.0); Hemoglobin 8.1 g/dl (14.0-18.0); Mean Corpuscular HGB Conc 30.3 g/dl (31.0-36.0); Mean Corpuscular Hemoglobin 28.5 pg (27.0-33.0); Mean Platelet Volume 8.9 fL (9.4-12.4); Platelet Count 321 X10*3/uL (160-400); Red Blood Count 2.84 X10*6/uL (4.60-5.80); Red Cell Distribution Width 21.8 % (11.0-16.0); White Blood Count 3.9 X10*3/uL (4.8-10.8)
[2023-02-21 06:44] LABS: Anion Gap 7 (12-20); Blood Urea Nitrogen 19 mg/dL (9-16); Calcium 8.6 mg/dL (8.4-10.2); Carbon Dioxide 29 mmol/L (22-29); Chloride 108 mmol/L (96-108); Creatinine Clr Calc Pharmacy 84.6; Estimated Glomerular Filt Rate > 60; Glucose Fasting 87 mg/dL (60-99); Potassium 4.3 mmol/L (3.3-5.1); Sodium 140 mmol/L (135-145)
--- NOTE | 2023-02-21 07:29 | P.CDIM_ITS ---
PROVIDER RESPONSE TEXT: To clarify, the appropriate diagnosis supported by the clinical indicators: Traumatic QUERY TEXT: PHYSICIAN'S DOCUMENTATION REQUEST Date of Query: 02/21/2023 07:02 AM EDT Patient Name: Nick Soto Admit Date: 01/30/2023 Dear Hernan Peoples, A review of the medical record indicates additional documentation may be needed. Please review below and update the documentation accordingly. Clinical Indicators: Per CT Pelvis 02/20/23: The bones are osteopenic. There is a recent appearing comminuted displaced fracture of the left greater trochanter. Per Hospitalist Progress Note 02/20/23: acute left greater trochanteric fracture Per Orthopedic Consultation 02/20/23: presented to ED by EMS for multiple falls and syncopal episodes. No surgical intervention needed at this time WBAT with walker P.T. Gait training No additional orthopedic intervention needed at this time May f/u out patient once discharged Please provide the following additional clarification regarding the fracture Etiology and Type: Traumatic Pathologic due to osteopenia Pathologic due to other disease (please specify) Other (explain)Clinically unable to determine (explain)Thank you, Marianna Palmer RN Use of terms such as suspected, likely, concern for, or probable (associated with a specific diagnosi s that is being evaluated, monitored, or treated as if it exists) are acceptable and can be coded in the inpatient se tting, when documented at the time of discharge. Please use your independent medical judgment in providing your response. THIS QUERY IS PART OF THE PERMANENT MEDICAL RECORD
[2023-02-21] MEDS: Midodrine HCl 2.5 MG TABLET 7.5 MG PO ×3 (07:58→17:01)
[2023-02-21] MEDS: Docusate Sodium 100 MG CAPSULE PO ×2 (07:59→19:52)
[2023-02-21] MEDS: Fludrocortisone Acetate 0.1 MG TABLET PO (07:59)
[2023-02-21] MEDS: Ammonium Lactate 12 % Lotion 226 GM BOTTLE 1 APPL TOPICAL ×2 (08:04→19:52)
[2023-02-21] MEDS: Morphine Sulfate ER 30 MG TABLET.ER PO ×2 (09:09→19:52)
--- NOTE | 2023-02-21 10:29 | HO.PM.IMPN ---
Subjective Subjective Date of Service: 02/21/23 Interval History: pain Physical Exam Vital Signs: Vital Signs: Last Vital Signs Temp 97.3 F 02/21/23 07:31 Pulse 85 02/21/23 08:50 Resp 18 02/21/23 08:50 BP 99/55 L 02/21/23 08:50 Pulse Ox 97 02/21/23 07:31 O2 Del Method Room Air 02/21/23 07:31 BMI result Body Mass Index 21.7 Const: General: cooperative, healthy appearing and no acute distress Resp: Effort & Inspection: normal respiratory effort and able to speak in complete sentences Cardio: Rate: regular rate Peripheral pulses: Peripheral pulses 2+ throughout GI: Palpation (GI): Soft to palpation Skin: Lesions: no lesions Rashes: no rashes Extrem: Other: Left hip tenderness to palpation over the greater troch. Hip is held in flexed position. Pain with motion. NVI. Objective Data Active Medications Acetaminophen (Acetaminophen 325 Mg Tablet) 650 mg PO Q6H PRN PRN Reason: Pain, Mild (Pain Scale 1-3) Last Admin: 02/20/23 02:19 Dose: 650 mg Documented By: KIMBERLEY Docusate Sodium (Docusate Sodium 100 Mg Capsule) 100 mg PO BID [facility] Last Admin: 02/21/23 07:59 Dose: 100 mg Documented By: STEFANI Enoxaparin Sodium (Enoxaparin Sodium 40 Mg/0.4 Ml Syringe) 40 mg SUBCUT Q24H [facility] Last Admin: 02/20/23 18:00 Dose: 40 mg Documented By: MELBA Fludrocortisone Acetate (Fludrocortisone Acetate 0.1 Mg Tablet) 0.1 mg PO DAILY [facility] Last Admin: 02/21/23 07:59 Dose: 0.1 mg Documented By: STEFANI Lactic Acid (Ammonium Lactate 12 % Lotion 226 Gm Bottle) 1 appl TOPICAL BID [facility]; Protocol Last Admin: 02/21/23 08:04 Dose: 1 appl Documented By: STEFANI Midodrine (Midodrine Hcl 2.5 Mg Tablet) 7.5 mg PO TIDWM [facility] Last Admin: 02/21/23 07:58 Dose: 7.5 mg Documented By: STEFANI Morphine Sulfate (Morphine Sulfate Er 30 Mg Tablet.Er) 30 mg PO Q12H [facility] Last Admin: 02/21/23 09:09 Dose: 30 mg Documented By: STEFANI Ondansetron HCl (Ondansetron Hcl 4 Mg/2 Ml Vial) 4 mg IVPUSH Q8H PRN PRN Reason: Nausea and Vomiting Oxycodone HCl (Oxycodone Hcl Immed Release 5 Mg Tablet) 10 mg PO Q4H PRN PRN Reason: moderate pain Last Admin: 02/21/23 03:45 Dose: 10 mg Documented By: CASTAYDEN Sodium Chloride (0.9 % Sodium Chloride Flush 3 Ml Syringe) 3 ml IVFLUSH QSHIFT [facility] Last Admin: 02/21/23 07:59 Dose: 3 ml Documented By: STEFANI Labs 02/21/23 05:15 02/21/23 05:15 Labs: Laboratory Results - last 24 hr 02/21/23 02/21/23 05:15 05:15 MCV 94.0 MCH 28.5 MCHC 30.3 L RDW 21.8 H Plt Count 321 MPV 8.9 L Absolute Nucleated RBC 0.000 Nucleated RBC % (auto) 0.0 Anion Gap 7 L Estim Creat Clear Calc 84.6 Estimated GFR > 60 Fasting Glucose 87 Calcium 8.6 Assessment and Plan (1) Multiple falls: Status: Acute (2) Physical deconditioning: Status: Acute Plan 72M PMH drug abuse, chronic wound presented to ED by EMS for multiple falls and syncopal episodes. Syncope and falls due to orthostatic hypotension Midodrine florinef 0.1mg daily appears dry on echo, refusing ivf, continue to encourage po left greater trochanteric fracture (present on initial CT) ortho appreciated WBAT cad seen on CT no rWMA on echo Adult FFT , moderatly malnourished, physical deconditioning ensure Left forearm chronic wound and muscle contraction Xeroform dressing 7th rib fracture pain management Hypokalemia replacement given Constipation Disimpacted in ED bowel regimen DVT PPx lovenox reason for continued hospitalization: awaiting placement Time Spent With Patient Time: Total time managing care of this patient today ____ minutes. Quality Stroke Does the patient have a stroke diagnosis?: No VTE Prior VTE?: No VTE Risk Level:: Medical - moderate - high VTE Device Contraindication: Treatment Not Indicated VTE Drug Contraindication: N/A - Med Ordered
--- NOTE | 2023-02-21 16:28 | MHC.CM.PN ---
[facility] IS OFFERING PT A BED PENDING [facility] THEY WILL OBTAIN AUTH TOMORROW
[2023-02-21] MEDS: Enoxaparin Sodium 40 MG/0.4 ML SYRINGE SUBCUT (17:02)
[2023-02-22] VITALS (9 sets, daily range): BP systolic 94–112; BP diastolic 48–59; PULSE 70–85; RESP 18; TEMP 36.1–36.4; O2SAT 93–96
[2023-02-22] MEDS: oxyCODONE HCl Immed Release 5 MG TABLET 10 MG PO ×2 (03:48→11:30)
[2023-02-22] MEDS: Fludrocortisone Acetate 0.1 MG TABLET PO (08:07)
[2023-02-22] MEDS: Docusate Sodium 100 MG CAPSULE PO (08:07)
[2023-02-22] MEDS: Morphine Sulfate ER 30 MG TABLET.ER PO (08:07)
[2023-02-22] MEDS: Midodrine HCl 2.5 MG TABLET 7.5 MG PO ×3 (08:08→16:53)
[2023-02-22] MEDS: Ammonium Lactate 12 % Lotion 226 GM BOTTLE 1 APPL TOPICAL (08:16)
--- NOTE | 2023-02-22 08:23 | P.PNIM_ITS ---
Subjective Subjective Date of Service: 02/22/23 Interval History: pain Physical Exam Vital Signs: Vital Signs: Last Vital Signs Temp 97.5 F 02/22/23 07:10 Pulse 78 02/22/23 07:10 Resp 18 02/22/23 07:10 BP 97/48 L 02/22/23 07:10 Pulse Ox 96 02/22/23 07:10 O2 Del Method Room Air 02/22/23 07:10 BMI result Body Mass Index 21.7 Const: General: cooperative, healthy appearing and no acute distress Resp: Effort & Inspection: normal respiratory effort and able to speak in complete sentences Cardio: Rate: regular rate Peripheral pulses: Peripheral pulses 2+ throughout GI: Palpation (GI): Soft to palpation Skin: Lesions: no lesions Rashes: no rashes Extrem: Other: Left hip tenderness to palpation over the greater troch. Hip is held in flexed position. Pain with motion. NVI. Objective Data Active Medications Acetaminophen (Acetaminophen 325 Mg Tablet) 650 mg PO Q6H PRN PRN Reason: Pain, Mild (Pain Scale 1-3) Last Admin: 02/20/23 02:19 Dose: 650 mg Documented By: KIMBERLEY Docusate Sodium (Docusate Sodium 100 Mg Capsule) 100 mg PO BID [facility] Last Admin: 02/22/23 08:07 Dose: 100 mg Documented By: STEFANI Enoxaparin Sodium (Enoxaparin Sodium 40 Mg/0.4 Ml Syringe) 40 mg SUBCUT Q24H [facility] Last Admin: 02/21/23 17:02 Dose: 40 mg Documented By: STEFANI Fludrocortisone Acetate (Fludrocortisone Acetate 0.1 Mg Tablet) 0.1 mg PO DAILY [facility] Last Admin: 02/22/23 08:07 Dose: 0.1 mg Documented By: STEFANI Lactic Acid (Ammonium Lactate 12 % Lotion 226 Gm Bottle) 1 appl TOPICAL BID [facility]; Protocol Last Admin: 02/22/23 08:16 Dose: 1 appl Documented By: STEFANI Midodrine (Midodrine Hcl 2.5 Mg Tablet) 7.5 mg PO TIDWM [facility] Last Admin: 02/22/23 08:08 Dose: 7.5 mg Documented By: STEFANI Morphine Sulfate (Morphine Sulfate Er 30 Mg Tablet.Er) 30 mg PO Q12H [facility] Last Admin: 02/22/23 08:07 Dose: 30 mg Documented By: STEFANI Ondansetron HCl (Ondansetron Hcl 4 Mg/2 Ml Vial) 4 mg IVPUSH Q8H PRN PRN Reason: Nausea and Vomiting Oxycodone HCl (Oxycodone Hcl Immed Release 5 Mg Tablet) 10 mg PO Q4H PRN PRN Reason: moderate pain Last Admin: 02/22/23 03:48 Dose: 10 mg Documented By: KIMBERLEY Sodium Chloride (0.9 % Sodium Chloride Flush 3 Ml Syringe) [facility] Last Admin: 02/22/23 08:16 Dose: Not Given Documented By: SETFANI Non-Admin Reason: No Access Labs 02/21/23 05:15 02/21/23 05:15 Assessment and Plan (1) Multiple falls: Status: Acute (2) Physical deconditioning: Status: Acute Plan 72M PMH drug abuse, chronic wound presented to ED by EMS for multiple falls and syncopal episodes. Syncope and falls due to orthostatic hypotension Midodrine florinef 0.1mg daily appears dry on echo, refusing ivf, continue to encourage po left greater trochanteric fracture (present on initial CT) ortho appreciated WBAT cad seen on CT no rWMA on echo Adult FFT , moderatly malnourished, physical deconditioning ensure Left forearm chronic wound and muscle contraction Xeroform dressing 7th rib fracture pain management Hypokalemia replacement given Constipation Disimpacted in ED bowel regimen DVT PPx lovenox reason for continued hospitalization: awaiting placement Time Spent With Patient Time: Total time managing care of this patient today ____ minutes. Quality Stroke Does the patient have a stroke diagnosis?: No VTE Prior VTE?: No VTE Risk Level:: Medical - moderate - high VTE Device Contraindication: Treatment Not Indicated VTE Drug Contraindication: N/A - Med Ordered
--- NOTE | 2023-02-22 09:56 | MHC.CM.PN ---
Addendum entered by Olive Wang 02/22/23 15:51: [facility] RECE[facility] FOR [id number] HOURS PT PROVIDED WITH A SHIRT AND JACKET HE HAD NONE HE IS AWARE OF TRANSPORT TIME Original Note: PT HAS A BED OFFER AT [facility]IAISON IS CURRENTLY WORKING ON OBTAINING [facility]
--- NOTE | 2023-02-22 10:12 | MHC.CLN ---
F/U PO INTAKE 75-100% DIET RX: REGULAR-APPROPRIATE PT RECEIVING ENSURE TID PROVIDES 1050KCALS, 60G PROTEIN WITH 100% ACCEPTANCE ENCOURAGE SUPPLEMENT TO PROMOTE WT GAIN AND WOUND HEALING WOUNDS: STAGE II TO COCCYX, STAGE II TO MEDIAL BACK CONTINUE TO MONITOR PO INTAKE AND WOUND HEALING. RD TO FOLLOW WEEKLY.
[2023-02-22] MEDS: bisacodyL 5 MG TABLET.DR 10 MG PO (11:42)
--- NOTE | 2023-02-22 15:38 | P.DS_ITS ---
DS: Providers Provider Date of Service: 02/22/23 Date of admission: 01/30/23 16:23 Primary care physician: Rivera Isaac MD Consults: 01/31/23 08:09 Addiction Medicine Routine Consulting Provider: Addiction Covering Reason for consultation: falls, +ve for Fentanyl , eval and rec. 02/07/23 22:05 Consult to Wound Care Routine Consulting Provider: Ileana Payne Reason for consultation: pressure injury stage 2 to coccyx and mid upper back, left wrist chronic wo 02/20/23 09:07 Consult to Orthopedics Routine Consulting Provider: [facility] Reason for consultation: left hip fracture DS: Diagnosis Discharge Diagnosis (1) Multiple falls: Status: Acute (2) Physical deconditioning: Status: Acute DS: Summary Hospital Course Hospital Course: from initial hpi: 72 years old male with PMH drug abuse, chronic wound presented to ED by EMS for multiple falls and syncopal episodes over the last few days. The patient report having difficulties taking care of hisself at home as his brother is not around. He is stating that he had multiple falls with pain all over his body mainly in ribs, hips. states that he lost his consciousness on man y occasions just prior to falls and wakes up after hitting the floor associated with lightheadedness. has been taking muscle relaxant at home. He looks disheveled with poor skin care.? XR showed right 7th rib fracture. BMP showed low potassium level. Admitted for further eval and treatment. hospital course: Patient was admitted for syncope and falls due to orthostatic hypotension. His muscle relaxants were held. He was given IV fluids. He was started on midodrine and Florinef. He should still continue orthostatic precautions. For adult failure thrive and moderate malnutrition ensure was added to his diet. Patient's falls were complicated by left greater trochanteric fracture, was seen by orthopedics recommended conservative management, weight-bearing as tolerated. Patient was noted to have coronary disease seen on CT, echo was done which showed no regional wall motion abnormality. This can be followed up as outpatient. He had hypokalemia that was replaced. [facility] Time Spent with Patient Time attestation: Total time managing care of this patient today ____ minutes. Discharge coordination time: Greater than 30 minutes Quality: Safe Use of Opioids Does Pt have an Active Cancer Diagnosis on the Problem List?: No Quality: Stroke Does the patient have a stroke diagnosis?: No Physical Exam Vital Signs: Vital Signs: Last Vital Signs Temp 96.9 F 02/22/23 15:20 Pulse 85 02/22/23 15:27 Resp 18 02/22/23 15:20 BP 112/59 L 02/22/23 15:27 Pulse Ox 93 02/22/23 15:20 O2 Del Method Room Air 02/22/23 15:20 BMI result Body Mass Index 21.7 Const: General: cooperative, healthy appearing and no acute distress Resp: Effort & Inspection: normal respiratory effort and able to speak in complete sentences Cardio: Rate: regular rate Peripheral pulses: Peripheral pulses 2+ throughout GI: Palpation (GI): Soft to palpation Skin: Lesions: no lesions Rashes: no rashes Extrem: Other: Left hip tenderness to palpation over the greater troch. Hip is held in flexed position. Pain with motion. NVI. DS: Data Data Completed and Pending Completed studies during hospitalization [Text1]: Procedures Extirpation of Matter from Rectum, Via Natural or Artificial Opening (12/30/22) Insertion of Infusion Device into Upper Vein, Percutaneous Approach (12/30/22) Discharge Plan Discharge Anticipated Discharge Date/Time: 02/22/23 15:35 Patient Disposition: Xfer SNF Discharge Diagnosis: falls, hip fracture Referrals: Rivera Isaac MD [Primary Care Provider] - 1 Week Discharge Medications: New midodrine 2.5 mg Tablet 7.5 mg PO TIDWM Qty: 0 0RF fludrocortisone 0.1 mg Tablet 0.1 mg PO DAILY Qty: 0 0RF oxycodone 5 mg Tablet 10 mg PO Q4H PRN (Reason: moderate pain) Qty: 15 0RF Rx Instructions: Partial Fill upon patient request. Continued morphine 30 mg tablet extended release 30 mg PO BID Qty: 20 0RF Discontinued carisoprodol 350 mg tablet 700 mg PO TID PRN (Reason: Pain) oxycodone-acetaminophen 5-325 mg tablet 1 tab PO QID PRN (Reason: Pain) Discharge Orders: Discharge Order (Routine); Ordered 02/22/23 Ordered By: Hernan Peoples Diet: Advance to usual diet Activity on Discharge: As tolerated Stand Alone Forms: Patient Portal Discharge page Care Plan Goals: recovery Health Concerns: hypotension, falls Plan of Treatment: med changes as prescribed, orthostatic precautions, rehab Assessment: see above
[2023-02-22] MEDS: Enoxaparin Sodium 40 MG/0.4 ML SYRINGE SUBCUT (16:52)
== END 2023-02-22 18:45 | disposition skilled nursing facility (03) | DRG 207 ==
LOC: HO.ED 13:49 → HO.EDOVER 16:33 → HO.IMC 01-31 12:03 → HO.S3 02-18 17:43
PROVIDERS: Physician Assistant; Admitting Provider Student in an Organized Health Care Education/Training Program; Emergency Provider Student in an Organized Health Care Education/Training Program; PCP Internal Medicine; Visit Provider Internal Medicine
DX: I95.2 Hypotension due to drugs (principal); E44.0 Moderate protein-calorie malnutrition; S72.142A Displaced intertrochanteric fracture of left femur, initial encounter for closed fracture; L89.152 Pressure ulcer of sacral region, stage 2; T48.205A Adverse effect of unspecified drugs acting on muscles, initial encounter; S22.31XA Fracture of one rib, right side, initial encounter for closed fracture; K59.00 Constipation, unspecified; W19.XXXA Unspecified fall, initial encounter; M62.432 Contracture of muscle, left forearm; R29.6 Repeated falls; L98.499 Non-pressure chronic ulcer of skin of other sites with unspecified severity; E87.6 Hypokalemia; I25.10 Atherosclerotic heart disease of native coronary artery without angina pectoris; R62.7 Adult failure to thrive; Z20.822 Contact with and (suspected) exposure to COVID-19; Z68.21 Body mass index [BMI] 21.0-21.9, adult; Z88.0 Allergy status to penicillin; Z59.01 Sheltered homelessness; Z79.899 Other long term (current) drug therapy
CPT/HCPCS: 0241U; 36415; 70450; 71250; 72125; 72192; 73502; 74176; 80048; 80076; 80307; 81001; 82533; 82550; 83605; 83690; 83735; 84484; 85025; 85027; 85610; 87040; 93005; 93306; 97110; 97116; 97162; 97530; 99221; 99285; J1650; P9047; Q9957

== ENCOUNTER 2024-08-18 14:36 | Outpatient (REF) | payer BC, SELFPAY ==
--- NOTE | ~2024-08-18 | XR_ITS ---
EXAMINATION: XR CHEST CLINICAL INFORMATION: COUGH COMPARISON: 12/30/2022. TECHNIQUE: 2 views of the chest were obtained. FINDINGS: The cardiac, hilar, and mediastinal contours are normal. Aorta is calcified, uncoiled, and tortuous. The lungs are somewhat hyperaerated, however are clear bilaterally. Increased AP diameter of the thorax. There is mo pneumothorax or pleural effusion. There is no focal osseous or soft tissue abnormality. Spinal degenerative changes with mildly exaggerated kyphosis and scoliosis. XR/XR chest 2V IMPRESSION: No active pulmonary disease. Electronically signed by: Charli Holbrook MD 08/24/2024 02:16 PM JOSS
--- OUTSIDE RECORDS SUMMARY | 2024-08-25 14:59 | XMS_ITS | Continuity of Care Document ---
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 Name Role Phone Z-Converted, Provider Unavailable Unavailabl e Medications Medication Instructions Dosage Effective Dates (start - stop) Status Comments alprazolam 2 mg Tab 1 Two Times A Day As Needed for panic - Active bupropion HCl XL 150 mg 24 hr Tab 1 QD - Active Advance Directives Directive Yes / No Effective Date File Name No Information Encounters Encounter Description Practice Location Reason(s) For Visit Diagnoses Date Provider Providers Copied on Encounter [facility], [address], [place], [place], [id number], tel:[phone] 2 [facility] Major depressive affective disorder, recurrent episode, severe degree, without mention of psychotic behavior 6 Z-Convert ed Provider. . [facility], [address] [place] [address],[address], [place], [place], [id number], tel:[phone] 2 Converted Locations No Information 6 Z-Convert ed Provider. . Family History Family Member Type Diagnosis Age At Onset No Information Payers Payer name Insurance type Covered green party ID Authoriza tion(s) No Information Social [...]
== END 2024-08-18 14:37 | disposition home or self-care (01) ==
LOC: HO.HMGCX 14:36
PROVIDERS: PCP Internal Medicine; Visit Provider Internal Medicine
DX: R05.9 Cough, unspecified (principal)
CPT/HCPCS: 71046

== ENCOUNTER → 2024-08-18 14:42 | Outpatient (BNV) | payer BC, SELFPAY | PROVIDERS: PCP Internal Medicine; Visit Provider Radiology Diagnostic Radiology | DX: R05.9 Cough, unspecified (principal) | CPT/HCPCS: 71046 ==

== ENCOUNTER 2024-09-11 16:07 | Outpatient (REF) | payer BC, SELFPAY ==
--- NOTE | ~2024-09-11 | XR_ITS ---
CLINICAL HISTORY: PAIN Exam: AP, lateral, and open-mouth odontoid views of the cervical spine. Comparison: None. Findings: The lateral view only visualized to the C5 vertebral body. Therefore, there is incomplete radiographic clearance of the cervical spine. On the AP view, there is mild convex left lower cervical curvature. There appears to be hyperkyphosis within the midcervical spine. However, this is very poorly evaluated on this study. Bones are osteopenic. [id number]-[id number] degenerative changes evident within the visualized vertebral bodies. No obvious fracture prevertebral soft tissue swelling. Patient is edentulous. Impression: 1. Limited visualization of the cervical spine resulting in incomplete radiographic clearance. If there is clinical concern for fracture, repeat radiographs or CT of the cervical spine is suggested. 2. Osteopenia. 3. Scattered degenerative changes. This document has been electronically signed by: Jatin Barahona MD on 09/14/2024 20:36:43
--- NOTE | ~2024-09-11 | XR_ITS ---
CLINICAL HISTORY: PAIN Exam: AP, lateral, and swimmer's lateral view of the thoracic spine. Comparison: Cervical spine radiographs from same date. Findings: There is suboptimal visualization of the thoracic vertebral bodies on the lateral view. Bones are osteopenic. Mild convex left upper thoracic curvature with convex right lower thoracic curvature. There appears to be height loss throughout many of the thoracic vertebral bodies. However, this is suboptimally evaluated due to poor visualization. Swimmer's lateral view is also performed. This provides slightly better visualization of the mid aspect of the cervical spine than on the patient's dedicated cervical spine radiographs. However, the lower cervical spine and upper thoracic spine is not adequately visualized on the lateral view. Impression: Poor visualization of the thoracic vertebral bodies as fully discussed above. There appears to be multilevel vertebral body height loss within the midthoracic spine with associated osteopenia. However, this is not adequately evaluated. CT or MRI of the thoracic spine is suggested for further evaluation. This document has been electronically signed by: Jatin Barahona MD on 09/14/2024 20:38:43
== END 2024-09-11 16:08 | disposition home or self-care (01) ==
LOC: HO.HMGCX 16:07
PROVIDERS: PCP Internal Medicine; Visit Provider Internal Medicine
DX: M54.2 Cervicalgia (principal); M54.6 Pain in thoracic spine
CPT/HCPCS: 72040; 72070

== ENCOUNTER → 2024-09-11 16:20 | Outpatient (BNV) | payer BC, SELFPAY | PROVIDERS: PCP Internal Medicine; Visit Provider Radiology Diagnostic Radiology | DX: M85.88 Other specified disorders of bone density and structure, other site (principal) | CPT/HCPCS: 72040; 72070 ==

== ENCOUNTER 2024-10-23 14:27 | Outpatient (REF) | payer BC, SELFPAY | END 2024-10-23 14:28 | disposition home or self-care (01) | LOC: HO.CT 14:27 | PROVIDERS: PCP Internal Medicine; Visit Provider Internal Medicine | DX: S12.9XXA Fracture of neck, unspecified, initial encounter (principal) | CPT/HCPCS: 72125; 72128 ==

== ENCOUNTER → 2024-10-23 14:32 | Outpatient (BNV) | payer BC, SELFPAY | PROVIDERS: PCP Internal Medicine; Visit Provider Radiology Diagnostic Radiology | DX: M40.202 Unspecified kyphosis, cervical region (principal); M43.12 Spondylolisthesis, cervical region; M45.4 Ankylosing spondylitis of thoracic region | CPT/HCPCS: 72125; 72128 ==

== ENCOUNTER 2024-12-16 12:01 | Outpatient (REF) | payer BC, SELFPAY ==
--- NOTE | ~2024-12-16 | XR_ITS ---
EXAMINATION: XR CHEST 2 VIEWS HISTORY: COUGH. R/O PNEUMONIA COMPARISON: Comparison is made with the prior examination dated 08/18/2024. FINDINGS: PA and lateral views of the chest are submitted. There is subsegmental atelectasis at the left lung base. The right lung is clear. There is no pleural effusion, pneumothorax, or pulmonary vascular congestion. The heart is normal in size. The aorta is tortuous. There is degenerative disc disease of the spine. XR/XR chest 2V IMPRESSION: Subsegmental atelectasis at the left lung base. Electronically signed by: Bryce Robert MD 12/17/2024 07:01 AM EDT
--- OUTSIDE RECORDS SUMMARY | 2024-12-16 14:34 | XMS_ITS | Continuity of Care Document ---
Author Organization [facility] Address [address] [place] [address] Phone Care Team Providers Care Journeyman Apprentice Electricians Name Role Phone Z-Converted, Provider Unavailable Unavailabl [...] Diagnoses Date Provider Providers Copied on Encounter [facility], [address] [place] [address],[address], [place], [place], [id number], tel:[phone] 2 [facility] Major depressive affective disorder, recurrent episode, severe degree, without mention of psychotic behavior 6 Z-Convert ed Provider. . [facility], [address] [place] [address],[address], [place], [place], [id number], tel:[phone] 2 Converted Locations No Information 6 Z-Convert ed Provider. . Family History Family Member Type Diagnosis Age At Onset No Information Payers Payer name Insurance type Covered republican ID Authoriza tion(s) No Information Social History [...]
--- OUTSIDE RECORDS SUMMARY | 2024-12-16 14:34 | XMS_ITS | Clinical Summary ---
Author Organization [facility] Address [address] [place] [id number] Care Team Providers Care Deputy County Clerk Name Role Phone Rivera Isaac MD Primary Care Provider [phone] Social History Tobacco Use Types Packs/Day Years Used Date Smoking Tobacco: Never Assessed Sex and Gender Information Value Date Recorded Sex Assigned at Not on file Legal Sex Male 1:35 AM EST Gender Identity Not on file Sexual Orientation Not on file Plan of Treatment Health Maintenance Due Date Last Done Comments DTaP,Tdap,and Td Vaccines (1 - Tdap) 1971 Pneumococcal Vaccine: 50+ Ye ars (1 of 1 - PCV) 2002 Zoster Vaccines (1 of 2) 2002 Abdominal Aortic Aneurysm (A AA) Screen 08/19/2022 Cholesterol Screening (Lipid Panel) 08/19/2022 Colorectal Cancer Screening: Colonoscopy 08/19/2022 Depression Screening 08/19/2022 Falls Risk Assessment 08/19/2022 Hepatitis C Screening 08/19/2022 Social Influencers of Health Screening 08/19/2022 COVID-19 Vaccine ( - 2023-2 5 season) 2024 Influenza Vaccine (#1) 2024 RSV Immunization Adult Patie nts (1 - 1-dose 75+ series) 2027 HIB Vaccines Aged Out No longer eligi ble based on patient's age to complete this topic HPV Vaccines Aged Out No longer eligi ble based on patient's age to complete this topic Hepatitis A Vaccines Aged Out No long er eligible based on patient's age to complete this topic Hepatitis B Vaccines Aged Out No long er eligible based on patient's age to complete this topic IPV Vaccines Aged Out No longer eligi ble based on patient's age to complete this topic MMR Vaccines Aged Out No longer eligi ble based on patient's age to complete this topic Meningococcal ACWY Vaccine Aged Out N o longer eligible based on patient's age to complete this topic Meningococcal B Vacine Aged Out No lo nger eligible based on patient's age to complete this topic RSV Immunization Patients Un meliza 20 months Aged Out No longer eligible b ased on patient's age to complete this topic Varicella Vaccines Aged Out No longer eligible based on patient's age to complete this topic Advance Directives Documents on File Type Date Recorded Patient Customer Business Manager Expl anation Health Care Decision (hx) 04/29/2022 AD SON DIRECTIVE Health Care Decision (hx) 04/29/2022 AD SON DIRECTIVE Care Teams Deputy County Clerk Relationship Specialty Start Date End Date Rivera Isaac MD [address] [facility] [place] PCP - General Internal Medicine 05/03/22
== END 2024-12-16 12:02 | disposition home or self-care (01) ==
LOC: HO.HMGCX 12:01
PROVIDERS: PCP Internal Medicine; Visit Provider Internal Medicine
DX: R05.9 Cough, unspecified (principal)
CPT/HCPCS: 71046

== ENCOUNTER → 2024-12-16 12:38 | Outpatient (BNV) | payer BC, SELFPAY | PROVIDERS: PCP Internal Medicine; Visit Provider Radiology Diagnostic Radiology | DX: J98.11 Atelectasis (principal) | CPT/HCPCS: 71046 ==

== ENCOUNTER 2025-03-29 13:58 | Outpatient (AMB) | payer BC, SELFPAY ==
--- NOTE | 2025-03-29 14:00 | A.OFFPC_ITS ---
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 Please provide accessories for nebulizer machine prednisone 40 mg (2 x 20 mg) PO DAILY 7 days Tobacco use date assessed: 03/29/25 Fall risk assessment: No Falls in past year Last assessed Fall Risk: 03/29/25 Dental Screening Dental Screen Date: 03/29/25 Did you have a dental visit in the last 12 months?: No Did you have a dental problem in the last 6 months where you did not have access to dental care?: No Was dental information given to patient?: No HPI Establish care; persistent cough HPI Details The patient is a 74-year-old male presenting to establish a new primary care provider due to Dr. Luis F lopez. He would also like to discuss a persistent cough and asthma management. The persistent cough has been ongoing for approximately two to three weeks, with no known exposure to sick contacts. The patient denies smoking history and reports occasional mucus production. He experiences shortness of breath after physical activity, which is a known symptom of his asthma. The patient has a history of asthma and has been using an albuterol inhaler more frequently over the past two to three weeks due to the cough. He has not experienced any unintentional weight loss, hemoptysis, or significant changes in bowel habits. There is no recent history of blood work or physical examination, and the last chest x-ray was conducted in December. Social History - Denies smoking history and exposure to secondhand smoke - Lives alone and is independent in [facility] of daily living - Occasionally uses a cane for mobility [facility] Medical History Asthma Persistent cough Establishing care with new doctor, encounter for Cough Chronic disease anemia Contracture of muscle, left forearm Drug abuse Adult failure to thrive Family History Father No problems noted. Mother No problems noted. Social History Household Members: None Housing: House Housing Other:: living in a hotel Do you presently have visiting nurse or other home services: No Alcohol intake: current Alcohol intake frequency: does not drink Patient Tobacco Use Status: Never used Tobacco service: Yes Current occupational status: retired Cognitive needs: Yes (cane and walker) Hearing needs: No Vision needs: Yes (reading glasses) Questionnaire PHQ-9 Over the last 2 weeks, how often have you been bothered by any of the following problems? 1. Little interest or pleasure in doing things: not at all 2. Feeling down, depressed, or hopeless: not at all 3. Trouble falling or staying asleep, or sleeping too much: not at all 4. Feeling tired or having little energy: not at all 5. Poor appetite or overeating: not at all 6. Feeling bad about yourself - or that you are a failure or have let yourself or your family down: not at all 7. Trouble concentrating on things, such as reading the newspaper or watching television: not at all 8. Moving or speaking so slowly that other people could have noticed. Or the opposite - being so fidgety or restless that you have been moving around a lot more than usual: not at all 9. Thoughts that you would be better off or of hurting yourself in some way: not at all Total score: 0 Depression Screening Interpretation: Negative Depression Screening Done: Yes 01060 - PHQ-9 Billing: Yes Source: Developed by Drs. Bryce Mathews, Yary Hernandez, Noel Rodriguez and colleagues, with an educational arabella from [employer]. Thrive Questionnaire Date Thrive assessed: 03/29/25 I am a: Patient What is your living situation today?: I have a steady place to live Within the past 12 months, did the food you bought not last and you didn't have the money to get more?: Never true Within the past 12 months, did you worry whether your food would run out before you got money to buy more?: Never true Do you have trouble paying for medicines?: No Do you have trouble getting transportation to medical appointments?: No Do you have trouble paying your heating and electricity bill?: No Do you have trouble taking care of your child, family member or friend?: No Do you have trouble with day-to-day activities such as bathing, preparing meals, shopping, managing finances, etc.?: No Are you currently unemployed and looking for a job?: No Are you interested in more education?: No Please select the resources that you would like help with: None Currently or been in a relationship where the following occur: No concerns reported THRIVE Score: 0 AUDIT C Alcohol Use Questionnaire (AUDIT-C) 1. How often do you have a drink containing alcohol?: Never 3. How often do you have six or more drinks on one occasion?: Never Total Score: 0 Score Reviewed/Action Taken: No MARGE-7 AMB Questionnaire MARGE-7 Date MARGE - 7 assessed: 03/29/25 Feeling nervous, anxious, or on edge: 0 = Not at all Not being able to stop or control worryin = Not at all Worrying too much about different things: 0 = Not at all Trouble relaxin = Not at all Being so restless that it is hard to sit still: 0 = Not at all Becoming easily annoyed or irritable: 0 = Not at all Feeling afraid as if something awful might happen: 0 = Not at all Total MARGE-7 score (0-4 normal; 5-9 mild; 10-14 moderate; 15-21 severe): 0 Source: Developed by Drs. Bryce Mathews, Yary Hernandez, Noel Rodriguez and colleagues, with an educational arabella from [employer]. MARGE-7 Assessment Billing MARGE-7 Assessment Tool: MARGE-7 Assessment 20794 Review of Systems Const Details: - Respiratory: Reports persistent cough for 2-3 weeks, occasional mucus production, dyspnea on exertion. Denies hemoptysis. - Cardiovascular: Denies chest pain, orthopnea, or leg swelling. - Gastrointestinal: Denies unintentional weight loss, black or bloody stools. - Neurological: Denies dizziness. Physical exam (Primary Care) Vital Signs: Last Vital Signs Temp 98.4 F 03/29/25 14:08 Pulse 93 03/29/25 14:08 Resp 20 03/29/25 14:08 BP 146/92 H 03/29/25 14:08 Pulse Ox 96 03/29/25 14:08 Oxygen Delivery Method Room Air 03/29/25 14:08 Care Plan Goal for BP management: <140/90 at Goal BMI result Body Mass Index 32.4 BMI Assessment/Plan discussion: High BMI High, discussed plan: lifestyle, weight reduction, dietary, physical activity and alcohol moderation Tobacco/Smoking Status: Tobacco use Status Tobacco use date assessed 03/29/25 03/29/25 14:07 Patient Tobacco Use Status Never used Tobacco 03/29/25 14:16 PHQ-9: PHQ-9 Score PHQ-9: Total score 0 03/29/25 14:07 Depression Screening Interpretation: Negative Thrive Assessment: Date of Thrive Assessment Date Thrive assessed 03/29/25 03/29/25 14:07 Currently or been in a relationship where the following occur: No concerns reported Const Other: Appearance: Alert. Oriented X3. No acute distress. Head: Normal external exam. Normocephalic. Atraumatic. Eyes: Pupils are equal, round, and reactive to light. Extraocular movements inta ct. Conjunctiva and sclera normal. Eyelids normal. Ears: External auditory canal normal. Tympanic membranes normal. Throat: Pharynx normal. Uvula midline. Moist mucous membranes. Neck: Normal inspection. Neck supple. Full range of motion. No adenopathy. Thyroid Normal. No meningeal signs. No neck mass noted. Cardiovascular: Normal heart rate and rhythm. Heart sound normal. No murmurs noted. Pulses normal throughout. Respiratory: No respiratory distress. Painless inspiration. Breath sounds normal. No wheezes/rales/rhonchi noted. Chest nontender. No accessory muscle usage noted or decreased air movement noted. Abdomen: Soft and nontender. Back: Full range of motion noted. Skin: Skin warm and dry. Normal skin color. Normal skin turgor. Extremities: No lower extremity edema. Extremities exhibit normal range of motion. Neuro: Oriented X 3. Results Reviewed Results Reviewed: - Imaging: Chest x-ray conducted in December, results revealed Subsegmental atelectasis at the left lung base.. Coding Level of Care Code New Pt Level 5 (44303) Complex EM visit Add On G2211 Diagnoses Establishing care with new doctor, encounter for Z76.89 Persistent cough R05.3 Asthma J45.909 Additional Codes PHQ-9 - 86143 - PHQ-9 Billing: Yes ([id number]) MARGE-7 Assessment Billing - MARGE-7 Assessment Tool: MARGE-7 Assessment 54701 ([id number]) Assessment & Plan Assessment & Plan (1) Establishing care with new doctor, encounter for: Code(s): Z76.89 - Persons encountering health services in other specified circumstances Category: Medical (2) Persistent cough: Code(s): R05.3 - Chronic cough Category: Medical Plan: The patient will undergo blood work to assess for anemia, kidney function, and other parameters. A chest x-ray has been ordered to evaluate the persistent cough further. The patient will be treated with doxycycline for 10 days and prednisone for 7 days to address the cough and associated asthma exacerbation. (3) Asthma: Code(s): J45.909 - Unspecified asthma, uncomplicated Category: Medical Plan: The patient will continue using an albuterol inhaler, with a refill provided. A nebulizer with ipratropium-albuterol solution has been prescribed for home use to manage asthma symptoms. Follow-up in two weeks to assess response to treatment and adjust management as needed. Plan Plan Patient was informed and verbally consented to the use of an ambient scribe for clinic note documentation during this visit. 1. Persistent Cough The patient will undergo blood work to assess for anemia, kidney function, and other parameters. A chest x-ray has been ordered to evaluate the persistent cough further. The patient will be treated with doxycycline for 10 days and prednisone for 7 days to address the cough and associated asthma exacerbation. 2. Asthma The patient will continue using an albuterol inhaler, with a refill provided. A nebulizer with ipratropium-albuterol solution has been prescribed for home use to manage asthma symptoms. Follow-up in two weeks to assess response to treatment and adjust management as needed. I discussed with the patient the plan to conduct blood work to evaluate his overall health status, including checking for anemia and kidney function. We also talked about the need for a chest x-ray to further investigate the persistent cough. I explained the treatment plan involving doxycycline and prednisone to manage the cough and asthma exacerbation. The patient was advised to use a nebulizer with ipratropium-albuterol solution for asthma management and to follow up in two weeks. Orders: Orders Vitamin B12 and Folate Today Z00.00 - Encounter for general adult medical examination without abnormal findings Magnesium Today Z00.00 - Encounter for general adult medical examination without abnormal findings C Reactive Protein Today Z00.00 - Encounter for general adult medical examination without abnormal findings XR chest 2V Today R05.9 - Cough, unspecified Complete Blood Count Auto Diff Today Z00.00 - Encounter for general adult medical examination without abnormal findings Comprehensive Marcellus. Panel Fast Today Z00.00 - Encounter for general adult medical examination without abnormal findings Hemoglobin A1c Today Z00.00 - Encounter for general adult medical examination without abnormal findings PSA,Total (Free>4and<10) Today Z00.00 - Encounter for general adult medical examination without abnormal findings TSH reflex Free T4 Today Z00.00 - Encounter for general adult medical examination without abnormal findings Vitamin D 25-OH Total Today Z00.00 - Encounter for general adult medical examination without abnormal findings Lipid Panel Today Z00.00 - Encounter for general adult medical examination without abnormal findings Liver Panel Today Z00.00 - Encounter for general adult medical examination without abnormal findings Medications: New doxycycline hyclate 100 mg PO BID 20 tabs 0RF 10 days ipratropium-albuterol 0.5 mg-3 mg(2.5 mg base)/3 mL for 3 doses 3 mL inhalation Q20M PRN 90 mL 3RF shortness of breath or wheezing prednisone 40 mg (2 x 20 mg) PO DAILY 14 tabs 0RF 7 days nebulizers ([id number] Nebulizer System) As directed. Please provide accessories for nebulizer machine 1 ea 0RF Wheezing albuterol sulfate 90 mcg/actuation 1 inh inhalation QID PRN 6.7 grams 0RF s hortness of breath or wheezing Discontinued morphine ER Discontinued Reason: Patient no longer taking 30 mg PO BID 20 tabs 0RF oxycodone Partial Fill upon patient request. Discontinued Reason: Patient no longer taking 10 mg (2 x 5 mg) PO Q4H PRN 15 tabs 0RF moderate pain Patient Instructions: - Take doxycycline twice daily for 10 days. - Take prednisone 40 mg daily for 7 days. - Use albuterol inhaler as needed, refill provided. - Use nebulizer with ipratropium-albuterol solution as directed. - Complete blood work and chest x-ray before the next appointment. - Follow up in two weeks to assess treatment response.
[2025-03-29 14:08] VITALS: BP 146/92; PULSE 93; RESP 20; TEMP 36.9; O2SAT 96; BMI 32.4
[2025-03-29 14:42] VITALS: BP 114/72
--- OUTSIDE RECORDS SUMMARY | 2025-03-29 15:16 | XMS_ITS | Clinical Summary ---
Author Organization [facility] [[email or web address]] Address [id number] [place] [id number] Care Team Providers Care Bitumastic Applier Name Role Phone Rivera Isaac MD Primary Care Provider [phone] Social History Tobacco Use Types Packs/Day Years [...] 2023-2 5 season) 2024 Influenza Vaccine (#1) 2025 RSV Immunization Adult Patie nts (1 - [...] age to complete this topic Meningococcal B Vaccine Aged Out No l onger eligible based on patient's age to complete this topic RSV Immunization Patients Un meliza 20 months Aged Out No longer eligible b ased on patient's age to complete this topic Varicella Vaccines Aged Out No longer eligible based on patient's age to complete this topic Advance Directives Documents on File Type Date Recorded Patient It Analyst Expl anation Health Care Decision (hx) 04/29/2022 AD SON DIRECTIVE Health Care Decision (hx) 04/29/2022 AD SON DIRECTIVE Care Teams Bitumastic Applier Relationship Specialty Start Date End Date Rivera Isaac MD [address] [place] PCP - General Internal Medicine 05/03/22
== END 2025-03-29 14:36 | disposition home or self-care (01) ==
LOC: HO.HMCSH 13:59
PROVIDERS: PCP Internal Medicine; Visit Provider Physician Assistant Medical
DX: R05.3 Chronic cough (principal); J45.909 Unspecified asthma, uncomplicated

== ENCOUNTER → 2025-03-29 13:58 | Outpatient (BNVA) | payer BC, SELFPAY | PROVIDERS: PCP Internal Medicine; Visit Provider Physician Assistant Medical | DX: Z76.89 Persons encountering health services in other specified circumstances (principal); R05.3 Chronic cough; J45.909 Unspecified asthma, uncomplicated; Z13.31 Encounter for screening for depression; Z13.39 Encounter for screening examination for other mental health and behavioral disorders | CPT/HCPCS: 96127 ==

== ENCOUNTER 2025-05-04 14:03 | Outpatient (AMB) | payer BC, SELFPAY ==
--- OUTSIDE RECORDS SUMMARY | 2025-05-04 15:23 | XMS_ITS | Encounter Summary ---
Author Organization [facility] Address [address] [place] [phone] Phone Care Team Providers Care Cycle Director Name Role Phone Juvenal Clay MD Primary Care Provider + Encounter Details Date Type Department Care Team (Late st Contact Info) Description 02/20/2024 Transcribe Orders Virtual Department [address] [place] [id number] System, Provider Not In, [facility] [address] [address] Renal mass (Primary Dx) Social History Tobacco Use Types Packs/Day Years Used Date Smoking Tobacco: Never Assessed Education Answer Date Recorded Are you interested in more education? Not on hermann e 07/12/2023 Are you concerned about learning? Not on file 07/12/2023 No 07/12/2023 No 07/12/2023 Digital Access Answer Date Recorded No 07/12/2023 No 07/12/2023 Reliable internet access at home? Not on file 07/12/2023 Device with a working camera? Not on file Sex and Gender Information Value Date Recorded Sex Assigned at Not on file Legal Sex Male 9:00 AM EDT Gender Identity Not on file Sexual Orientation Not on file documented as of this encounter Plan of Treatment Not on file documented as of this encounter Visit Diagnoses Diagnosis Renal mass- Primary Unspecified disorder of kidney and ureter documented in this encounter Additional Health Concerns Infection Onset Date Last Indicated Resolved Time CoV-Risk Comment:Per note documentation 03/21/2024 03/21/2024 9:44 AM EDT documented as of this encounter Care Teams Cycle Director Relationship Specialty Start Date End Date Juvenal Clay MD [address] [place] [phone] PCP - General Internal Medicine 07/12/23 documented as of this encounter Additional Source Comments The information contained in this document represents components of the legal health record. It is not the complete legal health record.[facility]
--- OUTSIDE RECORDS SUMMARY | 2025-05-04 15:23 | XMS_ITS | Clinical Summary ---
Author Organization [facility] Address [id number] [place] [id number] Care Team Providers Care Assistant Coach Name Role Phone Rivera Isaac MD Primary Care Provider [phone] Social History Tobacco Use Types Packs/Day Years [...] Panel) 08/19/2022 Colorectal Cancer Screening: Colonoscopy 08/19/2022 Falls Risk Assessment 08/19/2022 Hepatitis C Screening 08/19/2022 Social Influencers of Health Screening 08/19/2022 COVID-19 Vaccine (1 - 2023-2 5 season) 2024 Depression Screening 09/16/2024 Influenza Vaccine (#1) 2025 RSV Immunization Adult [...] Documents on File Type Date Recorded Patient 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
[2025-05-04 15:28] VITALS: BP 120/82; PULSE 90; RESP 20; TEMP 36.7; O2SAT 95; BMI 32.4
--- NOTE | 2025-05-04 15:28 | MHC.PC.OV ---
Vital Signs 05/04/25 15:28 Height 5 ft 5.24 in Weight 196 lb 4 oz BMI 32.4 BP 120/82 Blood Pressure Location Lt brachial Position Sitting Respiration 20 Pulse 90 Pulse Source Pulse Oximeter Temp 98.1 F Temp Source Temporal Artery Scan Pulse Oximetry (%) 95 Oxygen Delivery Method Room Air Intake Visit Reasons: follow up Certified Coatings Inspector Required: No Accompanied by: Self / Same As Patient Allergies Penicillins Allergy (Severe, Verified 05/04/25 17:09) Swelling Medication List - Last Reconciled 05/04/25 by Deanne Cho PA-C albuterol sulfate 90 mcg/actuation 2 puffs inhalation Q4-6H PRN albuterol sulfate 90 mcg/actuation 1 inh inhalation QID PRN cyclobenzaprine 10 mg PO Q8H ipratropium-albuterol 0.5 mg-3 mg(2.5 mg base)/3 mL 3 mL inhalation Q20M PRN nebulizers (Altera Nebulizer System) As directed. Please provide accessories for nebulizer machine Tobacco use date assessed: 03/29/25 Fall risk assessment: No Falls in past year Last assessed Fall Risk: 03/29/25 Dental Screening Dental Screen Date: 03/29/25 Did you have a dental visit in the last 12 months?: No Did you have a dental problem in the last 6 months where you did not have access to dental care?: No Was dental information given to patient?: No HPI follow up HPI Details The patient is a 74-year-old male presenting for a follow-up visit. The patient reports that his cough has resolved following treatment with doxycycline and prednisone. He denies experiencing chest pain, fever, or leg swelling. The patient reports severe pain and pressure in his neck and spine, which has been present for about a year. He describes the pain as so severe that it affects his ability to walk. Imaging has revealed generalized kyphosis of the cervical vertebral bodies with multilevel degenerative changes and spondylosis. [facility] Medical History (Updated 05/04/25 @ 17:13 by Deanne Cho PA-C) Cervical spondylosis Chronic neck pain Asthma Persistent cough Establishing care with new doctor, encounter for Cough Chronic disease anemia Contracture of muscle, left forearm Drug abuse Adult failure to thrive Family History Father No problems noted. Mother No problems noted. Social History Household Members: None Housing: House Housing Other:: living in a hotel Do you presently have visiting nurse or other home services: No Alcohol intake: current Alcohol intake frequency: does not drink Patient Tobacco Use Status: Never used Tobacco service: Yes Current occupational status: retired Cognitive needs: Yes (cane and walker) Hearing needs: No Vision needs: Yes (reading glasses) Questionnaire PHQ-9 Over the last 2 weeks, how often have you been bothered by any of the following problems? 1. Little interest or pleasure in doing things: not at all 2. Feeling down, depressed, or hopeless: not at all 3. Trouble falling or staying asleep, or sleeping too much: not at all 4. Feeling tired or having little energy: not at all 5. Poor appetite or overeating: not at all 6. Feeling bad about yourself - or that you are a failure or have let yourself or your family down: not at all 7. Trouble concentrating on things, such as reading the newspaper or watching television: not at all 8. Moving or speaking so slowly that other people could have noticed. Or the opposite - being so fidgety or restless that you have been moving around a lot more than usual: not at all 9. Thoughts that you would be better off or of hurting yourself in some way: not at all Total score: 0 Depression Screening Interpretation: Negative Depression Screening Done: Yes 07372 - PHQ-9 Billing: Yes Source: Developed by Drs. Bryce Mathews, Yary Hernandez, Noel Rodriguez and colleagues, with an educational arabella from [employer]. Thrive Questionnaire Date Thrive assessed: 03/29/25 I am a: Patient What is your living situation today?: I have a steady place to live Within the past 12 months, did the food you bought not last and you didn't have the money to get more?: Never true Within the past 12 months, did you worry whether your food would run out before you got money to buy more?: Never true Do you have trouble paying for medicines?: No Do you have trouble getting transportation to medical appointments?: No Do you have trouble paying your heating and electricity bill?: No Do you have trouble taking care of your child, family member or friend?: No Do you have trouble with day-to-day activities such as bathing, preparing meals, shopping, managing finances, etc.?: No Are you currently unemployed and looking for a job?: No Are you interested in more education?: No Please select the resources that you would like help with: None Currently or been in a relationship where the following occur: No concerns reported THRIVE Score: 0 AUDIT C Alcohol Use Questionnaire (AUDIT-C) 1. How often do you have a drink containing alcohol?: Never 3. How often do you have six or more drinks on one occasion?: Never Total Score: 0 Score Reviewed/Action Taken: No MARGE-7 AMB Questionnaire MARGE-7 Date MARGE - 7 assessed: 03/29/25 Feeling nervous, anxious, or on edge: 0 = Not at all Not being able to stop or control worryin = Not at all Worrying too much about different things: 0 = Not at all Trouble relaxin = Not at all Being so restless that it is hard to sit still: 0 = Not at all Becoming easily annoyed or irritable: 0 = Not at all Feeling afraid as if something awful might happen: 0 = Not at all Total MARGE-7 score (0-4 normal; 5-9 mild; 10-14 moderate; 15-21 severe): 0 Source: Developed by Drs. Bryce Mathews, Yary Hernandez, Noel Rodriguez and colleagues, with an educational arabella from [employer]. MARGE-7 Assessment Billing MARGE-7 Assessment Tool: MARGE-7 Assessment 32638 Review of Systems Const Details: - Respiratory: Denies cough, chest pain, or fever - Musculoskeletal: Reports severe neck and spine pain affecting mobility All systems reviewed & are unremarkable except as noted in HPI and below Physical exam (Primary Care) Vital Signs: Last Vital Signs Temp 98.1 F 05/04/25 15:28 Pulse 90 05/04/25 15:28 Resp 20 05/04/25 15:28 BP 120/82 05/04/25 15:28 Pulse Ox 95 05/04/25 15:28 Oxygen Delivery Method Room Air 05/04/25 15:28 Care Plan Goal for BP management: <140/90 at Goal BMI result Body Mass Index 32.4 BMI Assessment/Plan discussion: High BMI High, discussed plan: lifestyle, weight reduction, dietary, physical activity and alcohol moderation Tobacco/Smoking Status: Tobacco use Status Tobacco use date assessed 03/29/25 05/04/25 15:31 Patient Tobacco Use Status Never used Tobacco 05/04/25 15:31 PHQ-9: PHQ-9 Score PHQ-9: Total score 0 05/04/25 15:31 Depression Screening Interpretation: Negative Thrive Assessment: Date of Thrive Assessment Date Thrive assessed 03/29/25 05/04/25 15:31 Currently or been in a relationship where the following occur: No concerns reported Const Other: Appearance: Alert. Oriented X3. No acute distress. Head: Normal external exam. Normocephalic. Atraumatic. Eyes: Pupils are equal, round, and reactive to light. Extraocular movements intact. Conjunctiva and sclera normal. Eyelids normal. Ears: External auditory canal normal. Tympanic membranes normal. Throat: Pharynx normal. Uvula midline. Moist mucous membranes. Neck: Normal inspection. Neck supple. Full range of motion. No adenopathy. Thyroid Normal. No meningeal signs. No neck mass noted. Severe pain and pressure reported. Cardiovascular: Normal heart rate and rhythm. Heart sound normal. No murmurs noted. Pulses normal throughout. Respiratory: No respiratory distress. Painless inspiration. Breath sounds normal. No wheezes/rales/rhonchi noted. Chest nontender. No accessory muscle usage noted or decreased air movement noted. Abdomen: Soft and nontenderBowel sounds normal in all 4 quadrants. No distention noted. No organomegaly noted. Back: No costovertebral angle tenderness. Patient reports chronic neck and lower back pain due to chronic changes. Severe pain and pressure reported. No acute abnormalities noted. Skin: Skin warm and dry. Normal skin color. Normal skin turgor. No rashes/lesions/lacerations noted. Extremities: No lower extremity edema. Extremities exhibit normal range of motion. Neuro: Oriented X 3. No motor deficit. No sensory deficit. Reflexes normal. Patient walking with walker. Results Reviewed Results Reviewed: - Imaging: Generalized kyphosis of cervical vertebral bodies with multilevel degenerative changes and spondylosis Coding Level of Care Code Est Pt Level 4 (79997) Complex EM visit Add On G2211 Diagnoses Cervical spondylosis M47.812 Additional Codes MARGE-7 Assessment Billing - MARGE-7 Assessment Tool: MARGE-7 Assessment 09336 ([id number]) PHQ-9 - 57994 - PHQ-9 Billing: Yes ([id number]) Assessment & Plan Assessment & Plan (1) Cervical spondylosis: Code(s): M47.812 - Spondylosis without myelopathy or radiculopathy, cervical region Category: Medical Plan: The patient will be referred to pain management for further evaluation and management of cervical spondylosis. A prescription for Flexeril (cyclobenzaprine) was provided to manage muscle spasms, with instructions to avoid alcohol and operating heavy machinery while taking the medication. The patient declined physical therapy at this time. Plan Plan Patient was informed and verbally consented to the use of an ambient scribe for clinic note documentation during this visit. 1. Cervical Spondylosis The patient will be referred to pain management for further evaluation and management of cervical spondylosis. A prescription for Flexeril (cyclobenzaprine) was provided to manage muscle spasms, with instructions to avoid alcohol and operating heavy machinery while taking the medication. The patient declined physical therapy at this time. I discussed with the patient the management options for cervical spondylosis, including referral to pain management and the use of muscle relaxants. I explained the risks associated with Soma and recommended Flexeril as a safer alternative. The patient was advised to avoid alcohol and operating heavy machinery while on the medication. Orders: Referrals Pain Management Referral G89.29 - Other chronic pain, M54.2 - Cervicalgia Medications: New cyclobenzaprine 10 mg PO Q8H 30 tabs 0RF Patient Instructions: - Take Flexeril as prescribed for muscle spasms. - Avoid alcohol and operating heavy machinery while taking Flexeril. - Attend follow-up appointment with pain management within one month. - Complete blood work as previously ordered. - Schedule a follow-up visit in three months or sooner if symptoms worsen.
== END 2025-05-04 15:55 | disposition home or self-care (01) ==
LOC: HO.HMCSH 14:03
PROVIDERS: PCP Internal Medicine; Visit Provider Physician Assistant Medical
DX: M47.812 Spondylosis without myelopathy or radiculopathy, cervical region (principal)

== ENCOUNTER → 2025-05-04 14:03 | Outpatient (BNVA) | payer BC, SELFPAY | PROVIDERS: PCP Internal Medicine; Visit Provider Physician Assistant Medical | DX: M47.812 Spondylosis without myelopathy or radiculopathy, cervical region (principal); G89.29 Other chronic pain | CPT/HCPCS: 96127 ==

== ENCOUNTER 2025-05-25 08:30 | Outpatient (AMB) | payer BC, SELFPAY ==
--- NOTE | 2025-05-25 08:34 | MHC.OFFVIS ---
Vital Signs 05/25/25 08:42 Height 5 ft 5.24 in Weight 190 lb BMI 31.4 BP 131/81 Blood Pressure Location Lt brachial Position Sitting Pulse 85 Pulse Source Pulse Oximeter Pulse Oximetry (%) 97 Oxygen Delivery Method Room Air Intake Visit Reasons: Cervicalgia Intake Note: Pain today 06/25 Telephone Repairer Required: No Accompanied by: Self / Same As Patient Allergies Penicillins Allergy (Severe, Verified 05/25/25 08:42) Swelling HPI HPI Cervicalgia: Details: Injections- [facility] [place] few months ago Location: neck radiates to bilateral shoulders Duration: 2 years Characteristics of symptom or complaint: stabbing, crushing Aggravating or associated factors: standing Relieving factors: laying down Treatment: Injections, cyclobenzaprine HPI Comments Details: The patient is a 74-year-old male presenting with chronic neck pain. The neck pain began 2 years ago following a fall where the patient fell backward in a chair and hit his head, resulting in a brief loss of consciousness. The pain is described as severe, with a rating of 8 to 10 out of 10, and is worse in the afternoon and partially relieved when resting or laying down. The pain radiates outward and downward from the neck, extending to the shoulders, and is associated with a crushing and sharp aching sensation. The patient reports that the pain is constant, stabbing, sharp, crushing, searing, stinging, aching, and heavy, with a sensation of tightness that causes fatigue. The pain interferes with sleep and daily activities, and movements such as looking up or side to side exacerbate the pain. The patient has a history of receiving steroidal injections at [facility] few month ago for neck pain radiating to the arm, which provided no relief. He has not undergone physical therapy and is considering it to improve range of motion and reduce stiffness and spasms. The patient has osteoarthritis and osteopenia, as evidenced by recent imaging studies, and has significant kyphosis and scoliosis. He lives alone and does not smoke or drink alcohol. The patient uses a cane for walking short distances and does not currently take any medications for pain management, as he believes cmge-dyi-aoddvlu options are ineffective. Patient reports he use to take Morphine Sulphate 3x daily [address] Isaac who recently retired. [facility] buprenorphine SI and patch form, pregabalin and morphine 15 mg BID. Patient is hoping his opioid medications can be prescribed again as this was the most effective in managing his chronic neck pain. I have informed patient that we do not offer taking over prescribing at this time and this will be deferred to his PCP. - Onset: Two years ago after a fall. - Quality: Constant, stabbing, sharp, crushing, searing, stinging, aching, heavy, with tightness. - Location: Neck, radiating outward and downward to shoulders. - Exacerbating factors: Movements such as looking up or side to side. - Relieving factors: Lying down provides some relief. - Interference: Affects sleep, daily activities, and functioning. - Affect: Pain causes fatigue and affects sleep. - Analgesia: No current pain medications used; previous steroidal injections were ineffective. - Adverse Effects: None reported from current pain management. - Activities of Daily Living: Pain interferes with daily activities and sleep. - Aberrant Drug Related Behaviors: None reported. Oswestry Neck Pain Disability Score=28 [facility] Medical History Cervical spondylosis Chronic neck pain Asthma Persistent cough Establishing care with new doctor, encounter for Cough Chronic disease anemia Contracture of muscle, left forearm Drug abuse Adult failure to thrive Family History Father No problems noted. Mother No problems noted. Social History Household Members: None Housing: House Housing Other:: living in a hotel Do you presently have visiting nurse or other home services: No Alcohol intake: current Alcohol intake frequency: does not drink Patient Tobacco Use Status: Never used Tobacco service: Yes Current occupational status: retired Cognitive needs: Yes (cane and walker) Hearing needs: No Vision needs: Yes (reading glasses) Review of Systems Const Details: - Musculoskeletal: Reports severe neck pain radiating to shoulders, exacerbated by movement. - Neurological: Denies numbness, tingling, or weakness in hands. - General: Reports fatigue and sleep disturbances due to pain. - Head and Neck: Reports occasional headaches. All systems reviewed & are unremarkable except as noted in HPI and below Physical Exam Vital Signs: Last Vital Signs Pulse 85 05/25/25 08:42 BP 131/81 05/25/25 08:42 Pulse Ox 97 05/25/25 08:42 Oxygen Delivery Method Room Air 05/25/25 08:42 BMI result Body Mass Index 31.4 General: Appears afebrile. Alert and oriented. Mood and affect appropriate. Follows and participates in conversation appropriately. Respiratory effort is unlabored. No cough. Able to transition from sit to stand unassisted. Ambulates with antalgic gait, kyphotic posture, uses cane. Neck Neck: Yes normal visual inspection, Yes no lymphadenopathy, Yes supple, No anterior neck swelling, Yes no JVD, No prominent supraclavicular fat pad and Yes prominent dorsocervical fat pad Back/Spine/Pelvis Cervical Spine: No collar present, No Lhermitte's sign positive, loss of normal cervical lordosis, cervical muscular tenderness, pain with cervical ROM (lateral rotations, cervical extension reproduce moderate to severe pain), No Cervical spine scars present, cervical spasm, No Cervical spine tenderness, No step off deformity and other (no midline TTP in cervical, thoracic or lumbar spine) Thoracic/Lumbar Spine: thoracic and lumbar spine normal to inspection, No Thoracic/lumbar spine scar(s), pain with thoraco-lumbar ROM, thoraco-lumbar ROM limited, No thoracic spinal tenderness and No lumbar spinal tenderness Results Reviewed Results Reviewed: CT cervical spine wo IV con 10/26/24 CLINICAL HISTORY: NECK FX CT cervical spine without contrast Comparison: None Findings: Generalized kyphosis of the cervical vertebral bodies. There is 2 mm of anterolisthesis at C3-4, C4-5, and C5-6. Razc-eo-viwjbcrt multilevel degenerative disc disease and degenerative facet disease throughout the cervical spine. Mild height loss of the C6 vertebral body. However, no acute fracture cleft is identified. No prevertebral soft tissue swelling. Dense vascular calcification of the carotid arteries. Upper airway is patent. No apical pneumothorax. IMPRESSION: 1. Mild C6 height loss without acute fracture cleft identified. 2. Generalized kyphosis of the cervical vertebral bodies with multilevel degenerative change and multilevel spondylolisthesis. XR cervical spine 3V 09/04/24 CLINICAL HISTORY: PAIN Exam: AP, lateral, and open-mouth odontoid views of the cervical spine. Comparison: None. Findings: The lateral view only visualized to the C5 vertebral body. Therefore, there is incomplete radiographic clearance of the cervical spine. On the AP view, there is mild convex left lower cervical curvature. There appears to be hyperkyphosis within the midcervical spine. However, this is very poorly evaluated on this study. Bones are osteopenic. Dcic-dt-jdbzzxiu degenerative changes evident within the visualized vertebral bodies. No obvious fracture prevertebral soft tissue swelling. Patient is edentulous. Impression: 1. Limited visualization of the cervical spine resulting in incomplete radiographic clearance. If there is clinical concern for fracture, repeat radiographs or CT of the cervical spine is suggested. 2. Osteopenia. 3. Scattered degenerative changes. Assessment & Plan Assessment & Plan (1) Chronic neck pain: Code(s): M54.2 - Cervicalgia; G89.29 - Other chronic pain Category: Medical (2) Cervical spondylosis: Code(s): M47.812 - Spondylosis without myelopathy or radiculopathy, cervical region Category: Medical (3) Degenerative disc disease, cervical: Code(s): M50.30 - Other cervical disc degeneration, unspecified cervical region Category: Medical (4) Muscle spasms of neck: Code(s): M62.838 - Other muscle spasm Category: Medical Plan The plan for managing the patient's chronic neck pain includes considering interventional procedures such as nerve blocks and radiofrequency ablation. Initial steps involve performing diagnostic medial branch blocks at the C4, C5, and C6 levels bilaterally under fluoroscopy guidance to assess the potential benefit of radiofrequency ablation or Sprint PNS trial. Expectations, risks and benefits were reviewed. Patient is aware he will be contacted to schedule this procedure. Informational pamphlets were given to patient today. Additionally, the patient is encouraged to consider physical therapy to improve range of motion and reduce stiffness. The patient is advised to discuss opioid pain management options with his primary care physician as we do not offer opioid prescribing at this time. All questions and concerns have been answered and patient agreed with the treatment plan. Follow up after injections and sooner as needed. Patient was informed and verbally consented to the use of an ambient scribe for clinic note documentation during this visit. Orders: Orders PT Evaluation and Treatment Today G89.29 - Other chronic pain, M47.812 - Spondylosis without myelopathy or radiculopathy, cervical region, M50.30 - Other cervical disc degeneration, unspecified cervical region, M54.2 - Cervicalgia, M62.838 - Other muscle spasm Coding Level of Care Code New Pt Level 4 (19570) Complex EM visit Add On G2211 Diagnoses Chronic neck pain M54.2; G89.29 Cervical spondylosis M47.812 Degenerative disc disease, cervical M50.30 Muscle spasms of neck M62.838
[2025-05-25 08:42] VITALS: BP 131/81; PULSE 85; O2SAT 97; BMI 31.4
--- OUTSIDE RECORDS SUMMARY | 2025-05-25 09:32 | XMS_ITS | Encounter Summary ---
Author Organization [facility] Address [address] [place] [address] [place] [phone] Phone Care Team Providers Care Municipal Firefighter Name Role Phone Juvenal Clay MD Primary Care Provider + Encounter Details Date Type Department Care Team (Latest Contact Info) Description 06/19/2023 Transcribe Orders Virtual Department [address] [place] [address] Juvenal Clay MD [address] [place] [address] [email or web address] Chronic osteomyelitis with draining sinus, left hand (Primary Dx) Social History Tobacco Use Types Packs/Day Years Used Date Smoking Tobacco: Never Assessed Sex and Gender Information Value Date Recorded Sex Assigned at Not on file Legal Sex Male 9:00 AM EDT Gender Identity Not on file Sexual Orientation Not on file documented as of this encounter Plan of Treatment Not on file documented as of this encounter Visit Diagnoses Diagnosis Chronic osteomyelitis with draining sinus, left hand- Primary documented in this encounter Additional Health Concerns Infection Onset Date Last Indicated Resolved Time CoV-Risk Comment:Per note documentation 03/21/2024 03/21/2024 9:44 AM EDT documented as of this encounter Care Teams Municipal Firefighter Relationship Specialty Start Date End Date Juvenal Clay MD [address] [place] [address] PCP - General Internal Medicine 07/12/23 documented as of this encounter Additional Source Comments The information contained in this document represents components of the legal health record. It is not the complete legal health record.[facility]
--- OUTSIDE RECORDS SUMMARY | 2025-05-25 09:32 | XMS_ITS | Encounter Summary ---
Author Organization [facility] Address [address] [place] [address] [place] [phone] Phone Care Team Providers Care Aircraft Engine Assembler Name Role Phone Juvenal Clay MD Primary Care Provider + Reason for Referral * MRI/CAT Scan - Closed Specialty Diagnoses / Procedures Referred By Contac t Referred To Contact Radiology Diagnoses Muscle weakness (generalized) Procedures MRI Brain CHG MRI BRAIN CHG MRI BRAIN COMBO CHG MRI BRAIN CONTRAST Juvenal Clay MD [address] [place] [address] Phone: tel: fax: mailto: Referral ID Status Reason Start Date Expiration Date Visits Re quested Visits Authorized [id number] Closed 07/11/2023 09/08/2023 1 1 * MRI/CAT Scan - Closed Specialty Diagnoses / Procedures Referred By Contac t Referred To Contact Radiology Diagnoses Radiculopathy of cervical spine Procedures MRI Cervical Spine CHG MRI, CERV SPINE CHG MRI, CERV SPINE COMBO CHG MRI, CERV SPINE CONTRAST Juvenal Clay MD [address] [place] [address] Phone: tel: fax: mailto: Referral ID Status Reason Start Date Expiration Date Visits Re quested Visits Authorized [id number] Closed 07/09/2023 09/06/2023 1 1 Encounter Details Date Type Department Care Team (Latest Contact Info) Description 07/09/2023 Transcribe Orders Virtual Department [address] [place] [address] Juvenal Clay MD [address] [place] [address] [email or web address] Radiculopathy of cervical spine (Primary Dx); Muscle weakness (generalized) Social History Tobacco Use Types Packs/Day Years [...] on file documented as of this encounter Results * MRI BRAIN WITHOUT CONTRAST (08/02/2023 3:58 PM EST) Anatomical Region Laterality Modality Head Magnetic Resonan ce 08/05/2023 8:26 PM EST Impressions 08/06/2023 6:58 AM EST No clear intracranial cause for the reported symptoms identified. Extensive paranasal sinus disease and likely nasal polyps. Narrative 08/06/2023 6:58 AM EST MRI BRAIN WITHOUT CONTRAST Referring clinician's provided indication for this examination in Epic: Outside Radiology Order; MUSCLE WEAKNESS TECHNIQUE: MRI BRAIN WITHOUT CONTRAST Multi-sequence, multi-planar MRI of the brain was performed without intravenous contrast. COMPARISON: None FINDINGS: Brain Parenchyma: There is mild scattered T2/FLAIR hyperintensity in the periventricular and deep white matter which is nonspecific and can be seen in the setting of chronic small vessel disease. No evidence of acute infarct, mass lesion, or hemorrhage. Mild generalized parenchymal volume loss. Ventricular System and Extra-Axial Spaces: Normal. No evidence of midline shift or hydrocephalus. Extracranial Structures: Arterial flow voids in the skull base are present. Mucosal thickening in both maxillary sinuses, with multiple likely nasal polyps left greater than right nasal cavity. There is also opacification of the left frontal sinus with extensive mucosal thickening. Procedure Note Ignacio Seth MD - 08/06/2023 MRI BRAIN WITHOUT CONTRAST Referring clinician's provided indication for this examination in [facility]:Outside Radiology Order; MUSCLE WEAKNESS TECHNIQUE: MRI BRAIN WITHOUT CONTRAST Multi-sequence, multi-planar MRI of the brain was performed withoutintravenous contrast. COMPARISON: None FINDINGS: Brain Parenchyma: There is mild scattered T2/FLAIR hyperintensity in theperiventricular and deep white matter which is nonspecific and can be seenin the setting of chronic small vessel disease. No evidence of acuteinfarct, mass lesion, or hemorrhage. Mild generalized parenchymal volumeloss. Ventricular System and Extra-Axial Spaces: Normal. No evidence of midlineshift or hydrocephalus. Extracranial Structures: Arterial flow voids in the skull base arepresent. Mucosal thickening in both maxillary sinuses, with multiplelikely nasal polyps left greater than right nasal cavity. There is alsoopacification of the left frontal sinus with extensive mucosalthickening. IMPRESSION: No clear intracranial cause for the reported symptoms identified. Extensive paranasal sinus disease and likely nasal polyps. us Juvenal Clay MD IMG MR HEAD/NECK Final R esult * MRI CERVICAL SPINE (NEURO) FOCUS WITHOUT CONTRAST (08/02/2023 3:58 PM EST) Anatomical Region Laterality Modality C-spine Magnetic Resonan ce 08/05/2023 8:29 PM EST Impressions 08/06/2023 6:58 AM EST Cervical spine degenerative changes as described, most notable for foraminal stenosis which is moderate to severe bilaterally at C3-C4, moderate on the left at C4-C5, and moderate on the right at C7-T1. There is qrmo-jk-sfxgucxv spinal canal stenosis C3-C4. No evidence of focal cervical cord signal abnormality. Narrative 08/06/2023 6:58 AM EST MRI CERVICAL SPINE (NEURO) FOCUS WITHOUT CONTRAST Referring clinician's provided indication for this examination in [facility]: Outside Radiology Order; Radiculopathy, cervical region TECHNIQUE: MRI CERVICAL SPINE (NEURO) FOCUS WITHOUT CONTRAST Multi-sequence, multi-planar MRI of the cervical spine was performed without intravenous contrast. COMPARISON: None FINDINGS: CERVICAL SPINE: Alignment and Vertebrae: Reversal of the cervical lordosis, centered at C6. Grade 1 anterolisthesis of C3 on C4 and C4 on C5. No compression fracture. Marrow: No bone marrow replacing lesion. Discs and Endplates: Multilevel disc space narrowing, most prominent at C7-T1 and C6-C7. Vertebral endplate edema flanking the C3-C4 and C7-T1 interspaces Spinal Cord: No spinal cord compression or signal abnormality. Soft Tissue: Normal. No prevertebral edema. Findings by level: C2-C3: Central and left paracentral disc protrusion. Bilateral facet arthropathy.. Mild spinal canal stenosis, with mild indentation of the cord. C3-C4: Posterior disc-osteophyte complex. Bilateral facet arthropathy. Moderate to severe bilateral foraminal stenosis. Near complete effacement of the ventral and dorsal CSF space, consistent with mild to moderate spinal canal stenosis. C4-C5: Posterior disc-osteophyte complex. Bilateral facet arthropathy. Moderate left and lgbu-um-hhxptdtr right foraminal stenosis. No significant spinal canal stenosis. C5-C6: Posterior disc-osteophyte complex. Bilateral facet arthropathy. Mild to moderate left and mild right foraminal stenosis. No significant spinal canal stenosis. C6-C7: Posterior disc-osteophyte complex. Bilateral facet arthropathy. Mild bilateral foraminal stenosis. No significant spinal canal stenosis. C7-T1: Posterior disc-osteophyte complex. Right facet arthropathy. Moderate right foraminal stenosis. No significant spinal canal stenosis. Procedure Note Ignacio Seth MD - 08/06/2023 MRI CERVICAL SPINE (NEURO) FOCUS WITHOUT CONTRAST Referring clinician's provided indication for this examination in Epic:Outside Radiology Order; Radiculopathy, cervical region TECHNIQUE: MRI CERVICAL SPINE (NEURO) FOCUS WITHOUT CONTRAST Multi-sequence, multi-planar MRI of the cervical spine was performedwithout intravenous contrast. COMPARISON: None FINDINGS: CERVICAL SPINE: Alignment and Vertebrae: Reversal of the cervical lordosis, centered atC6. Grade 1 anterolisthesis of C3 on C4 and C4 on C5. No compressionfracture. Marrow: No bone marrow replacing lesion. Discs and Endplates: Multilevel disc space narrowing, most prominent atC7-T1 and C6-C7. Vertebral endplate edema flanking the C3-C4 and C7-[id number] Spinal Cord: No spinal cord compression or signal abnormality. Soft Tissue: Normal. No prevertebral edema. Findings by level: C2-C3: Central and left paracentral disc protrusion. Bilateral facetarthropathy.. Mild spinal canal stenosis, with mild indentation of thecord. C3-C4: Posterior disc-osteophyte complex. Bilateral facet arthropathy.Moderate to severe bilateral foraminal stenosis. Near complete effacementof the ventral and dorsal CSF space, consistent with mild to moderatespinal canal stenosis. C4-C5: Posterior disc-osteophyte complex. Bilateral facet arthropathy.Moderate left and iqsx-sq-wppchoax right foraminal stenosis. Nosignificant spinal canal stenosis. C5-C6: Posterior disc-osteophyte complex. Bilateral facet arthropathy.Mild to moderate left and mild right foraminal stenosis. No significantspinal canal stenosis. C6-C7: Posterior disc-osteophyte complex. Bilateral facet arthropathy.Mild bilateral foraminal stenosis. No significant spinal canal stenosis. C7-T1: Posterior disc-osteophyte complex. Right facet arthropathy.Moderate right foraminal stenosis. No significant spinal canal stenosis. IMPRESSION: Cervical spine degenerative changes as described, most notable forforaminal stenosis which is moderate to severe bilaterally at C3-C4,moderate on the left at C4-C5, and moderate on the right at C7-T1. Thereis zyww-lv-lvlsqbed spinal canal stenosis C3-C4. No evidence of focal cervical cord signal abnormality. Juvenal Clay MD IMG MR XSPECIALTY Final Result documented in this encounter Visit Diagnoses Diagnosis Radiculopathy of cervical spine- Primary Brachial neuritis or radiculitis nos Muscle weakness (generalized) Radiculopathy of cervical spine Brachial neuritis or radiculitis nos Muscle weakness (generalized) documented in this encounter Additional Health Concerns Infection Onset Date Last Indicated Resolved Time CoV-Risk Comment:Per note documentation 03/21/2024 03/21/2024 9:44 AM EDT documented as of this encounter Care Teams Aircraft Engine Assembler Relationship Specialty Start Date End Date Juvenal Clay MD [address] [place] [id number] PCP - General Internal Medicine 07/12/23 documented as of this encounter Additional Source Comments The information contained in this document represents components of the legal health record. It is not the complete legal health record.[facility]
--- OUTSIDE RECORDS SUMMARY | 2025-05-25 09:32 | XMS_ITS | Encounter Summary ---
Author Organization [facility] Address [address] [place] [address] Phone Care Team Providers Care Referral Rn Name Role Phone Juvenal Clay MD Primary Care Provider + Encounter Details Date Type Department Care Team (Late st Contact Info) Description 02/21/2024 Procedure Pass [facility], [address] [address] Social History Tobacco Use Types Packs/Day Years Used Date Smoking Tobacco: Never Smokeless Tobacco: Never Alcohol Use Standard Drinks/Week Comments Not Currently 0 (1 standard drink = 0.6 oz pur e alcohol) Education Answer Date Recorded Are you interested [...] documented as of this encounter Visit Diagnoses Not on filedocumented in this encounter Additional Health Concerns Infection Onset Date Last Indicated Resolved Time CoV-Risk Comment:Per note documentation 03/21/2024 03/21/2024 9:44 AM EDT documented as of this encounter Care Teams Referral Rn Relationship Specialty Start Date End Date Juvenal Clay MD [address] [place] [address] PCP - General Internal Medicine 07/12/23 documented as of this encounter Additional Source Comments The information contained in this document represents components of the legal health record. It is not the complete legal health record.[facility]
--- OUTSIDE RECORDS SUMMARY | 2025-05-25 09:32 | XMS_ITS | Encounter Summary ---
Author Organization [facility] Address [address] [place] [phone] Phone Care Team Providers Care Platform Attendant Name Role Phone Juvenal lCay MD Primary Care Provider + Reason for Referral * MRI/CAT Scan - Closed Specialty Diagnoses / Procedures Referred By Contac t Referred To Contact Radiology Diagnoses Nodule of kidney Procedures MRI Abdomen CHG MRI, ABDOMEN, COMBO System, Provider Not In, [facility] [address] [address] Referral ID Status Reason Start Date Expiration Date Visits Re quested Visits Authorized [id number] Closed 02/21/2024 06/20/2024 2 2 Encounter Details Date Type Department Care Team (Late st Contact Info) Description 02/21/2024 Transcribe Orders Virtual Department [address] [place] [id number] System, Provider Not In, [facility] [address] [address] Nodule of kidney (Primary Dx) Social History Tobacco Use Types [...] as of this encounter Results * MRI ABDOMEN (KIDNEYS) WITHOUT CONTRAST (04/21/2024 3:11 PM EDT) Anatomical Region Laterality Modality Abdomen Magnetic Resonan ce 04/27/2024 4:17 PM EDT Impressions 04/27/2024 4:23 PM EDT 1. A right kidney cyst measuring 6.4 cm containing a single internal septation and questionable 4 mm nodularity which is incompletely evaluated without IV contrast. Consider follow-up MRI with IV contrast in 6 months to ensure stability. 2. Other right renal cyst measuring 3.9 cm without suspicious features. 3. Splenomegaly. 4. Hyper trabeculated urinary bladder infante. Narrative 04/27/2024 4:23 PM EDT MRI ABDOMEN (KIDNEYS) WITHOUT CONTRAST Referring clinician's provided indication for this examination in Epic: Outside Radiology Order; Renal nodule, asymptomatic TECHNIQUE: Multiplanar MR imaging of the abdomen was performed using T1, T2, fat saturated, and diffusion weighted techniques. No intravenous contrast material was administered. The patient refused IV contrast after 2 reported extravasation by the technologist. COMPARISON: MRI of the lumbar spine 12/10/2023. ABSENCE OF INTRAVENOUS CONTRAST DECREASES SENSITIVITY FOR DETECTION OF FOCAL LESIONS AND VASCULAR PATHOLOGY. FINDINGS: Lower Chest: Normal. No effusions. Liver: 7 mm T2 bright lesion, likely cyst (series 3 image 5). No focal lesions. Biliary: Normal. No biliary ductal dilatation. Spleen: Splenomegaly with spleen measuring 13.1 cm in length. No focal splenic lesions. Pancreas: Normal. No masses or ductal dilatation. Adrenal Glands: Normal. No nodules. Kidneys/Ureters: Right kidney shows a 6.4 x 5.1 cm cyst with a single internal septation and questionable associated 4 mm nodularity (series 3 image 36). Additional simple cyst measuring 3.9 x 3.4 cm (series 3 image 32). The visualized urinary bladder demonstrates concentric wall thickening and hyper trabeculation. Bowel: Normal. No dilatation or wall thickening. Peritoneum/Retroperitoneum: Normal. No masses or fluid. Lymph Nodes: Normal. No lymphadenopathy. Vessels: Normal. No abdominal aortic aneurysm. Bones/Soft Tissues: Normal. No focal marrow replacing lesions. Procedure Note Isabela Landeros MD - 04/27/2024 MRI ABDOMEN (KIDNEYS) WITHOUT CONTRAST Referring clinician's provided indication for this examination in Epic:Outside Radiology Order; Renal nodule, asymptomatic TECHNIQUE: Multiplanar MR imaging of the abdomen was performed using T1,T2, fat saturated, and diffusion weighted techniques. No intravenouscontrast material was administered. The patient refused IV contrast after2 reported extravasation by the technologist. COMPARISON: MRI of the lumbar spine 12/10/2023. ABSENCE OF INTRAVENOUS CONTRAST DECREASES SENSITIVITY FOR DETECTION OFFOCAL LESIONS AND VASCULAR PATHOLOGY. FINDINGS: Lower Chest: Normal. No effusions. Liver: 7 mm T2 bright lesion, likely cyst (series 3 image 5). No focallesions. Biliary: Normal. No biliary ductal dilatation. Spleen: Splenomegaly with spleen measuring 13.1 cm in length. No focalsplenic lesions. Pancreas: Normal. No masses or ductal dilatation. Adrenal Glands: Normal. No nodules. Kidneys/Ureters: Right kidney shows a 6.4 x 5.1 cm cyst with a singleinternal septation and questionable associated 4 mm nodularity (series 3image 36). Additional simple cyst measuring 3.9 x 3.4 cm (series 3 image 32). Thevisualized urinary bladder demonstrates concentric wall thickening andhyper trabeculation. Bowel: Normal. No dilatation or wall thickening. Peritoneum/Retroperitoneum: Normal. No masses or fluid. Lymph Nodes: Normal. No lymphadenopathy. Vessels: Normal. No abdominal aortic aneurysm. Bones/Soft Tissues: Normal. No focal marrow replacing lesions. IMPRESSION: 1. A right kidney cyst measuring 6.4 cm containing a single internalseptation and questionable 4 mm nodularity which is incompletely evaluatedwithout IV contrast. Consider follow-up MRI with IV contrast in 6 monthsto ensure stability. 2. Other right renal cyst measuring 3.9 cm without suspicious features. 3. Splenomegaly. 4. Hyper trabeculated urinary bladder infante. us Provider Not In System PhD IMG MR ABDOMEN Final Result documented in this encounter Visit Diagnoses Diagnosis Nodule of kidney- Primary Nodule of kidney documented in this encounter Additional Health Concerns Infection Onset Date Last Indicated Resolved Time CoV-Risk Comment:Per note documentation 03/21/2024 03/21/2024 9:44 AM EDT documented as of this encounter Care Teams Platform Attendant Relationship Specialty Start Date End Date Juvenal Clay MD [address] [place] [address] PCP - General Internal Medicine 07/12/23 documented as of this encounter Additional Source Comments The information contained in this document represents components of the legal health record. It is not the complete legal health record.[facility]
--- OUTSIDE RECORDS SUMMARY | 2025-05-25 09:33 | XMS_ITS | Encounter Summary ---
Author Organization [facility] Address [address] [place] [phone] Phone Care Team Providers Care Instructional Systems Designer Name Role Phone Juvenal Clay MD Primary Care Provider + Encounter Details Date Type Department Care Team (Late st Contact Info) Description 07/11/2023 Procedure Pass [facility], [address] [address] Social History Tobacco Use Types Packs/Day Years [...] documented as of this encounter Care Teams Instructional Systems Designer Relationship Specialty Start Date End Date Juvenal Clay MD [address] [place] [address] PCP - General Internal Medicine 07/12/23 documented as of this encounter Additional Source Comments The information contained in this document represents components of the legal health record. It is not the complete legal health record.[facility]
--- OUTSIDE RECORDS SUMMARY | 2025-05-25 09:33 | XMS_ITS | Encounter Summary ---
Author Organization [facility] Address [address] [place] [address] Phone Care Team Providers Care Cesspool Cleaner Name Role Phone Juvenal Clay MD Primary Care Provider + Encounter Details Date Type Department Care Team (Late st Contact Info) Description 11/12/2023 Procedure Pass [facility], [address] [address] Social History Tobacco Use Types Packs/Day Years [...] documented as of this encounter Care Teams Cesspool Cleaner Relationship Specialty Start Date End Date Juvenal Clay MD [address] [place] [address] PCP - General Internal Medicine 07/12/23 documented as of this encounter Additional Source Comments The information contained in this document represents components of the legal health record. It is not the complete legal health record.[facility]
--- OUTSIDE RECORDS SUMMARY | 2025-05-25 09:33 | XMS_ITS | Encounter Summary ---
Author Organization [facility] Address [address] [place] [address] Phone Care Team Providers Care Trouble Locator Test Desk Name Role Phone Juvenal Clay MD Primary Care Provider + Encounter Details Date Type Department Care Team (Late st Contact Info) Description 03/21/2024 Procedure Pass [facility], [facility] Scan - [address] [address] Social History Tobacco Use Types Packs/Day Years [...] with a working camera? Not on file Intimate Partner Violence Answer Date R ecorded Are you denied basic needs s uch as food, clothing, or medical care? Patient unable to respond 03/21/2024 In the past 12 months have y ou been in a relationship with a person who hurts, threatens, or tries to control you? Patient unable to respond 03/21/2024 Are you denied basic needs s uch as food, clothing, or medical care? Patient unable to respond 03/21/2024 In the past 12 months have y ou been in a relationship with a person who hurts, threatens, or tries to control you? Patient unable to respond 03/21/2024 Sex and Gender Information Value Date Recorded Sex Assigned at Not on file Legal Sex Male 9:00 AM EDT Gender Identity Not on file Sexual Orientation Not on file documented as of this encounter Functional Status * Calculated C-SSRS Risk Score (Lifetime/Recent) Answer Date of Assessment Author No Risk Indicated 03/21/2024 11:21 PM EDT Madhavi Silva RN * [place] Suicide Severity Rating Scale (Screener/Recent Self-Report) Question Answer Date of Assessment Author 1. Wish to be (Past 1 Month) No 03/21/2024 11:21 PM EDT Madhavi Silva RN 2. Non-Specific Active Suici blanca Thoughts (Past 1 Month) No 03/21/2024 11:21 PM EDT Yady Silva RN 6. Suicidal Behavior (Lifetime) No 11:21 PM EDT Madhavi Silva RN documented as of this encounter Plan of Treatment Not on file documented as of this encounter Visit Diagnoses Not on filedocumented in this encounter Additional Health Concerns Infection Onset Date Last Indicated Resolved Time CoV-Risk Comment:Per note documentation 03/21/2024 03/21/2024 9:44 AM EDT documented as of this encounter Care Teams Trouble Locator Test Desk Relationship Specialty Start Date End Date Juvenal Clay MD [address] [place] [address] PCP - General Internal Medicine 07/12/23 documented as of this encounter Additional Source Comments The information contained in this document represents components of the legal health record. It is not the complete legal health record.[facility]
--- OUTSIDE RECORDS SUMMARY | 2025-05-25 09:33 | XMS_ITS | Clinical Summary ---
Author Organization [facility] Address [address] [place] [phone] Care Team Providers Care Seafood Technology Specialist Name Role Phone Rivera Isaac MD Primary Care Provider Social History Tobacco Use Types Packs/Day Years [...] 2002 Zoster Vaccines (1 of 2) 2002 Depression Screening 09/16/2024 COVID-19 Vaccine (1 - 2023-2 5 season) 2025 Influenza Vaccine (#1) 2025 RSV Immunization Adult [...] Documents on File Type Date Recorded Patient Deflash And Wash Operator Expl anation Health Care Decision (hx) 04/29/2022 AD SON DIRECTIVE Health Care Decision (hx) 04/29/2022 AD SON DIRECTIVE Care Teams Seafood Technology Specialist Relationship Specialty Start Date End Date Rivera Isaac MD [address] [facility] [place] PCP - General Internal Medicine 05/03/22
--- OUTSIDE RECORDS SUMMARY | 2025-05-25 09:33 | XMS_ITS | Encounter Summary ---
Author Organization [facility] Address [address] [place] [address] Phone Care Team Providers Care Food Selector Name Role Phone Juvenal Clay MD Primary Care Provider + Encounter Details Date Type Department Care Team (Late st Contact Info) Description 11/12/2023 Procedure Pass [facility], [address] [address] Social History Tobacco Use Types Packs/Day Years [...] documented as of this encounter Care Teams Food Selector Relationship Specialty Start Date End Date Juvenal Clay MD [address] [place] [address] PCP - General Internal Medicine 07/12/23 documented as of this encounter Additional Source Comments The information contained in this document represents components of the legal health record. It is not the complete legal health record.[facility]
--- OUTSIDE RECORDS SUMMARY | 2025-05-25 09:33 | XMS_ITS | Clinical Summary ---
Author Organization [facility] Address [address] [place] [address] Phone Care Team Providers Care Engine Generator Assembler Name Role Phone Juvenal Clay MD Primary Care Provider + Allergies No known active allergies Medications famotidine (PEPCID) 10 MG tablet Take 10 mg by mouth nightly at bedtime. Active pregabalin (LYRICA) 100 MG capsule Take 100 mg by mouth 2 (two) times a day. Active morphine (MS CONTIN) 30 MG ER tablet Take 30 mg by mouth 2 (two) times a day. Active polyethylene glycol (MIRALAX) 17 gram packet Take 17 g by mouth 2 (two) times a day as needed for mild constipation. Active bisacodyl (DULCOLAX) [address] 10 mg rectally daily as needed (Constipation not responding to MiraLAX). Active benzonatate (TESSALON) 200 MG capsule Take 200 mg by mouth 2 (two) times a day as needed for cough. Active aluminum-magnes ium hydroxide-simet hicone (MAALOX) 200-200-20 mg/5 mL Susp Take 30 mL by mouth 3 (three) times a day as needed. Active albuterol 2.5 mg /3 mL (0.083 %) nebulizer solution Take 2.5 mg by nebulization 2 (two) times a day as needed. Active albuterol 90 mcg/actuation inhaler Inhale 2 puffs into the lungs 4 (four) times a day as needed for wheezing. Active multivitamin with minerals (DAILY MULTIVITAMIN-AK NERALS ORAL) Take 1 tablet by mouth daily. Active montelukast (SINGULAIR) 10 mg tablet Take 10 mg by mouth nightly at bedtime. Active senna-docusate (PERICOLACE) 8.6-50 mg Take 2 tablets by mouth 2 (two) times a day. Active oxyCODONE-aceta minophen (PERCOCET) 5-325 mg per tablet Take 2 tablets by mouth 2 (two) times a day as needed for pain (specific location in comments) (6-10 pain in right leg). Active carisoprodol (SOMA) 350 MG tablet Take 350 mg by mouth 2 (two) times a day. Active budesonide (PULMICORT) 0.25 mg/2 mL nebulizer solution Take 0.25 mg by nebulization daily. Active ipratropium-alb uteroL (DUONEB) 0.5-3 mg (2.5 mg base)/3 mL nebulizer solution Take 3 mL by nebulization daily. Active Active Problems Problem Noted Date Diagnosed Date Altered mental status, unspe cified altered mental status type 03/23/2024 Toxic encephalopathy 03/22/2024 Assessment & Plan (03/23/2024 1:45 PM EDT): - Found at [facility] unresponsive, after a walk had pinpoint pupils and RR 8, reportedly improved with narcan, did not require additional doses. Urine toxicology positive for fentanyl + opiates. He is prescribed morphine and oxycodone for chronic pain. False positive is possible but concern for illicit opioid use in addition to prescribed opioids. - [place] Dr. Clay requested send confirmatory test of fentanyl, added onto labs 03/23 after discussion with with lab, it is a send out test, pending. For chronic pain, opioids were initially held in setting of concern for accidental overdose. 03/22 as needed oxycodone restarted. 03/23 long acting morphine re-started at prior dose. Soma is still held. Evaluation for other possible etiologies of acute encephalopathy included head CT with no acute findings. Patient has a history of bacteremia and septic arthritis and at presentation had an elevated wbc and soft blood pressure but no fevers. Blood cultures were collected and are no growth to date. Procalcitonin was mildly elevated. He did not have other findings to suggest bacterial infection. TSH was within normal limits, B12 within normal limits. - seems improved, renal function not significantly impaired, monitor for sedation back on morphine. Aspiration pneumonia 03/22/2024 Assessment & Plan (03/23/2024 1:51 PM EDT): Chest CT with possible aspiration versus atelectasis. Definitely could have aspirated while unresponsive. - received 1x unasyn and vancomycin - o2 sat reassuring - there was partially imaged subcutaneous gas within the left chest wall - no findings on exam to correlate - influenza and covid testing negative. 03/23 he appears able to take antibiotic and is not having fevers or oxygen requirement given the relatively mild symptoms would transition to oral antibiotic as feel the risk of the leg IV exceeds the benefit at this point Social History Tobacco Use Types Packs/Day Years Used Date Smoking Tobacco: Never Smokeless Tobacco: Never Tobacco Cessation:Counseling Given: Not Answered Alcohol Use Standard Drinks/Week Comments Not Currently [...] on file Sexual Orientation Not on file Last Filed Vital Signs Vital Sign Reading Time Taken Comments Blood Pressure 116/67 03/25/2024 4:28 PM EDT Pulse 52 03/25/2024 4:28 PM EDT Temperature 36.3 C (97.3 F) 03/25/2024 4:28 PM EDT Respiratory Rate 20 03/25/2024 4:28 PM EDT Oxygen Saturation 93% 03/25/2024 4:28 PM EDT Inhaled Oxygen Concentration - - Weight 77.1 kg (170 lb) 04/15/2024 2:01 PM EDT Height 177.8 cm (5' 10 ) 04/15/2024 2:01 PM EDT Body Mass Index 24.39 04/15/2024 2:01 PM EDT Plan of Treatment Health Maintenance Due Date Last Done Comments Adult Td,Tdap Booster 1952 LIPID PANEL 1952 DEPRESSION SCREENING 1964 HEPATITIS C SCREENING 1970 SMOKING STATUS SCREENING (On ce After 26 Yrs) 1978 COLOGUARD 1997 COLONOSCOPY 1997 COLORECTAL CANCER SCREENING 1997 FIT TEST 1997 FOBT 1997 SIGMOIDOSCOPY 1997 VIRTUAL COLONOSCOPY 1997 PNEUMOCOCCAL VACCINES (50+ y ears) (1 of 1 - PCV) 2002 ZOSTER VACCINES (1 of 2) 2002 INFLUENZA VACCINE (#1) 2025 COVID-19 VACCINE (1 - 2023-2 5 season) 2025 RSV VACCINE (1 - 1-dose 75+ series) 2027 HEPATITIS A VACCINES Aged Out No long er eligible based on patient's age to complete this topic HIB VACCINES Aged Out No longer eligi ble based on patient's age to complete this topic MENINGOCOCCAL VACCINES (ACWY) Aged Out No longer eligible based on patient's age to complete this topic MENINGOCOCCAL VACCINES (B) Aged Out N o longer eligible based on patient's age to complete this topic Medical Devices Not on file Insurance [facility] Advance Directives For more information, please contact: [phone] (9AM - 5PM Kathy/[facility], Saturday-Saturday) * Full Code (Latest Code Status on File) Date Activated Date Inactivated Comments 03/22/2024 12:07 AM Question Answer Comments Code Status Confirmed With: Other (specify below ) Code Discussion Comments: Presumed Care Teams Engine Generator Assembler Relationship Specialty Start Date End Date Juvenal Clay MD [address] [place] [phone] PCP - General Internal Medicine 07/12/23 Additional Source Comments The information contained in this document represents components of the legal health record. It is not the complete legal health record.[facility]
--- OUTSIDE RECORDS SUMMARY | 2025-05-25 09:33 | XMS_ITS | Encounter Summary ---
Author Organization [facility] Address [address] [place] [phone] Phone Care Team Providers Care Supervisor Assembly And Packing Name Role Phone Juvenal Clay MD Primary Care Provider + Encounter Details Date Type Department Care Team (Late st Contact Info) Description 07/09/2023 Procedure Pass [facility], [address] [address] Social History Tobacco Use Types Packs/Day Years [...] documented as of this encounter Care Teams Supervisor Assembly And Packing Relationship Specialty Start Date End Date Juvenal Clay MD [address] [place] [address] PCP - General Internal Medicine 07/12/23 documented as of this encounter Additional Source Comments The information contained in this document represents components of the legal health record. It is not the complete legal health record.[facility]
--- OUTSIDE RECORDS SUMMARY | 2025-05-25 09:33 | XMS_ITS | Encounter Summary ---
Author Organization [facility] Address [address] [place] [phone] Phone Care Team Providers Care Kennel Staff Member Name Role Phone Juvenal Clay MD Primary Care Provider + Encounter Details Date Type Department Care Team (Late st Contact Info) Description 03/21/2024 Procedure Pass [facility], Ct Scan - [address] [address] Social History Tobacco Use Types Packs/Day Years [...] 11:21 PM EDT Madhavi Silva RN * [place] Suicide Severity Rating Scale (Screener/Recent Self-Report) Question [...] documented as of this encounter Care Teams Kennel Staff Member Relationship Specialty Start Date End Date Juvenal Clay MD [address] [place] [id number] PCP - General Internal Medicine 07/12/23 documented as of this encounter Additional Source Comments The information contained in this document represents components of the legal health record. It is not the complete legal health record.[facility]
--- OUTSIDE RECORDS SUMMARY | 2025-05-25 09:33 | XMS_ITS | Encounter Summary ---
Author Organization [facility] Address [address] [place] [address] Phone Care Team Providers Care State Highway Police Officer Name Role Phone Juvenal Clay MD Primary Care Provider + Encounter Details Date Type Department Care Team (Late st Contact Info) Description 11/12/2023 Procedure Pass [facility], [address] [address] Social History Tobacco Use Types Packs/Day Years [...] documented as of this encounter Care Teams State Highway Police Officer Relationship Specialty Start Date End Date Juvenal Clay MD [address] [place] [address] PCP - General Internal Medicine 07/12/23 documented as of this encounter Additional Source Comments The information contained in this document represents components of the legal health record. It is not the complete legal health record.[facility]
--- OUTSIDE RECORDS SUMMARY | 2025-05-25 09:33 | XMS_ITS | Encounter Summary ---
Author Organization [facility] Address [address] [place] [address] Phone Care Team Providers Care Talent Scout Name Role Phone Juvenal Clay MD Primary Care Provider + Encounter Details Date Type Department Care Team (Latest Contact Info) Description 09/04/2023 Transcribe Orders Virtual Department [address] [place] [phone] Juvenal Clay MD [address] [place] [address] [email or web address] Other chronic osteomyelitis, left humerus (Primary Dx) Social History Tobacco Use Types [...] as of this encounter Visit Diagnoses Diagnosis Other chronic osteomyelitis, left humerus- Primary documented in this encounter Additional Health Concerns Infection Onset Date Last Indicated Resolved Time CoV-Risk Comment:Per note documentation 03/21/2024 03/21/2024 07/08/202 4 9:44 AM EDT documented as of this encounter Care Teams Talent Scout Relationship Specialty Start Date End Date Juvenal Clay MD [address] [place] [phone] PCP - General Internal Medicine 07/12/23 documented as of this encounter Additional Source Comments The information contained in this document represents components of the legal health record. It is not the complete legal health record.[facility]
--- OUTSIDE RECORDS SUMMARY | 2025-05-25 09:33 | XMS_ITS | Encounter Summary ---
Author Organization [facility] Address [address] [place] [address] Phone Care Team Providers Care Railroad Car Repair Supervisor Name Role Phone Juvenal Clay MD Primary Care Provider + Encounter Details Date Type Department Care Team (Late st Contact Info) Description 02/20/2024 Transcribe Orders Virtual Department [address] [place] [phone] System, Provider Not In, [facility] [address] [address] Renal mass (Primary Dx) Social History Tobacco [...] documented as of this encounter Care Teams Railroad Car Repair Supervisor Relationship Specialty Start Date End Date Juvenal Clay MD [address] [place] [address] PCP - General Internal Medicine 07/12/23 documented as of this encounter Additional Source Comments The information contained in this document represents components of the legal health record. It is not the complete legal health record.[facility]
--- OUTSIDE RECORDS SUMMARY | 2025-05-25 09:33 | XMS_ITS | Encounter Summary ---
Author Organization [facility] Address [address] [place] [phone] Phone Care Team Providers Care Manager Bank Name Role Phone Juvenal Clya MD Primary Care Provider + Encounter Details Date Type Department Care Team (Late st Contact Info) Description 11/12/2023 Procedure Pass [facility], [address] [address] Social History Tobacco Use Types Packs/Day Years [...] documented as of this encounter Care Teams Manager Bank Relationship Specialty Start Date End Date Juvenal Clay MD [address] [place] [address] PCP - General Internal Medicine 07/12/23 documented as of this encounter Additional Source Comments The information contained in this document represents components of the legal health record. It is not the complete legal health record.[facility]
--- OUTSIDE RECORDS SUMMARY | 2025-05-25 09:33 | XMS_ITS | Encounter Summary ---
Author Organization [facility] Address [address] [place] [address] [place], [place] [id number] Phone Care Team Providers Care Contracts Advisor Name Role Phone Juvenal Clay MD Primary Care Provider + Reason for Referral * MRI/CAT Scan - Closed Specialty Diagnoses / Procedures Referred By Contac t Referred To Contact Radiology Diagnoses Muscle weakness (generalized) Procedures MRI Lumbar Spine CHG MRI, LUMBAR SPINE CHG MRI, LUMBAR SPINE COMBO Juvenal Clay MD [address] [place] [address] Phone: tel: fax: mailto: Referral ID Status Reason Start Date Expiration Date Visits Re quested Visits Authorized [id number] Closed 11/12/2023 01/11/2024 1 1 * MRI/CAT Scan - Closed Specialty Diagnoses / Procedures Referred By Contac t Referred To Contact Radiology Diagnoses Muscle weakness (generalized) Procedures MRI Thoracic Spine CHG MRI, DORSAL SPINE CONTRAST CHG MRI, DORSAL SPINE COMBO Juvenal Clay MD [address] [place] [address] Phone: tel: fax: mailto: Referral ID Status Reason Start Date Expiration Date Visits Re quested Visits Authorized [id number] Closed 11/12/2023 01/11/2024 1 1 * MRI/CAT Scan - Closed Specialty Diagnoses / Procedures Referred By Belkis gaspar Referred To Contact Radiology Diagnoses Sprain of unspecified rotator cuff capsule, sequela Procedures MRI Shoulder (Right) CHG MRI, JOINT UPPER EXTREM CHG MRI, JOINT UPPER EXTREM W/CONTRAST CHG MRI, JOINT UPPER EXTREM Juvenal Ryan MD [address] [place] [address] Phone: tel: fax: mailto: Referral ID Status Reason Start Date Expiration Date Visits Re quested Visits Authorized [id number] Closed 11/12/2023 01/11/2024 1 1 * MRI/CAT Scan - Closed Specialty Diagnoses / Procedures Referred By Belkis gaspar Referred To Contact Radiology Diagnoses Sprain of unspecified rotator cuff capsule, sequela Procedures MRI Shoulder (Left) CHG MRI, JOINT UPPER EXTREM CHG MRI, JOINT UPPER EXTREM W/CONTRAST CHG MRI, JOINT UPPER EXTREM COMBO Juvenal Clay MD [address] [place] [address] Phone: tel: fax: mailto:[email or web address] Referral ID Status Reason Start Date Expiration Date Visits Re quested Visits Authorized [id number] Closed 11/12/2023 01/11/2024 1 1 Encounter Details Date Type Department Care Team (Latest Contact Info) Description 11/12/2023 Transcribe Orders Virtual Department [address] [place] [address] Juvenal Clay MD [address] [place] [address] [email or web address] Sprain of unspecified rotator cuff capsule, sequela (Primary Dx); Muscle weakness (generalized) Social History [...] as of this encounter Results * MRI LUMBAR SPINE (NEURO) WITHOUT CONTRAST (12/10/2023 3:33 PM EDT) Anatomical Region Laterality Modality L-spine Magnetic Resonan ce 12/13/2023 3:13 PM EDT Impressions 12/13/2023 4:18 PM EDT 1. Chronic compression fractures of bodies of L2, L3 and L4. Ankylosis of the bodies of L3 and L3 and L4. Mild-moderate compression fracture of L5 involving the superior endplate which is likely subacute. Clinical correlation recommended. 2. Mild-moderate central canal stenosis at L2-L3. 3. Moderate-severe neuroforaminal narrowing at L5-S1 on the right. 4. Grade 1 (close to grade 2) spondylolisthesis of L5 on S1 likely due to degenerative facet arthropathy. There is multilevel facet arthropathy. 5. Partial imaging of an approximate 5 cm exophytic mass in the right kidney, likely a cyst. Renal ultrasound recommended for confirmation. Narrative 12/13/2023 4:18 PM EDT MRI LUMBAR SPINE (NEURO) WITHOUT CONTRAST Referring clinician's provided indication for this examination in Epic: Outside Radiology Order; muscle weakness TECHNIQUE: MRI LUMBAR SPINE (NEURO) WITHOUT CONTRAST Multi-sequence, multi-planar MRI of the lumbar spine was performed without intravenous contrast. COMPARISON: No prior imaging for comparison. FINDINGS: LUMBAR SPINE: Alignment and Vertebrae: Evidence of an S-shaped deformity of the spine. Moderate chronic compression fracture involving superior endplate of L2. Minimal retropulsion of bone. Slightly more severe chronic anterior compression fractures of the bodies of L3 and L4. Mild-moderate retropulsion of bone posteriorly at L3-L4. Ankylosis of the bodies of L3 and L4. Mild-moderate compression fracture of the body of L5. Hypointense and mild hyperintense T2 and STIR signal within the superior endplate. No retropulsion of bone. Approximately 10 mm of spondylolisthesis of L5 on S1. Minimal spondylolisthesis of L2 on L3 and mild retrolisthesis of L4 and L5. Marrow: No suspicious marrow signal abnormalities. Discs and Endplates: Ankylosis of the bodies of L3 and L4. Moderate degenerative disc and endplate changes at L5-S1 with loss of T2 signal within the disc. Conus: Normal. Soft Tissues: No paravertebral masses. No prevertebral edema. Other Findings: Partial imaging of an approximate 5 cm exophytic T2 hyperintense mass in the anterior interpolar region of the right kidney. Bilateral sub-centimeter T2 hyperintense renal lesions, very likely benign and probably cysts. Findings by level: T12-L1: Small disc-osteophyte complex. Moderate bilateral facet arthropathy and mild thickening of the ligamentum flavum. No central canal stenosis. Mild neuroforaminal narrowing more so on the left. L1-L2: Small broad-based disc bulge. Mild-moderate bilateral facet arthropathy. No central canal stenosis. Minimal neuroforaminal narrowing on the right. L2-L3: Broad-based disc-osteophyte complex. Moderate bilateral facet arthropathy and moderate thickening of the ligamentum flavum bilaterally. Mild-moderate central canal stenosis. Mild bilateral facet arthropathy. L3-L4: Broad-based posterior osteophytes/mild retropulsion of bone. Moderate facet arthropathy and mild thickening of the ligamentum flavum. Narrowing of the central canal without central canal stenosis. Moderate neuroforaminal narrowing on the right. Mild neuroforaminal narrowing on the left. L4-L5: Small broad-based posterior osteophytes. Moderate bilateral facet arthropathy. No central canal stenosis. Mild-moderate bilateral neuroforaminal narrowing. L5-S1: Small broad-based disc protrusion. Moderate to severe facet arthropathy. No central canal stenosis. Moderate to severe neuroforaminal narrowing on the right and mild-moderate neuroforaminal narrowing on the left. Procedure Note Joey Ovalle MD - 12/13/2023 MRI LUMBAR SPINE (NEURO) WITHOUT CONTRAST Referring clinician's provided indication for this examination in Epic:Outside Radiology Order; muscle weakness TECHNIQUE: MRI LUMBAR SPINE (NEURO) WITHOUT CONTRAST Multi-sequence, multi-planar MRI of the lumbar spine was performed withoutintravenous contrast. COMPARISON: No prior imaging for comparison. FINDINGS: LUMBAR SPINE: Alignment and Vertebrae: Evidence of an S-shaped deformity of the spine.Moderate chronic compression fracture involving superior endplate of L2.Minimal retropulsion of bone. Slightly more severe chronic anteriorcompression fractures of the bodies of L3 and L4. Mild-moderateretropulsion of bone posteriorly at L3-L4. Ankylosis of the bodies of L3and L4. Mild-moderate compression fracture of the body of L5. Hypointenseand mild hyperintense T2 and STIR signal within the superior endplate. Noretropulsion of bone. Approximately 10 mm of spondylolisthesis of L5 onS1. Minimal spondylolisthesis of L2 on L3 and mild retrolisthesis of L4and L5. Marrow: No suspicious marrow signal abnormalities. Discs and Endplates: Ankylosis of the bodies of L3 and L4. Moderatedegenerative disc and endplate changes at L5-S1 with loss of T2 signalwithin the disc. Conus: Normal. Soft Tissues: No paravertebral masses. No prevertebral edema. Other Findings: Partial imaging of an approximate 5 cm exophytic [id number] mass in the anterior interpolar region of the right kidney.Bilateral sub-centimeter T2 hyperintense renal lesions, very likely benignand probably cysts. Findings by level: T12-L1: Small disc-osteophyte complex. Moderate bilateral facetarthropathy and mild thickening of the ligamentum flavum. No central canalstenosis. Mild neuroforaminal narrowing more so on the left. L1-L2: Small broad-based disc bulge. Mild-moderate bilateral facetarthropathy. No central canal stenosis. Minimal neuroforaminal narrowingon the right. L2-L3: Broad-based disc-osteophyte complex. Moderate bilateral facetarthropathy and moderate thickening of the ligamentum flavum bilaterally.Mild-moderate central canal stenosis. Mild bilateral facet arthropathy. L3-L4: Broad-based posterior osteophytes/mild retropulsion of bone.Moderate facet arthropathy and mild thickening of the ligamentum flavum.Narrowing of the central canal without central canal stenosis. Moderateneuroforaminal narrowing on the right. Mild neuroforaminal narrowing onthe left. L4-L5: Small broad-based posterior osteophytes. Moderate bilateral facetarthropathy. No central canal stenosis. Mild-moderate bilateralneuroforaminal narrowing. L5-S1: Small broad-based disc protrusion. Moderate to severe facetarthropathy. No central canal stenosis. Moderate to severe neuroforaminalnarrowing on the right and mild-moderate neuroforaminal narrowing on theleft. IMPRESSION: 1. Chronic compression fractures of bodies of L2, L3 and L4. Ankylosis ofthe bodies of L3 and L3 and L4. Mild-moderate compression fracture of [id number] the superior endplate which is likely subacute. Clinicalcorrelation recommended. 2. Mild-moderate central canal stenosis at L2-L3. 3. Moderate-severe neuroforaminal narrowing at L5-S1 on the right. 4. Grade 1 (close to grade 2) spondylolisthesis of L5 on S1 likely due todegenerative facet arthropathy. There is multilevel facet arthropathy. 5. Partial imaging of an approximate 5 cm exophytic mass in the rightkidney, likely a cyst. Renal ultrasound recommended for confirmation. us Juvenal Clay MD IMG MR XSPECIALTY Final Result * MRI THORACIC SPINE (NEURO) WITHOUT CONTRAST (12/10/2023 3:15 PM EDT) Anatomical Region Laterality Modality T-spine Magnetic Resonan ce 12/13/2023 2:56 PM EDT Impressions 12/13/2023 3:13 PM EDT 1. Chronic compression deformities of the bodies of T9 and T10. Ankylosis of the bodies of T9 and T10. 2. No central canal stenosis. Neuroforaminal narrowing in the lower thoracic spine, most prominent at T10-T11 on the left. 3. Evidence of scoliosis. Narrative 12/13/2023 3:13 PM EDT MRI THORACIC SPINE (NEURO) WITHOUT CONTRAST Referring clinician's provided indication for this examination in Epic: Outside Radiology Order; muscle weakness TECHNIQUE: MRI THORACIC SPINE (NEURO) WITHOUT CONTRAST Multi-sequence, multi-planar MRI of the thoracic spine was performed without intravenous contrast. COMPARISON: No prior imaging for comparison. FINDINGS: THORACIC SPINE: Alignment and Vertebrae: Evidence of an S-shaped deformity of the spine. Chronic appearing anterior compression fractures of the bodies of T9 and T10. No significant retropulsion of bone. No evidence of acute compression fractures. No subluxation. Marrow: No suspicious marrow signal abnormalities. Discs and Endplates: Ankylosis of the bodies of T9 and T10 mild-moderate degenerative disc and endplate changes in the mid and lower thoracic spine. Small disc- osteophyte complexes. No significant focal disc abnormalities. Spinal Cord: No evidence of spinal cord lesions. Conus medullaris normal. Central canal and neural foramina: No central canal stenosis. Evidence of moderate to severe neuroforaminal narrowing at T10-T11 on the left. Contralateral neuroforaminal narrowing appears more mild. Moderate neuroforaminal narrowing at T8-T9 and T9- T10. Soft Tissue: No evidence of paravertebral masses.. No prevertebral edema. Procedure Note Joey Ovalle MD - 12/13/2023 MRI THORACIC SPINE (NEURO) WITHOUT CONTRAST Referring clinician's provided indication for this examination in Epic:Outside Radiology Order; muscle weakness TECHNIQUE: MRI THORACIC SPINE (NEURO) WITHOUT CONTRAST Multi-sequence, multi-planar MRI of the thoracic spine was performedwithout intravenous contrast. COMPARISON: No prior imaging for comparison. FINDINGS: THORACIC SPINE: Alignment and Vertebrae: Evidence of an S-shaped deformity of the spine.Chronic appearing anterior compression fractures of the bodies of T9 andT10. No significant retropulsion of bone. No evidence of acute compressionfractures. No subluxation. Marrow: No suspicious marrow signal abnormalities. Discs and Endplates: Ankylosis of the bodies of T9 and T10 mild- moderatedegenerative disc and endplate changes in the mid and lower thoracicspine. Small disc- osteophyte complexes. No significant focal discabnormalities. Spinal Cord: No evidence of spinal cord lesions. Conus medullarisnormal. Central canal and neural foramina: No central canal stenosis. Evidence ofmoderate to severe neuroforaminal narrowing at T10-T11 on the left.Contralateral neuroforaminal narrowing appears more mild. Moderateneuroforaminal narrowing at T8-T9 and T9- T10. Soft Tissue: No evidence of paravertebral masses.. No prevertebraledema. IMPRESSION: 1. Chronic compression deformities of the bodies of T9 and T10. Ankylosisof the bodies of T9 and T10. 2. No central canal stenosis. Neuroforaminal narrowing in the lowerthoracic spine, most prominent at T10-T11 on the left. 3. Evidence of scoliosis. Juvenal Clay MD IMG MR XSPECIALTY Final Result * MRI SHOULDER WITHOUT CONTRAST (RIGHT) (12/10/2023 2:39 PM EDT) Anatomical Region Laterality Modality Shoulder Right Magnetic Resonan ce 12/11/2023 1:03 PM EDT Impressions 12/12/2023 1:33 AM EDT Full-thickness supraspinatus and subscapularis tendon tears. Infraspinatus tendinopathy with moderate grade articular surface tear. Severe supraspinatus, subscapularis, and portions of infraspinatus muscle atrophy. Severe acromioclavicular joint and glenohumeral osteoarthritis. Narrative 12/12/2023 1:33 AM EDT MRI SHOULDER WITHOUT CONTRAST (RIGHT) REQUESTED INDICATION: Outside Radiology Order; muscle weakness TECHNIQUE: MRI SHOULDER WITHOUT CONTRAST (RIGHT) COMPARISON: None FINDINGS: CORACOACROMIAL ARCH: Severe bony proliferative change of the acromioclavicular joint. Small to moderate volume of fluid in the subacromial/subdeltoid bursa. ROTATOR CUFF: Full thickness supraspinatus tendon tear with retraction to the level of the glenoid. Subscapularis tendinopathy with full-thickness tear and retraction to the level of the glenoid. Infraspinatus tendinopathy with moderate grade articular surface tear. Teres minor tendon intact. Severe supraspinatus, subscapularis, and portions of infraspinatus muscle atrophy. GLENOID LABRUM AND BICEPS TENDON: Circumferential degenerative labral tearing. Biceps tendon in the bicipital groove. BONE: No fracture, osteonecrosis, or focal lesion. GLENOHUMERAL JOINT: Superior translation of the humeral head with direct abutment of the acromial undersurface. Severe cartilage loss particularly over the central glenoid. Circumferential humeral head osteophytes. Joint effusion with synovitis. Thickening of the inferior joint capsule, consistent with prior capsular injury. Procedure Note Catalina Fry MD - 12/12/2023 MRI SHOULDER WITHOUT CONTRAST (RIGHT) REQUESTED INDICATION: Outside Radiology Order; muscle weakness TECHNIQUE: MRI SHOULDER WITHOUT CONTRAST (RIGHT) COMPARISON: None FINDINGS: CORACOACROMIAL ARCH: Severe bony proliferative change of theacromioclavicular joint. Small to moderate volume of fluid in thesubacromial/subdeltoid bursa. ROTATOR CUFF: Full thickness supraspinatus tendon tear with retraction tothe level of the glenoid. Subscapularis tendinopathy with full-thicknesstear and retraction to the level of the glenoid. Infraspinatustendinopathy with moderate grade articular surface tear. Teres minortendon intact. Severe supraspinatus, subscapularis, and portions ofinfraspinatus muscle atrophy. GLENOID LABRUM AND BICEPS TENDON: Circumferential degenerative labraltearing. Biceps tendon in the bicipital groove. BONE: No fracture, osteonecrosis, or focal lesion. GLENOHUMERAL JOINT: Superior translation of the humeral head with directabutment of the acromial undersurface. Severe cartilage loss particularlyover the central glenoid. Circumferential humeral head osteophytes. Jointeffusion with synovitis. Thickening of the inferior joint capsule,consistent with prior capsular injury. IMPRESSION: Full-thickness supraspinatus and subscapularis tendon tears. Infraspinatus tendinopathy with moderate grade articular surface tear. Severe supraspinatus, subscapularis, and portions of infraspinatus muscleatrophy. Severe acromioclavicular joint and glenohumeral osteoarthritis. Juvenal Clay MD IM MR EXTREMITY Final R esult * MRI SHOULDER WITHOUT CONTRAST (LEFT) (12/10/2023 2:10 PM EDT) Anatomical Region Laterality Modality Shoulder Left Magnetic Resonan ce 12/11/2023 1:03 PM EDT Impressions 12/12/2023 1:21 AM EDT Supraspinatus tendinopathy with full-thickness, partial width tear of the anterior half of the tendon. Tear continues posteriorly as a moderate grade articular surface tear with fluid tracking into the myotendinous junction. Infraspinatus and subscapularis tendinopathy without discrete tears. Diffuse labral degeneration and likely chronic partial tear of the proximal biceps tendon. Moderate glenohumeral osteoarthritis. Thickening and soft tissue edema of the inferior joint capsule with discontinuity of the inferior glenohumeral ligament posterior band, consistent with prior capsular injury. Narrative 12/12/2023 1:21 AM EDT MRI SHOULDER WITHOUT CONTRAST (LEFT) REQUESTED INDICATION: Outside Radiology Order; muscle weakness TECHNIQUE: MRI SHOULDER WITHOUT CONTRAST (LEFT) COMPARISON: None FINDINGS: CORACOACROMIAL ARCH: Mild acromioclavicular joint bony proliferative change. Moderate to large volume fluid in the subacromial/subdeltoid bursa. ROTATOR CUFF: Supraspinatus tendinopathy with full-thickness, partial width tear of the anterior half of the tendon. Tear continues posteriorly as a moderate grade articular surface tear with fluid tracking proximally into the myotendinous junction. Infraspinatus and subscapularis tendinopathy without discrete tears. Teres minor tendon intact. Mild global muscle atrophy. GLENOID LABRUM AND BICEPS TENDON: Diffuse labral degeneration. Biceps tendon in the bicipital groove with a diminutive intra-articular component, may reflect chronic partial tearing. BONE: No fracture, osteonecrosis, or focal lesion. Areas of patchy T2/STIR hyperintense signal in the proximal humerus are favored to reflect areas of red marrow. GLENOHUMERAL JOINT: Moderate cartilage loss with subchondral edema. No joint effusion. Thickening and soft tissue edema of the inferior joint capsule. Discontinuity of the inferior glenohumeral ligament posterior band (5:14). Procedure Note Catalina Fry MD - 12/12/2023 MRI SHOULDER WITHOUT CONTRAST (LEFT) REQUESTED INDICATION: Outside Radiology Order; muscle weakness TECHNIQUE: MRI SHOULDER WITHOUT CONTRAST (LEFT) COMPARISON: None FINDINGS: CORACOACROMIAL ARCH: Mild acromioclavicular joint bony proliferativechange. Moderate to large volume fluid in the subacromial/subdeltoidbursa. ROTATOR CUFF: Supraspinatus tendinopathy with full-thickness, partialwidth tear of the anterior half of the tendon. Tear continues posteriorlyas a moderate grade articular surface tear with fluid tracking proximallyinto the myotendinous junction. Infraspinatus and subscapularistendinopathy without discrete tears. Teres minor tendon intact. Mildglobal muscle atrophy. GLENOID LABRUM AND BICEPS TENDON: Diffuse labral degeneration. Bicepstendon in the bicipital groove with a diminutive intra-articularcomponent, may reflect chronic partial tearing. BONE: No fracture, osteonecrosis, or focal lesion. Areas of patchy T2/STIRhyperintense signal in the proximal humerus are favored to reflect areasof red marrow. GLENOHUMERAL JOINT: Moderate cartilage loss with subchondral edema. Nojoint effusion. Thickening and soft tissue edema of the inferior jointcapsule. Discontinuity of the inferior glenohumeral ligament posteriorband (5:14). IMPRESSION: Supraspinatus tendinopathy with full-thickness, partial width tear of theanterior half of the tendon. Tear continues posteriorly as a moderategrade articular surface tear with fluid tracking into the myotendinousjunction. Infraspinatus and subscapularis tendinopathy without discrete tears. Diffuse labral degeneration and likely chronic partial tear of theproximal biceps tendon. Moderate glenohumeral osteoarthritis. Thickening and soft tissue edema of the inferior joint capsule withdiscontinuity of the inferior glenohumeral ligament posterior band,consistent with prior capsular injury. Juvenal Clay MD IMG MR EXTREMITY Final R esult documented in this encounter Visit Diagnoses Diagnosis Sprain of unspecified rotator cuff capsule, sequela- Primary Muscle weakness (generalized) Muscle weakness (generalized) Muscle weakness (generalized) Sprain of unspecified rotator cuff capsule, sequela Sprain of unspecified rotator cuff capsule, sequela documented in this encounter Additional Health Concerns Infection Onset Date Last Indicated Resolved Time CoV-Risk Comment:Per note documentation 03/21/2024 03/21/2024 9:44 AM EDT documented as of this encounter Care Teams Contracts Advisor Relationship Specialty Start Date End Date Juvenal Clay MD [address] [place] [id number] PCP - General Internal Medicine 07/12/23 documented as of this encounter Additional Source Comments The information contained in this document represents components of the legal health record. It is not the complete legal health record.[facility]
== END 2025-05-25 09:35 | disposition home or self-care (01) ==
LOC: HO.PMC 08:30
PROVIDERS: PCP Internal Medicine; Visit Provider Nurse Practitioner Family
DX: M54.2 Cervicalgia (principal); G89.29 Other chronic pain; M47.812 Spondylosis without myelopathy or radiculopathy, cervical region; M62.838 Other muscle spasm
CPT/HCPCS: 99204

== ENCOUNTER 2025-05-26 14:22 | Outpatient (AMB) | payer BC, SELFPAY ==
--- OUTSIDE RECORDS SUMMARY | 2005-10-08 20:00 | XMS_ITS | Continuity of Care Document ---
Author Organization [facility] Address [address] [facility] [address] [place] [address] Phone Care Team Providers Care Tree Trimmer Helper Name Role Phone Z-Converted, Provider Unavailable Unavailabl [...] Diagnoses Date Provider Providers Copied on Encounter [facility], [address] [facility] [address], [place], [place], [id number], tel:[phone] 2 [facility] Major depressive affective disorder, recurrent episode, severe degree, without mention of psychotic behavior 6 Z-Convert ed Provider. . [facility], [address] [place] [address],[address], [place], [place], [id number], tel:[phone] 2 Converted Locations No Information 6 Z-Convert [...]
--- NOTE | 2025-05-26 14:23 | MHC.PC.OV ---
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 Please provide accessories for nebulizer machine prednisone 40 mg (2 x 20 mg) PO DAILY 7 days Tobacco use date assessed: 05/26/25 Dental Screening Dental Screen Date: 03/29/25 HPI eval elevated HR HPI Details The patient is a 74-year-old male presenting with a high heart rate noted by a dentist. Approximately a week ago, the patient was informed by his dentist that his heart rate was 150 bpm, although he felt completely fine at the time. He denies experiencing any chest pain, dizziness, or palpitations, and reports feeling calm during the episode. The patient has a history of bilateral rotator cuff tears, which cause difficulty in shoulder movement. He reports significant pain that affects his ability to walk, and he has previously been on morphine sulfate for pain management. Patient was requesting a script for morphine sulfate although I instead offered meloxicam and Flexeril. Social History - Functional status: Reports significant pain affecting mobility, impacting ability to walk. [facility] Medical History (Updated 05/27/25 @ 09:53 by Deanne Cho PA-C) Rotator cuff tear Tachycardia Cervical spondylosis Chronic neck pain Asthma Persistent cough Establishing care with new doctor, encounter for Cough Chronic disease anemia Contracture of muscle, left forearm Drug abuse Adult failure to thrive Family History Father No problems noted. Mother No problems noted. Social History Household Members: None Housing: House Housing Other:: living in a hotel Do you presently have visiting nurse or other home services: No Alcohol intake: current Alcohol intake frequency: does not drink Patient Tobacco Use Status: Never used Tobacco service: Yes Current occupational status: retired Cognitive needs: Yes (cane and walker) Hearing needs: No Vision needs: Yes (reading glasses) Questionnaire PHQ-9 Over the last 2 weeks, how often have you been bothered by any of the following problems? 1. Little interest or pleasure in doing things: not at all 2. Feeling down, depressed, or hopeless: not at all 3. Trouble falling or staying asleep, or sleeping too much: not at all 4. Feeling tired or having little energy: not at all 5. Poor appetite or overeating: not at all 6. Feeling bad about yourself - or that you are a failure or have let yourself or your family down: not at all 7. Trouble concentrating on things, such as reading the newspaper or watching television: not at all 8. Moving or speaking so slowly that other people could have noticed. Or the opposite - being so fidgety or restless that you have been moving around a lot more than usual: not at all 9. Thoughts that you would be better off or of hurting yourself in some way: not at all Total score: 0 Depression Screening Interpretation: Negative Depression Screening Done: Yes 34137 - PHQ-9 Billing: Yes Source: Developed by Drs. Bryce Mathews, Yary Hernandez, Noel Rodriguez and colleagues, with an educational arabella from [email or web address]. Thrive Questionnaire Date Thrive assessed: 05/04/25 I am a: Patient What is your living situation today?: I have a steady place to live Within the past 12 months, did the food you bought not last and you didn't have the money to get more?: Never true Within the past 12 months, did you worry whether your food would run out before you got money to buy more?: Never true Do you have trouble paying for medicines?: No Do you have trouble getting transportation to medical appointments?: No Do you have trouble paying your heating and electricity bill?: No Do you have trouble taking care of your child, family member or friend?: No Do you have trouble with day-to-day activities such as bathing, preparing meals, shopping, managing finances, etc.?: No Are you currently unemployed and looking for a job?: No Are you interested in more education?: No Please select the resources that you would like help with: None Currently or been in a relationship where the following occur: No concerns reported THRIVE Score: 0 AUDIT C Alcohol Use Questionnaire (AUDIT-C) 1. How often do you have a drink containing alcohol?: Never 3. How often do you have six or more drinks on one occasion?: Never Total Score: 0 Score Reviewed/Action Taken: No MARGE-7 AMB Questionnaire MARGE-7 Date MARGE - 7 assessed: 05/04/25 Feeling nervous, anxious, or on edge: 0 = Not at all Not being able to stop or control worryin = Not at all Worrying too much about different things: 0 = Not at all Trouble relaxin = Not at all Being so restless that it is hard to sit still: 0 = Not at all Becoming easily annoyed or irritable: 0 = Not at all Feeling afraid as if something awful might happen: 0 = Not at all Total MARGE-7 score (0-4 normal; 5-9 mild; 10-14 moderate; 15-21 severe): 0 Source: Developed by Drs. Bryce Mathews, Yary Hernandez, Noel Rodriguez and colleagues, with an educational arabella from [email or web address]. MARGE-7 Assessment Billing MARGE-7 Assessment Tool: MARGE-7 Assessment 37935 Review of Systems Const Details: - Cardiovascular: Denies chest pain, dizziness, or palpitations. - Musculoskeletal: Reports difficulty with shoulder movement due to rotator cuff tears. All systems reviewed & are unremarkable except as noted in HPI and below Physical exam (Primary Care) Vital Signs: Last Vital Signs Temp 98.4 F 05/26/25 14:24 Pulse 100 05/26/25 14:24 Resp 14 05/26/25 14:24 BP 129/72 05/26/25 14:24 Pulse Ox 93 05/26/25 14:24 Oxygen Delivery Method Room Air 05/26/25 14:24 Care Plan Goal for BP management: <140/90 at Goal BMI result Body Mass Index 32.5 BMI Assessment/Plan discussion: High BMI High, discussed plan: lifestyle, weight reduction, dietary, physical activity, alcohol moderation and other Tobacco/Smoking Status: Tobacco use Status Tobacco use date assessed 05/26/25 05/26/25 14:26 Patient Tobacco Use Status Never used Tobacco 05/26/25 14:26 PHQ-9: PHQ-9 Score PHQ-9: Total score 0 05/26/25 15:19 Depression Screening Interpretation: Negative Thrive Assessment: Date of Thrive Assessment Date Thrive assessed 05/04/25 05/26/25 14:26 Currently or been in a relationship where the following occur: No concerns reported Const Other: Appearance: Alert. Oriented X3. No acute distress. Head: Normal external exam. Normocephalic. Atraumatic. Eyes: Pupils are equal, round, and reactive to light. Extraocular movements intact. Conjunctiva and sclera normal. Eyelids normal. Throat: Pharynx normal. Uvula midline. Moist mucous membranes. Neck: Normal inspection. Neck supple. Full range of motion. Cardiovascular: Heart rate 100. Normal heart rhythm. Heart sound normal. No murmurs noted. Pulses normal throughout. Respiratory: No respiratory distress. Painless inspiration. Breath sounds normal. No wheezes/rales/rhonchi noted. Chest nontender. No accessory muscle usage noted or decreased air movement noted. Abdomen: Soft and nontender. No distention noted. No organomegaly noted. Back: No costovertebral angle tenderness. Full range of motion noted. Skin: Skin warm and dry. Normal skin color. Normal skin turgor. Patient has multiple scars to arms that are healed no signs of infection. No rashes/lesions/lacerations noted. Extremities: No lower extremity edema. Chronic bilateral shoulder pain due to chronic rotator cuff tears to patient. Decreased range of motion due to this. Otherwise patient moving all other extremities with normal range of motion. Neuro: Oriented X 3. No motor deficit. No sensory deficit. Reflexes normal. Office Procedures EKG Details: EKG normal sinus rhythm with a ventricular rate of 95 with a normal OK interval normal QRS duration normal QT in normal QTC interval. No acute ischemic change are noted. Reviewed by Dr. Dhaliwal via [email or web address] 95057-[id number], Complete Results Reviewed Results Reviewed: - EKG: Normal findings, heart rate recorded at 95 bpm during the test. Coding Level of Care Code Est Pt Level 4 (47796) Complex EM visit Add On G2211 Diagnoses Tachycardia R00.0 Rotator cuff tear M75.100 CPT Codes EKG - CPT: 58130-Tekotsukplndojsmk, Complete ([id number]) Additional Codes MARGE-7 Assessment Billing - MARGE-7 Assessment Tool: MARGE-7 Assessment 29732 ([id number]) PHQ-9 - 00398 - PHQ-9 Billing: Yes ([id number]) Assessment & Plan Assessment & Plan (1) Tachycardia: Code(s): R00.0 - Tachycardia, unspecified Category: Medical Plan: The patient experienced a high heart rate of 150 bpm noted by a dentist, but currently presents with a heart rate of 100 bpm. An EKG was performed, showing normal results with a heart rate of 95 bpm. The plan includes monitoring the heart rate and performing an EKG immediately if symptoms recur. (2) Rotator cuff tear: Code(s): M75.100 - Unspecified rotator cuff tear or rupture of unspecified shoulder, not specified as traumatic Category: Medical Plan: The patient has bilateral rotator cuff tears causing significant pain and difficulty in shoulder movement. Pain management options were discussed, including the use of NSAIDs like meloxicam and muscle relaxants such as Flexeril. The patient was advised against the use of controlled substances for pain management. Plan Plan Patient was informed and verbally consented to the use of an ambient scribe for clinic note documentation during this visit. 1. Tachycardia The patient experienced a high heart rate of 150 bpm noted by a dentist, but currently presents with a heart rate of 100 bpm. An EKG was performed, showing normal results with a heart rate of 95 bpm. The plan includes monitoring the heart rate and performing an EKG immediately if symptoms recur. 2. Rotator Cuff Tear The patient has bilateral rotator cuff tears causing significant pain and difficulty in shoulder movement. Pain management options were discussed, including the use of NSAIDs like meloxicam and muscle relaxants such as Flexeril. The patient was advised against the use of controlled substances for pain management. I discussed with the patient the normal EKG results and the importance of monitoring his heart rate. We talked about the potential causes of his tachycardia and the need for immediate EKG if symptoms recur. For his rotator cuff tears, we reviewed pain management options, emphasizing non-controlled substances like NSAIDs and muscle relaxants. I explained the risks associated with controlled substances and the rationale for avoiding them. Follow-up appointments were confirmed, and the patient was advised to seek immediate care if his symptoms worsen. Medications: New meloxicam 15 mg PO DAILY 30 tabs 3RF cyclobenzaprine 10 mg PO Q8H 30 tabs 3RF Patient Instructions: - Monitor your heart rate and seek immediate medical attention if you experience symptoms like chest pain or dizziness. - Take prescribed NSAIDs and muscle relaxants as directed for shoulder pain. - Avoid controlled substances for pain management. - Attend follow-up appointments as scheduled.
[2025-05-26 14:24] VITALS: BP 129/72; PULSE 100; RESP 14; TEMP 36.9; O2SAT 93; BMI 32.5
--- OUTSIDE RECORDS SUMMARY | 2025-05-26 17:41 | XMS_ITS | Encounter Summary ---
Author Organization [facility] Address [address] [place] [address] Phone Care Team Providers Care Igniter Capper Name Role Phone Juvenal Clay MD Primary Care Provider + Encounter Details Date Type Department Care Team (Latest Contact Info) Description 09/04/2023 Transcribe Orders Virtual Department [address] [place] [address] Juvenal Clay MD [address] [place] [address] [email or web address] Other chronic osteomyelitis, left humerus (Primary [...] documented as of this encounter Care Teams Igniter Capper Relationship Specialty Start Date End Date Juvenal Clay MD [address] [place] [address] PCP - General Internal Medicine 07/12/23 documented as of this encounter Additional Source Comments The information contained in this document represents components of the legal health record. It is not the complete legal health record.[facility]
--- OUTSIDE RECORDS SUMMARY | 2025-05-26 17:41 | XMS_ITS | Encounter Summary ---
Author Organization [facility] Address [address] [place] [address] Phone Care Team Providers Care Electronic Security Specialist Name Role Phone Juvenal Clay MD Primary Care Provider + Encounter Details Date Type Department Care Team (Late st Contact Info) Description 02/20/2024 Transcribe Orders Virtual Department [address] [place] [phone] System, Provider Not In, [facility] [employer] [address] [address] Renal mass (Primary Dx) Social History Tobacco [...] documented as of this encounter Care Teams Electronic Security Specialist Relationship Specialty Start Date End Date Juvenal Clay MD [address] [place] [address] PCP - General Internal Medicine 07/12/23 documented as of this encounter Additional Source Comments The information contained in this document represents components of the legal health record. It is not the complete legal health record.[facility]
--- OUTSIDE RECORDS SUMMARY | 2025-05-26 17:41 | XMS_ITS | Encounter Summary ---
Author Organization [facility] Address [address] [place] [address] Phone Care Team Providers Care Remediation Technician Name Role Phone Juvenal Clay MD Primary Care Provider + Encounter Details Date Type Department Care Team (Late st Contact Info) Description 03/21/2024 Procedure Pass [facility], Ct Scan - [address] [address] Social History Tobacco Use Types Packs/Day Years [...] 11:21 PM EDT Madhavi Silva RN * [place] Suicide Severity Rating Scale (Screener/Recent Self-Report) Question [...] documented as of this encounter Care Teams Remediation Technician Relationship Specialty Start Date End Date Juvenal Clay MD [address] [place] [address] PCP - General Internal Medicine 07/12/23 documented as of this encounter Additional Source Comments The information contained in this document represents components of the legal health record. It is not the complete legal health record.[facility]
--- OUTSIDE RECORDS SUMMARY | 2025-05-26 17:41 | XMS_ITS | Encounter Summary ---
Author Organization [facility] Address [address] [place] [phone] Phone Care Team Providers Care Aviation Electronics Technician Name Role Phone Juvenal Clay MD Primary Care Provider + Encounter Details Date Type Department Care Team (Late st Contact Info) Description 11/12/2023 Procedure Pass [facility], [address] [address] Social History Tobacco Use Types Packs/Day Years [...] documented as of this encounter Care Teams Aviation Electronics Technician Relationship Specialty Start Date End Date Juvenal Clay MD [address] [place] [address] PCP - General Internal Medicine 07/12/23 documented as of this encounter Additional Source Comments The information contained in this document represents components of the legal health record. It is not the complete legal health record.[facility]
--- OUTSIDE RECORDS SUMMARY | 2025-05-26 17:41 | XMS_ITS | Clinical Summary ---
Author Organization [facility] Address [address] [place] [address] Phone Care Team Providers Care Bioassayist Name Role Phone Juvenal Clay MD Primary [...] for wheezing. Active multivitamin with minerals (DAILY MULTIVITAMIN-WI NERALS ORAL) Take 1 tablet by mouth [...] (03/23/2024 1:45 PM EDT): - Found at [facility] unresponsive, after a walk had pinpoint pupils and RR 8, reportedly improved with narcan, did not require additional doses. Urine toxicology positive for fentanyl + opiates. He is prescribed morphine and oxycodone for chronic pain. False positive is possible but concern for illicit opioid use in addition to prescribed opioids. - [place] Dr. Clay requested send confirmatory test of [...] topic Medical Devices Not on file Insurance [facility] Advance Directives For more information, please contact: [phone] (9AM - 5PM Kathy/[facility], Saturday-Saturday) * Full Code (Latest Code Status on File) Date Activated Date Inactivated Comments 03/22/2024 12:07 AM Question Answer Comments Code Status Confirmed With: Other (specify below ) Code Discussion Comments: Presumed Care Teams Bioassayist Relationship Specialty Start Date End Date Juvenal Clay MD [address] [place] [address] PCP - General Internal Medicine 07/12/23 Additional Source Comments The information contained in this document represents components of the legal health record. It is not the complete legal health record.[facility]
--- OUTSIDE RECORDS SUMMARY | 2025-05-26 17:41 | XMS_ITS | Encounter Summary ---
Author Organization [facility] Address [address] [place] [address] [place], [place] [phone] Phone Care Team Providers Care Loss Prevention Consultant Name Role Phone Juvenal Clay MD Primary Care Provider + Reason for Referral * MRI/CAT Scan - Closed Specialty Diagnoses / Procedures Referred By Contac t Referred To Contact Radiology Diagnoses Muscle weakness (generalized) Procedures MRI Lumbar Spine CHG MRI, LUMBAR SPINE CHG MRI, LUMBAR SPINE COMBO Juvenal Clay MD [address] [place] [address] Phone: tel: fax: mailto: Referral ID Status Reason Start Date Expiration Date Visits Re quested Visits Authorized [id number] Closed 11/12/2023 01/11/2024 1 1 * MRI/CAT Scan - Closed Specialty Diagnoses / Procedures Referred By Contac t Referred To Contact Radiology Diagnoses Muscle weakness (generalized) Procedures MRI Thoracic Spine CHG MRI, DORSAL SPINE CONTRAST CHG MRI, DORSAL SPINE COMBO Juvenal Clay MD [address] [place] [address] Phone: tel: fax: mailto: Referral ID Status Reason Start Date Expiration Date Visits Re quested Visits Authorized [id number] Closed 11/12/2023 01/11/2024 1 1 * MRI/CAT Scan - Closed Specialty Diagnoses / Procedures Referred By Belkis gaspar Referred To Contact Radiology Diagnoses Sprain of unspecified rotator cuff capsule, sequela Procedures MRI Shoulder (Right) CHG MRI, JOINT UPPER EXTREM CHG MRI, JOINT UPPER EXTREM W/CONTRAST CHG MRI, JOINT UPPER EXTREM Juvenal Ryan MD [address] [place] [address] Phone: tel: fax: mailto: Referral ID Status Reason Start Date Expiration Date Visits Re quested Visits Authorized [id number] Closed 11/12/2023 01/11/2024 1 1 * MRI/CAT Scan - Closed Specialty Diagnoses / Procedures Referred By Belkis gaspar Referred To Contact Radiology Diagnoses Sprain of unspecified rotator cuff capsule, sequela Procedures MRI Shoulder (Left) CHG MRI, JOINT UPPER EXTREM CHG MRI, JOINT UPPER EXTREM W/CONTRAST CHG MRI, JOINT UPPER EXTREM COMBO Juvenal Clay MD [address] [place] [address] Phone: tel: fax: mailto:[email or web address] Referral ID Status Reason Start Date Expiration Date Visits Re quested Visits Authorized [id number] Closed 11/12/2023 01/11/2024 1 1 Encounter Details Date Type Department Care Team (Latest Contact Info) Description 11/12/2023 Transcribe Orders Virtual Department [address] [place] [address] Juvenal Clay MD [address] [place] [address] [email or web address] Sprain of unspecified rotator cuff capsule, [...] imaging of an approximate 5 cm exophytic [id number] mass in the anterior interpolar region of [...] L3 and L4. Mild-moderate compression fracture of [id number] the superior endplate which is likely subacute. [...] documented as of this encounter Care Teams Loss Prevention Consultant Relationship Specialty Start Date End Date Juvenal Clay MD [address] [place] [address] PCP - General Internal Medicine 07/12/23 documented as of this encounter Additional Source Comments The information contained in this document represents components of the legal health record. It is not the complete legal health record.[facility]
--- OUTSIDE RECORDS SUMMARY | 2025-05-26 17:41 | XMS_ITS | Encounter Summary ---
Author Organization [facility] Address [address] [place] [address] Phone Care Team Providers Care Band Bias Machine Operator Name Role Phone Juvenal Clay MD Primary Care Provider + Encounter Details Date Type Department Care Team (Late st Contact Info) Description 07/09/2023 Procedure Pass [facility], [address] [address] Social History Tobacco Use Types Packs/Day Years [...] documented as of this encounter Care Teams Band Bias Machine Operator Relationship Specialty Start Date End Date Juvenal Clay MD [address] [place] [address] PCP - General Internal Medicine 07/12/23 documented as of this encounter Additional Source Comments The information contained in this document represents components of the legal health record. It is not the complete legal health record.[facility]
--- OUTSIDE RECORDS SUMMARY | 2025-05-26 17:41 | XMS_ITS | Clinical Summary ---
Author Organization [facility] Address [address] [place] [id number] Care Team Providers Care Membership Advisor Name Role Phone Rivera Isaac MD Primary Care Provider [phone] Social History Tobacco Use Types Packs/Day Years [...] Documents on File Type Date Recorded Patient Principal Librarian Expl anation Health Care Decision (hx) 04/29/2022 AD SON DIRECTIVE Health Care Decision (hx) 04/29/2022 AD SON DIRECTIVE Care Teams Membership Advisor Relationship Specialty Start Date End Date Rivera Isaac MD [address] [facility] [place] PCP - General Internal Medicine 05/03/22
--- OUTSIDE RECORDS SUMMARY | 2025-05-26 17:41 | XMS_ITS | Encounter Summary ---
Author Organization [facility] Address [address] [place] [address] Phone Care Team Providers Care Communication Assistant Name Role Phone Juvenal Clay MD Primary Care Provider + Encounter Details Date Type Department Care Team (Late st Contact Info) Description 11/12/2023 Procedure Pass [facility], [address] [address] Social History Tobacco Use Types Packs/Day Years [...] documented as of this encounter Care Teams Communication Assistant Relationship Specialty Start Date End Date Juvenal Clay MD [address] [place] [address] PCP - General Internal Medicine 07/12/23 documented as of this encounter Additional Source Comments The information contained in this document represents components of the legal health record. It is not the complete legal health record.[facility]
--- OUTSIDE RECORDS SUMMARY | 2025-05-26 17:41 | XMS_ITS | Encounter Summary ---
Author Organization [facility] Address [address] [place] [address] Phone Care Team Providers Care Commanding Officer Traffic Division Name Role Phone Juvenal Clay MD Primary Care Provider + Encounter Details Date Type Department Care Team (Late st Contact Info) Description 11/12/2023 Procedure Pass [facility], [address] [address] Social History Tobacco Use Types Packs/Day Years [...] documented as of this encounter Care Teams Commanding Officer Traffic Division Relationship Specialty Start Date End Date Juvenal Clay MD [address] [place] [address] PCP - General Internal Medicine 07/12/23 documented as of this encounter Additional Source Comments The information contained in this document represents components of the legal health record. It is not the complete legal health record.[facility]
--- OUTSIDE RECORDS SUMMARY | 2025-05-26 17:41 | XMS_ITS | Encounter Summary ---
Author Organization [facility] Address [address] [place] [address] Phone Care Team Providers Care Practice Architect Name Role Phone Juvenal Clay MD Primary Care Provider + Encounter Details Date Type Department Care Team (Late st Contact Info) Description 11/12/2023 Procedure Pass [facility], [address] [address] Social History Tobacco Use Types Packs/Day Years [...] documented as of this encounter Care Teams Practice Architect Relationship Specialty Start Date End Date Juvenal Clay MD [address] [place] [address] PCP - General Internal Medicine 07/12/23 documented as of this encounter Additional Source Comments The information contained in this document represents components of the legal health record. It is not the complete legal health record.[facility]
--- OUTSIDE RECORDS SUMMARY | 2025-05-26 17:41 | XMS_ITS | Encounter Summary ---
Author Organization [facility] Address [address] [place] [address] [place] [address] Phone Care Team Providers Care Carbon Accountant Name Role Phone Juvenal Clay MD Primary Care Provider + Encounter Details Date Type Department Care Team (Latest Contact Info) Description 06/19/2023 Transcribe Orders Virtual Department [address] [place] [address] Juvenal Clay MD [address] [place] [address] [email or web address] Chronic osteomyelitis with draining sinus, left [...] documented as of this encounter Care Teams Carbon Accountant Relationship Specialty Start Date End Date Juvenal Clay MD [address] [place] [address] PCP - General Internal Medicine 07/12/23 documented as of this encounter Additional Source Comments The information contained in this document represents components of the legal health record. It is not the complete legal health record.[facility]
--- OUTSIDE RECORDS SUMMARY | 2025-05-26 17:41 | XMS_ITS | Encounter Summary ---
Author Organization [facility] Address [address] [place] [address] Phone Care Team Providers Care Flower Cutter Name Role Phone Juvenal Clay MD Primary Care Provider + Encounter Details Date Type Department Care Team (Late st Contact Info) Description 07/11/2023 Procedure Pass [facility], [address] [address] Social History Tobacco Use Types Packs/Day Years [...] documented as of this encounter Care Teams Flower Cutter Relationship Specialty Start Date End Date Juvenal Clay MD [address] [place] [address] PCP - General Internal Medicine 07/12/23 documented as of this encounter Additional Source Comments The information contained in this document represents components of the legal health record. It is not the complete legal health record.[facility]
--- OUTSIDE RECORDS SUMMARY | 2025-05-26 17:41 | XMS_ITS | Encounter Summary ---
Author Organization [facility] Address [address] [place] [address] Phone Care Team Providers Care It Sales Executive Name Role Phone Juvenal Clay MD Primary Care Provider + Encounter Details Date Type Department Care Team (Late st Contact Info) Description 02/21/2024 Procedure Pass [facility], [address] [address] Social History Tobacco Use Types Packs/Day Years [...] documented as of this encounter Care Teams It Sales Executive Relationship Specialty Start Date End Date Juvenal Clay MD [address] [place] [address] PCP - General Internal Medicine 07/12/23 documented as of this encounter Additional Source Comments The information contained in this document represents components of the legal health record. It is not the complete legal health record.[facility]
--- OUTSIDE RECORDS SUMMARY | 2025-05-26 17:41 | XMS_ITS | Encounter Summary ---
Author Organization [facility] Address [address] [place] [address] Phone Care Team Providers Care Demand Planning Manager Name Role Phone Juvenal Clay MD Primary Care Provider + Reason for Referral * MRI/CAT Scan - Closed Specialty Diagnoses / Procedures Referred By Contac t Referred To Contact Radiology Diagnoses Nodule of kidney Procedures MRI Abdomen CHG MRI, ABDOMEN, COMBO System, Provider Not In, [facility] [address] [address] Referral ID Status Reason Start Date Expiration Date Visits Re quested Visits Authorized [id number] Closed 02/21/2024 06/20/2024 2 2 Encounter Details Date Type Department Care Team (Late st Contact Info) Description 02/21/2024 Transcribe Orders Virtual Department [address] [place] [address] System, Provider Not In, [facility] [address] [address] Nodule of kidney (Primary Dx) Social History [...] documented as of this encounter Care Teams Demand Planning Manager Relationship Specialty Start Date End Date Juvenal Clay MD [address] [place] [address] PCP - General Internal Medicine 07/12/23 documented as of this encounter Additional Source Comments The information contained in this document represents components of the legal health record. It is not the complete legal health record.[facility]
--- OUTSIDE RECORDS SUMMARY | 2025-05-26 17:41 | XMS_ITS | Encounter Summary ---
Author Organization [facility] Address [address] [place] [address] Phone Care Team Providers Care Patrol Inspector Name Role Phone Juvenal Clay MD Primary Care Provider + Encounter Details Date Type Department Care Team (Late st Contact Info) Description 03/21/2024 Procedure Pass [facility], Ct Scan - [address] [address] Social History Tobacco Use Types Packs/Day Years [...] 11:21 PM EDT Madhavi Silva RN * [place] Suicide Severity Rating Scale (Screener/Recent Self-Report) Question [...] documented as of this encounter Care Teams Patrol Inspector Relationship Specialty Start Date End Date Juvenal Clay MD [address] [place] [address] PCP - General Internal Medicine 07/12/23 documented as of this encounter Additional Source Comments The information contained in this document represents components of the legal health record. It is not the complete legal health record.[facility]
--- OUTSIDE RECORDS SUMMARY | 2025-05-26 17:41 | XMS_ITS | Encounter Summary ---
Author Organization [facility] Address [address] [place] [address] [place] [address] Phone Care Team Providers Care Parking Lot Laborer Name Role Phone Juvenal Clay MD Primary Care Provider + Reason for Referral * MRI/CAT Scan - Closed Specialty Diagnoses / Procedures Referred By Contac t Referred To Contact Radiology Diagnoses Muscle weakness (generalized) Procedures MRI Brain CHG MRI BRAIN CHG MRI BRAIN COMBO CHG MRI BRAIN CONTRAST Juvenal Clay MD [address] [place] [address] Phone: tel: fax: mailto: Referral ID Status Reason Start Date Expiration Date Visits Re quested Visits Authorized [id number] Closed 07/11/2023 09/08/2023 1 1 * MRI/CAT Scan - Closed Specialty Diagnoses / Procedures Referred By Contac t Referred To Contact Radiology Diagnoses Radiculopathy of cervical spine Procedures MRI Cervical Spine CHG MRI, CERV SPINE CHG MRI, CERV SPINE COMBO CHG MRI, CERV SPINE CONTRAST Juvenal Clay MD [address] [place] [address] Phone: tel: fax: mailto: Referral ID Status Reason Start Date Expiration Date Visits Re quested Visits Authorized [id number] Closed 07/09/2023 09/06/2023 1 1 Encounter Details Date Type Department Care Team (Latest Contact Info) Description 07/09/2023 Transcribe Orders Virtual Department [address] [place] [address] Juvenal Clay MD [address] [place] [address] [email or web address] Radiculopathy of cervical spine (Primary Dx); [...] clinician's provided indication for this examination in [facility]:Outside Radiology Order; MUSCLE WEAKNESS TECHNIQUE: MRI BRAIN [...] on the right at C7-T1. There is gjpf-rw-wouyckck spinal canal stenosis C3-C4. No evidence of focal cervical cord signal abnormality. Narrative 08/06/2023 6:58 AM EST MRI CERVICAL SPINE (NEURO) FOCUS WITHOUT CONTRAST Referring clinician's provided indication for this examination in [facility]: Outside Radiology Order; Radiculopathy, cervical region TECHNIQUE: [...] complex. Bilateral facet arthropathy. Moderate left and pqgt-zn-gxqssulv right foraminal stenosis. No significant spinal canal [...] Vertebral endplate edema flanking the C3-C4 and C7-A7hguzuagcgat Spinal Cord: No spinal cord compression or [...] disc-osteophyte complex. Bilateral facet arthropathy.Moderate left and blji-pn-bbsthwlw right foraminal stenosis. Nosignificant spinal canal stenosis. [...] moderate on the right at C7-T1. Thereis abke-fk-mgynypnh spinal canal stenosis C3-C4. No evidence of [...] documented as of this encounter Care Teams Parking Lot Laborer Relationship Specialty Start Date End Date Juvenal Clay MD [address] [place] [address] PCP - General Internal Medicine 07/12/23 documented as of this encounter Additional Source Comments The information contained in this document represents components of the legal health record. It is not the complete legal health record.[facility]
== END 2025-05-26 15:15 | disposition home or self-care (01) ==
LOC: HO.HMCSH 14:22
PROVIDERS: PCP Internal Medicine; Visit Provider Physician Assistant Medical
DX: R00.0 Tachycardia, unspecified (principal); M75.100 Unspecified rotator cuff tear or rupture of unspecified shoulder, not specified as traumatic

== ENCOUNTER → 2025-05-26 14:22 | Outpatient (BNVA) | payer BC, SELFPAY | PROVIDERS: PCP Internal Medicine; Visit Provider Physician Assistant Medical | DX: R00.0 Tachycardia, unspecified (principal); M75.101 Unspecified rotator cuff tear or rupture of right shoulder, not specified as traumatic; M75.102 Unspecified rotator cuff tear or rupture of left shoulder, not specified as traumatic; Z13.31 Encounter for screening for depression | CPT/HCPCS: 93005; 96127 ==

== ENCOUNTER 2025-07-20 11:23 | Outpatient (AMB) | payer BC, SELFPAY ==
[2025-07-20 11:32] VITALS: BP 130/68; PULSE 90; BMI 33.7
--- NOTE | 2025-07-20 11:32 | MHC.PC.OV ---
Vital Signs 07/20/25 11:32 Height 5 ft 5 in Weight 202 lb 6 oz BMI 33.7 BP 130/68 Blood Pressure Location Rt brachial Pulse 90 Intake Visit Reasons: 3 month f/u - see comments Allergies Penicillins Allergy (Severe, Verified 07/26/25 20:04) Swelling Tobacco use date assessed: 05/26/25 Dental Screening Dental Screen Date: 03/29/25 [facility] Medical History Rotator cuff tear Tachycardia Cervical spondylosis Chronic neck pain Asthma Persistent cough Establishing care with new doctor, encounter for Cough Chronic disease anemia Contracture of muscle, left forearm Drug abuse Adult failure to thrive Family History Father No problems noted. Mother No problems noted. Social History Household Members: None Housing: House Housing Other:: living in a hotel Do you presently have visiting nurse or other home services: No Alcohol intake: current Alcohol intake frequency: does not drink Patient Tobacco Use Status: Never used Tobacco service: Yes Current occupational status: retired Cognitive needs: Yes (cane and walker) Hearing needs: No Vision needs: Yes (reading glasses) Questionnaire Thrive Questionnaire Date Thrive assessed: 05/04/25 MARGE-7 AMB Questionnaire MARGE-7 Date MARGE - 7 assessed: 05/04/25 Source: Developed by Drs. Bryce Mathews, Yary Hernandez, Noel Rodriguez and colleagues, with an educational arabella from [employer] Physical exam (Primary Care) Vital Signs: Last Vital Signs Pulse 90 07/20/25 11:32 BP 130/68 07/20/25 11:32 BMI result Body Mass Index 33.7 Tobacco/Smoking Status: Tobacco use Status Tobacco use date assessed 05/26/25 07/20/25 11:37 Patient Tobacco Use Status Never used Tobacco 07/20/25 11:37 Thrive Assessment: Date of Thrive Assessment Date Thrive assessed 05/04/25 07/20/25 11:37 Const General: cooperative and healthy appearing Nutritional Appearance: well nourished Orientation/consciousness: patient oriented x3 Limitations: no limitations HENMT Head: Yes normal to inspection Eyes General: appearance normal, both eyes and all related structures Neck Neck: Yes normal visual inspection Chest Chest palpation & inspection: normal palpation of entire chest wall Resp Effort & Inspection: normal respiratory effort Neuro General: patient oriented x3 Coding Level of Care Code Est Pt Level 3 (80917) Complex EM visit Add On G2211 Diagnoses Upper back pain M54.9 Assessment & Plan Assessment & Plan (1) Upper back pain: Code(s): M54.9 - Dorsalgia, unspecified Plan: Nonsteroidals and muscle relaxants ordered. Physical therapy ordered. Will call with results. Orders: Orders PT Evaluation and Treatment 07/20/25 M54.9 - Dorsalgia, unspecified Medications: Refilled meloxicam 15 mg PO DAILY 30 tabs 3RF cyclobenzaprine 10 mg PO Q8H 30 tabs 3RF
--- OUTSIDE RECORDS SUMMARY | 2025-07-20 13:58 | XMS_ITS | Clinical Summary ---
Author Organization [facility] Address [address] [place] [address] Phone Care Team Providers Care Flanger Name Role Phone Juvenal Clay MD Primary [...] for wheezing. Active multivitamin with minerals (DAILY MULTIVITAMIN-[place] NERALS ORAL) Take 1 tablet by mouth [...] (03/23/2024 1:45 PM EDT): - [place] [facility] un[place], after a walk had pinpoint pupils and RR 8, reportedly improved with narcan, did not require additional doses. Urine toxicology positive for fentanyl + opiates. He is prescribed morphine and oxycodone for chronic pain. False positive is possible but concern for illicit opioid use in addition to prescribed opioids. - [place] Dr. Clay requested send confirmatory test of [...] VACCINE (#1) 2025 COVID-19 VACCINE (1 - 2024-2 6 season) 2025 RSV VACCINE (1 - 1-dose [...] Medical Devices Not on file Insurance [facility] Advance Directives For more information, please contact: [phone] (9AM - 5PM [facility], Saturday-Saturday) * Full Code (Latest Code Status on File) Date Activated Date Inactivated Comments 03/22/2024 12:07 AM Question Answer Comments Code Status Confirmed With: Other (specify below ) Code Discussion Comments: Presumed Care Teams Flanger Relationship Specialty Start Date End Date Juvenal Clay MD [address] [place] [address] PCP - General Internal Medicine 07/12/23 Additional Source Comments The information contained in this document represents components of the legal health record. It is not the complete legal health record.[facility]
--- OUTSIDE RECORDS SUMMARY | 2025-07-20 13:58 | XMS_ITS | Encounter Summary ---
Author Organization [facility] Address [address] [place] [address] Phone Care Team Providers Care Army Officer Name Role Phone Juvenal Clay MD Primary Care Provider + Encounter Details Date Type Department Care Team (Late st Contact Info) Description 07/09/2023 Procedure Pass [facility], [address] [address] Social History Tobacco Use Types Packs/Day Years [...] documented as of this encounter Care Teams Army Officer Relationship Specialty Start Date End Date Juvenal Clay MD [address] [place] [address] PCP - General Internal Medicine 07/12/23 documented as of this encounter Additional Source Comments The information contained in this document represents components of the legal health record. It is not the complete legal health record.[facility]
--- OUTSIDE RECORDS SUMMARY | 2025-07-20 13:58 | XMS_ITS | Clinical Summary ---
Author Organization [facility] Address [address] [place] [phone] Care Team Providers Care Auto Hiker Name Role Phone Rivera Isaac MD Primary Care Provider [phone] Social History Tobacco Use Types Packs/Day Years [...] Documents on File Type Date Recorded Patient Service Parts Driver Expl anation Health Care Decision (hx) 04/29/2022 AD SON DIRECTIVE Health Care Decision (hx) 04/29/2022 AD SON DIRECTIVE Care Teams Auto Hiker Relationship Specialty Start Date End Date Rivera Isaac MD [address] [facility] [place] PCP - General Internal Medicine 05/03/22
--- OUTSIDE RECORDS SUMMARY | 2025-07-20 13:58 | XMS_ITS | Encounter Summary ---
Author Organization [facility] Address [address] [place] [address] Phone Care Team Providers Care Home Economist Consumer Service Name Role Phone Juvenal Clay MD Primary Care Provider + Encounter Details Date Type Department Care Team (Late st Contact Info) Description 02/20/2024 Transcribe Orders Virtual Department [address] [place] [address] System, Provider Not In, [facility] [address] [address] Renal mass (Primary Dx) Social History Tobacco [...] documented as of this encounter Care Teams Home Economist Consumer Service Relationship Specialty Start Date End Date Juvenal Clay MD [address] [place] [address] PCP - General Internal Medicine 07/12/23 documented as of this encounter Additional Source Comments The information contained in this document represents components of the legal health record. It is not the complete legal health record.[facility]
--- OUTSIDE RECORDS SUMMARY | 2025-07-20 13:58 | XMS_ITS | Encounter Summary ---
Author Organization [facility] Address [address] [facility] [address] [place] [address] Phone Care Team Providers Care Student Activities Director Name Role Phone Juvenal Clay MD Primary Care Provider + Encounter Details Date Type Department Care Team (Late st Contact Info) Description 03/21/2024 Procedure Pass [facility], Ct Scan - [address] [address] Social History Tobacco Use Types Packs/Day Years [...] 11:21 PM EDT Madhavi Silva RN * [place] Suicide Severity Rating Scale (Screener/Recent Self-Report) Question [...] documented as of this encounter Care Teams Student Activities Director Relationship Specialty Start Date End Date Juvenal Clay MD [address] [place] [address] PCP - General Internal Medicine 07/12/23 documented as of this encounter Additional Source Comments The information contained in this document represents components of the legal health record. It is not the complete legal health record.[facility]
--- OUTSIDE RECORDS SUMMARY | 2025-07-20 13:58 | XMS_ITS | Encounter Summary ---
Author Organization [facility] Address [address] [place] [address] [place] [address] Phone Care Team Providers Care Irrigation Laborer Name Role Phone Juvenal Clay MD Primary Care Provider + Reason for Referral * MRI/CAT Scan - Closed Specialty Diagnoses / Procedures Referred By Contac t Referred To Contact Radiology Diagnoses Muscle weakness (generalized) Procedures MRI Brain CHG MRI BRAIN CHG MRI BRAIN COMBO CHG MRI BRAIN CONTRAST Juvenal Clay MD [address] [place] [address] Phone: tel: fax: mailto: Referral ID Status Reason Start Date Expiration Date Visits Re quested Visits Authorized [id number] Closed 07/11/2023 09/08/2023 1 1 * MRI/CAT Scan - Closed Specialty Diagnoses / Procedures Referred By Contac t Referred To Contact Radiology Diagnoses Radiculopathy of cervical spine Procedures MRI Cervical Spine CHG MRI, CERV SPINE CHG MRI, CERV SPINE COMBO CHG MRI, CERV SPINE CONTRAST Juvenal Clay MD [address] [place] [address] Phone: tel: fax: mailto: Referral ID Status Reason Start Date Expiration Date Visits Re quested Visits Authorized [id number] Closed 07/09/2023 09/06/2023 1 1 Encounter Details Date Type Department Care Team (Latest Contact Info) Description 07/09/2023 Transcribe Orders Virtual Department [address] [place] [address] Juvenal Clay MD [address] [place] [address] [email or web address] Radiculopathy of cervical spine (Primary Dx); [...] clinician's provided indication for this examination in [facility]:Outside Radiology Order; MUSCLE WEAKNESS TECHNIQUE: MRI BRAIN [...] on the right at C7-T1. There is jblr-id-gmubsdnf spinal canal stenosis C3-C4. No evidence of focal cervical cord signal abnormality. Narrative 08/06/2023 6:58 AM EST MRI CERVICAL SPINE (NEURO) FOCUS WITHOUT CONTRAST Referring clinician's provided indication for this examination in [facility]: Outside Radiology Order; Radiculopathy, cervical region TECHNIQUE: [...] complex. Bilateral facet arthropathy. Moderate left and grwk-oc-srraejbp right foraminal stenosis. No significant spinal canal [...] Vertebral endplate edema flanking the C3-C4 and C7-K0rjseijkcwzh Spinal Cord: No spinal cord compression or [...] disc-osteophyte complex. Bilateral facet arthropathy.Moderate left and cmya-my-xfoqvwxt right foraminal stenosis. Nosignificant spinal canal stenosis. [...] moderate on the right at C7-T1. Thereis buww-fc-yznolauw spinal canal stenosis C3-C4. No evidence of [...] documented as of this encounter Care Teams Irrigation Laborer Relationship Specialty Start Date End Date Juvenal Clay MD [address] [place] [address] PCP - General Internal Medicine 07/12/23 documented as of this encounter Additional Source Comments The information contained in this document represents components of the legal health record. It is not the complete legal health record.[facility]
--- OUTSIDE RECORDS SUMMARY | 2025-07-20 13:58 | XMS_ITS | Encounter Summary ---
Author Organization [facility] Address [address] [place] [address] Phone Care Team Providers Care Agency Sales Development Associate Name Role Phone Juvenal Clay MD Primary Care Provider + Encounter Details Date Type Department Care Team (Late st Contact Info) Description 11/12/2023 Procedure Pass [facility], [address] [address] Social History Tobacco Use Types Packs/Day Years [...] documented as of this encounter Care Teams Agency Sales Development Associate Relationship Specialty Start Date End Date Juvenal Clay MD [address] [place] [address] PCP - General Internal Medicine 07/12/23 documented as of this encounter Additional Source Comments The information contained in this document represents components of the legal health record. It is not the complete legal health record.[facility]
--- OUTSIDE RECORDS SUMMARY | 2025-07-20 13:58 | XMS_ITS | Encounter Summary ---
Author Organization [facility] Address [address] [place] [address] Phone Care Team Providers Care Bookie Name Role Phone Juvenal Clay MD Primary Care Provider + Encounter Details Date Type Department Care Team (Latest Contact Info) Description 09/04/2023 Transcribe Orders Virtual Department [address] [place] [address] Juvenal Clay MD [address] [place] [address] [email or web address] Other chronic osteomyelitis, left humerus (Primary [...] documented as of this encounter Care Teams Bookie Relationship Specialty Start Date End Date Juvenal Clay MD [address] [place] [address] PCP - General Internal Medicine 07/12/23 documented as of this encounter Additional Source Comments The information contained in this document represents components of the legal health record. It is not the complete legal health record.[facility]
--- OUTSIDE RECORDS SUMMARY | 2025-07-20 13:58 | XMS_ITS | Encounter Summary ---
Author Organization [facility] Address [address] [place] [address] Phone Care Team Providers Care Senior Cost Estimator Name Role Phone Juvenal Clay MD Primary Care Provider + Encounter Details Date Type Department Care Team (Late st Contact Info) Description 02/21/2024 Procedure Pass [facility], [address] [address] Social History Tobacco Use Types Packs/Day Years [...] documented as of this encounter Care Teams Senior Cost Estimator Relationship Specialty Start Date End Date Juvenal Clay MD [address] [place] [address] PCP - General Internal Medicine 07/12/23 documented as of this encounter Additional Source Comments The information contained in this document represents components of the legal health record. It is not the complete legal health record.[facility]
--- OUTSIDE RECORDS SUMMARY | 2025-07-20 13:58 | XMS_ITS | Encounter Summary ---
Author Organization [facility] Address [address] [place] [address] [place] [phone] Phone Care Team Providers Care Pressure Testing Technician Name Role Phone Juvenal Clay MD Primary Care Provider + Encounter Details Date Type Department Care Team (Latest Contact Info) Description 06/19/2023 Transcribe Orders Virtual Department [address] [place] [address] Juvenal Clay MD [address] [place] [address] [email or web address] Chronic osteomyelitis with draining sinus, left [...] documented as of this encounter Care Teams Pressure Testing Technician Relationship Specialty Start Date End Date Juvenal Clay MD [address] [place] [address] PCP - General Internal Medicine 07/12/23 documented as of this encounter Additional Source Comments The information contained in this document represents components of the legal health record. It is not the complete legal health record.[facility]
--- OUTSIDE RECORDS SUMMARY | 2025-07-20 13:59 | XMS_ITS | Encounter Summary ---
Author Organization [facility] Address [address] [place] [address] [place], [place] [phone] Phone Care Team Providers Care Mold Burner Name Role Phone Juvenal Clay MD Primary Care Provider + Reason for Referral * MRI/CAT Scan - Closed Specialty Diagnoses / Procedures Referred By Contac t Referred To Contact Radiology Diagnoses Muscle weakness (generalized) Procedures MRI Lumbar Spine CHG MRI, LUMBAR SPINE CHG MRI, LUMBAR SPINE COMBO Juvenal Clay MD [address] [place] [address] Phone: tel: fax: mailto: Referral ID Status Reason Start Date Expiration Date Visits Re quested Visits Authorized [id number] Closed 11/12/2023 01/11/2024 1 1 * MRI/CAT Scan - Closed Specialty Diagnoses / Procedures Referred By Contac t Referred To Contact Radiology Diagnoses Muscle weakness (generalized) Procedures MRI Thoracic Spine CHG MRI, DORSAL SPINE CONTRAST CHG MRI, DORSAL SPINE COMBO Juvenal Clay MD [address] [place] [address] Phone: tel: fax: mailto: Referral ID Status Reason Start Date Expiration Date Visits Re quested Visits Authorized [id number] Closed 11/12/2023 01/11/2024 1 1 * MRI/CAT Scan - Closed Specialty Diagnoses / Procedures Referred By Belkis gaspar Referred To Contact Radiology Diagnoses Sprain of unspecified rotator cuff capsule, sequela Procedures MRI Shoulder (Right) CHG MRI, JOINT UPPER EXTREM CHG MRI, JOINT UPPER EXTREM W/CONTRAST CHG MRI, JOINT UPPER EXTREM Juvenal Ryan MD [address] [place] [address] Phone: tel: fax: mailto: Referral ID Status Reason Start Date Expiration Date Visits Re quested Visits Authorized [id number] Closed 11/12/2023 01/11/2024 1 1 * MRI/CAT Scan - Closed Specialty Diagnoses / Procedures Referred By Belkis gaspar Referred To Contact Radiology Diagnoses Sprain of unspecified rotator cuff capsule, sequela Procedures MRI Shoulder (Left) CHG MRI, JOINT UPPER EXTREM CHG MRI, JOINT UPPER EXTREM W/CONTRAST CHG MRI, JOINT UPPER EXTREM COMBO Juvenal Clay MD [address] [place] [address] Phone: tel: fax: mailto:[email or web address] Referral ID Status Reason Start Date Expiration Date Visits Re quested Visits Authorized [id number] Closed 11/12/2023 01/11/2024 1 1 Encounter Details Date Type Department Care Team (Latest Contact Info) Description 11/12/2023 Transcribe Orders Virtual Department [address] [place] [address] Juvenal Clay MD [address] [place] [address] [email or web address] Sprain of unspecified rotator cuff capsule, sequela [...] imaging of an approximate 5 cm exophytic [id number] mass in the anterior interpolar region of [...] L3 and L4. Mild-moderate compression fracture of [id number] the superior endplate which is likely subacute. [...] documented as of this encounter Care Teams Mold Burner Relationship Specialty Start Date End Date Juvenal Clay MD [address] [place] [address] PCP - General Internal Medicine 07/12/23 documented as of this encounter Additional Source Comments The information contained in this document represents components of the legal health record. It is not the complete legal health record.[facility]
--- OUTSIDE RECORDS SUMMARY | 2025-07-20 13:59 | XMS_ITS | Encounter Summary ---
Author Organization [facility] Address [address] [place] [address] Phone Care Team Providers Care Licensed Plumber Name Role Phone Juvenal Clay MD Primary Care Provider + Encounter Details Date Type Department Care Team (Late st Contact Info) Description 03/21/2024 Procedure Pass [facility], Ct Scan - [address] [address] Social History Tobacco Use Types Packs/Day Years [...] No Risk Indicated 03/21/2024 11:21 PM EDT Madhvai Silva RN * [place] Suicide Severity Rating Scale (Screener/Recent Self-Report) Question [...] documented as of this encounter Care Teams Licensed Plumber Relationship Specialty Start Date End Date Juvenal Clay MD [address] [place] [address] PCP - General Internal Medicine 07/12/23 documented as of this encounter Additional Source Comments The information contained in this document represents components of the legal health record. It is not the complete legal health record.[facility]
--- OUTSIDE RECORDS SUMMARY | 2025-07-20 13:59 | XMS_ITS | Encounter Summary ---
Author Organization [facility] Address [address] [place] [address] Phone Care Team Providers Care Exhibit Cleaner Name Role Phone Juvenal Clay MD Primary Care Provider + Encounter Details Date Type Department Care Team (Late st Contact Info) Description 07/11/2023 Procedure Pass [facility], [address] [address] Social History Tobacco Use Types Packs/Day Years [...] documented as of this encounter Care Teams Exhibit Cleaner Relationship Specialty Start Date End Date Juvenal Clay MD [address] [place] [address] PCP - General Internal Medicine 07/12/23 documented as of this encounter Additional Source Comments The information contained in this document represents components of the legal health record. It is not the complete legal health record.[facility]
--- OUTSIDE RECORDS SUMMARY | 2025-07-20 13:59 | XMS_ITS | Encounter Summary ---
Author Organization [facility] Address [address] [place] [address] Phone Care Team Providers Care Sleeve Bottom Feller Name Role Phone Juvenal Clay MD Primary Care Provider + Encounter Details Date Type Department Care Team (Late st Contact Info) Description 11/12/2023 Procedure Pass [facility], [address] [address] Social History Tobacco Use Types Packs/Day Years [...] documented as of this encounter Care Teams Sleeve Bottom Feller Relationship Specialty Start Date End Date Juvenal Clay MD [address] [place] [address] PCP - General Internal Medicine 07/12/23 documented as of this encounter Additional Source Comments The information contained in this document represents components of the legal health record. It is not the complete legal health record.[facility]
--- OUTSIDE RECORDS SUMMARY | 2025-07-20 13:59 | XMS_ITS | Encounter Summary ---
Author Organization [facility] Address [address] [place] [address] Phone Care Team Providers Care Lead Press Operator Name Role Phone Juvenal Clay MD Primary Care Provider + Encounter Details Date Type Department Care Team (Late st Contact Info) Description 11/12/2023 Procedure Pass [facility], [address] [address] Social History Tobacco Use Types Packs/Day Years [...] documented as of this encounter Care Teams Lead Press Operator Relationship Specialty Start Date End Date Juvenal Clay MD [address] [place] [address] PCP - General Internal Medicine 07/12/23 documented as of this encounter Additional Source Comments The information contained in this document represents components of the legal health record. It is not the complete legal health record.[facility]
--- OUTSIDE RECORDS SUMMARY | 2025-07-20 13:59 | XMS_ITS | Encounter Summary ---
Author Organization [facility] Address [address] [place] [address] Phone Care Team Providers Care Online Merchant Name Role Phone Juvenal Clay MD Primary Care Provider + Encounter Details Date Type Department Care Team (Late st Contact Info) Description 11/12/2023 Procedure Pass [facility], [address] [address] Social History Tobacco Use Types Packs/Day Years [...] documented as of this encounter Care Teams Online Merchant Relationship Specialty Start Date End Date Juvenal Clay MD [address] [place] [address] PCP - General Internal Medicine 07/12/23 documented as of this encounter Additional Source Comments The information contained in this document represents components of the legal health record. It is not the complete legal health record.[facility]
== END 2025-07-20 11:47 | disposition home or self-care (01) ==
LOC: HO.HMCSH 11:23
PROVIDERS: PCP Internal Medicine; Visit Provider Internal Medicine
DX: M54.9 Dorsalgia, unspecified (principal)

== ENCOUNTER 2025-08-05 06:17 | Outpatient (REF) | payer BC, SELFPAY ==
--- OUTSIDE RECORDS SUMMARY | 2005-10-08 19:00 | XMS_ITS | Continuity of Care Document ---
Author Organization [facility] Address [address] [facility] [address] [place] [address] Phone Care Team Providers Care Plant Operator Control Room Operator Name Role Phone Z-Converted, Provider Unavailable Unavailabl e Medications Medication Instructions Dosage Effective Dates (start - stop) Status Comments bupropion HCl XL 150 mg 24 hr Tab 1 QD - Active alprazolam 2 mg Tab 1 Two Times A Day As Needed for panic - Active Advance Directives Directive Yes / No Effective Date File Name No Information Encounters Encounter Description Practice Location Reason(s) For Visit Diagnoses Date Provider Providers Copied on Encounter [facility], [address] [facility] [facility] [address], [place], [place], [id number], tel:[phone] 2 [facility] Major depressive affective disorder, recurrent episode, severe degree, without mention of psychotic behavior 6 Z-Convert ed Provider. . [facility], [address] [place] [address],[address], [place], [place], [id number], tel:[phone] 2 Converted Locations No Information 6 Z-Convert ed Provider. . Family History Family Member Type Diagnosis Age At Onset No Information Payers Payer name Insurance type Covered libertarian ID Authoriza tion(s) No Information Social History Type Description Quantity Date Captured Comments Sex Male Smoking Status No Information Chief Complaint And Reason For Visit No Information Reason For Referral Reason For Referral No Information History Of Present Illness Encounter Date Complaint History Of Prese nt Illness No Information Functional Status Date Functional Assessmen t No Information Instructions Date Instruction Additional Infor mation No Information Assessments Type Assessment Date No Information Patient Care Teams Name Effective Dates (start - stop) Status Members No Information
--- OUTSIDE RECORDS SUMMARY | 2005-10-08 19:00 | XMS_ITS | Continuity of Care Document ---
Author Organization [facility] Address [address] [facility] [address] [place] [address] Phone Care Team Providers Care Ink Technician Name Role Phone Z-Converted, Provider Unavailable Unavailabl [...] Diagnoses Date Provider Providers Copied on Encounter [facility], [address] [facility] [address], [place], [place], [id number], tel:[phone] 2 [facility] Major depressive affective disorder, recurrent episode, severe degree, without mention of psychotic behavior 6 Z-Convert ed Provider. . [facility], [address] [place] [address],[address], [place], [place], [id number], tel:[phone] 2 Converted Locations No Information 6 Z-Convert ed Provider. . Family History Family Member Type Diagnosis Age At Onset No Information Payers Payer name Insurance type Covered alliance party ID Authoriza tion(s) No Information Social History [...]
--- OUTSIDE RECORDS SUMMARY | 2005-10-08 19:00 | XMS_ITS | Continuity of Care Document ---
Author Organization [facility] Address [address] [facility] [address] [place] [address] Phone Care Team Providers Care Taxation Consultant Name Role Phone Z-Converted, Provider Unavailable Unavailabl [...] Diagnoses Date Provider Providers Copied on Encounter [facility], [address] [facility] [address], [place], [place], [id number], tel:[phone] 2 [facility] Major depressive affective disorder, recurrent episode, severe degree, without mention of psychotic behavior 6 Z-Convert ed Provider. . [facility], [address] [place] [address],[address], [place], [place], [id number], tel:[phone] 2 Converted Locations No Information 6 Z-Convert ed Provider. . Family History Family Member Type Diagnosis Age At Onset No Information Payers Payer name Insurance type Covered democrat ID Authoriza tion(s) No Information Social History [...]
--- OUTSIDE RECORDS SUMMARY | 2005-10-08 19:00 | XMS_ITS | Continuity of Care Document ---
Author Organization [facility] Address [address] [facility] [address] [place] [address] Phone Care Team Providers Care Tool And Die Assembler Name Role Phone Z-Converted, Provider Unavailable Unavailabl [...] Diagnoses Date Provider Providers Copied on Encounter [facility], [address] [facility] [address], [place], [place], [id number], tel:[phone] 2 [facility] Major depressive affective disorder, recurrent episode, severe degree, without mention of psychotic behavior 6 Z-Convert ed Provider. . [facility], [address] [place] [address],[address], [place], [place], [id number], tel:[phone] 2 Converted Locations No Information 6 Z-Convert ed Provider. . Family History Family Member Type Diagnosis Age At Onset No Information Payers Payer name Insurance type Covered constitution party ID Authoriza tion(s) No Information Social [...]
--- NOTE | ~2025-08-05 | FL_ITS ---
EXAMINATION: FL GUIDANCE ONLY HISTORY: M47.812 - Spondylosis without myelopathy or radiculopathy, cervical region COMPARISON: None available. TECHNIQUE: Fluoroscopy time: 5 seconds. Cumulative Dose: 1.90 mGy. DAP: 274.20 mGycm2 Images: 1. FINDINGS: The procedure was aborted. FL/FL guidance in treatment room IMPRESSION: Fluoroscopy during procedure. Please see procedure report for additional information. Electronically signed by: Bryce Robert MD 08/05/2025 03:04 PM JOSS
--- OUTSIDE RECORDS SUMMARY | 2025-08-05 06:19 | XMS_ITS | Encounter Summary ---
Author Organization [facility] Address [address] [place] [address] Phone Care Team Providers Care Size Changer Name Role Phone Juvenal Clay MD Primary Care Provider + Encounter Details Date Type Department Care Team (Late st Contact Info) Description 07/09/2023 Procedure Pass [facility], [address] [address] Social History Tobacco Use Types Packs/Day Years [...] documented as of this encounter Care Teams Size Changer Relationship Specialty Start Date End Date Juvenal Clay MD [address] [place] [address] PCP - General Internal Medicine 07/12/23 documented as of this encounter Additional Source Comments The information contained in this document represents components of the legal health record. It is not the complete legal health record.[facility]
--- OUTSIDE RECORDS SUMMARY | 2025-08-05 06:19 | XMS_ITS | Encounter Summary ---
Author Organization [facility] Address [address] [place] [address] Phone Care Team Providers Care Rawhide Bone Roller Name Role Phone Juvenal Clay MD Primary Care Provider + Encounter Details Date Type Department Care Team (Late st Contact Info) Description 11/12/2023 Procedure Pass [facility], [address] [address] Social History Tobacco Use Types Packs/Day Years [...] documented as of this encounter Care Teams Rawhide Bone Roller Relationship Specialty Start Date End Date Juvenal Clay MD [address] [place] [address] PCP - General Internal Medicine 07/12/23 documented as of this encounter Additional Source Comments The information contained in this document represents components of the legal health record. It is not the complete legal health record.[facility]
--- OUTSIDE RECORDS SUMMARY | 2025-08-05 06:19 | XMS_ITS | Encounter Summary ---
Author Organization [facility] Address [address] [place] [address] Phone Care Team Providers Care Body Recall Instructor Name Role Phone Juvenal Clay MD Primary Care Provider + Reason for Referral * MRI/CAT Scan - Closed Specialty Diagnoses / Procedures Referred By Contac t Referred To Contact Radiology Diagnoses Nodule of kidney Procedures MRI Abdomen CHG MRI, ABDOMEN, COMBO System, Provider Not In, [facility] [address] [address] Referral ID Status Reason Start Date Expiration Date Visits Re quested Visits Authorized [id number] Closed 02/21/2024 06/20/2024 2 2 Encounter Details Date Type Department Care Team (Late st Contact Info) Description 02/21/2024 Transcribe Orders Virtual Department [address] [place] [address] System, Provider Not In, [facility] [address] [address] Nodule of kidney (Primary Dx) Social History [...] documented as of this encounter Care Teams Body Recall Instructor Relationship Specialty Start Date End Date Juvenal Clay MD [address] [place] [address] PCP - General Internal Medicine 07/12/23 documented as of this encounter Additional Source Comments The information contained in this document represents components of the legal health record. It is not the complete legal health record.[facility]
--- OUTSIDE RECORDS SUMMARY | 2025-08-05 06:19 | XMS_ITS | Encounter Summary ---
Author Organization [facility] Address [address] [place] [address] Phone Care Team Providers Care Director Occupational Name Role Phone Juvenal Clay MD Primary Care Provider + Encounter Details Date Type Department Care Team (Late st Contact Info) Description 07/11/2023 Procedure Pass [facility], [address] [address] Social History Tobacco Use Types Packs/Day Years [...] documented as of this encounter Care Teams Director Occupational Relationship Specialty Start Date End Date Juvenal Clay MD [address] [place] [address] PCP - General Internal Medicine 07/12/23 documented as of this encounter Additional Source Comments The information contained in this document represents components of the legal health record. It is not the complete legal health record.[facility]
--- OUTSIDE RECORDS SUMMARY | 2025-08-05 06:19 | XMS_ITS | Encounter Summary ---
Author Organization [facility] Address [address] [place] [phone] Phone Care Team Providers Care Building Maintenance Worker Name Role Phone Juvenal Clay MD Primary Care Provider + Encounter Details Date Type Department Care Team (Late st Contact Info) Description 11/12/2023 Procedure Pass [facility], [address] [address] Social History Tobacco Use Types Packs/Day Years [...] documented as of this encounter Care Teams Building Maintenance Worker Relationship Specialty Start Date End Date Juvenal Clay MD [address] [place] [address] PCP - General Internal Medicine 07/12/23 documented as of this encounter Additional Source Comments The information contained in this document represents components of the legal health record. It is not the complete legal health record.[facility]
--- OUTSIDE RECORDS SUMMARY | 2025-08-05 06:19 | XMS_ITS | Encounter Summary ---
Author Organization [facility] Address [address] [place] [address] Phone Care Team Providers Care Geosciences Professor Name Role Phone Juvenal Clay MD Primary Care Provider + Encounter Details Date Type Department Care Team (Late st Contact Info) Description 03/21/2024 Procedure Pass [facility], Ct Scan - [address] [address] Social History Tobacco Use Types Packs/Day Years [...] 11:21 PM EDT Madhavi Silva RN * [place] Suicide Severity Rating Scale (Screener/Recent Self-Report) Question [...] documented as of this encounter Care Teams Geosciences Professor Relationship Specialty Start Date End Date Juvenal Clay MD [address] [place] [address] PCP - General Internal Medicine 07/12/23 documented as of this encounter Additional Source Comments The information contained in this document represents components of the legal health record. It is not the complete legal health record.[facility]
--- OUTSIDE RECORDS SUMMARY | 2025-08-05 06:19 | XMS_ITS | Encounter Summary ---
Author Organization [facility] Address [address] [place] [address] [place] [address] Phone Care Team Providers Care Sub Plant Manager Name Role Phone Juvenal Clay MD Primary Care Provider + Encounter Details Date Type Department Care Team (Latest Contact Info) Description 06/19/2023 Transcribe Orders Virtual Department [address] [place] [address] Juvenal Clay MD [address] [place] [address] [email or web address] Chronic osteomyelitis with draining sinus, left [...] documented as of this encounter Care Teams Sub Plant Manager Relationship Specialty Start Date End Date Juvenal Clay MD [address] [place] [address] PCP - General Internal Medicine 07/12/23 documented as of this encounter Additional Source Comments The information contained in this document represents components of the legal health record. It is not the complete legal health record.[facility]
--- OUTSIDE RECORDS SUMMARY | 2025-08-05 06:19 | XMS_ITS | Encounter Summary ---
Author Organization [facility] Address [address] [place] [address] Phone Care Team Providers Care Hvac Journeyman Name Role Phone Juvenal Clay MD Primary Care Provider + Encounter Details Date Type Department Care Team (Late st Contact Info) Description 11/12/2023 Procedure Pass [facility], [address] [address] Social History Tobacco Use Types Packs/Day Years [...] documented as of this encounter Care Teams Hvac Journeyman Relationship Specialty Start Date End Date Juvenal Clay MD [address] [place] [address] PCP - General Internal Medicine 07/12/23 documented as of this encounter Additional Source Comments The information contained in this document represents components of the legal health record. It is not the complete legal health record.[facility]
--- OUTSIDE RECORDS SUMMARY | 2025-08-05 06:19 | XMS_ITS | Encounter Summary ---
Author Organization [facility] Address [address] [place] [address] Phone Care Team Providers Care Glass Etcher Name Role Phone Juvenal Clay MD Primary Care Provider + Encounter Details Date Type Department Care Team (Late st Contact Info) Description 02/20/2024 Transcribe Orders Virtual Department [address] [place] [address] System, Provider Not In, [facility] [address] [address] Renal mass (Primary Dx) Social History Tobacco [...] documented as of this encounter Care Teams Glass Etcher Relationship Specialty Start Date End Date Juvenal Clay MD [address] [place] [address] PCP - General Internal Medicine 07/12/23 documented as of this encounter Additional Source Comments The information contained in this document represents components of the legal health record. It is not the complete legal health record.[facility]
--- OUTSIDE RECORDS SUMMARY | 2025-08-05 06:19 | XMS_ITS | Encounter Summary ---
Author Organization [facility] Address [address] [place] [address] [place], [place] [phone] Phone Care Team Providers Care Gasket Notcher Name Role Phone Juvenal Clay MD Primary Care Provider + Reason for Referral * MRI/CAT Scan - Closed Specialty Diagnoses / Procedures Referred By Contac t Referred To Contact Radiology Diagnoses Muscle weakness (generalized) Procedures MRI Lumbar Spine CHG MRI, LUMBAR SPINE CHG MRI, LUMBAR SPINE COMBO Juvenal Clay MD [address] [place] [address] Phone: tel: fax: mailto: Referral ID Status Reason Start Date Expiration Date Visits Re quested Visits Authorized [id number] Closed 11/12/2023 01/11/2024 1 1 * MRI/CAT Scan - Closed Specialty Diagnoses / Procedures Referred By Contac t Referred To Contact Radiology Diagnoses Muscle weakness (generalized) Procedures MRI Thoracic Spine CHG MRI, DORSAL SPINE CONTRAST CHG MRI, DORSAL SPINE COMBO Juvenal Clay MD [address] [place] [address] Phone: tel: fax: mailto: Referral ID Status Reason Start Date Expiration Date Visits Re quested Visits Authorized [id number] Closed 11/12/2023 01/11/2024 1 1 * MRI/CAT Scan - Closed Specialty Diagnoses / Procedures Referred By Belkis gaspar Referred To Contact Radiology Diagnoses Sprain of unspecified rotator cuff capsule, sequela Procedures MRI Shoulder (Right) CHG MRI, JOINT UPPER EXTREM CHG MRI, JOINT UPPER EXTREM W/CONTRAST CHG MRI, JOINT UPPER EXTREM Juvenal Ryan MD [address] [place] [address] Phone: tel: fax: mailto: Referral ID Status Reason Start Date Expiration Date Visits Re quested Visits Authorized [id number] Closed 11/12/2023 01/11/2024 1 1 * MRI/CAT Scan - Closed Specialty Diagnoses / Procedures Referred By Belkis gaspar Referred To Contact Radiology Diagnoses Sprain of unspecified rotator cuff capsule, sequela Procedures MRI Shoulder (Left) CHG MRI, JOINT UPPER EXTREM CHG MRI, JOINT UPPER EXTREM W/CONTRAST CHG MRI, JOINT UPPER EXTREM COMBO Juvenal Clay MD [address] [place] [address] Phone: tel: fax: mailto:[email or web address] Referral ID Status Reason Start Date Expiration Date Visits Re quested Visits Authorized [id number] Closed 11/12/2023 01/11/2024 1 1 Encounter Details Date Type Department Care Team (Latest Contact Info) Description 11/12/2023 Transcribe Orders Virtual Department [address] [place] [address] Juvenal Clay MD [address] [place] [address] [email or web address] Sprain of unspecified rotator cuff capsule, [...] imaging of an approximate 5 cm exophytic [id number] mass in the anterior interpolar region of [...] L3 and L4. Mild-moderate compression fracture of H4goijorhgg the superior endplate which is likely subacute. [...] documented as of this encounter Care Teams Gasket Notcher Relationship Specialty Start Date End Date Juvenal Clay MD [address] [place] [address] PCP - General Internal Medicine 07/12/23 documented as of this encounter Additional Source Comments The information contained in this document represents components of the legal health record. It is not the complete legal health record.[facility]
--- OUTSIDE RECORDS SUMMARY | 2025-08-05 06:19 | XMS_ITS | Encounter Summary ---
Author Organization [facility] Address [address] [place] [address] Phone Care Team Providers Care Registered Nurse Surgical Services Name Role Phone Juvenal Clay MD Primary Care Provider + Encounter Details Date Type Department Care Team (Late st Contact Info) Description 11/12/2023 Procedure Pass [facility], [address] [address] Social History Tobacco Use Types Packs/Day Years [...] documented as of this encounter Care Teams Registered Nurse Surgical Services Relationship Specialty Start Date End Date Juvenal Clay MD [address] [place] [address] PCP - General Internal Medicine 07/12/23 documented as of this encounter Additional Source Comments The information contained in this document represents components of the legal health record. It is not the complete legal health record.[facility]
--- OUTSIDE RECORDS SUMMARY | 2025-08-05 06:19 | XMS_ITS | Encounter Summary ---
Author Organization [facility] Address [address] [place] [address] [place] [address] Phone Care Team Providers Care Manager Multimedia Name Role Phone Juvenal Clay MD Primary Care Provider + Reason for Referral * MRI/CAT Scan - Closed Specialty Diagnoses / Procedures Referred By Contac t Referred To Contact Radiology Diagnoses Muscle weakness (generalized) Procedures MRI Brain CHG MRI BRAIN CHG MRI BRAIN COMBO CHG MRI BRAIN CONTRAST Juvenal Clay MD [address] [place] [address] Phone: tel: fax: mailto: Referral ID Status Reason Start Date Expiration Date Visits Re quested Visits Authorized [id number] Closed 07/11/2023 09/08/2023 1 1 * MRI/CAT Scan - Closed Specialty Diagnoses / Procedures Referred By Contac t Referred To Contact Radiology Diagnoses Radiculopathy of cervical spine Procedures MRI Cervical Spine CHG MRI, CERV SPINE CHG MRI, CERV SPINE COMBO CHG MRI, CERV SPINE CONTRAST Juvenal Clay MD [address] [place] [address] Phone: tel: fax: mailto: Referral ID Status Reason Start Date Expiration Date Visits Re quested Visits Authorized [id number] Closed 07/09/2023 09/06/2023 1 1 Encounter Details Date Type Department Care Team (Latest Contact Info) Description 07/09/2023 Transcribe Orders Virtual Department [address] [place] [address] Juvenal Clay MD [address] [place] [address] [email or web address] Radiculopathy of cervical spine (Primary Dx); [...] indication for this examination in [facility]:Outside Radiology Order; MUSCLE WEAKNESS TECHNIQUE: MRI BRAIN [...] on the right at C7-T1. There is lxvj-xr-dwdtjtoq spinal canal stenosis C3-C4. No evidence of focal cervical cord signal abnormality. Narrative 08/06/2023 6:58 AM EST MRI CERVICAL SPINE (NEURO) FOCUS WITHOUT CONTRAST Referring clinician's provided indication for this examination in [facility]: Outside Radiology Order; Radiculopathy, cervical region TECHNIQUE: [...] complex. Bilateral facet arthropathy. Moderate left and imjv-xi-xgkhlpwr right foraminal stenosis. No significant spinal canal [...] Vertebral endplate edema flanking the C3-C4 and C7-K7mneqwsytfzc Spinal Cord: No spinal cord compression or [...] disc-osteophyte complex. Bilateral facet arthropathy.Moderate left and corv-cf-mjfbized right foraminal stenosis. Nosignificant spinal canal stenosis. [...] moderate on the right at C7-T1. Thereis koap-cn-sqlrnvxg spinal canal stenosis C3-C4. No evidence of [...] as of this encounter Care Teams Manager Multimedia Relationship Specialty Start Date End Date Juvenal Clay MD [address] [place] [address] PCP - General Internal Medicine 07/12/23 documented as of this encounter Additional Source Comments The information contained in this document represents components of the legal health record. It is not the complete legal health record.[facility]
--- OUTSIDE RECORDS SUMMARY | 2025-08-05 06:19 | XMS_ITS | Encounter Summary ---
Author Organization [facility] Address [address] [place] [address] Phone Care Team Providers Care Radius Corner Machine Operator Name Role Phone Juvenal Clay MD Primary Care Provider + Encounter Details Date Type Department Care Team (Late st Contact Info) Description 03/21/2024 Procedure Pass [facility], Ct Scan - [address] [address] Social History Tobacco Use Types Packs/Day Years [...] 11:21 PM EDT Madhavi Silva RN * [place] Suicide Severity Rating Scale (Screener/Recent Self-Report) Question [...] documented as of this encounter Care Teams Radius Corner Machine Operator Relationship Specialty Start Date End Date Juvenal Clay MD [address] [place] [address] PCP - General Internal Medicine 07/12/23 documented as of this encounter Additional Source Comments The information contained in this document represents components of the legal health record. It is not the complete legal health record.[facility]
--- OUTSIDE RECORDS SUMMARY | 2025-08-05 06:19 | XMS_ITS | Encounter Summary ---
Author Organization [facility] Address [address] [place] [address] Phone Care Team Providers Care Draw End Hand Name Role Phone Juvenal Clay MD Primary Care Provider + Encounter Details Date Type Department Care Team (Latest Contact Info) Description 09/04/2023 Transcribe Orders Virtual Department [address] [place] [address] Juvenal Clay MD [address] [place] [address] [email or web address] Other chronic osteomyelitis, left humerus (Primary [...] documented as of this encounter Care Teams Draw End Hand Relationship Specialty Start Date End Date Juvenal Clay MD [address] [place] [address] PCP - General Internal Medicine 07/12/23 documented as of this encounter Additional Source Comments The information contained in this document represents components of the legal health record. It is not the complete legal health record.[facility]
--- OUTSIDE RECORDS SUMMARY | 2025-08-05 06:19 | XMS_ITS | Encounter Summary ---
Author Organization [facility] Address [address] [place] [address] Phone Care Team Providers Care Tunnel Miner Name Role Phone Juvenal Clay MD Primary Care Provider + Encounter Details Date Type Department Care Team (Late st Contact Info) Description 02/21/2024 Procedure Pass [facility], [address] [address] Social History Tobacco Use Types Packs/Day Years [...] documented as of this encounter Care Teams Tunnel Miner Relationship Specialty Start Date End Date Juvenal Clay MD [address] [place] [address] PCP - General Internal Medicine 07/12/23 documented as of this encounter Additional Source Comments The information contained in this document represents components of the legal health record. It is not the complete legal health record.[facility]
--- OUTSIDE RECORDS SUMMARY | 2025-08-05 06:19 | XMS_ITS | Clinical Summary ---
Author Organization [facility] Address [address] [place] [id number] Phone Care Team Providers Care Hand Tube Bender Name Role Phone Juvenal Clay MD Primary [...] for wheezing. Active multivitamin with minerals (DAILY MULTIVITAMIN-MD NERALS ORAL) Take 1 tablet by mouth [...] (03/23/2024 1:45 PM EDT): - Found at [facility] unresponsive, after a walk had pinpoint pupils and RR 8, reportedly improved with narcan, did not require additional doses. Urine toxicology positive for fentanyl + opiates. He is prescribed morphine and oxycodone for chronic pain. False positive is possible but concern for illicit opioid use in addition to prescribed opioids. - [place] Dr. Clay requested send confirmatory test of [...] patient's age to complete this topic IPV VACCINES Aged Out No longer eligi ble based on patient's age to complete this topic MENINGOCOCCAL VACCINES (ACWY) Aged Out No longer eligible based on patient's age to complete this topic MENINGOCOCCAL VACCINES (B) Aged Out N o longer eligible based on patient's age to complete this topic Medical Devices Not on file Insurance [facility] [employer] [facility] Advance Directives For more information, please contact: [phone] (9AM - 5PM [facility], Saturday-Saturday) * Full Code (Latest Code Status on File) Date Activated Date Inactivated Comments 03/22/2024 12:07 AM Question Answer Comments Code Status Confirmed With: Other (specify below ) Code Discussion Comments: Presumed Care Teams Hand Tube Bender Relationship Specialty Start Date End Date Juvenal Clay MD [address] [place] [id number] PCP - General Internal Medicine 07/12/23 Additional Source Comments The information contained in this document represents components of the legal health record. It is not the complete legal health record.[facility]
== END 2025-08-05 06:18 | disposition home or self-care (01) ==
LOC: CF 06:17
PROVIDERS: Visit Provider Internal Medicine
DX: Z13.89 Encounter for screening for other disorder (principal)

== ENCOUNTER 2025-08-05 09:05 | Outpatient (AMB) | payer BC, SELFPAY ==
[2025-08-05 10:26] VITALS: BP 102/66; PULSE 86; RESP 16; O2SAT 96
--- NOTE | 2025-08-05 10:26 | MHC.OFFVIS ---
Vital Signs 08/05/25 10:26 BP 102/66 Blood Pressure Location Lt brachial Position Sitting Respiration 16 Pulse 86 Pulse Source Pulse Oximeter Pulse Oximetry (%) 96 Oxygen Delivery Method Room Air Intake Visit Reasons: Right Diagnostic C4-C5-C6 MBB Judicial Administrative Assistant Required: No Allergies Penicillins Allergy (Severe, Verified 08/05/25 10:27) Swelling Medication List - Last Reconciled 08/05/25 by Dania Jeffries LPN albuterol sulfate 90 mcg/actuation 2 puffs inhalation Q4-6H PRN 30 days cyclobenzaprine 10 mg PO Q8H doxycycline hyclate 100 mg PO BID 10 days ipratropium-albuterol 0.5 mg-3 mg(2.5 mg base)/3 mL 3 mL inhalation Q20M PRN meloxicam 15 mg PO DAILY nebulizers (Replenisha Nebulizer System) As directed. Please provide accessories for nebulizer machine prednisone 40 mg (2 x 20 mg) PO DAILY 5 days HPI HPI Right Diagnostic C4-C5-C6 MBB: Details: Patient presented for scheduled diagnostic cervical medial branch blocks. Patient was positioned for fluoroscopy. Unfortunately reliable imaging could not be obtained due to the anatomy of his neck and shoulders in order to safely place the needles at the desired target. Decision was made to abort the procedure before it could be started. [facility] Medical History Rotator cuff tear Tachycardia Cervical spondylosis Chronic neck pain Asthma Persistent cough Establishing care with new doctor, encounter for Cough Chronic disease anemia Contracture of muscle, left forearm Drug abuse Adult failure to thrive Family History Father No problems noted. Mother No problems noted. Social History Household Members: None Housing: House Housing Other:: living in a hotel Do you presently have visiting nurse or other home services: No Alcohol intake: current Alcohol intake frequency: does not drink Patient Tobacco Use Status: Never used Tobacco service: Yes Current occupational status: retired Cognitive needs: Yes (cane and walker) Hearing needs: No Vision needs: Yes (reading glasses) Physical Exam Vital Signs: Last Vital Signs Pulse 86 08/05/25 10:26 Resp 16 08/05/25 10:26 BP 102/66 08/05/25 10:26 Pulse Ox 96 08/05/25 10:26 Oxygen Delivery Method Room Air 08/05/25 10:26 Assessment & Plan Assessment & Plan (1) Cervical spondylosis: Code(s): M47.812 - Spondylosis without myelopathy or radiculopathy, cervical region Category: Medical Plan Recommend an office follow-up for trial of trigger point injections for neck pain. Orders: Orders [place] guidance in treatment room Today M47.812 - Spondylosis without myelopathy or radiculopathy, cervical region Coding Level of Care Code Est Pt Level 2 (64519) Diagnoses Cervical spondylosis M47.812
== END 2025-08-05 10:54 | disposition home or self-care (01) ==
LOC: HO.PMCPRC 09:05
PROVIDERS: PCP Internal Medicine; Visit Provider Internal Medicine
DX: M47.812 Spondylosis without myelopathy or radiculopathy, cervical region (principal)
CPT/HCPCS: 99213

== ENCOUNTER 2025-08-05 10:56 | Outpatient (REF) | payer BC, SELFPAY ==
--- OUTSIDE RECORDS SUMMARY | 2025-08-02 16:18 | XMS_ITS | Encounter Summary ---
Author Organization 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 Name Role Phone Physician, Pcp Unknown Primary Care Provider Tammi vailable Reason for Referral * Consultation (Routine) - Closed Specialty Diagnoses / Procedures Referred By Contac t Referred To Contact Family Medicine Diagnoses Acute exacerbation of chronic obstructive pulmonary disease (CMS/HCC V24, CMS/[facility] V28) Aftab Haney MD [address] [place] [id number] Phone: tel: fax: External Performed Referral ID Status Reason Start Date Expiration Date V isits Requested Visits Authorized [id number] Closed Specialty Services Required 08/02/2025 08/02/2026 1 1 Reason for Visit * Reason Comments Cough Shortness of Breath Encounter Details Date Type Department Care Team (Late st Contact Info) Description 08/02/2025 4:18 PM EST - 08/02/2025 8:34 PM EST Emergency [facility] Emergency [address] [place] [address] Aftab Haney MD [address] [place] [address] Matt Pulido MD [address] [address] Acute exacerbation of chronic obstructive pulmonary disease (COPD) (CMS/HCC V24, CMS/HCC V28) (Primary Dx); Acute bronchitis, unspecified organism; Acute pneumonia; Acute gastroenteritis; Exacerbation of asthma, unspecified asthma severity, unspecified whether persistent; Bronchitis Discharge Disposition: Home or Self Care Social History Tobacco Use Types Packs/Day Years Used Date Smoking Tobacco: Never Assessed Sex and Gender Information Value Date Recorded Sex Assigned at Not on file Legal Sex Male 1:35 AM EST Gender Identity Not on file Sexual Orientation Not on file documented as of this encounter Last Filed Vital Signs Vital Sign Reading Time Taken Comments Blood Pressure 120/74 08/02/2025 6:33 PM EST Pulse 88 08/02/2025 6:33 PM EST Temperature 36.8 C (98.2 F) 08/02/2025 6:33 PM EST Respiratory Rate 18 08/02/2025 6:33 PM EST Oxygen Saturation 93% 08/02/2025 6:33 PM EST Inhaled Oxygen Concentration - - Weight 83.9 kg (185 lb) 08/02/2025 5:09 PM EST Height 177.8 cm (5' 10 ) 08/02/2025 5:09 PM EST Body Mass Index 26.54 08/02/2025 5:09 PM EST documented in this encounter Discharge Instructions * Attachments The following attachments cannot be sent through Care Everywhere. * Asthma: General Info (Yemeni) * COPD (Y[place]i) * Pneumonia ([place]i) documented in this encounter Medications at Time of Discharge acetaminophen (TYLENOL) 500 mg tablet Take 1 tablet (500 mg total) by mouth every 6 (six) hours if needed for mild pain for up to 12 doses. 12 tablet 08/02/2025 albuterol HFA (PROAIR HFA ; PROVENTIL HFA ; VENTOLIN HFA) 90 mcg/actuation inhaler Inhale 2 puffs by mouth every 4 (four) hours if needed for wheezing. 1 each 08/02/2025 5 azithromycin (ZITHROMAX) 500 mg tablet Take 1 tablet (500 mg total) by mouth 1 (one) time each day for 3 days. 3 each 08/02/2025 5 cefpodoxime (VANTIN) 200 mg tablet Take 1 tablet (200 mg total) by mouth 2 (two) times a day for 5 days. 10 each 08/02/2025 5 diphenhydrAMINE (BENADRYL) 25 mg capsule Take 1 capsule (25 mg total) by mouth every 4 (four) hours if needed (Congestion, insomnia) for up to 30 doses. 30 capsule 08/02/2025 ibuprofen (ADVIL,MOTRIN) 200 mg tablet Take 1 tablet (200 mg total) by mouth every 6 (six) hours if needed for mild pain for up to 36 doses. 36 tablet 08/02/2025 ondansetron ODT (ZOFRAN-ODT) 4 mg disintegrating tablet Dissolve 1 tablet (4 mg total) on top of the tongue every 8 (eight) hours if needed for nausea or vomiting for up to 12 doses. Let 1 tablet dissolve under the tongue three times daily as needed for nausea or vomiting. 12 tablet 08/02/2025 predniSONE (DELTASONE) 20 mg tablet Take 3 tablets (60 mg total) by mouth 1 (one) time each day for 5 days. See instructions. 15 each 08/02/2025 5 saccharomyces boulardii (FLORASTOR) 250 mg capsule Take 1 capsule (250 mg total) by mouth 2 (two) times a day. 60 capsule 08/02/2025 5 documented as of this encounter Ordered Prescriptions Prescription Sig Dispense Quantity Refills Last Filled Start Date End Date azithromycin (ZITHROMAX) 500 mg tablet Take 1 tablet (500 mg total) by mouth 1 (one) time each day for 3 days. 3 each 08/02/2025 5 predniSONE (DELTASONE) 20 mg tablet Take 3 tablets (60 mg total) by mouth 1 (one) time each day for 5 days. See instructions. 15 each 08/02/2025 5 saccharomyces boulardii (FLORASTOR) 250 mg capsule Take 1 capsule (250 mg total) by mouth 2 (two) times a day. 60 capsule 08/02/2025 5 cefpodoxime (VANTIN) 200 mg tablet Take 1 tablet (200 mg total) by mouth 2 (two) times a day for 5 days. 10 each 08/02/2025 5 albuterol HFA (PROAIR HFA ; PROVENTIL HFA ; VENTOLIN HFA) 90 mcg/actuation inhaler Inhale 2 puffs by mouth every 4 (four) hours if needed for wheezing. 1 each 08/02/2025 diphenhydrAMINE (BENADRYL) 25 mg capsule Take 1 capsule (25 mg total) by mouth every 4 (four) hours if needed (Congestion, insomnia) for up to 30 doses. 30 capsule 08/02/2025 ondansetron ODT (ZOFRAN-ODT) 4 mg disintegrating tablet Dissolve 1 tablet (4 mg total) on top of the tongue every 8 (eight) hours if needed for nausea or vomiting for up to 12 doses. Let 1 tablet dissolve under the tongue three times daily as needed for nausea or vomiting. 12 tablet 08/02/2025 ibuprofen (ADVIL,MOTRIN) 200 mg tablet Take 1 tablet (200 mg total) by mouth every 6 (six) hours if needed for mild pain for up to 36 doses. 36 tablet 08/02/2025 acetaminophen (TYLENOL) 500 mg tablet Take 1 tablet (500 mg total) by mouth every 6 (six) hours if needed for mild pain for up to 12 doses. 12 tablet 08/02/2025 documented in this encounter Discharge Disposition Disposition Code Departure Means Destination Comment s Home or Self Senior Living documented in this encounter Progress Notes * Matt Pulido MD - 08/02/2025 8:34 PM EST ED Course as of 08/03/25151Aug 02, 20252014 I, Dr. Pulido ,took over the case from the outgoing physician. Rounded on patient, Reviewed labs history and made medication adjustments as needed. Labs are unremarkable. No signs of desaturation, will d/c as discussed with Dr. Galindo [JL] ED Course User Index [JL] Matt Pulido MD Clinical Impressions as of 08/03/25151 Acute exacerbation of chronic obstructive pulmonary disease (COPD) (CMS/HCC V24, CMS/[facility] V28) Acute bronchitis, unspecified organism Acute pneumonia Acute gastroenteritis Exacerbation of asthma, unspecified asthma severity, unspecified whether persistent Bronchitis Discharge 1. Acute exacerbation of chronic obstructive pulmonary disease (COPD) (CMS/HCC V24, CMS/[facility] V28) 2. Acute bronchitis, unspecified organism 3. Acute pneumonia 4. Acute gastroenteritis 5. Exacerbation of asthma, unspecified asthma severity, unspecified whether persistent 6. Bronchitis Procedures * Maida Crowder RN - 08/02/2025 4:19 PM EST Pt BIBA from [facility] after he drove in as walk in appt for non productive cough and sob x 1 week.Pt reports he ran of of albuterol , hx of asthma. [facility] sent pt to ED due to inability to get CXR or further rule out. * Aftab Haney MD - 08/02/2025 4:13 PM EST HPI Chief Complaint Patient presents with Cough Shortness of Breath Nick is a pleasant 74-year-old man with history of asthma who presents with cough, wheezing, shortness of breath. Not requiring oxygen. Patient states he has never smoked tobacco. He was sent into the emergency department from the [facility] as they do not have an x-ray machine. Afebrile. Noris Coma Scale Score: 15 Patient History Medical History[1] Surgical History[2] Family History[3] Social History Tobacco Use Smoking status: Not on file Smokeless tobacco: Not on file Substance Use Topics Alcohol use: Not on file Drug use: Not on file Review of Systems Review of Systems All other systems reviewed and are negative. Physical Exam ED Triage Vitals [08/02/25 1620] Temp Heart Rate Resp BP 36.8 ??C (98.2 ??F) 90 20 117/77 SpO2 Temp Source Heart Rate Source Patient Position 93 % Oral Monitor Lying BP Location FiO2 (%) Left arm -- Physical Exam Constitutional: Appearance: Normal appearance. HENT: Head: Normocephalic and atraumatic. Mouth/Throat: Mouth: Mucous membranes are moist. Pharynx: Oropharynx is clear. Eyes: Extraocular Movements: Extraocular movements intact. Conjunctiva/sclera: Conjunctivae normal. Pupils: Pupils are equal, round, and reactive to light. Cardiovascular: Rate and Rhythm: Normal rate. Heart sounds: Murmur heard. Pulmonary: Breath sounds: Wheezing present. Comments: Bilateral air tightness, cough Abdominal: General: Abdomen is flat. Palpations: Abdomen is soft. Tenderness: There is no abdominal tenderness. Musculoskeletal: General: No deformity. Normal range of motion. Cervical back: Normal range of motion and neck supple. Skin: General: Skin is warm and dry. Neurological: General: No focal deficit present. Mental Status: He is alert and oriented to person, place, and time. Psychiatric: Mood and Affect: Mood normal. Behavior: Behavior normal. Lab Results I ordered and reviewed: Labs Reviewed CBC WITH AUTO DIFFERENTIAL - Abnormal Result Value WBC 6.0 RBC 5.20 Hemoglobin 16.9 Hematocrit 50.9 MCV 98.3 (*) MCH 32.6 (*) MCHC 33.2 RDW 13.2 Platelets MPV 10.5 NRBC 0.0 NRBC Absolute 0.00 Neutrophils Relative 55.6 Lymphocytes Relative 27.0 Monocytes Relative 12.1 Eosinophils Relative 3.8 Basophils Relative 1.0 Immature Granulocytes Relative 0.5 Neutrophils Absolute 3.35 Lymphocytes Absolute 1.63 Monocytes Absolute 0.73 Eosinophils Absolute 0.23 Basophils Absolute 0.06 Immature Granulocytes Absolute 0.03 [id number], RSV, FLU A AND B QUALITATIVE RT-PCR, INTERNAL LAB - Normal Influenza A PCR Not Detected Influenza B PCR Not Detected RSV PCR Not Detected SARS COV-2 Not Detected COMPREHENSIVE METABOLIC PANEL - Normal Sodium 140 Potassium 3.9 Chloride 109 CO2 26 Anion Gap 5 Glucose 95 BUN 16 Creatinine 0.80 eGFR 94 BUN/Creatinine Ratio 20.0 Calcium 9.1 AST (SGOT) 21 ALT (SGPT) 41 Alkaline Phosphatase 84 Total Protein 7.3 Albumin 3.7 Total Bilirubin 0.5 TROPONIN I HIGH SENSITIVITY - Normal High Sensitivity Troponin I 8 Narrative: High levels of biotin in samples may falsely decrease hsTroponin values. Use caution when interpreting hsTroponin results in patients taking biotin who exhibit renal impairment (eGFR <60) or in patients taking more than 20 mg/day of biotin. B-TYPE NATRIURETIC PEPTIDE - Normal BNP <2 MAGNESIUM - Normal Magnesium 2.1 CBC AND DIFFERENTIAL Narrative: The following orders were created for panel order CBC and differential. Procedure Abnormality Status --------- ------ CBC auto differential[[id number]] Abnormal Final result Please view results for these tests on the individual orders. Radiology Results XR Chest 1 View Final Result FINDINGS/IMPRESSION: Low lung volumes with bibasilar atelectasis. Pulmonary vascular congestion with cardiac silhouette enlargement. No pleural effusion or pneumothorax. Degenerative changes seen throughout the bones. -------- FINAL REPORT -------- Dictated By: MINNA COCHRAN Dictated Date: 08/03/2025 08:34 ET Assigned Physician: MINNA COCHRAN Reviewed and Electronically Signed By: MINNA COCHRAN Signed Date: 08/03/2025 08:36 ET Workstation ID: [id number] Transcribed By: Self Edit Transcribed Date: 08/03/2025 08:34 ET I personally reviewed the patient's images and agree with radiologist interpretation unless otherwise noted here or in ED course or MDM section ED Course & MDM I ordered the following medications: Medications ipratropium-albuteroL (DUONEB) 0.5-2.5 mg/3 mL nebulizer solution 3 mL (3 mL nebulization Given 08/02/25 1704) dexAMETHasone (DECADRON) injection 10 mg (10 mg intravenous Given 08/02/25 1748) cefTRIAXone (ROCEPHIN) 2 g in sterile water 20 mL IV syringe (2 g intravenous Given 08/02/25 1816) azithromycin (ZITHROMAX) tablet 500 mg (500 mg oral Given 08/02/25 1750) ED Course as of 08/03/25 1100 Mon Aug 02, 2025 1900 Care of patient signed out to Dr. Pulido at 7 PM. Pending laboratory analysis results. [WL] 2014 I, Dr. Pulido ,took over the case from the outgoing physician. Rounded on patient, Reviewed labs history and made medication adjustments as needed. Labs are unremarkable. No signs of desaturation, will d/c as discussed with Dr. Galindo [JL] ED Course User Index [JL] Matt Pulido MD [WL] Aftab Haney MD Clinical Impressions as of 08/03/25 1100 Acute exacerbation of chronic obstructive pulmonary disease (COPD) (CMS/HCC V24, CMS/HCC V28) Acute bronchitis, unspecified organism Acute pneumonia Acute gastroenteritis Exacerbation of asthma, unspecified asthma severity, unspecified whether persistent Bronchitis Medical Decision Making patient presents with bilateral wheezing, nasal congestion and cough, consistent with acute asthma exacerbation, acute bronchitis, acute upper respiratory infection. There are perhaps some subtle consolidations in the right lower lobe versus chest x-ray so empirically treated patient for pneumonia.He was given steroids, DuoNebs, Rocephin and azithromycin. Afebrile, normal white blood cell count. COVID/RSV/influenza negative. Amount and/or Complexity of Data Reviewed Independent Historian: Details: records from [facility] External Data Reviewed: labs and radiology. Labs: ordered. Radiology: ordered and independent interpretation performed. Details: chest x-ray with possible subtle consolidations in right lower lobe Procedures Care of patient signed out to Dr. Pulido at 7 PM for further workup and management. Appreciate care. Aftab Haney MD 08/02/25 1626 [1] No past medical history on file. [2] No past surgical history on file. [3] No family history on file. Aftab Haney MD 08/03/25 1100 documented in this encounter Miscellaneous Notes * ED Bed Hold Note - Yobani Cooney RN - 08/02/2025 4:18 PM EST Bed: [facility] Expected date: Expected time: Means of arrival: Comments: Vinay documented in this encounter Plan of Treatment Scheduled Orders Name Type Priority Associated Diagnoses Orde r Schedule 12-Lead ECG ECG STAT Once for 1 Oc currences starting 08/02/2025 until 08/02/2025 Scheduled Referrals Name Type Priority Associated Diagnoses Order Schedule Ambulatory referral to Family Practice Outpatient Referral Routine 1 Occurre nces starting 08/02/2025 until 08/02/2026 documented as of this encounter Procedures Procedure Name Priority Date/Time Associated Diagnosis Comments MAGNESIUM STAT 08/02/2025 6:02 PM EST COMPREHENSIVE METABOLIC PANEL STAT 08/02/2025 6:02 PM EST TROPONIN I HIGH SENSITIVITY STAT 08/02/2025 5:39 PM EST XR CHEST 1 VIEW STAT 08/02/2025 5:38 PM EST CBC WITH AUTO DIFFERENTIAL STAT 08/02/2025 5:24 PM EST CBC AND DIFFERENTIAL STAT 08/02/2025 5:24 PM EST B-TYPE NATRIURETIC PEPTIDE STAT 08/02/2025 5:24 PM EST [id number], RSV, FLU A AND B QUALITATIVE RT-PCR, INTERNAL LAB STAT 08/02/2025 4:58 PM EST documented in this encounter Results * Magnesium (08/02/2025 6:02 PM EST) [facility] Magnesium 2.1 1.9 - 2.6 mg/dL LAB CHEMISTRY METHOD 08/02/2025 7:[address] [facility] Blood Venous blood specimen / Unknown Venipuncture / Unknown 08/02/2025 6:02 PM EST 08/02/2025 6:47 PM EST Aftab Haney MD LAB BLOOD ORDERABLES Final Result [facility] [address] [place] [address], * Comprehensive Metabolic Panel (CMP) (08/02/2025 6:02 PM EST) [facility] Sodium 140 133 - 145 mmol/L LAB CHEMISTRY METHOD 08/02/2025 7:[address] [facility] Potassium 3.9 3.5 - 5.5 mmol/L LAB CHEMISTRY METHOD 08/02/2025 7:17 PM [facility] Chloride 109 96 - 110 mmol/L LAB CHEMISTRY METHOD 08/02/2025 7:[address] [facility] CO2 26 21 - 32 mmol/L LAB CHEMISTRY METHOD 08/02/2025 7:17 PM [facility] Anion Gap 5 3 - 11 LAB CHEMISTRY METHOD 08/02/2025 7:17 PM [facility] Glucose 95 70 - 100 mg/dL LAB CHEMISTRY METHOD 08/02/2025 7:17 PM [facility] BUN 16 5 - 25 mg/dL LAB CHEMISTRY METHOD 08/02/2025 7:17 PM [facility] Creatinine 0.80 0.70 - 1.30 mg/dL LAB CHEMISTRY METHOD 08/02/2025 7:17 PM [facility] eGFR 94 >=60 mL/min/1. 73m2 LAB CHEMISTRY METHOD 08/02/2025 7:17 PM [facility] Comment:Calculation based on the Chronic Kidney Disease Epidemiology Collaboration (CKD-EPI) equation refit without adjustment for race. BUN/Creatinine Ratio 20.0 LAB CHEMISTRY METHOD 08/02/2025 7:17 PM [facility] Calcium 9.1 8.5 - 10.5 mg/dL LAB CHEMISTRY METHOD 08/02/2025 7:17 PM [facility] AST (SGOT) 21 10 - 42 unit/L LAB CHEMISTRY METHOD 08/02/2025 7:17 PM [facility] ALT (SGPT) 41 10 - 60 unit/L LAB CHEMISTRY METHOD 08/02/2025 7:17 PM [facility] Alkaline Phosphatase 84 42 - 121 unit/L LAB CHEMISTRY METHOD 08/02/2025 7:17 PM [facility] Total Protein 7.3 6.0 - 8.0 g/dL LAB CHEMISTRY METHOD 08/02/2025 7:17 PM [facility] Albumin 3.7 3.2 - 5.0 g/dL LAB CHEMISTRY METHOD 08/02/2025 7:17 PM [facility] Total Bilirubin 0.5 0.0 - 1.4 mg/dL LAB CHEMISTRY METHOD 08/02/2025 7:17 PM [facility] Blood Venous blood specimen / Unknown Venipuncture / Unknown 08/02/2025 6:02 PM EST 08/02/2025 6:47 PM EST us Aftab Haney MD LAB BLOOD ORDERABLES Final Result Performing Organization Address [facility] de Phone Number [facility] [address] [place] [address], * Troponin I High Sensitivity (08/02/2025 5:39 PM EST) [facility] Signature High Sensitivity Troponin I 8 <=79 ng/L LAB CHEMISTRY METHOD 08/02/2025 7:[address] [facility] Blood Venous blood specimen / Unknown Venipuncture / Unknown 08/02/2025 5:39 PM EST 08/02/2025 6:[address] [facility] - 08/02/2025 7:57 PM EST High levels of biotin in samples may falsely decrease hsTroponin values. Use caution when interpreting hsTroponin results in patients taking biotin who exhibit renal impairment (eGFR <60) or in patients taking more than 20 mg/day of biotin. us Aftab Haney MD LAB BLOOD ORDERABLES Final Result Performing Organization Address [facility] de Phone Number [facility] [address] [place] [address], * XR Chest 1 View (08/02/2025 5:38 PM EST) Anatomical Region Laterality Modality Body Radiographic Francesca ging 08/03/2025 8:34 AM EST Impressions 08/03/2025 8:36 AM EST FINDINGS/IMPRESSION: Low lung volumes with bibasilar atelectasis. Pulmonary vascular congestion with cardiac silhouette enlargement. No pleural effusion or pneumothorax. Degenerative changes seen throughout the bones. -------- FINAL REPORT -------- Dictated By: MINNA COCHRAN Dictated Date: 08/03/2025 08:34 ET Assigned Physician: MINNA COCHRAN Reviewed and Electronically Signed By: MINNA COCHRAN Signed Date: 08/03/2025 08:36 ET Workstation ID: [id number] Transcribed By: Self Edit Transcribed Date: 08/03/2025 08:34 ET Narrative 08/03/2025 8:36 AM EST XR CHEST 1 VIEW INDICATION: Dyspnea TECHNIQUE: XR CHEST 1 VIEW COMPARISON: 04/27/2022 Procedure Note Minna Cochran MD - 08/03/2025 XR CHEST 1 VIEW INDICATION: Dyspnea TECHNIQUE: XR CHEST 1 VIEW COMPARISON: 04/27/2022 IMPRESSION: FINDINGS/IMPRESSION: Low lung volumes with bibasilar atelectasis.Pulmonary vascular congestion with cardiac silhouette enlargement. Nopleural effusion or pneumothorax. Degenerative changes seen throughoutthe bones. -------- FINAL REPORT -------- Dictated By: MINNA COCHRAN Dictated Date: 08/03/2025 08:34 ET Assigned Physician: MINNA COCHRAN Reviewed and Electronically Signed By: MINNA COCHRAN Signed Date: 08/03/2025 08:36 ET Workstation ID: [id number] Transcribed By: Self Edit Transcribed Date: 08/03/2025 08:34 ET us Aftab Haney MD IMG XR PROCEDURES Final Res ult * (ABNORMAL) CBC auto differential (08/02/2025 5:24 PM EST) WBC 6.0 4.8 - 10.8 K/mcL LAB HEMETOLOGY METHOD 08/02/2025 6:[address] [facility] RBC 5.20 4.50 - 5.50 M/[facility] LAB HEMETOLOGY METHOD 08/02/2025 6:[address] [facility] Hemoglobin 16.9 13.5 - 17.5 g/dL LAB HEMETOLOGY METHOD 08/02/2025 6:[address] [facility] Hematocrit 50.9 42.0 - 54.0 % LAB HEMETOLOGY METHOD 08/02/2025 6:12 PM [facility] MCV 98.3(H) 79.0 - 98.0 FL LAB HEMETOLOGY METHOD 08/02/2025 6:12 PM [facility] MCH 32.6(H) 27.0 - 32.0 pcg LAB HEMETOLOGY METHOD 08/02/2025 6:12 PM [facility] MCHC 33.2 32.0 - 37.0 g/dL LAB HEMETOLOGY METHOD 08/02/2025 6:12 PM [facility] RDW 13.2 11.0 - 15.0 % LAB HEMETOLOGY METHOD 08/02/2025 6:12 PM [facility] Platelets LAB HEMETOLOGY METHOD 08/02/2025 6:12 PM [facility] Comment:Not measured. Platel ets appear adequate but clumped MPV 10.5 7.0 - 11.0 FL LAB HEMETOLOGY METHOD 08/02/2025 6:12 PM [facility] NRBC 0.0 <1.0 % LAB HEMETOLOGY METHOD 08/02/2025 6:12 PM [facility] NRBC Absolute 0.00 <0.10 K/mcL LAB HEMETOLOGY METHOD 08/02/2025 6:12 PM [facility] Neutrophils Relative 55.6 % LAB HEMETOLOGY METHOD 08/02/2025 6:12 PM [facility] Lymphocytes Relative 27.0 % LAB HEMETOLOGY METHOD 08/02/2025 6:12 PM [facility] Monocytes Relative 12.1 % LAB HEMETOLOGY METHOD 08/02/2025 6:12 PM [facility] Eosinophils Relative 3.8 % LAB HEMETOLOGY METHOD 08/02/2025 6:12 PM [facility] Basophils Relative 1.0 % LAB HEMETOLOGY METHOD 08/02/2025 6:[address] [facility] Immature Granulocytes Relative 0.5 % LAB HEMETOLOGY METHOD 08/02/2025 6:12 PM [facility] Neutrophils Absolute 3.35 1.50 - 7.00 K/mcL LAB HEMETOLOGY METHOD 08/02/2025 6:[address] [facility] Lymphocytes Absolute 1.63 1.00 - 5.00 K/mcL LAB HEMETOLOGY METHOD 08/02/2025 6:[address] [facility] Monocytes Absolute 0.73 0.20 - 1.00 K/mcL LAB HEMETOLOGY METHOD 08/02/2025 6:[address] [facility] Eosinophils Absolute 0.23 0.00 - 0.50 K/mcL LAB HEMETOLOGY METHOD 08/02/2025 6:[address] [facility] Basophils Absolute 0.06 0.00 - 0.20 K/mcL LAB HEMETOLOGY METHOD 08/02/2025 6:12 PM [facility] Immature Granulocytes Absolute 0.03 0.00 - 0.03 K/mcL LAB HEMETOLOGY METHOD 08/02/2025 6:12 PM [facility] Blood Venous blood specimen / Unknown Venipuncture / Unknown 08/02/2025 5:24 PM EST 08/02/2025 5:32 PM EST us Aftab Haney MD LAB BLOOD ORDERABLES Final Result [facility] [address] [place] [address], * B-Type Natriuretic Peptide (BNP) (08/02/2025 5:24 PM EST) BNP <2 <=100 pcg/mL LAB CHEMISTRY METHOD 08/02/2025 6:[address] [facility] Blood Venous blood specimen / Unknown Venipuncture / Unknown 08/02/2025 5:24 PM EST 08/02/2025 5:32 PM EST us Aftab Haney MD LAB BLOOD ORDERABLES Final Result Performing Organization Address [facility]/ZIP Co de Phone Number [facility] [address] [place] [address], [place] [phone] * [id number], RSV, Influenza A and B qualitative RT-PCR (08/02/2025 4:58 PM EST) Influenza A PCR Not Detected Not Detected LAB MICROBIOLOGY METHOD 08/02/2025 5:[address] [facility] Influenza B PCR Not Detected Not Detected LAB MICROBIOLOGY METHOD 08/02/2025 5:[address] [facility] RSV PCR Not Detected Not Detected LAB MICROBIOLOGY METHOD 08/02/2025 5:[address] [facility] SARS COV-2 Not Detected Not Detected LAB MICROBIOLOGY METHOD 08/02/2025 5:52 PM [facility] Swab Nasopharyngeal structure / Unknown Non-blood Collection / Unknown 08/02/2025 4:58 PM EST 08/02/2025 5:07 PM EST us Aftab Haney MD LAB MICROBIOLOGY - GENERAL ORDERABLES Final Result [facility] [address] [place] [address], [place] [phone] documented in this encounter Visit Diagnoses Diagnosis Acute exacerbation of chronic obstructive pulmonary disease (COPD) (CMS/HCC V24, CMS/[facility] V28)- Primary Obstructive chronic bronchitis with exacerbation Acute bronchitis, unspecified organism Acute pneumonia Acute gastroenteritis Other and unspecified noninfectious gastroenteritis and colitis Exacerbation of asthma, unspecified asthma severity, unspecified whether persistent Bronchitis Bronchitis, not specified as acute or chronic documented in this encounter Administered Medications Inactive Administered Medications - up to 3 most recent administrations Medication Order MAR Action Action Date Dose Rate Site azithromycin (ZITHROMAX) tablet 500 mg 500 mg, oral, Once, On Sat08/02/25 at 1629, For 1 dose, Indication: Pneumonia, Community Acquired Given 08/02/2025 5:50 PM EST 500 mg cefTRIAXone (ROCEPHIN) 2 g in sterile water 20 mL IV syringe 2 g, intravenous, Administer over 3 Minutes, Once, On Sat08/02/25 at 1629, For 1 dose, Do not administer simultaneously with any calcium containing solutions via a Y-site in any patient., Indication: Pneumonia, Community Acquired Given 08/02/2025 6:16 PM EST 2 g dexAMETHasone (DECADRON) injection 10 mg 10 mg, intravenous, Once, On Sat08/02/25 at 1629, For 1 dose Given 08/02/2025 5:48 PM EST 10 mg ipratropium-albuteroL (DUONEB) 0.5-2.5 mg/3 mL nebulizer solution 3 mL 3 mL, nebulization, Once, On Sat08/02/25 at 1629, For 1 dose Given 08/02/2025 5:04 PM EST 3 mL documented in this encounter Active and Recently Administered Medications Times are shown in EST. Scheduled Medication Order 07/31/2025 08/01/2025 08/02/2025 azithromycin (ZITHROMAX) tablet 500 mg (COMPLETED) 500 mg, oral, Once, On Sat08/02/25 at 1629, For 1 dose, Indication: Pneumonia, Community Acquired 1750 (Given - Provid er: Maida Crowder RN - Comment: pt getting nebulizer duoneb tx) cefTRIAXone (ROCEPHIN) 2 g in sterile water 20 mL IV syringe (COMPLETED) 2 g, intravenous, Administer over 3 Minutes, Once, On Sat08/02/25 at 1629, For 1 dose, Do not administer simultaneously with any calcium containing solutions via a Y-site in any patient., Indication: Pneumonia, Community Acquired 1815 (Given - Provid er: Maida Crowder RN - Comment: difficult IV access and needed lab redraw) dexAMETHasone (DECADRON) injection 10 mg (COMPLETED) 10 mg, intravenous, Once, On 11/17/25 at 1629, For 1 dose 1748 (Given - Provid er: Maida Crowder RN - Comment: difficulty getting IV access) ipratropium-albuteroL (DUONEB) 0.5-2.5 mg/3 mL nebulizer solution 3 mL (COMPLETED) 3 mL, nebulization, Once, On Sat08/02/25 at 1629, For 1 dose 1704 (Given - Provid er: Maida Crowedr RN) ondansetron (PF) (ZOFRAN) injection 4 mg 4 mg, intravenous, Once, On Sat08/02/25 at 1848, For 1 dose 1848 (Not Given - Pr ovider: Maida Crowder RN - Reason: Patient/Resident/Agent refused - education provided ) documented in this encounter Orders Medications Ordered That Matty ht Not Have Been Administered Count Last Ordered Date First Ordered Date ondansetron (PF) (ZOFRAN) injection 4 mg 1 08/02/2025 documented in this encounter Additional Health Concerns Infection Onset Date Last Indicated Resolved Time Respiratory Rule-Out 08/02/2025 08/02/2025 025 5:52 PM EST COVID-19 Rule-Out 08/02/2025 08/02/2025 08/02/2025 5:52 PM EST documented as of this encounter Care Teams Ski Lift Attendant Relationship Specialty Start Date End Date Physician, Pcp Unknown PCP - General 08/02/25 documented as of this encounter
--- NOTE | ~2025-08-05 | XR_ITS ---
EXAMINATION: XR CHEST CLINICAL INFORMATION: R05.9 - Cough, unspecified COMPARISON: December 2024 TECHNIQUE: PA and lateral views FINDINGS: Poor inspiration. Pulmonary reticular pattern. Linear opacities left and to a lesser extent right lower hemithorax. No gross consolidation, pleural effusion or pneumothorax. Cardiomediastinal silhouette size is normal. Calcified plaque aorta. Multilevel spondylosis. Osteopenia versus osteoporosis. Old healed rib fractures, posterior lateral aspect thorax/rib cage, bilaterally. S-shaped curvature of the thoracic spine. XR/XR chest 2V IMPRESSION: Chronic interstitial lung disease with likely subsegmental atelectasis versus scarring. Electronically signed by: Eric Parekh MD 08/05/2025 11:55 AM EST
--- OUTSIDE RECORDS SUMMARY | 2025-08-05 16:35 | XMS_ITS | Clinical Summary ---
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 12 tablet 5 Active ibuprofen (ADVIL,MOTRIN) 200 mg tablet Take 1 tablet (200 mg total) by mouth every 6 (six) hours if needed for mild pain for up to 36 doses. 36 tablet 5 Active ondansetron ODT (ZOFRAN-ODT) 4 mg disintegrating tablet Dissolve 1 tablet (4 mg total) on top of the tongue every 8 (eight) hours if needed for nausea or vomiting for up to 12 doses. Let 1 tablet dissolve under the tongue three times daily as needed for nausea or vomiting. 12 tablet 5 Active diphenhydrAMINE (BENADRYL) 25 mg capsule Take 1 capsule (25 mg total) by mouth every 4 (four) hours if needed (Congestion, insomnia) for up to 30 doses. 30 capsule 5 Active albuterol HFA (PROAIR HFA ; PROVENTIL HFA ; VENTOLIN HFA) 90 mcg/actuation inhaler Inhale 2 puffs by mouth every 4 (four) hours if needed for wheezing. 1 each 5 09/01/20 25 Active cefpodoxime (VANTIN) 200 mg tablet Take 1 tablet (200 mg total) by mouth 2 (two) times a day for 5 days. 10 each 5 08/07/20 Active saccharomyces boulardii (FLORASTOR) 250 mg capsule Take 1 capsule (250 mg total) by mouth 2 (two) times a day. 60 capsule 5 09/01/20 Active predniSONE (DELTASONE) 20 mg tablet Take 3 tablets (60 mg total) by mouth 1 (one) time each day for 5 days. See instructions . 15 each 5 08/07/20 Active azithromycin (ZITHROMAX) 500 mg tablet Take 1 tablet (500 mg total) by mouth 1 (one) time each day for 3 days. 3 each 5 08/05/20 Active Encounters Date Type Department Care Team Description 08/02/2025 4:18 PM EST - 08/02/2025 8:34 PM EST Emergency [facility] Emergency [address] [place] [address] Aftab Haney MD Landry, Jonathan P, MD Acute exacerbation of chronic obstructive pulmonary disease (COPD) (CMS/[facility] V24, CMS/[facility] V28) (Primary Dx); Acute bronchitis, unspecified organism; Acute pneumonia; Acute gastroenteritis; Exacerbation of asthma, unspecified asthma severity, unspecified whether persistent; Bronchitis Discharge Disposition: Home or Self Care from Last 3 Months Social History Tobacco Use Types Packs/Day Years [...] Mass Index 26.54 08/02/2025 5:09 PM EST Plan of Treatment Health Maintenance Due Date Last Done Comments Colorectal Cancer Screening: Colonoscopy 1952 DTaP,Tdap,and Td Vaccines (1 - Tdap) 1971 Pneumococcal Vaccine: 50+ Ye ars (1 of 2 - PCV) 1971 RSV Immunization Adult Patie nts (1 - Risk 50-74 years 1-dose series) 2002 Zoster Vaccines (1 of 2) 2002 Depression Screening 09/16/2024 COVID-19 Vaccine (1 - 2024-2 6 season) 2025 Influenza Vaccine (#1) 2025 Abdominal Aortic Aneurysm (A AA) Screen 08/02/2025 Cholesterol Screening (Lipid Panel) 08/02/2025 Falls Risk Assessment 08/02/2025 Hepatitis C Screening 08/02/2025 Social Influencers of Health Screening 08/02/2025 HIB Vaccines Aged Out No longer eligi [...] on patient's age to complete this topic Procedures Procedure Name Priority Date/Time Associated Diagnosis [...] NATRIURETIC PEPTIDE STAT 08/02/2025 5:24 PM EST [id number], RSV, FLU A AND B QUALITATIVE RT-PCR, INTERNAL LAB STAT 08/02/2025 4:58 PM EST from Last 3 Months Results * Magnesium (08/02/2025 6:02 PM EST) [facility] Magnesium 2.1 1.9 - 2.6 mg/dL LAB CHEMISTRY METHOD 08/02/2025 7:17 PM [facility] Blood Venous blood specimen / Unknown Venipuncture / Unknown 08/02/2025 6:02 PM EST 08/02/2025 6:47 PM EST us Aftab Haney MD LAB BLOOD ORDERABLES Final Result [facility] [address] [place] [address], [place] [phone] * Comprehensive Metabolic Panel (CMP) (08/02/2025 6:02 PM EST) [facility] Sodium 140 133 - 145 mmol/L LAB CHEMISTRY METHOD 08/02/2025 7:17 PM EST [facility] Potassium 3.9 3.5 - 5.5 mmol/L LAB CHEMISTRY METHOD 08/02/2025 7:17 PM [facility] Chloride 109 96 - 110 mmol/L LAB CHEMISTRY METHOD 08/02/2025 7:17 PM [facility] CO2 26 21 - 32 mmol/L LAB CHEMISTRY METHOD 08/02/2025 7:17 PM EST [facility] Anion Gap 5 3 - 11 LAB CHEMISTRY METHOD 08/02/2025 7:17 PM [facility] Glucose 95 70 - 100 mg/dL LAB CHEMISTRY METHOD 08/02/2025 7:17 PM [facility] BUN 16 5 - 25 mg/dL LAB CHEMISTRY METHOD 08/02/2025 7:17 PM [facility] Creatinine 0.80 0.70 - 1.30 mg/dL LAB CHEMISTRY METHOD 08/02/2025 7:17 PM [facility] eGFR 94 >=60 mL/min/1. 73m2 LAB CHEMISTRY METHOD 08/02/2025 7:17 PM [facility] Comment:Calculation based on the Chronic Kidney Disease Epidemiology Collaboration (CKD-EPI) equation refit without adjustment for race. BUN/Creatinine Ratio 20.0 LAB CHEMISTRY METHOD 08/02/2025 7:17 PM [facility] Calcium 9.1 8.5 - 10.5 mg/dL LAB CHEMISTRY METHOD 08/02/2025 7:17 PM [facility] AST (SGOT) 21 10 - 42 unit/L LAB CHEMISTRY METHOD 08/02/2025 7:17 PM [facility] ALT (SGPT) 41 10 - 60 unit/L LAB CHEMISTRY METHOD 08/02/2025 7:17 PM [facility] Alkaline Phosphatase 84 42 - 121 unit/L LAB CHEMISTRY METHOD 08/02/2025 7:17 PM [facility] Total Protein 7.3 6.0 - 8.0 g/dL LAB CHEMISTRY METHOD 08/02/2025 7:17 PM [facility] Albumin 3.7 3.2 - 5.0 g/dL LAB CHEMISTRY METHOD 08/02/2025 7:17 PM [facility] Total Bilirubin 0.5 0.0 - 1.4 mg/dL LAB CHEMISTRY METHOD 08/02/2025 7:17 PM [facility] Blood Venous blood specimen / Unknown Venipuncture / Unknown 08/02/2025 6:02 PM EST 08/02/2025 6:47 PM EST us Aftab Haney MD LAB BLOOD ORDERABLES Final Result Performing Organization Address [facility] Co de Phone Number [facility] [address] [place] [address], [place] [phone] * Troponin I High Sensitivity (08/02/2025 5:39 PM EST) [facility] High Sensitivity Troponin I 8 <=79 ng/L LAB CHEMISTRY METHOD 08/02/2025 7:57 PM EST [facility] Blood Venous blood specimen / Unknown Venipuncture / Unknown 08/02/2025 5:39 PM EST 08/02/2025 6:48 PM EST Narrative [facility] - 08/02/2025 7:57 PM EST High levels of biotin in samples may falsely decrease hsTroponin values. Use caution when interpreting hsTroponin results in patients taking biotin who exhibit renal impairment (eGFR <60) or in patients taking more than 20 mg/day of biotin. us Aftab Haney MD LAB BLOOD ORDERABLES Final Result Performing Organization Address [facility] Phone Number [facility] [address] [place] [address], * XR Chest 1 View (08/02/2025 5:38 [...] Signed Date: 08/03/2025 08:36 ET Workstation ID: [id number] Transcribed By: Self Edit Transcribed Date: 08/03/2025 [...] Signed Date: 08/03/2025 08:36 ET Workstation ID: [id number] Transcribed By: Self Edit Transcribed Date: 08/03/2025 08:34 ET Aftab Haney MD IMG XR PROCEDURES Final Res ult * (ABNORMAL) CBC auto differential (08/02/2025 5:24 PM EST) WBC 6.0 4.8 - 10.8 K/[facility] HEMETOLOGY METHOD 08/02/2025 6:12 PM EST [facility] RBC 5.20 4.50 - 5.50 M/[facility] LAB HEMETOLOGY METHOD 08/02/2025 6:12 PM EST [facility] Hemoglobin 16.9 13.5 - 17.5 g/dL LAB HEMETOLOGY METHOD 08/02/2025 6:12 PM EST [facility] Hematocrit 50.9 42.0 - 54.0 % LAB HEMETOLOGY METHOD 08/02/2025 6:12 PM [facility] MCV 98.3(H) 79.0 - 98.0 [place] LAB HEMETOLOGY METHOD 08/02/2025 6:12 PM [facility] MCH 32.6(H) 27.0 - 32.0 pcg LAB HEMETOLOGY METHOD 08/02/2025 6:12 PM [facility] MCHC 33.2 32.0 - 37.0 g/dL LAB HEMETOLOGY METHOD 08/02/2025 6:12 PM [facility] RDW 13.2 11.0 - 15.0 % LAB HEMETOLOGY METHOD 08/02/2025 6:12 PM [facility] Platelets LAB HEMETOLOGY METHOD 08/02/2025 6:12 PM [facility] Comment:Not measured. Platel ets appear adequate but clumped MPV 10.5 7.0 - 11.0 FL LAB HEMETOLOGY METHOD 08/02/2025 6:12 PM [facility] NRBC 0.0 <1.0 % LAB HEMETOLOGY METHOD 08/02/2025 6:12 PM [facility] NRBC Absolute 0.00 <0.10 K/mcL LAB HEMETOLOGY METHOD 08/02/2025 6:12 PM [facility] Neutrophils Relative 55.6 % LAB HEMETOLOGY METHOD 08/02/2025 6:12 PM [facility] Lymphocytes Relative 27.0 % LAB HEMETOLOGY METHOD 08/02/2025 6:12 PM [facility] Monocytes Relative 12.1 % LAB HEMETOLOGY METHOD 08/02/2025 6:12 PM [facility] Eosinophils Relative 3.8 % LAB HEMETOLOGY METHOD 08/02/2025 6:12 PM [facility] Basophils Relative 1.0 % LAB HEMETOLOGY METHOD 08/02/2025 6:12 PM EST [facility] Immature Granulocytes Relative 0.5 % LAB HEMETOLOGY METHOD 08/02/2025 6:12 PM EST [facility] Neutrophils Absolute 3.35 1.50 - 7.00 K/mcL LAB HEMETOLOGY METHOD 08/02/2025 6:12 PM EST [facility] Lymphocytes Absolute 1.63 1.00 - 5.00 K/mcL LAB HEMETOLOGY METHOD 08/02/2025 6:12 PM EST [facility] Monocytes Absolute 0.73 0.20 - 1.00 K/mcL LAB HEMETOLOGY METHOD 08/02/2025 6:12 PM EST [facility] Eosinophils Absolute 0.23 0.00 - 0.50 K/mcL LAB HEMETOLOGY METHOD 08/02/2025 6:12 PM EST [facility] Basophils Absolute 0.06 0.00 - 0.20 K/mcL LAB HEMETOLOGY METHOD 08/02/2025 6:12 PM EST [facility] Immature Granulocytes Absolute 0.03 0.00 - 0.03 K/mcL LAB HEMETOLOGY METHOD 08/02/2025 6:12 PM EST [facility] Blood Venous blood specimen / Unknown Venipuncture / Unknown 08/02/2025 5:24 PM EST 08/02/2025 5:32 PM EST us Aftab Haney MD LAB BLOOD ORDERABLES Final Result [facility] [address] [place] [address], * B-Type Natriuretic Peptide (BNP) (08/02/2025 5:24 PM EST) BNP <2 <=100 pcg/mL LAB CHEMISTRY METHOD 08/02/2025 6:18 PM EST [facility] Blood Venous blood specimen / Unknown Venipuncture / Unknown 08/02/2025 5:24 PM EST 08/02/2025 5:32 PM EST us Aftab Haney MD LAB BLOOD ORDERABLES Final Result Performing Organization Address [facility]/ZIP Co de Phone Number [facility] [address] [place] [address], [place] [phone] * [id number], RSV, Influenza A and B qualitative RT-PCR (08/02/2025 4:58 PM EST) Pathologist [facility] Influenza A PCR Not Detected Not Detected LAB MICROBIOLOGY METHOD 08/02/2025 5:52 PM EST [facility] Influenza B PCR Not Detected Not Detected LAB MICROBIOLOGY METHOD 08/02/2025 5:52 PM EST [facility] RSV PCR Not Detected Not Detected LAB MICROBIOLOGY METHOD 08/02/2025 5:52 PM EST [facility] SARS COV-2 Not Detected Not Detected LAB MICROBIOLOGY METHOD 08/02/2025 5:52 PM EST [facility] Swab Nasopharyngeal structure / Unknown Non-blood Collection / Unknown 08/02/2025 4:58 PM EST 08/02/2025 5:07 PM EST us Aftab Haney MD LAB MICROBIOLOGY - GENERAL ORDERABLES Final Result Performing Organization Address City/[facility]/ZIP Co de Phone Number [facility] [address] [place] [address], [place] [phone] from Last 3 Months Insurance [facility] Advance Directives Documents on File Type Date Recorded Patient Security Escort Expl anation Health Care Decision (hx) 04/29/2022 AD SON DIRECTIVE Health Care Decision (hx) 04/29/2022 AD SON DIRECTIVE Care Teams [employer] Art[employer] Operations Specialist Relationship Specialty Start Date End Date Physician, Pcp Unknown PCP - General 08/02/25
== END 2025-08-05 10:57 | disposition home or self-care (01) ==
LOC: HO.XRAY 10:56
PROVIDERS: PCP Internal Medicine; Visit Provider Internal Medicine
DX: R05.9 Cough, unspecified (principal)
CPT/HCPCS: 71046

== ENCOUNTER → 2025-08-05 10:58 | Outpatient (BNV) | payer BC, SELFPAY | PROVIDERS: PCP Internal Medicine; Visit Provider Radiology Diagnostic Radiology | DX: J84.9 Interstitial pulmonary disease, unspecified (principal) | CPT/HCPCS: 71046 ==

== ENCOUNTER 2025-08-24 11:37 | Outpatient (AMB) | payer BC, SELFPAY ==
[2025-08-24 11:44] VITALS: BP 110/63; PULSE 90; RESP 18; TEMP 36.8; O2SAT 94; BMI 33.4
--- NOTE | 2025-08-24 11:44 | A.OFFPC_ITS ---
Vital Signs 08/24/25 11:44 Height 5 ft 5.24 in Weight 202 lb BMI 33.4 BP 110/63 Blood Pressure Location Lt brachial Position Sitting Respiration 18 Pulse 90 Pulse Source Pulse Oximeter Temp 98.2 F Temp Source Temporal Artery Scan Pulse Oximetry (%) 94 Oxygen Delivery Method Room Air Intake Visit Reasons: 11 Month follow up - see comments Milk Pasteurizer Required: No Accompanied by: Self / Same As Patient Allergies Penicillins Allergy (Severe, Verified 08/24/25 11:45) Swelling Tobacco use date assessed: 05/26/25 Dental Screening Dental Screen Date: 03/29/25 PENDING SALE TO [facility] Medical History Rotator cuff tear Tachycardia Cervical spondylosis Chronic neck pain Asthma Persistent cough Establishing care with new doctor, encounter for Cough Chronic disease anemia Contracture of muscle, left forearm Drug abuse Adult failure to thrive Family History Father No problems noted. Mother No problems noted. Social History Household Members: None Housing: House Housing Other:: living in a hotel Do you presently have visiting nurse or other home services: No Alcohol intake: current Alcohol intake frequency: does not drink Patient Tobacco Use Status: Never used Tobacco service: Yes Current occupational status: retired Cognitive needs: Yes (cane and walker) Hearing needs: No Vision needs: Yes (reading glasses) Questionnaire PHQ-9 Over the last 2 weeks, how often have you been bothered by any of the following problems? 1. Little interest or pleasure in doing things: not at all 2. Feeling down, depressed, or hopeless: not at all 3. Trouble falling or staying asleep, or sleeping too much: not at all 4. Feeling tired or having little energy: not at all 5. Poor appetite or overeating: not at all 6. Feeling bad about yourself - or that you are a failure or have let yourself or your family down: not at all 7. Trouble concentrating on things, such as reading the newspaper or watching television: not at all 8. Moving or speaking so slowly that other people could have noticed. Or the opposite - being so fidgety or restless that you have been moving around a lot more than usual: not at all 9. Thoughts that you would be better off or of hurting yourself in some way: not at all Total score: 0 Depression Screening Interpretation: Negative Depression Screening Done: Yes 85617 - PHQ-9 Billing: Yes Source: Developed by Drs. Bryce Mathews, Yary Hernandez, Noel Rodriguez and colleagues, with an educational arabella from [employer]. Thrive Questionnaire Date Thrive assessed: 05/04/25 I am a: Patient What is your living situation today?: I have a steady place to live Within the past 12 months, did the food you bought not last and you didn't have the money to get more?: Never true Within the past 12 months, did you worry whether your food would run out before you got money to buy more?: Never true Do you have trouble paying for medicines?: No Do you have trouble getting transportation to medical appointments?: No Do you have trouble paying your heating and electricity bill?: No Do you have trouble taking care of your child, family member or friend?: No Do you have trouble with day-to-day activities such as bathing, preparing meals, shopping, managing finances, etc.?: No Are you currently unemployed and looking for a job?: No Are you interested in more education?: No Please select the resources that you would like help with: None Currently or been in a relationship where the following occur: No concerns repo rted THRIVE Score: 0 AUDIT C Alcohol Use Questionnaire (AUDIT-C) 1. How often do you have a drink containing alcohol?: Never 3. How often do you have six or more drinks on one occasion?: Never Total Score: 0 Score Reviewed/Action Taken: No MARGE-7 AMB Questionnaire MARGE-7 Date MARGE - 7 assessed: 05/04/25 Feeling nervous, anxious, or on edge: 0 = Not at all Not being able to stop or control worryin = Not at all Worrying too much about different things: 0 = Not at all Trouble relaxin = Not at all Being so restless that it is hard to sit still: 0 = Not at all Becoming easily annoyed or irritable: 0 = Not at all Feeling afraid as if something awful might happen: 0 = Not at all Total MARGE-7 score (0-4 normal; 5-9 mild; 10-14 moderate; 15-21 severe): 0 Source: Developed by Drs. Bryce Mathews, Yary Hernandez, Noel Rodriguez and colleagues, with an educational arabella from [employer]. MARGE-7 Assessment Billing MARGE-7 Assessment Tool: MARGE-7 Assessment 18334 Physical exam (Primary Care) Vital Signs: Last Vital Signs Temp 98.2 F 08/24/25 11:44 Pulse 90 08/24/25 11:44 Resp 18 08/24/25 11:44 BP 110/63 08/24/25 11:44 Pulse Ox 94 08/24/25 11:44 Oxygen Delivery Method Room Air 08/24/25 11:44 BMI result Body Mass Index 33.4 Tobacco/Smoking Status: Tobacco use Status Tobacco use date assessed 05/26/25 08/24/25 11:50 Patient Tobacco Use Status Never used Tobacco 08/24/25 11:50 PHQ-9: PHQ-9 Score PHQ-9: Total score 0 08/24/25 11:50 Depression Screening Interpretation: Negative Thrive Assessment: Date of Thrive Assessment Date Thrive assessed 05/04/25 08/24/25 11:50 Currently or been in a relationship where the following occur: No concerns reported Office Procedures Flu Questionnaire Does the patient have a severe egg allergy?: No Does the patient have severe life threatening allergies?: No Does the patient have a fever or illness today?: No Has the patient ever had Guillain-[place] Syndrome?: No Has the patient ever had any past reaction to a flu shot?: No Immunizations Fluarix [id number] (PF) 45 mcg (15 mcg x 3)/0.5 mL IM syringe Performing Provider: Zack Dhaliwal MD [facility] Documented (not given) by: FLAVIO Hagen on 08/24/25 11:53 Reason Not Given: Patient Refused Coding Additional Codes MARGE-7 Assessment Billing - MARGE-7 Assessment Tool: MARGE-7 Assessment 19201 ([id number]) PHQ-9 - 29804 - PHQ-9 Billing: Yes ([id number]) Assessment & Plan Assessment & Plan Orders: Orders Influenza [id number] Immunization 08/24/25 Z23 - Encounter for immunization
== END 2025-08-24 12:15 | disposition home or self-care (01) ==
LOC: HO.HMCSH 11:37
PROVIDERS: PCP Internal Medicine; Visit Provider Internal Medicine
DX: Z23 Encounter for immunization (principal)

== ENCOUNTER → 2025-08-24 11:37 | Outpatient (BNVA) | payer BC, SELFPAY | PROVIDERS: PCP Internal Medicine; Visit Provider Internal Medicine | DX: M50.30 Other cervical disc degeneration, unspecified cervical region (principal); Z28.21 Immunization not carried out because of patient refusal | CPT/HCPCS: 90471; 96127 ==

== ENCOUNTER 2025-09-03 08:42 | Outpatient (AMB) | payer BC, SELFPAY ==
--- NOTE | 2025-09-03 08:50 | A.OFFVIS_ITS ---
Vital Signs 09/03/25 08:52 Height 5 ft 2.4 in Weight 200 lb BMI 36.1 BP 142/89 H Blood Pressure Location Lt brachial Position Sitting Respiration 16 Pulse 107 H Pulse Source Pulse Oximeter Pulse Oximetry (%) 94 Oxygen Delivery Method Room Air Intake Visit Reasons: Trigger Point Inj. Lens Blocker Required: No Implementation Coordinator: Implementation Coordinator Present Accompanied by: Héctor Cuevas Allergies Penicillins Allergy (Severe, Verified 09/03/25 08:54) Swelling Medication List - Last Reconciled 09/03/25 by Dania Jeffries LPN albuterol sulfate 90 mcg/actuation 2 puffs inhalation Q4-6H PRN 30 days nebulizers (Altera Nebulizer System) As directed. Please provide accessories for nebulizer machine HPI HPI Trigger Point Inj.: Details: 75-year-old male with significant cervical muscle spasm and dystonia with his head fixed in an forward flexed position presenting for trigger point injections for cervical pain. On exam his movement is significantly reduced. He is unable to laterally rotate his head to the left or right. Muscles are taut. [facility] Medical History Rotator cuff tear Tachycardia Cervical spondylosis Chronic neck pain Asthma Persistent cough Establishing care with new doctor, encounter for Cough Chronic disease anemia Contracture of muscle, left forearm Drug abuse Adult failure to thrive Family History Father No problems noted. Mother No problems noted. Social History Household Members: None Housing: House Housing Other:: living in a hotel Do you presently have visiting nurse or other home services: No Alcohol intake: current Alcohol intake frequency: does not drink Patient Tobacco Use Status: Never used Tobacco service: Yes Current occupational status: retired Cognitive needs: Yes (cane and walker) Hearing needs: No Vision needs: Yes (reading glasses) Physical Exam Vital Signs: Last Vital Signs Pulse 107 H 09/03/25 08:52 Resp 16 09/03/25 08:52 BP 142/89 H 09/03/25 08:52 Pulse Ox 94 09/03/25 08:52 Oxygen Delivery Method Room Air 09/03/25 08:52 BMI result Body Mass Index 36.1 Office Procedures Injection Trigger Point Multi Trigger Point Injections Pre-procedure diagnosis: Myofascial pain Post-procedure diagnosis: Myofascial pain Site and number of trigger points: Splenius, bilateral Trapezius, bilateral Levator scapula, bilateral Solution: Total volume administered 17 ml (ropivacaine 0.25%) The procedure, its benefits, and its risks were explained to the patient and all questions were answered. A ?time out? was performed to confirm correct patient, procedure, and laterality. Trigger points were identified by manual palpation. The skin was cleaned with Chloraprep. A 1.5 inch 25 G needle was used. Each of the trigger points were approximated and elevated in the direction away from the body. Approximately 0.5 ml to 1 ml of injectate was delivered to the trigger point followed by dry needling for 3-5 seconds. This process was repeated at each trigger point site. The patient tolerated the procedure well. Post-procedure, there was no change in respiratory status. The patient tolerated the procedure well, without complication. The patient denied any numbness, paresthesias, or weakness. Post-procedure vitals were recorded as part of the nursing discharge note in electronic medical record. Following a period of observation, the patient was discharged in stable condition with written discharge instructions. Trigger Point Multiple: 79171- Trigger point injection =/>3 Assessment & Plan Assessment & Plan (1) Myofascial pain: Code(s): M79.18 - Myalgia, other site Category: Medical (2) Cervical dystonia: Code(s): G24.3 - Spasmodic torticollis Category: Medical Plan Status post trigger point injections with local anesthetic. Given his significant muscle tightness and dystonia of the neck muscles, I believe he would benefit from a trial of Botox to the trapezius, splenius and levator scapula. We have previously tried cervical facet blocks which could not be done due to inability to appropriately position of the neck due to cervical dystonia. We trialed trigger point injections today and we will assess response but I do not think he will get long-term response to this intervention from a cervical range of motion standpoint. Patient is in agreement with requesting authorization for trial of low-dose Botox for cervical muscle spasm and torticollis. Coding Level of Care Code Est Pt Level 3 (33672) Diagnoses Myofascial pain M79.18 Cervical dystonia G24.3 CPT Codes Details - Trigger Point Multiple: 66235- Trigger point injection =/>3 ([id number])
[2025-09-03 08:52] VITALS: BP 142/89; PULSE 107; RESP 16; O2SAT 94; BMI 36.1
--- OUTSIDE RECORDS SUMMARY | 2025-09-03 08:54 | XMS_ITS | Clinical Summary ---
Author Organization [facility] Address [address] [place] [address] Phone Care Team Providers Care Community Living Specialist Name Role Phone Physician, Pcp Unknown [...] if needed for wheezing. 1 each 5 Active cefpodoxime (VANTIN) 200 mg tablet Take 1 tablet (200 mg total) by mouth 2 (two) times a day for 5 days. 10 each 5 08/07/20 25 saccharomyces boulardii (FLORASTOR) 250 mg capsule Take 1 capsule (250 mg total) by mouth 2 (two) times a day. 60 capsule 5 09/01/20 25 predniSONE (DELTASONE) 20 mg tablet Take 3 tablets (60 mg total) by mouth 1 (one) time each day for 5 days. See instructions . 15 each 5 08/07/20 25 azithromycin (ZITHROMAX) 500 mg tablet Take 1 tablet (500 mg total) by mouth 1 (one) time each day for 3 days. 3 each 5 08/05/20 25 Encounters Date Type Department Care Team Description 08/02/2025 4:18 PM EST - 08/02/2025 8:34 PM EST Emergency [facility] Emergency [address] [place] [id number] Aftab Haney MD Landry, Jonathan P, MD Acute exacerbation of chronic obstructive pulmonary disease (COPD) (CMS/[facility] V24, CMS/[facility] V28) (Primary Dx); Acute bronchitis, unspecified organism; [...] NATRIURETIC PEPTIDE STAT 08/02/2025 5:24 PM EST SEKS-[id number], RSV, FLU A AND B QUALITATIVE RT-PCR, INTERNAL LAB STAT 08/02/2025 4:58 PM EST from Last 3 Months Results * Magnesium (08/02/2025 6:02 PM EST) [facility] Magnesium 2.1 1.9 - 2.6 mg/dL LAB CHEMISTRY METHOD 08/02/2025 7:17 PM [facility] Blood Venous blood specimen / Unknown Venipuncture / Unknown 08/02/2025 6:02 PM EST 08/02/2025 6:47 PM EST us Aftab Haney MD LAB BLOOD ORDERABLES Final Result [facility] [address] [place] [address], [place] [phone] * Comprehensive Metabolic Panel (CMP) (08/02/2025 6:02 PM EST) [facility] Sodium 140 133 - 145 mmol/L LAB CHEMISTRY METHOD 08/02/2025 7:17 PM [facility] Potassium 3.9 3.5 - 5.5 mmol/L LAB CHEMISTRY METHOD 08/02/2025 7:17 PM [facility] Chloride 109 96 - 110 mmol/L LAB CHEMISTRY METHOD 08/02/2025 7:17 PM [facility] CO2 26 21 - 32 mmol/L LAB CHEMISTRY METHOD 08/02/2025 7:17 PM [facility] Anion Gap 5 3 - 11 LAB CHEMISTRY METHOD 08/02/2025 7:17 PM [facility] Glucose 95 70 - 100 mg/dL LAB CHEMISTRY METHOD 08/02/2025 7:17 PM [facility] BUN 16 5 - 25 mg/dL LAB CHEMISTRY METHOD 08/02/2025 7:17 PM [facility] Creatinine 0.80 0.70 - 1.30 mg/dL LAB CHEMISTRY METHOD 08/02/2025 7:17 PM [facility] eGFR 94 >=60 mL/min/1. 73m2 LAB CHEMISTRY METHOD 08/02/2025 7:17 PM [facility] Comment:Calculation based on the Chronic Kidney Disease Epidemiology Collaboration (CKD-EPI) equation refit without adjustment for race. BUN/Creatinine Ratio 20.0 LAB CHEMISTRY METHOD 08/02/2025 7:17 PM [facility] Calcium 9.1 8.5 - 10.5 mg/dL LAB CHEMISTRY METHOD 08/02/2025 7:17 PM [facility] AST (SGOT) 21 10 - 42 unit/L LAB CHEMISTRY METHOD 08/02/2025 7:17 PM [facility] ALT (SGPT) 41 10 - 60 unit/L LAB CHEMISTRY METHOD 08/02/2025 7:17 PM [facility] Alkaline Phosphatase 84 42 - 121 unit/L LAB CHEMISTRY METHOD 08/02/2025 7:17 PM [facility] Total Protein 7.3 6.0 - 8.0 g/dL LAB CHEMISTRY METHOD 08/02/2025 7:17 PM [facility] Albumin 3.7 3.2 - 5.0 g/dL LAB CHEMISTRY METHOD 08/02/2025 7:17 PM [facility] Total Bilirubin 0.5 0.0 - 1.4 mg/dL LAB CHEMISTRY METHOD 08/02/2025 7:17 PM [facility] Blood Venous blood specimen / Unknown Venipuncture / Unknown 08/02/2025 6:02 PM EST 08/02/2025 6:47 PM EST us Aftab Haney MD LAB BLOOD ORDERABLES Final Result Performing Organization Address [facility] de Phone Number [facility] [address] [place] [address], [place] [phone] * Troponin I High Sensitivity (08/02/2025 5:39 PM EST) [facility] High Sensitivity Troponin I 8 <=79 ng/L LAB CHEMISTRY METHOD 08/02/2025 7:57 PM EST [facility] Blood Venous blood specimen / Unknown Venipuncture / Unknown 08/02/2025 5:39 PM EST 08/02/2025 6:48 PM EST Narrative [facility] - 08/02/2025 7:57 PM EST High levels of biotin in samples may falsely decrease hsTroponin values. Use caution when interpreting hsTroponin results in patients taking biotin who exhibit renal impairment (eGFR <60) or in patients taking more than 20 mg/day of biotin. us Aftab Haney MD LAB BLOOD ORDERABLES Final Result Performing Organization Address [facility] Phone Number [facility] [address] [place] [address], * XR Chest 1 View (08/02/2025 5:38 [...] Signed Date: 08/03/2025 08:36 ET Workstation ID: [id number] Transcribed By: Self Edit Transcribed Date: 08/03/2025 [...] Signed Date: 08/03/2025 08:36 ET Workstation ID: [id number] Transcribed By: Self Edit Transcribed Date: 08/03/2025 08:34 ET Aftab Haney MD IMG XR PROCEDURES Final Res ult * (ABNORMAL) CBC auto differential (08/02/2025 5:24 PM EST) WBC 6.0 4.8 - 10.8 K/mcL LAB HEMETOLOGY METHOD 08/02/2025 6:12 PM EST [facility] RBC 5.20 4.50 - 5.50 M/mcL LAB HEMETOLOGY METHOD 08/02/2025 6:12 PM EST [facility] Hemoglobin 16.9 13.5 - 17.5 g/dL LAB HEMETOLOGY METHOD 08/02/2025 6:12 PM [facility] Hematocrit 50.9 42.0 - 54.0 % LAB HEMETOLOGY METHOD 08/02/2025 6:12 PM [facility] MCV 98.3(H) 79.0 - 98.0 FL LAB HEMETOLOGY METHOD 08/02/2025 6:12 PM [facility] MCH 32.6(H) 27.0 - 32.0 pcg LAB HEMETOLOGY METHOD 08/02/2025 6:12 PM [facility] MCHC 33.2 32.0 - 37.0 g/dL LAB HEMETOLOGY METHOD 08/02/2025 6:12 PM [facility] RDW 13.2 11.0 - 15.0 % LAB HEMETOLOGY METHOD 08/02/2025 6:12 PM [facility] Platelets LAB HEMETOLOGY METHOD 08/02/2025 6:12 PM [facility] Comment:Not measured. Platel ets appear adequate but clumped MPV 10.5 7.0 - 11.0 FL LAB HEMETOLOGY METHOD 08/02/2025 6:12 PM [facility] NRBC 0.0 <1.0 % LAB HEMETOLOGY METHOD 08/02/2025 6:12 PM [facility] NRBC Absolute 0.00 <0.10 K/mcL LAB HEMETOLOGY METHOD 08/02/2025 6:12 PM [facility] Neutrophils Relative 55.6 % LAB HEMETOLOGY METHOD 08/02/2025 6:12 PM [facility] Lymphocytes Relative 27.0 % LAB HEMETOLOGY METHOD 08/02/2025 6:12 PM [facility] Monocytes Relative 12.1 % LAB HEMETOLOGY METHOD 08/02/2025 6:12 PM [facility] Eosinophils Relative 3.8 % LAB HEMETOLOGY METHOD 08/02/2025 6:12 PM [facility] Basophils Relative 1.0 % LAB HEMETOLOGY METHOD 08/02/2025 6:12 PM EST [facility] Immature Granulocytes Relative 0.5 % LAB HEMETOLOGY METHOD 08/02/2025 6:12 PM EST [facility] Neutrophils Absolute 3.35 1.50 - 7.00 K/mcL LAB HEMETOLOGY METHOD 08/02/2025 6:12 PM EST [facility] Lymphocytes Absolute 1.63 1.00 - 5.00 K/mcL LAB HEMETOLOGY METHOD 08/02/2025 6:12 PM EST [facility] Monocytes Absolute 0.73 0.20 - 1.00 K/mcL LAB HEMETOLOGY METHOD 08/02/2025 6:12 PM EST [facility] Eosinophils Absolute 0.23 0.00 - 0.50 K/mcL LAB HEMETOLOGY METHOD 08/02/2025 6:12 PM EST [facility] Basophils Absolute 0.06 0.00 - 0.20 K/mcL LAB HEMETOLOGY METHOD 08/02/2025 6:12 PM EST [facility] Immature Granulocytes Absolute 0.03 0.00 - 0.03 K/mcL LAB HEMETOLOGY METHOD 08/02/2025 6:12 PM EST [facility] Blood Venous blood specimen / Unknown Venipuncture / Unknown 08/02/2025 5:24 PM EST 08/02/2025 5:32 PM EST us Aftab Haney MD LAB BLOOD ORDERABLES Final Result [facility] [address] [place] [address], * B-Type Natriuretic Peptide (BNP) (08/02/2025 5:24 PM EST) BNP <2 <=100 pcg/mL LAB CHEMISTRY METHOD 08/02/2025 6:18 PM EST [facility] Blood Venous blood specimen / Unknown Venipuncture / Unknown 08/02/2025 5:24 PM EST 08/02/2025 5:32 PM EST us Aftab Haney MD LAB BLOOD ORDERABLES Final Result Performing Organization Address [facility]/ZIP Co de Phone Number [facility] [address] [place] [address], [place] [phone] * [id number], RSV, Influenza A and B qualitative RT-PCR (08/02/2025 4:58 PM EST) Pathologist [facility] Influenza A PCR Not Detected Not Detected LAB MICROBIOLOGY METHOD 08/02/2025 5:52 PM EST [facility] Influenza B PCR Not Detected Not Detected LAB MICROBIOLOGY METHOD 08/02/2025 5:52 PM EST [facility] RSV PCR Not Detected Not Detected LAB MICROBIOLOGY METHOD 08/02/2025 5:52 PM EST [facility] SARS COV-2 Not Detected Not Detected LAB MICROBIOLOGY METHOD 08/02/2025 5:52 PM EST [facility] Swab Nasopharyngeal structure / Unknown Non-blood Collection / Unknown 08/02/2025 4:58 PM EST 08/02/2025 5:07 PM EST us Aftab Haney MD LAB MICROBIOLOGY - GENERAL ORDERABLES Final Result Performing Organization Address City/[facility]/ZIP Co de Phone Number [facility] [address] [place] [address], [place] [phone] from Last 3 Months Insurance [facility] Advance Directives Documents on File Type Date Recorded Patient Security Systems Manager Expl anation Health Care Decision (hx) 04/29/2022 AD SON DIRECTIVE Health Care Decision (hx) 04/29/2022 AD SON DIRECTIVE Care Teams Community Living Specialist Relationship Specialty Start Date End Date Physician, Pcp Unknown PCP - General 08/02/25
== END 2025-09-03 09:13 | disposition home or self-care (01) ==
LOC: HO.PMC 08:42
PROVIDERS: PCP Internal Medicine; Visit Provider Internal Medicine
DX: M79.18 Myalgia, other site (principal); G24.3 Spasmodic torticollis
CPT/HCPCS: 20553; 99213

== ENCOUNTER → 2025-09-03 08:42 | Outpatient (BNVA) | payer BC, SELFPAY | PROVIDERS: PCP Internal Medicine; Visit Provider Internal Medicine | DX: G24.3 Spasmodic torticollis (principal); M79.18 Myalgia, other site | CPT/HCPCS: 20553 ==